=== PATIENT | female | born 1960 | race Caucasian/White ===

== ENCOUNTER 2020-09-16 04:10 | Inpatient (IN) | payer MEDICAID ==
[~2020-09-16] VITALS: Ht 162.6 cm; Wt 90.1 kg
[2020-09-16 04:28] LABS: BASOPHILS # (AUTO) 0.1 X10'3 (0-0.2); BASOPHILS % (AUTO) 0.6 % (0-1); EOSINOPHILS % (AUTO) 0.1 % (0-6); HEMATOCRIT 24.8 % (35.0-45.0); HEMOGLOBIN 8.2 g/dl (12.0-16.0); LYMPHOCYTES # (AUTO) 2.1 X10'3 (1.1-4.8); MEAN CORPUSCULAR HEMOGLOBIN 27.4 PG (27.0-31.0); MEAN CORPUSCULAR HGB CONC 33.1 g/dL (33.0-36.5); MEAN CORPUSCULAR VOLUME 82.6 FL (78-98); MONOCYTES # (AUTO) 0.5 X10'3 (0-0.9); NEUTROPHILS # (AUTO) 6.8 X10'3 (1.8-7.7); NEUTROPHILS % (AUTO) 72.3 % (42-75); PLATELET COUNT 325 X10'3 (140-440); RED BLOOD COUNT 3.01 X10'6 (4.20-5.60); RED CELL DISTRIBUTION WIDTH 14.6 % (11.5-14.5); WHITE BLOOD COUNT 9.4 X10'3 (4.5-11.0)
[2020-09-16] MEDS ORDERED: ATOR40TA PO (04:34)
[2020-09-16] MEDS ORDERED: CARV-50 PO (04:40)
[2020-09-16] MEDS ORDERED: METO5TAB98 PO (04:40)
[2020-09-16] MEDS ORDERED: INSU100V9 SUBCUT (04:40)
[2020-09-16] MEDS ORDERED: AMLO2.5T2 PO (04:40)
[2020-09-16] MEDS ORDERED: AMIT150T PO (04:40)
[2020-09-16] MEDS ORDERED: AMLO5TAB16 PO (04:40)
[2020-09-16] MEDS ORDERED: PANT40TA54 PO (04:40)
[2020-09-16 04:43] LABS: ALANINE AMINOTRANSFERASE 12 U/L (12-78); ALBUMIN 2.8 G/DL (3.4-5.0); ALBUMIN/GLOBULIN RATIO 0.7 (1.1-1.5); ALKALINE PHOSPHATASE 85 IU/L (46-116); ANION GAP 11 (8-16); ASPARTATE AMINO TRANSFERASE 8 U/L (10-37); BILIRUBIN,TOTAL 0.2 MG/DL (0.1-1.0); BLOOD UREA NITROGEN 72 MG/DL (7-18); BUN/CREATININE RATIO 13.9 (6.6-38.0); CHLORIDE 103 MMOL/L (99-107); CREATININE 5.17 MG/DL (0.40-0.90); GLUCOSE 162 MG/DL (70-104); POTASSIUM 5.1 MMOL/L (3.5-5.1); SODIUM 134 MMOL/L (135-145); TOTAL CARBON DIOXIDE 19.7 MMOL/L (24-32); TOTAL PROTEIN 7.1 G/DL (6.4-8.2); eGFR 9 ML/MIN
[2020-09-16] MEDS ORDERED: IRON45TA7 PO (04:45)
[2020-09-16 04:57] LABS: CLARITY,URINE CLOUDY (Clear); COLOR,URINE AMBER (Yellow); GLUCOSE, URINE NEGATIVE (Neg); KETONES,URINE NEGATIVE (Neg); LEUKOCYTE ESTERASE ,URINE MODERATE (Neg); NITRITES, URINE POSITIVE (Neg); OCCULT BLOOD,URINE LARGE (Neg); PROTEIN,URINE >=300 mg/dl (Neg)
[2020-09-16 05:00] LABS: UA COLLECTION TYPE STRAIGHT CATH
[2020-09-16 05:03] LABS: BACTERIA,URINE 3+ /HPF (Neg); RBC,URINE 20-50 /HPF (0-2); SQUAMOUS EPITHELIAL CELL,UR FEW /LPF (FEW); WBC,URINE TNTC /HPF (0-4)
--- NOTE | 2020-09-16 06:02 | NUR ---
DR PIEDRA AT BEDSIDE FOR ADMISSION. PTS WOUND TO RIGHT LOWER ABD HOTOGRAPHED, CULTURED AND REDRESSED. RASH TO BACK PHOTOGRAPHED AND REDRESSED WITH DRY ABD PADS (WHICH IS WHAT THE PT HAS BEEN USING). PTS , MICHAEL, AT BEDSIDE. PT WITH STABLE VS. MED REC COMPLETED.
[2020-09-16] MEDS ORDERED: morphine 2 MG/ML inj. syringe IV PRN (06:05)
[2020-09-16] MEDS ORDERED: acetaminophen 325mg tablet PO PRN (06:05)
[2020-09-16] MEDS ORDERED: ondansetron/PF 4mg/2ml inj IV PRN (06:05)
[2020-09-16] MEDS ORDERED: dextrose 50%-water 50ml dispensing syringe IV PRN ×2 (06:15)
[2020-09-16] MEDS ORDERED: glucagon, human recombinant 1mg kit SUBCUT PRN (06:15)
[2020-09-16] MEDS ORDERED: dextrose ORAL solution 15 GM/59 ML bottle PO PRN ×2 (06:15)
[2020-09-16] MEDS ORDERED: MESSAGE TO PHARMACY PO ONE (06:15)
[2020-09-16 06:56] LABS: HEMOGLOBIN A1C 4.8 % (4.5-6.2)
[2020-09-16] MEDS: docusate sod 100mg capsule PO SCH ×2 (08:00→19:21)
[2020-09-16] MEDS ORDERED: cefepime 1GM/NS ADD-VANTAGE 100 ML IV SCH (08:00)
[2020-09-16] MEDS: normal saline 1000ml 1,000 ML IV SCH (08:57)
[2020-09-16] MEDS: cefepime 1GM/NS ADD-VANTAGE 100 ML IV SCH (08:58)
--- NOTE | 2020-09-16 11:34 | NUR ---
Patient in room ED 16 will be admitted to PCU 3016B. I have received report from Fitz BUITRAGO and had the opportunity to ask questions and assume patient care.
[2020-09-16 12:46] VITALS: BP 175/66
--- NOTE | 2020-09-16 14:06 | NUR ---
Nutrition consult re: pt vegetarian with food preferences, pt seen by Dietary staff who obtained food preferences and will continue to follow up with patient. Addendum: 09/16/20 at [address] Amended: Links added.
[2020-09-16 15:00] VITALS: BP 151/70
[2020-09-16 18:00] VITALS: BP 159/67
[2020-09-16] MEDS ORDERED: METO5TAB85 PO (18:01)
--- NOTE | 2020-09-16 18:19 | NUR ---
Problems reprioritized. Patient report given, questions answered & plan of care reviewed with Rika BUITRAGO
--- NOTE | 2020-09-16 18:20 | NUR ---
Patient in room PCU 3016. I have received report from Lindsay BUITRAGO and had the opportunity to ask questions and assume patient care.
[2020-09-16] MEDS: lactobacillus rhamnosus 10,000 MMU CELLS/CAPSULE PO SCH (19:19)
[2020-09-16] MEDS: HYDROcodone/acetaminophen 5mg/325mg tablet PO PRN (19:21)
[2020-09-16] MEDS: insulin glargine (Lantus) pen - multi-dose SQ SCH (21:00)
--- NOTE | 2020-09-16 22:22 | NUR ---
3016B Ute Wright. Patient takes 150 mg of Amitriptyline HS at home for nerve pain. Can I get an order for it while she is here? It is in the med rec.Thank you. Meryl Dasilva RN
[2020-09-16] MEDS ORDERED: amitriptyline 50mg tablet PO ONE (23:45)
--- NOTE | 2020-09-16 23:45 | NUR ---
5038C U[address] Wright. Patient is nauseous and Zofran is not due for another 2 hours. Can I get an order for something else? Meryl Dasilva RN Ext [phone]
[2020-09-17] MEDS: ondansetron/PF 4mg/2ml inj IV PRN ×3 (00:28→08:53)
[2020-09-17 02:00] VITALS: BP 170/73
[2020-09-17 06:00] VITALS: BP 182/68
[2020-09-17 06:01] LABS: BASOPHILS % (AUTO) 0.4 % (0-1); EOSINOPHILS % (AUTO) 0 % (0-6); HEMATOCRIT 22.2 % (35.0-45.0); HEMOGLOBIN 7.4 g/dl (12.0-16.0); LYMPHOCYTES # (AUTO) 1.5 X10'3 (1.1-4.8); LYMPHOCYTES % (AUTO) 15.8 % (21-51); MEAN CORPUSCULAR HEMOGLOBIN 27.3 PG (27.0-31.0); MEAN CORPUSCULAR HGB CONC 33.1 g/dL (33.0-36.5); MEAN CORPUSCULAR VOLUME 82.3 FL (78-98); MEAN PLATELET VOLUME 6.4 FL (7.4-10.4); MONOCYTES # (AUTO) 0.5 X10'3 (0-0.9); MONOCYTES % (AUTO) 5.6 % (2-12); NEUTROPHILS # (AUTO) 7.3 X10'3 (1.8-7.7); NEUTROPHILS % (AUTO) 78.2 % (42-75); PLATELET COUNT 260 X10'3 (140-440); RED CELL DISTRIBUTION WIDTH 14.6 % (11.5-14.5); WHITE BLOOD COUNT 9.3 X10'3 (4.5-11.0)
--- NOTE | 2020-09-17 06:15 | NUR ---
Patient in room PCU 3016. I have received report from MEGHANN BUITRAGO and had the opportunity to ask questions and assume patient care.
[2020-09-17 06:19] LABS: ALBUMIN 2.5 G/DL (3.4-5.0); ANION GAP 13 (8-16); BLOOD UREA NITROGEN 65 MG/DL (7-18); BUN/CREATININE RATIO 13.3 (6.6-38.0); CALCIUM 9.6 MG/DL (8.5-10.1); CHLORIDE 105 MMOL/L (99-107); GLUCOSE 181 MG/DL (70-104); POTASSIUM 4.8 MMOL/L (3.5-5.1); SODIUM 137 MMOL/L (135-145); TOTAL CARBON DIOXIDE 19.5 MMOL/L (24-32); eGFR 9 ML/MIN
--- NOTE | 2020-09-17 06:30 | NUR ---
PATIENT REFUSED VS
--- NOTE | 2020-09-17 06:52 | NUR ---
Problems reprioritized. Patient report given, questions answered & plan of care reviewed with MINNA Montoya.
[2020-09-17] MEDS: lactobacillus rhamnosus 10,000 MMU CELLS/CAPSULE PO SCH ×2 (08:00→20:00)
[2020-09-17] MEDS: docusate sod 100mg capsule PO SCH ×2 (08:00→20:00)
[2020-09-17] MEDS: cefepime 1GM/NS ADD-VANTAGE 100 ML IV SCH (08:56)
--- NOTE | 2020-09-17 09:15 | NUR ---
PAGER ID: [phone] MESSAGE: [id number] Ute Wright: Patient had multiple episodes of emesis throughout the night, and once in AM, has orders for Zofran q4h prn, can we add another prn if Zofran not effective? thanks venus [phone]
[2020-09-17] MEDS: cloNIDine 0.1 mg tablet PO SCH ×3 (09:20→21:44)
--- NOTE | 2020-09-17 10:28 | NUR ---
received orders for reglan 10mg iv q6h prn for nausea per dr. guzman
[2020-09-17] MEDS: metoclopramide 5 mg/ml inj IV PRN (10:44)
--- NOTE | 2020-09-17 10:47 | NUR ---
Pt with a low Andrew of 11. Per physical assessment pt with left foot 1+ edema and skin is intact. Noted that wound care has been consulted for pseudomonas skin infection to right lower back per consult, pending [facility] assessment at this time. Pt on a vegetarian CHO controlled diet, recommend advancing to just vegetarian diet as pt with A1c 4.8%. Pt being seen by diet assistant for food preferences. Will continue to follow. Addendum: 09/17/20 at [address] Amended: Links added.
[2020-09-17 11:00] VITALS: BP 179/63
--- NOTE | 2020-09-17 13:14 | NUR ---
HELD LUNCH TIME HUMALOG DUE TO CONTINUOUS N/V. PATIENT IS REFUSING TO EAT, BLOOD SUGAR 164. WILL CONTINUE TO MONITOR.
--- NOTE | 2020-09-17 14:05 | NUR ---
DR. PEREIRA PAGED, PATIENT REFUSING DRESSING CHANGE ON BACK DUE TO NOT AT BEDSIDE. PAGER ID: [phone] MESSAGE: PATIENT ANGELO ROSADO. [id number] Krzysztof LOWERY, PATIENT REFUSING DRESSING CHANGE DUE TO NOT BEING AT BED SIDE. ADDI [facility] EX [id number]
[2020-09-17 15:00] VITALS: BP 168/70
--- NOTE | 2020-09-17 17:19 | NUR ---
patient noncompliant for 24 hour urine collection due to refusal to use a bedpan, patient states she had a traumatic injury as a child near hear sacrum that prevents the use of a bedpan, patient states she prefers to use a brief to void, willing to use a wicc however wicc would not be a valid method to collect for the 24hr urine collection, Flora PELAEZ notified and aware, will continue to monitor.
--- NOTE | 2020-09-17 17:40 | NUR ---
AMBER CATH IN PLACE Addendum: 09/17/20 at 1750 by Barby Salamanca RN Amended: Links added.
[2020-09-17 18:00] VITALS: BP 132/70
--- NOTE | 2020-09-17 18:24 | NUR ---
Orientee documentation: I have reviewed and agree with all interventions, assessments performed and documented by Leny BUITRAGO.
--- NOTE | 2020-09-17 18:30 | NUR ---
Patient in room PCU 3016. I have received report from LUPIS BUITRAGO and had the opportunity to ask questions and assume patient care.
[2020-09-17] MEDS: insulin Lispro (HumaLOG) vial - multi-dose SQ SCH (19:33)
[2020-09-17] MEDS: amitriptyline 50mg tablet PO SCH (21:43)
[2020-09-17 22:00] VITALS: BP 151/57
[2020-09-17] MEDS: insulin glargine (Lantus) pen - multi-dose SQ SCH (22:00)
[2020-09-17] MEDS ORDERED: amitriptyline 50mg tablet PO ONE (22:45)
[2020-09-18] VITALS (10 sets, daily range): BP systolic 130–194; BP diastolic 57–86
--- NOTE | 2020-09-18 06:00 | NUR ---
Patient in room PCU 3016. I have received report from Edwar BUITRAGO and had the opportunity to ask questions and assume patient care.
[2020-09-18 06:06] LABS: BASOPHILS % (AUTO) 0.5 % (0-1); EOSINOPHILS % (AUTO) 0.1 % (0-6); LYMPHOCYTES # (AUTO) 1.6 X10'3 (1.1-4.8); LYMPHOCYTES % (AUTO) 25.7 % (21-51); MEAN CORPUSCULAR HEMOGLOBIN 26.9 PG (27.0-31.0); MEAN CORPUSCULAR HGB CONC 33.1 g/dL (33.0-36.5); MEAN CORPUSCULAR VOLUME 81.1 FL (78-98); MEAN PLATELET VOLUME 6.5 FL (7.4-10.4); MONOCYTES # (AUTO) 0.5 X10'3 (0-0.9); MONOCYTES % (AUTO) 8.7 % (2-12); PLATELET COUNT 263 X10'3 (140-440); RED BLOOD COUNT 2.43 X10'6 (4.20-5.60); RED CELL DISTRIBUTION WIDTH 14.8 % (11.5-14.5); WHITE BLOOD COUNT 6.2 X10'3 (4.5-11.0)
[2020-09-18 06:12] LABS: HEMATOCRIT 19.8 % (35.0-45.0); HEMOGLOBIN 6.5 g/dl (12.0-16.0)
--- NOTE | 2020-09-18 06:26 | NUR ---
PAGED DR. PEDROZA AND INFORM CRITICAL HGB 6.5 AND HCT 19.8 WITH ORDER TO TRANSFUSE 2 UNITS OF PRBC.
[2020-09-18 06:37] LABS: ALBUMIN 2.1 G/DL (3.4-5.0); ANION GAP 12 (8-16); BLOOD UREA NITROGEN 66 MG/DL (7-18); BUN/CREATININE RATIO 12.9 (6.6-38.0); CALCIUM 9.1 MG/DL (8.5-10.1); CHLORIDE 106 MMOL/L (99-107); CREATININE 5.13 MG/DL (0.40-0.90); GLUCOSE 119 MG/DL (70-104); POTASSIUM 5.4 MMOL/L (3.5-5.1); SODIUM 137 MMOL/L (135-145); TOTAL CARBON DIOXIDE 18.9 MMOL/L (24-32); eGFR 9 ML/MIN
[2020-09-18] MEDS: HYDROcodone/acetaminophen 5mg/325mg tablet PO PRN (07:32)
[2020-09-18] MEDS: IRON,CARBONYL (45 MG ELEMENTAL IRON) SR.TABLET PO SCH (08:00)
[2020-09-18] MEDS: lactobacillus rhamnosus 10,000 MMU CELLS/CAPSULE PO SCH ×2 (09:23→20:05)
[2020-09-18] MEDS: docusate sod 100mg capsule PO SCH ×2 (09:23→20:00)
[2020-09-18] MEDS: pantoprazole 40mg Tablet.DR PO SCH (09:24)
[2020-09-18] MEDS: cefepime 1GM/NS ADD-VANTAGE 100 ML IV SCH (09:24)
[2020-09-18] MEDS: atorvastatin 20mg tablet PO SCH (09:24)
[2020-09-18] MEDS: cloNIDine 0.1 mg tablet PO SCH ×3 (09:24→20:27)
[2020-09-18] MEDS: normal saline 1000ml 1,000 ML IV SCH (09:25)
[2020-09-18] MEDS: insulin Lispro (HumaLOG) vial - multi-dose SQ SCH ×3 (09:35→19:23)
[2020-09-18] MEDS ORDERED: LIDOcaine 2% 10ml TOPICAL JELLY (Urojet) TP ONE (10:30)
[2020-09-18] MEDS: sodium polystyrene sulfonate 15gm/60ml oral suspension PO ONE ×2 (10:40→12:08)
[2020-09-18 11:27] LABS: % IRON SATURATION 24 % (11-46); FERRITIN 156 NG/ML (8-252); IRON 42 UG/DL (49-151); TOTAL IRON BINDING CAPACITY 176 UG/DL (259-388)
--- NOTE | 2020-09-18 11:34 | NUR ---
Patient refused iron until after lunch. I had to dispose of open med. Patient refusing patricia that was ordered by Flora for 24 hr urine. She said yesterday's straight cath inflamed her vagina
[2020-09-18] MEDS: sodium bicarbonate (8.4%) inj. 150 MEQ in dextrose 5%-water 1,000 ML IV SCH (12:08)
--- NOTE | 2020-09-18 12:09 | NUR ---
Nutrition consult re: DM wound and decreased appetite. Per physical assessment pt has documented vomiting and nausea, may be contributing to decreased appetite; receiving reglan, norco, and zofran. Dietary is visiting pt daily for food preferences. Pt has rash/maceration to upper back. 25% PO intake from 5 meals. Consumed fair amount for breakfast with 49 g carbohydrates. Will follow. Addendum: 09/18/20 at [address] Amended: Links added.
--- NOTE | 2020-09-18 12:19 | NUR ---
patient refusing kaexylate.due to upset stomach
--- NOTE | 2020-09-18 15:10 | NUR ---
During rounds received verbal order for occult stool test
--- NOTE | 2020-09-18 15:10 | NUR ---
Page Sent promotional table spacer PAGER ID: [phone] MESSAGE: [id number] Kyle. Ready to take wound pics for patient whenever you can make it over here. Mayra
--- NOTE | 2020-09-18 18:00 | NUR ---
Problems reprioritized. Patient report given, questions answered & plan of care reviewed with Ruiz BUITRAGO.
--- NOTE | 2020-09-18 18:30 | NUR ---
Patient in room PCU 3018W. I have received report from MINNA Nunez and had the opportunity to ask questions and assume patient care.
--- NOTE | 2020-09-18 18:50 | NUR ---
Patient had three incontinent episodes where wick did not catch urine. Patient now refusing wick bcause it was not working well for her. Patient and noncompliant and keep moving wick. Urine sample unable to be obtained from my shift. I spoke with lab earlier about sending sample of urine from wick but they did not want the sample with the collected urine due to time it had spent in the container. Wick container and system was completey changed to get appropriate sample.
[2020-09-18 20:00] LABS: CLARITY,URINE CLOUDY (Clear); COLOR,URINE YELLOW (Yellow); GLUCOSE, URINE 250 mg/dl (Neg); KETONES,URINE NEGATIVE (Neg); LEUKOCYTE ESTERASE ,URINE LARGE (Neg); NITRITES, URINE NEGATIVE (Neg); OCCULT BLOOD,URINE LARGE (Neg); PH,URINE 6.5 (4.8-8.0); PROTEIN,URINE 100 mg/dl (Neg); UROBILINOGEN,URINE 0.2 E.U/dL (0.2-1.0)
[2020-09-18 20:07] LABS: UA COLLECTION TYPE FOLEY CATH
[2020-09-18 20:08] LABS: BACTERIA,URINE FEW /HPF (Neg); SQUAMOUS EPITHELIAL CELL,UR FEW /LPF (FEW); WBC CLUMPS,URINE MODERATE /HPF (NEGATIVE); WBC,URINE TNTC /HPF (0-4)
[2020-09-18] MEDS: amitriptyline 50mg tablet PO SCH (20:33)
[2020-09-18 21:01] LABS: UA EOSINOPHILS NO EOS /HPF
[2020-09-18] MEDS: insulin glargine (Lantus) pen - multi-dose SQ SCH (22:05)
--- NOTE | 2020-09-18 23:50 | NUR ---
Patient complained of shortness of breath to PCT, upon assessing and asking her specifically for other symptoms - patient verbalized "its more wheezing than trouble breathing, I don't have any other symptoms." Lungs clear throughout anteriorly and laterally to auscultation. Patient refused respiratory interventions/treatment. Informed patient and family to let me know if symptoms worsen. Will continue to monitor.
[2020-09-19 00:13] LABS: HEMATOCRIT 26.9 % (35.0-45.0); HEMOGLOBIN 9.2 g/dl (12.0-16.0); MEAN CORPUSCULAR HEMOGLOBIN 27.4 PG (27.0-31.0); MEAN CORPUSCULAR HGB CONC 34.3 g/dL (33.0-36.5); MEAN CORPUSCULAR VOLUME 80.1 FL (78-98); MEAN PLATELET VOLUME 6.3 FL (7.4-10.4); PLATELET COUNT 259 X10'3 (140-440); RED BLOOD COUNT 3.36 X10'6 (4.20-5.60); RED CELL DISTRIBUTION WIDTH 15.1 % (11.5-14.5); WHITE BLOOD COUNT 10.3 X10'3 (4.5-11.0)
[2020-09-19] MEDS: sodium bicarbonate (8.4%) inj. 150 MEQ in dextrose 5%-water 1,000 ML IV SCH ×3 (00:28→21:10)
[2020-09-19] MEDS ORDERED: furosemide 20 MG/2 ML vial IV ONE (00:40)
[2020-09-19] MEDS ORDERED: morphine 2 MG/ML inj. syringe IV ONE ×2 (00:55→01:10)
[2020-09-19] MEDS: metoclopramide 5 mg/ml inj IV PRN ×2 (01:41→22:25)
[2020-09-19 02:00] VITALS: BP 179/84
[2020-09-19 02:13] LABS: BASOPHILS % (AUTO) 0.3 % (0-1); EOSINOPHILS % (AUTO) 0.2 % (0-6); HEMATOCRIT 26.2 % (35.0-45.0); HEMOGLOBIN 8.9 g/dl (12.0-16.0); LYMPHOCYTES # (AUTO) 1.5 X10'3 (1.1-4.8); LYMPHOCYTES % (AUTO) 16.2 % (21-51); MEAN CORPUSCULAR HEMOGLOBIN 27.2 PG (27.0-31.0); MEAN CORPUSCULAR HGB CONC 34.1 g/dL (33.0-36.5); MEAN CORPUSCULAR VOLUME 79.8 FL (78-98); MEAN PLATELET VOLUME 6.3 FL (7.4-10.4); MONOCYTES # (AUTO) 0.5 X10'3 (0-0.9); MONOCYTES % (AUTO) 5.9 % (2-12); NEUTROPHILS # (AUTO) 7.2 X10'3 (1.8-7.7); NEUTROPHILS % (AUTO) 77.4 % (42-75); PLATELET COUNT 254 X10'3 (140-440); RED BLOOD COUNT 3.28 X10'6 (4.20-5.60); RED CELL DISTRIBUTION WIDTH 15.1 % (11.5-14.5); WHITE BLOOD COUNT 9.3 X10'3 (4.5-11.0)
[2020-09-19 02:32] LABS: ALANINE AMINOTRANSFERASE 12 U/L (12-78); ALBUMIN 2.3 G/DL (3.4-5.0); ALBUMIN/GLOBULIN RATIO 0.6 (1.1-1.5); ALKALINE PHOSPHATASE 78 IU/L (46-116); ANION GAP 10 (8-16); ASPARTATE AMINO TRANSFERASE 9 U/L (10-37); BILIRUBIN,TOTAL 0.3 MG/DL (0.1-1.0); BLOOD UREA NITROGEN 65 MG/DL (7-18); BUN/CREATININE RATIO 13.9 (6.6-38.0); CALCIUM 8.4 MG/DL (8.5-10.1); CHLORIDE 101 MMOL/L (99-107); CREATININE 4.66 MG/DL (0.40-0.90); GLUCOSE 286 MG/DL (70-104); POTASSIUM 4.8 MMOL/L (3.5-5.1); SODIUM 132 MMOL/L (135-145); TOTAL CARBON DIOXIDE 21.5 MMOL/L (24-32); TOTAL PROTEIN 5.9 G/DL (6.4-8.2); eGFR 10 ML/MIN
[2020-09-19 03:26] LABS: ABG BASE EXCESS -3.9 mmol/L (-2.0-2.0); ABG HCO3 20.9 mmol/L (22.0-26.0); ABG OXYGEN SATURATION 95.5 % (94-97); ABG PCO2 (T) 36.7 mmHg (32.0-45.0); ABG PO2 (T) 79.6 mmHg (75.0-100.0); FCOHb 0.1 % (0.0-3.9); FMetHb 0.4 % (0.0-1.5); TOTAL HEMOGLOBIN 8.3 G/dl (12.0-16.0)
[2020-09-19 06:00] VITALS: BP 153/60
--- NOTE | 2020-09-19 06:19 | NUR ---
Problems reprioritized. Patient report given, questions answered & plan of care reviewed with MINNA Nunez.
--- NOTE | 2020-09-19 06:21 | NUR ---
Patient in room PCU 3016. I have received report from Purnima BUITRAGO and had the opportunity to ask questions and assume patient care.
[2020-09-19 07:00] VITALS: BP 153/60
[2020-09-19] MEDS: docusate sod 100mg capsule PO SCH ×3 (08:00→20:00)
[2020-09-19] MEDS: pantoprazole 40mg Tablet.DR PO SCH (08:25)
[2020-09-19] MEDS: atorvastatin 20mg tablet PO SCH (08:25)
[2020-09-19] MEDS: cefepime 1GM/NS ADD-VANTAGE 100 ML IV SCH (08:25)
[2020-09-19] MEDS: cloNIDine 0.1 mg tablet PO SCH ×3 (08:25→22:24)
[2020-09-19] MEDS: lactobacillus rhamnosus 10,000 MMU CELLS/CAPSULE PO SCH ×2 (08:26→20:00)
[2020-09-19] MEDS: IRON,CARBONYL (45 MG ELEMENTAL IRON) SR.TABLET PO SCH (08:26)
--- NOTE | 2020-09-19 08:54 | NUR ---
PATIENT REFUSED COLACE STATING THAT THE REGLAN TAKES CARE OF THAT FOR HER.
[2020-09-19] MEDS: insulin Lispro (HumaLOG) vial - multi-dose SQ SCH ×2 (10:11→20:04)
[2020-09-19 11:00] VITALS: BP 156/48
[2020-09-19] MEDS: ondansetron/PF 4mg/2ml inj IV PRN (14:51)
[2020-09-19 18:00] VITALS: BP 163/67
--- NOTE | 2020-09-19 18:26 | NUR ---
Problems reprioritized. Patient report given, questions answered & plan of care reviewed with Jade BUITRAGO.
--- NOTE | 2020-09-19 20:00 | NUR ---
PT REFUSED TO TAKE BALDWIN CATHETER OUT.
[2020-09-19 22:00] VITALS: BP 174/62
[2020-09-19] MEDS: amitriptyline 50mg tablet PO SCH (22:25)
[2020-09-19] MEDS: insulin glargine (Lantus) pen - multi-dose SQ SCH (22:32)
[2020-09-20] MEDS: ondansetron/PF 4mg/2ml inj IV PRN (00:39)
[2020-09-20 02:00] VITALS: BP 168/50
--- NOTE | 2020-09-20 03:00 | NUR ---
REPORT GIVEN TO Rema,ALL QUESTIONS ANSWERED.TRANSFERRED PT ALERT ,AWAKE PER BED WITH ALL HER BELONGINGS
--- NOTE | 2020-09-20 03:02 | NUR ---
Received report from MINNA Hansen. Awaiting patient arrival to the floor.
[2020-09-20] MEDS: sodium bicarbonate (8.4%) inj. 150 MEQ in dextrose 5%-water 1,000 ML IV SCH ×2 (03:37→20:28)
--- NOTE | 2020-09-20 03:49 | NUR ---
Informed patient that Lacy catheter was supposed to be taken out per MD order, she does not want it to be taken out at the moment as she haven't been able to get any sleep. Patient also refused skin check and physical assessment saying she wants to rest. Will attempt again later. Will continue to monitor.
--- NOTE | 2020-09-20 05:45 | NUR ---
Lacy Catheter discontinued. I have reviewed and agree with all interventions, assessments performed and documented by MINNA Hansen.
--- NOTE | 2020-09-20 06:43 | NUR ---
Problems reprioritized. Patient report given, questions answered & plan of care reviewed with MINNA Madden.
[2020-09-20 07:00] VITALS: BP 170/68
--- NOTE | 2020-09-20 07:03 | NUR ---
Patient in room SAM 354. I have received report from Purnima BUITRAGO and had the opportunity to ask questions and assume patient care.
[2020-09-20] MEDS ORDERED: levoFLOXACIN-Levaquin 250mg/D5 50 ML IV SCH (08:00)
[2020-09-20] MEDS: FERROUS SULFATE 142 MG TABLET.ER (45mg elemental) PO SCH (08:00)
[2020-09-20] MEDS: cloNIDine 0.1 mg tablet PO SCH ×3 (08:00→20:28)
[2020-09-20] MEDS ORDERED: normal saline 1000ml 100 ML IV PRN (08:30)
[2020-09-20] MEDS ORDERED: LIDOcaine 1%/PF 5ML 10 MG/ML VIAL ONE (08:30)
[2020-09-20] MEDS ORDERED: heparin 1,000unit/ml 10ml vial 10 ML ONE (08:30)
[2020-09-20] MEDS ORDERED: midazolam 2 mg/2 ml injection ONE (08:34)
[2020-09-20] MEDS ORDERED: fentaNYL/PF 50MCG/1 ML 2ML syringe ONE ×2 (08:35→09:22)
[2020-09-20] MEDS ORDERED: heparin 1,000 units/ml 10ml inj HE ONE ×2 (08:35→09:55)
[2020-09-20 11:00] VITALS: BP 154/58
[2020-09-20] MEDS: docusate sod 100mg capsule PO SCH ×2 (13:39→20:28)
[2020-09-20] MEDS: pantoprazole 40mg Tablet.DR PO SCH (13:39)
[2020-09-20] MEDS: lactobacillus rhamnosus 10,000 MMU CELLS/CAPSULE PO SCH ×2 (13:39→20:27)
[2020-09-20] MEDS: atorvastatin 20mg tablet PO SCH (13:40)
[2020-09-20] MEDS: insulin Lispro (HumaLOG) vial - multi-dose SQ SCH ×2 (13:45→20:37)
--- NOTE | 2020-09-20 16:54 | NUR ---
Malnutrition consult: PO intake 25-50% of carb controlled diet. RD internet database specialist met with patient at bedside. Pt reports low appetite r/t pain, hopefully food choices will . Reports ubw 170 lbs one year ago and reports unintentional wt loss since admit, current scaled wt 198 lbs, no wt loss. Edema in left foot +1 and muscle strength documented as severe weakness per physical assessment. Patient lacks a minimum of two criteria for malnutrition, no nutrition concerns at this time. Will continue to follow. Addendum: 09/20/20 at [address] Amended: Links added. Addendum: 09/20/20 at [address] RD agree with note
--- NOTE | 2020-09-20 18:05 | NUR ---
Patient in room SAM [facility] I have received report from MINNA Madden and had the opportunity to ask questions and assume patient care.
--- NOTE | 2020-09-20 18:30 | NUR ---
Problems reprioritized. Patient report given, questions answered & plan of care reviewed with Purnima BUITRAGO.
[2020-09-20] MEDS: HYDROcodone/acetaminophen 5mg/325mg tablet PO PRN (18:57)
--- NOTE | 2020-09-20 18:57 | NUR ---
Patient did not want nutritional correctional insulin coverage; she verbalized that she haven't eaten anything yet, and she plans to rest now and eat later. Will continue to assess patient needs, and monitor blood sugar levels.
[2020-09-20 20:00] VITALS: BP 194/77
[2020-09-20] MEDS: amitriptyline 50mg tablet PO SCH (20:27)
[2020-09-20] MEDS: insulin glargine (Lantus) pen - multi-dose SQ SCH (20:35)
[2020-09-21] VITALS: BP 165/60
[2020-09-21 05:53] LABS: BASOPHILS % (AUTO) 0.4 % (0-1); EOSINOPHILS % (AUTO) 0.2 % (0-6); HEMATOCRIT 22.4 % (35.0-45.0); HEMOGLOBIN 7.5 g/dl (12.0-16.0); LYMPHOCYTES # (AUTO) 1.4 X10'3 (1.1-4.8); LYMPHOCYTES % (AUTO) 20.5 % (21-51); MEAN CORPUSCULAR HEMOGLOBIN 26.8 PG (27.0-31.0); MEAN CORPUSCULAR HGB CONC 33.4 g/dL (33.0-36.5); MEAN CORPUSCULAR VOLUME 80.3 FL (78-98); MEAN PLATELET VOLUME 6.7 FL (7.4-10.4); MONOCYTES # (AUTO) 0.6 X10'3 (0-0.9); NEUTROPHILS # (AUTO) 4.8 X10'3 (1.8-7.7); NEUTROPHILS % (AUTO) 69.9 % (42-75); PLATELET COUNT 223 X10'3 (140-440); RED BLOOD COUNT 2.79 X10'6 (4.20-5.60); RED CELL DISTRIBUTION WIDTH 14.9 % (11.5-14.5); WHITE BLOOD COUNT 6.9 X10'3 (4.5-11.0)
[2020-09-21 05:55] LABS: ANION GAP 5 (8-16); BLOOD UREA NITROGEN 30 MG/DL (7-18); BUN/CREATININE RATIO 10.5 (6.6-38.0); CALCIUM 7.7 MG/DL (8.5-10.1); CHLORIDE 100 MMOL/L (99-107); CREATININE 2.87 MG/DL (0.40-0.90); GLUCOSE 209 MG/DL (70-104); POTASSIUM 3.8 MMOL/L (3.5-5.1); SODIUM 137 MMOL/L (135-145); TOTAL CARBON DIOXIDE 32.4 MMOL/L (24-32); eGFR 17 ML/MIN
--- NOTE | 2020-09-21 06:30 | NUR ---
Patient in room SAM 354. I have received report from Purnima BUITRAGO and had the opportunity to ask questions and assume patient care.
--- NOTE | 2020-09-21 06:35 | NUR ---
Problems reprioritized. Patient report given, questions answered & plan of care reviewed with MINNA Angulo.
--- NOTE | 2020-09-21 07:19 | NUR ---
I told patient with the present at bedside that Dr. Ervin ordered bladder scan 4 times a day and to straight if residual volume >400ml. Patient stated that she did not want a straight cath, I told her that we only need to do straight cath if we meet the parameter of >400ml per Dr. Ervin instruction. I explained to her that we need to find out if she is retaining urine inside her bladder, if so how much. I also instructed her to call us if she needs to urinate so we can offer a bedpan and be able to measure her urine accurately. Patient said she is incontinent of urine and that she is unable to get up to go to the bathroom.
[2020-09-21] MEDS: sodium bicarbonate (8.4%) inj. 150 MEQ in dextrose 5%-water 1,000 ML IV SCH ×2 (07:52→22:09)
[2020-09-21] MEDS: docusate sod 100mg capsule PO SCH ×2 (07:53→20:00)
[2020-09-21 08:00] VITALS: BP 169/59
[2020-09-21] MEDS ORDERED: cefepime 1GM/NS ADD-VANTAGE 100 ML IV SCH (08:00)
[2020-09-21] MEDS ORDERED: cefepime 2g/NS 100ml ADVANTAGE 100 ML IV SCH (08:00)
--- NOTE | 2020-09-21 08:11 | NUR ---
Bladder scan done, urine residual volume was 198ml. Patient has large amount of urine on the diaper. volunteered to clean up patient.
[2020-09-21] MEDS ORDERED: heparin 1,000unit/ml 10ml vial 10 ML IV ONE (09:40)
[2020-09-21] MEDS ORDERED: heparin 1,000 units/ml 10ml inj IV ONE (09:40)
[2020-09-21] MEDS ORDERED: epoetin 20,000 units/ml inj IV ONE (09:40)
[2020-09-21] MEDS ORDERED: heparin 1,000 units/ml 10ml inj HE ONE (09:45)
[2020-09-21] MEDS: FERROUS SULFATE 142 MG TABLET.ER (45mg elemental) PO SCH (10:33)
[2020-09-21] MEDS: lactobacillus rhamnosus 10,000 MMU CELLS/CAPSULE PO SCH ×2 (10:34→20:00)
[2020-09-21] MEDS: cloNIDine 0.1 mg tablet PO SCH ×3 (10:34→23:32)
[2020-09-21] MEDS: pantoprazole 40mg Tablet.DR PO SCH (10:34)
[2020-09-21] MEDS: atorvastatin 20mg tablet PO SCH (10:34)
[2020-09-21 11:00] VITALS: BP 183/69
[2020-09-21] MEDS: insulin Lispro (HumaLOG) vial - multi-dose SQ SCH ×3 (11:04→19:58)
--- NOTE | 2020-09-21 11:13 | NUR ---
I just gave her oral meds not too long ago as patient requested to delay her scheduled morning meds until after she finished her breakfast which was not finished until around 10:45am. I gave her 5 units of humalog to cover the correctional dose only as I am not sure how much carbohydrates she actually ate, her fed her and there were some outside food that was brought in as well as the food slip that comes with breakfast tray was missing.
--- NOTE | 2020-09-21 14:06 | NUR ---
infrastructure technicianChelo, stated the VL Arterial test was not completed due to "the pt became angry and combative". MINNA Angulo, notified.
--- NOTE | 2020-09-21 14:20 | NUR ---
I just spoke to the patient and the present at bedside after my charge nurse Farida told me that patient was not cooperative during bedside vascular study of her veins in preparation for AV fistula placement. Per patient and statement, the senior games technician was not doing what supposed to be doing. Patient states "I was told before that if I would have to have fistula, it should be on this arm(pointing on her left forearm)! They were checking my veins on the other arm" Patient currently has peripheral IV catheter on her left wrist so I told patient that may be the tech were checking the right arm because there is peripheral IV on the left arm. The patient and said they were frustrated because they did not expected that patient would need a fistula as a permanent dialysis catheter and that they wished Dr. Ervin would have at least talk to them first before ordering this procedure so they can decide. I advised patient to talk to Dr. Ervin when he comes back to her room probably tomorrow to discuss her concerns and answers her questions.
--- NOTE | 2020-09-21 14:27 | NUR ---
Nutrition Consult "pt/ bringing food from home/outside": Pt admit DX UTI, normocytic anemia, persistent nausea r/t UTI, uncontrolled blood pressure, SISSY, DM, and paraplegia hx per EMR. Hx DM reported IDDM though pt only takes Lantus at home per EMR and A1C 4.8? Now started on HD for CKD w/ positive 4.6L fluid balance at this time per EMR. Pt well-developed per EMR w/ BMI 34; very particular regarding care and food preferences and otherwise refuses care. Pt is seen daily by dietary for food preferences now liberalized to regular diet w/ vegetarian preferences honored. Noted pt is bringing in food from home and pt is also hoarding food at bedside so current PO 25% avg meals likely inaccurate of kcal intake this admit. Pt family welcome to bring in food from home on regular diet at this time as long as carb content is taken in to consideration and RN is notified so can properly cover Glu. LBM 09/20. Will continue to monitor. Rec: 1. continue regular diet; honor vegetarian preferences; consider carb controlled addition pending further Glu since eating most foods from outside 2. food from home per /pt preferences; monitor carb intake in order to accurately cover Glu 3. routine bowel care 4. monitor for additional protein needs on HD Addendum: 09/21/20 at [address] Amended: Links added.
--- NOTE | 2020-09-21 16:39 | NUR ---
Maryanne BUITRAGO did the bladder scan to the patient while I'm on my break. Per Maryanne, there was zero (0 ml) residual volume and that the diaper was soaking wet.
--- NOTE | 2020-09-21 17:11 | NUR ---
I called Dr. Ervin to let him know that the patient was not cooperative with the geotechnical department manager today with the procedure and that patient was frustrated because it was a surprise to her. Dr. Ervin replied to me and said "Let me give you an order - If the patient is uncooperative or refusing order, no need to let me know!". Telephone order was entered into the computer. Charge nurse Farida about this
--- NOTE | 2020-09-21 19:02 | NUR ---
Problems reprioritized. Patient report given, questions answered & plan of care reviewed with Pat RN.
[2020-09-21 19:30] VITALS: BP 158/48
--- NOTE | 2020-09-21 19:30 | NUR ---
has bilat footdrop; unable to flex foot Addendum: 09/22/20 at 0605 by Linda Merchant RN Amended: Links added.
--- NOTE | 2020-09-21 20:00 | NUR ---
at bedside; states that she had a great drop in her blood sugar with the last humalog dose; both pt and feel that 5 units is a more appropriate does to be given; medicated per request
[2020-09-21] MEDS: ondansetron/PF 4mg/2ml inj IV PRN (22:23)
[2020-09-21] MEDS: insulin glargine (Lantus) pen - multi-dose SQ SCH (22:34)
[2020-09-21 23:30] VITALS: BP 153/54
[2020-09-21] MEDS: amitriptyline 50mg tablet PO SCH (23:33)
--- NOTE | 2020-09-22 02:45 | NUR ---
had large incont of urine; no urine amt when bladder scanned Addendum: 09/22/20 at 0418 by Linda Merchant RN Amended: Links added.
--- NOTE | 2020-09-22 04:15 | NUR ---
pt feels like her blood sugar is low & request it to be checked; pt given a popsicle (with milk) per request last light; accucheck is at 260
[2020-09-22] MEDS: sodium bicarbonate (8.4%) inj. 150 MEQ in dextrose 5%-water 1,000 ML IV SCH ×2 (06:40→18:10)
[2020-09-22 07:16] VITALS: BP 159/60
--- NOTE | 2020-09-22 07:30 | NUR ---
Pt states "I"'m having troubled breathing and my oxygen saturation is too low, I want a Covid test now or I will go to outside legal. I know my rights." I explained that The doctor must order it. When questioned about other possible symptoms pt refused to answer stating "It's irrelevant.". Pt continues to be non-compliant with care and medications. Lungs sound clear, no cough noted. Pt in no visible respiratory distress.
[2020-09-22] MEDS ORDERED: epoetin 20,000 units/ml inj IV ONE (08:00)
[2020-09-22] MEDS ORDERED: heparin 1,000 units/ml 10ml inj HE ONE ×2 (08:00)
[2020-09-22] MEDS: docusate sod 100mg capsule PO SCH ×2 (08:00→20:00)
[2020-09-22] MEDS ORDERED: heparin 1,000unit/ml 10ml vial 10 ML IV ONE (08:00)
[2020-09-22] MEDS: FERROUS SULFATE 142 MG TABLET.ER (45mg elemental) PO SCH (09:00)
[2020-09-22] MEDS: pantoprazole 40mg Tablet.DR PO SCH (09:00)
[2020-09-22] MEDS: cloNIDine 0.1 mg tablet PO SCH ×3 (09:00→21:22)
[2020-09-22] MEDS: lactobacillus rhamnosus 10,000 MMU CELLS/CAPSULE PO SCH ×2 (09:00→21:22)
[2020-09-22] MEDS: atorvastatin 20mg tablet PO SCH (09:01)
[2020-09-22 09:48] LABS: HBSAG SCREEN Negative (Negative); HEP B CORE AB, TOT Negative (Negative)
[2020-09-22 10:21] LABS: ABG BASE EXCESS 11.5 mmol/L (-2.0-2.0); ABG HCO3 35.9 mmol/L (22.0-26.0); ABG OXYGEN SATURATION 94.3 % (94-97); ABG PCO2 (T) 47.9 mmHg (32.0-45.0); ABG PO2 (T) 67.3 mmHg (75.0-100.0); ALLEN'S TEST POSITIVE; FCOHb 0.8 % (0.0-3.9); FLOW 1 L/min; FMetHb 0.3 % (0.0-1.5); FO2Hb 93.3 % (94-97)
[2020-09-22] MEDS: insulin Lispro (HumaLOG) vial - multi-dose SQ SCH ×2 (10:26→19:13)
[2020-09-22 10:41] LABS: HEMATOCRIT 22.7 % (35.0-45.0); HEMOGLOBIN 7.6 g/dl (12.0-16.0); MEAN CORPUSCULAR HEMOGLOBIN 26.7 PG (27.0-31.0); MEAN CORPUSCULAR HGB CONC 33.2 g/dL (33.0-36.5); MEAN CORPUSCULAR VOLUME 80.2 FL (78-98); MEAN PLATELET VOLUME 6.2 FL (7.4-10.4); PLATELET COUNT 201 X10'3 (140-440); RED BLOOD COUNT 2.83 X10'6 (4.20-5.60); WHITE BLOOD COUNT 7.6 X10'3 (4.5-11.0)
[2020-09-22 12:01] VITALS: BP 157/48
[2020-09-22] MEDS: HYDROcodone/acetaminophen 5mg/325mg tablet PO PRN ×2 (12:17→22:41)
--- NOTE | 2020-09-22 16:35 | NUR ---
Pt refusing to turn at this time for wound care. Addendum: 09/22/20 at 1636 by Kelli Busby RN Amended: Links added.
[2020-09-22 18:00] VITALS: BP 175/66
--- NOTE | 2020-09-22 18:35 | NUR ---
Patient in room SAM 354. I have received report from MINNA Pereira and had the opportunity to ask questions and assume patient care. Pt alert and oriented, dinner in room and multiple food items. pt not done with dinner. No complaints, spouse at bedside answered all questions at this time. Addendum: 09/22/20 at 1908 by Manuela Torres RN Amended: Links added.
--- NOTE | 2020-09-22 18:45 | NUR ---
Problems reprioritized. Patient report given, questions answered & plan of care reviewed with MINNA Sauer.
--- NOTE | 2020-09-22 20:00 | NUR ---
Pt refuses full assessment, refuses wound care dressing changes. refuses to turn with nursing. states spouse does all personal care. Pt states she does want a complete linen change and dressing to back changed, but states "not now, I need to rest" pt instructed to notify nursing when she is ready to have linen changed, turn and have dressing changed. Pt ansd spouse both state they will le "let us know" Addendum: 09/23/20 at 1621 by Manuela Torres RN Amended: Links added.
--- NOTE | 2020-09-22 21:10 | NUR ---
Pt refused dinner, pt and spouse have multiple food items in room and food stored in refrigerator. ordered corn and Dr. Ortiz through kitchen, but did not get. Pt is upset and says "I need to eat and have protein" Spouse says she need something to drink and she wants "Dr. Ortiz" both pt and spouse appear upset. Dr. Ortiz purchased for pt. Pt refuses Diet and states only drinks regular. Pt also resistive to care, assessment done, but refused to turn and have complete assessment done. refuses to have any dressings changed. Pt states would like to have dressings changed and complete bed change, but "not now" "I need to rest" Pt and spouse state they will call nursing and let us know when she is ready to be changed and turned. Pt spouse does reposition patient and assist with personal care. Pt states spouse is also given her massages. Sc's wer off, but now on per pt request. Addendum: 09/23/20 at 0145 by Manuela Torres RN Amended: Links added.
[2020-09-22] MEDS: insulin glargine (Lantus) pen - multi-dose SQ SCH (21:14)
[2020-09-22] MEDS: amitriptyline 50mg tablet PO SCH (21:22)
--- NOTE | 2020-09-22 23:30 | NUR ---
Oxygen and pulse ox on per pt request. states "I need oxygen at night" Addendum: 09/23/20 at 0147 by Manuela Torres RN Amended: Links added.
--- NOTE | 2020-09-22 23:30 | NUR ---
Pt is repositioning spouse. Addendum: 09/23/20 at 0147 by Manuela Torres RN Amended: Links added.
[2020-09-22 23:31] VITALS: BP 177/67
--- NOTE | 2020-09-23 05:20 | NUR ---
resting with eyes closed rr wnl, spouse sleeping in recliner. continuous pulse ox sat 95%. No complaints. Addendum: 09/23/20 at 0521 by Manuela Torres RN Amended: Links added.
[2020-09-23] MEDS: sodium bicarbonate (8.4%) inj. 150 MEQ in dextrose 5%-water 1,000 ML IV SCH (05:40)
--- NOTE | 2020-09-23 06:35 | NUR ---
Problems reprioritized. Patient report given, questions answered & plan of care reviewed with MINNA Angulo. Addendum: 09/23/20 at 0655 by Manuela Torres RN Amended: Links added.
--- NOTE | 2020-09-23 06:50 | NUR ---
Patient in room SAM 354. I have received report from Cristiane BUITRAGO and had the opportunity to ask questions and assume patient care.
[2020-09-23 07:00] VITALS: BP 169/50
[2020-09-23] MEDS ORDERED: epoetin 20,000 units/ml inj IV ONE (09:05)
[2020-09-23] MEDS ORDERED: heparin 1,000unit/ml 10ml vial 10 ML IV ONE (09:05)
[2020-09-23] MEDS ORDERED: heparin 1,000 units/ml 10ml inj IV ONE (09:05)
[2020-09-23] MEDS ORDERED: heparin 1,000 units/ml 10ml inj HE ONE (09:10)
[2020-09-23 09:27] LABS: BASOPHILS % (AUTO) 0.5 % (0-1); EOSINOPHILS % (AUTO) 0.1 % (0-6); HEMATOCRIT 24.5 % (35.0-45.0); LYMPHOCYTES # (AUTO) 1.3 X10'3 (1.1-4.8); LYMPHOCYTES % (AUTO) 19.6 % (21-51); MEAN CORPUSCULAR HEMOGLOBIN 26.6 PG (27.0-31.0); MEAN CORPUSCULAR HGB CONC 32.9 g/dL (33.0-36.5); MEAN PLATELET VOLUME 6.2 FL (7.4-10.4); MONOCYTES # (AUTO) 0.6 X10'3 (0-0.9); NEUTROPHILS # (AUTO) 4.7 X10'3 (1.8-7.7); NEUTROPHILS % (AUTO) 70.8 % (42-75); PLATELET COUNT 240 X10'3 (140-440); RED BLOOD COUNT 3.02 X10'6 (4.20-5.60); WHITE BLOOD COUNT 6.7 X10'3 (4.5-11.0)
--- NOTE | 2020-09-23 09:32 | NUR ---
Patient just started eating her breakfast, she requested to delay taking her morning meds until after she finished eating. I also told patient that she will need to qualify for home O2 if she wants it and that her O2 sat must be low <88% to qualify for home O2. Patient and the at bedside verbalized understanding
[2020-09-23 09:43] LABS: ALANINE AMINOTRANSFERASE 11 U/L (12-78); ALBUMIN 2.1 G/DL (3.4-5.0); ALBUMIN/GLOBULIN RATIO 0.6 (1.1-1.5); ALKALINE PHOSPHATASE 68 IU/L (46-116); ANION GAP 5 (8-16); ASPARTATE AMINO TRANSFERASE 7 U/L (10-37); BILIRUBIN,TOTAL 0.3 MG/DL (0.1-1.0); BLOOD UREA NITROGEN 18 MG/DL (7-18); BUN/CREATININE RATIO 7.1 (6.6-38.0); CALCIUM 8.4 MG/DL (8.5-10.1); CHLORIDE 104 MMOL/L (99-107); CREATININE 2.53 MG/DL (0.40-0.90); GLUCOSE 114 MG/DL (70-104); POTASSIUM 3.8 MMOL/L (3.5-5.1); SODIUM 141 MMOL/L (135-145); TOTAL CARBON DIOXIDE 31.6 MMOL/L (24-32); TOTAL PROTEIN 5.7 G/DL (6.4-8.2); eGFR 19 ML/MIN
[2020-09-23] MEDS: FERROUS SULFATE 142 MG TABLET.ER (45mg elemental) PO SCH (10:43)
[2020-09-23] MEDS: docusate sod 100mg capsule PO SCH ×2 (10:43→20:00)
[2020-09-23] MEDS: pantoprazole 40mg Tablet.DR PO SCH (10:45)
[2020-09-23] MEDS: cloNIDine 0.1 mg tablet PO SCH ×3 (10:46→21:55)
[2020-09-23] MEDS: atorvastatin 20mg tablet PO SCH (10:46)
[2020-09-23] MEDS: lactobacillus rhamnosus 10,000 MMU CELLS/CAPSULE PO SCH ×2 (10:46→21:52)
[2020-09-23 11:00] VITALS: BP 160/55
[2020-09-23] MEDS: insulin Lispro (HumaLOG) vial - multi-dose SQ SCH (13:22)
--- NOTE | 2020-09-23 17:58 | NUR ---
Patient has been satting between 96-100% on 1 lpm/nc although occasionally she said she's short of breath.
[2020-09-23 18:15] VITALS: BP 160/57
--- NOTE | 2020-09-23 18:49 | NUR ---
Problems reprioritized. Patient report given, questions answered & plan of care reviewed with Milli BUITRAGO.
--- NOTE | 2020-09-23 18:51 | NUR ---
Problems reprioritized. Patient report given, questions answered & plan of care reviewed with Milli BUITRAGO.
--- NOTE | 2020-09-23 19:00 | NUR ---
Patient in room SAM 354. I have received report from MINNA Angulo and had the opportunity to ask questions and assume patient care.
[2020-09-23] MEDS: insulin glargine (Lantus) pen - multi-dose SQ SCH (21:47)
[2020-09-23] MEDS: HYDROcodone/acetaminophen 5mg/325mg tablet PO PRN (21:51)
[2020-09-23] MEDS: amitriptyline 50mg tablet PO SCH (21:52)
[2020-09-24 00:15] VITALS: BP 133/62
[2020-09-24 05:36] LABS: ALANINE AMINOTRANSFERASE 8 U/L (12-78); ALBUMIN 1.9 G/DL (3.4-5.0); ALBUMIN/GLOBULIN RATIO 0.6 (1.1-1.5); ALKALINE PHOSPHATASE 66 IU/L (46-116); ANION GAP 6 (8-16); ASPARTATE AMINO TRANSFERASE 10 U/L (10-37); BILIRUBIN,TOTAL 0.2 MG/DL (0.1-1.0); BLOOD UREA NITROGEN 24 MG/DL (7-18); BUN/CREATININE RATIO 7.4 (6.6-38.0); CALCIUM 8.1 MG/DL (8.5-10.1); CHLORIDE 100 MMOL/L (99-107); CREATININE 3.24 MG/DL (0.40-0.90); GLUCOSE 176 MG/DL (70-104); POTASSIUM 4.3 MMOL/L (3.5-5.1); SODIUM 137 MMOL/L (135-145); TOTAL PROTEIN 5.2 G/DL (6.4-8.2); eGFR 15 ML/MIN
[2020-09-24 05:53] LABS: BASOPHILS % (AUTO) 0.4 % (0-1); EOSINOPHILS % (AUTO) 0.2 % (0-6); HEMOGLOBIN 7.5 g/dl (12.0-16.0); LYMPHOCYTES # (AUTO) 1.7 X10'3 (1.1-4.8); LYMPHOCYTES % (AUTO) 23.7 % (21-51); MEAN CORPUSCULAR HEMOGLOBIN 26.8 PG (27.0-31.0); MEAN CORPUSCULAR HGB CONC 32.8 g/dL (33.0-36.5); MEAN CORPUSCULAR VOLUME 81.6 FL (78-98); MEAN PLATELET VOLUME 6.6 FL (7.4-10.4); MONOCYTES # (AUTO) 0.6 X10'3 (0-0.9); MONOCYTES % (AUTO) 8.1 % (2-12); NEUTROPHILS # (AUTO) 4.9 X10'3 (1.8-7.7); NEUTROPHILS % (AUTO) 67.6 % (42-75); PLATELET COUNT 270 X10'3 (140-440); RED BLOOD COUNT 2.81 X10'6 (4.20-5.60); RED CELL DISTRIBUTION WIDTH 15.3 % (11.5-14.5); WHITE BLOOD COUNT 7.3 X10'3 (4.5-11.0)
[2020-09-24 07:00] VITALS: BP 146/70
[2020-09-24] MEDS ORDERED: heparin 1,000unit/ml 10ml vial 10 ML IV ONE (08:05)
[2020-09-24] MEDS ORDERED: heparin 1,000 units/ml 10ml inj HE ONE ×2 (08:10)
[2020-09-24] MEDS ORDERED: epoetin 20,000 units/ml inj IV ONE (08:30)
--- NOTE | 2020-09-24 11:13 | NUR ---
Patient in room SAM 354. I have received report from Milli BUITRAGO and had the opportunity to ask questions and assume patient care.
[2020-09-24 12:00] VITALS: BP 122/51
--- NOTE | 2020-09-24 12:30 | NUR ---
Pt was assessed and I agree with her findings. Skin is clear, redness on her penes non yeasty. Pt wearing a diaper, refusing to take it off. describes himself as the assisted living care manager and this is what he does. he also refused to take it off.
--- NOTE | 2020-09-24 18:00 | NUR ---
Pt Dc to home. Pt's discharge documents reviews, agreed and signed by pt. Pt is A & O x4, pt verbalizes understanding of ALL Dc orders. Pt not on agreement of mode of transportation and/or the fact that she decided to wear o2 at home when she sleeps. Pt and her expressed that no one asked them what they needed before they were DC. Pt refused to sit in her wheelchair to be transported home. Also wants someone to use a slider to transfer her to her bed once she is home from the [facility]. Even tough, the DC paper were sign, IV cath removed and pt Discharge, pt refusing to be go home until her demands were met. Charge nurse was informed and asked to call case management to speak to pt and . House sup. Alejandra was notified and asked to come speak to pt. Change nurse, House sup, and myself went into the room to speak to pt and . Pt and notified of the admit notes, P.T notes where clearly states pt is wheelchair bound and her is the human services care specialist whom performs all transfers and care. pt refused, stated those were lies and her needs were not being met. She continue to get lauder and interruption who ever was speaking and being rude. Pt was very angry, security was called and waiting outside the room. House sup, made arrangements for pt to be transported via [employer]. [employer] picked up patient and transported her home via [employer]. made 4 trips to his car transporting all of their belongings to his car. pt refused her daily meds and her insulin as she was sipping on pineapple juice her was giving her. I educated her on the amount of sugar she was ingesting and she stated her kidney dr told her she could eat everything she wanted. Pt loaded and left.
== END 2020-09-24 18:00 | disposition home or self-care (01) | DRG 469 ==
LOC: ER 04:11 → ED HOLD 06:05 → UNDOADMIN 06:05 → PCU 3S 11:58 → ED HOLD 11:58 → SUR 3N 09-20 03:26
PROVIDERS: ADMIT Internal Medicine; ATTEND Internal Medicine
PROC: 30233N1 Transfusion of Nonautologous Red Blood Cells into Peripheral Vein, Percutaneous Approach (ICD-10-PCS; 2020-09-18)
PROC: CT131ZZ Planar Nuclear Medicine Imaging of Kidneys, Ureters and Bladder using Technetium 99m (Tc-99m) (ICD-10-PCS; 2020-09-19)
PROC: 0JH63XZ Insertion of Tunneled Vascular Access Device into Chest Subcutaneous Tissue and Fascia, Percutaneous Approach (ICD-10-PCS; principal; 2020-09-20)
PROC: 02HV33Z Insertion of Infusion Device into Superior Vena Cava, Percutaneous Approach (ICD-10-PCS; 2020-09-20)
PROC: B5181ZA Fluoroscopy of Superior Vena Cava using Low Osmolar Contrast, Guidance (ICD-10-PCS; 2020-09-20)
PROC: B548ZZA Ultrasonography of Superior Vena Cava, Guidance (ICD-10-PCS; 2020-09-20)
PROC: 5A1D70Z Performance of Urinary Filtration, Intermittent, Less than 6 Hours Per Day (ICD-10-PCS; 2020-09-20)
PROC: 5A1D70Z Performance of Urinary Filtration, Intermittent, Less than 6 Hours Per Day (ICD-10-PCS; 2020-09-22)
PROC: 5A1D70Z Performance of Urinary Filtration, Intermittent, Less than 6 Hours Per Day (ICD-10-PCS; 2020-09-24)
DX: N17.9 Acute kidney failure, unspecified (principal); N39.0 Urinary tract infection, site not specified; B96.5 Pseudomonas (aeruginosa) (mallei) (pseudomallei) as the cause of diseases classified elsewhere; D64.9 Anemia, unspecified; E11.22 Type 2 diabetes mellitus with diabetic chronic kidney disease; E87.2 Acidosis; E87.5 Hyperkalemia; N93.9 Abnormal uterine and vaginal bleeding, unspecified; B95.61 Methicillin susceptible Staphylococcus aureus infection as the cause of diseases classified elsewhere; E43 Unspecified severe protein-calorie malnutrition; G47.00 Insomnia, unspecified; M21.372 Foot drop, left foot; M35.00 Sjogren syndrome, unspecified; M21.371 Foot drop, right foot; I13.2 Hypertensive heart and chronic kidney disease with heart failure and with stage 5 chronic kidney disease, or end stage renal disease; I50.813 Acute on chronic right heart failure; J96.01 Acute respiratory failure with hypoxia; E78.5 Hyperlipidemia, unspecified; K21.9 Gastro-esophageal reflux disease without esophagitis; L08.9 Local infection of the skin and subcutaneous tissue, unspecified; N18.6 End stage renal disease; N27.1 Small kidney, bilateral; Z79.4 Long term (current) use of insulin; Z88.8 Allergy status to other drugs, medicaments and biological substances; Z68.34 Body mass index [BMI] 34.0-34.9, adult
CPT/HCPCS: 36415; 36430; 36558; 36600; 71045; 76775; 76937; 78707; 80048; 80053; 81001; 82570; 82728; 82803; 82948; 83036; 83540; 83550; 84100; 84156; 84300; 84560; 85018; 85025; 85027; 86704; 86706; 86870; 86885; 86900; 86901; 86902; 86905; 86920; 86922; 87040; 87070; 87077; 87081; 87186; 87207; 87340; 93971; 96365; 99152; 99153; 99285; A9270; A9562; C1750; C1769; C1894; G0378; J0692; J1644; J1815; J2250; J2270; J2405; J2765; J3010; J7030; J8597; P9016; Q4081

== ENCOUNTER 2020-11-01 05:51 | Inpatient (IN) | payer MEDICAID ==
[2020-11-01] VITALS (11 sets, daily range): BP systolic 107–178; BP diastolic 42–65
[~2020-11-01] VITALS: Ht 162.6 cm; Wt 88.6 kg
[~2020-11-01 05:51] MED LIST: AMIT150T PO; AMLO5TAB16 PO; ATOR40TA PO; INSU100V9 SUBCUT; IRON45TA7 PO; METO5TAB85 PO; METO5TAB98 PO; PANT40TA54 PO
[2020-11-01] MEDS ORDERED: SYRI1DIS (06:09)
[2020-11-01 06:10] LABS: BASOPHILS % (AUTO) 0.4 % (0-1); EOSINOPHILS % (AUTO) 0 % (0-6); LYMPHOCYTES # (AUTO) 1.5 X10'3 (1.1-4.8); MEAN CORPUSCULAR VOLUME 82.3 FL (78-98); MEAN PLATELET VOLUME 6.3 FL (7.4-10.4); MONOCYTES # (AUTO) 0.6 X10'3 (0-0.9); MONOCYTES % (AUTO) 7.1 % (2-12); NEUTROPHILS # (AUTO) 6.8 X10'3 (1.8-7.7); NEUTROPHILS % (AUTO) 75.5 % (42-75); PLATELET COUNT 298 X10'3 (140-440); RED BLOOD COUNT 1.95 X10'6 (4.20-5.60); RED CELL DISTRIBUTION WIDTH 16.7 % (11.5-14.5)
[2020-11-01] MEDS ORDERED: CLON0.3T36 PO (06:10)
[2020-11-01] MEDS ORDERED: METO5TAB85 PO (06:10)
[2020-11-01] MEDS ORDERED: LANS30CA56 PO (06:11)
[2020-11-01 06:12] LABS: HEMATOCRIT 16.1 % (35.0-45.0); HEMOGLOBIN 5.5 g/dl (12.0-16.0)
[2020-11-01 06:24] LABS: ALANINE AMINOTRANSFERASE 14 U/L (12-78); ALBUMIN 2.6 G/DL (3.4-5.0); ALBUMIN/GLOBULIN RATIO 0.7 (1.1-1.5); ALKALINE PHOSPHATASE 83 IU/L (46-116); ANION GAP 16 (8-16); ASPARTATE AMINO TRANSFERASE 6 U/L (10-37); BILIRUBIN,TOTAL 0.4 MG/DL (0.1-1.0); BLOOD UREA NITROGEN 93 MG/DL (7-18); BUN/CREATININE RATIO 14.2 (6.6-38.0); CALCIUM 9.7 MG/DL (8.5-10.1); CHLORIDE 103 MMOL/L (99-107); CREATININE 6.53 MG/DL (0.40-0.90); GLUCOSE 102 MG/DL (70-104); POTASSIUM 4.8 MMOL/L (3.5-5.1); SODIUM 135 MMOL/L (135-145); TOTAL CARBON DIOXIDE 15.8 MMOL/L (24-32); TOTAL PROTEIN 6.5 G/DL (6.4-8.2); eGFR 7 ML/MIN
[2020-11-01] MEDS ORDERED: normal saline 1000ml 250 ML IV PRN (07:40)
[2020-11-01] MEDS ORDERED: acetaminophen 325mg tablet PO PRN (07:40)
[2020-11-01] MEDS ORDERED: ondansetron/PF 4mg/2ml inj IV PRN (07:40)
[2020-11-01] MEDS ORDERED: epoetin 20,000 units/ml inj IV ONE (07:40)
[2020-11-01] MEDS ORDERED: heparin 1,000unit/ml 10ml vial 10 ML IV ONE (07:40)
[2020-11-01] MEDS ORDERED: heparin 1,000 units/ml 10ml inj HE ONE ×2 (07:45)
[2020-11-01] MEDS: amLODIPine 5mg tablet PO SCH ×2 (08:00→21:08)
[2020-11-01] MEDS: heparin, porcine 5000 units/ml vial SQ SCH ×2 (08:00→20:00)
[2020-11-01] MEDS: docusate sod 100mg capsule PO SCH ×2 (08:00→20:00)
[2020-11-01] MEDS: atorvastatin 20mg tablet PO SCH (08:00)
[2020-11-01] MEDS ORDERED: IRON,CARBONYL (45 MG ELEMENTAL IRON) SR.TABLET PO SCH (08:00)
[2020-11-01] MEDS: cloNIDine 0.1 mg tablet PO SCH ×2 (08:04→21:07)
--- NOTE | 2020-11-01 09:41 | NUR ---
Pt refused to get into hospital gown stating they make her too hot. Pt in home purchased "hospital gown", that is open in the back
--- NOTE | 2020-11-01 10:00 | NUR ---
Patient arrived to [facility] 316 and was transferred from ED [facility] to hospital bed. Oriented to room and to call light. Vital signs: T 97.9 oral, HR 88, 02: 96% on RA, RR 20, BP 121/42. Pain 6/10. 2 RN skin check performed and photos taken for chart. All immediate needs met at this time.
[2020-11-01 10:27] LABS: % IRON SATURATION 12 % (11-46); IRON 22 UG/DL (49-151); TOTAL IRON BINDING CAPACITY 189 UG/DL (259-388)
--- NOTE | 2020-11-01 11:00 | NUR ---
Patient's spouse in lobby and sent up 3 bags of refrigerated grocery items with request to store in hospital refrigerator. These food bags were soiled and not able to be accepted. Bagged up in red bags and returned front end ui developer to return to . Notified social services counselor of delivery.
--- NOTE | 2020-11-01 11:04 | NUR ---
Patient provided me a printed document with formal request to have present during this hospital admission. Patient states she is disabled and that it is her legal right to have her primary caregiver, her present 03/06 during this admission. Notified social group workerLory of document and she will discuss with administration.
--- NOTE | 2020-11-01 12:19 | NUR ---
Notified Dr. Hurt troponin 0.22. No new orders at this time.
[2020-11-01] MEDS: HYDROcodone/acetaminophen 10/325mg tab PO PRN ×2 (12:37→16:56)
--- NOTE | 2020-11-01 13:54 | NUR ---
Spoke with Natalya at [facility] regarding patient's request to have present during this hospital admission. Upated Natalya on patient's medical plan of care. Referred Natalya to Case Management Maritza x [phone]. Maritza will contact this individual.
--- NOTE | 2020-11-01 15:00 | NUR ---
Patient notified RN that she needed to have bowel movement. Offered patient bedpan as she was in the middle of her dialysis treatment. Patient refused bedpan and stated "I just poop in the bed at home. My puts chux down for me and I just go so that is what I want to do." Patient said that the bedpan is not comfortable for her and hurts her back and that she "didn't care if it caused more work for the RN to clean her up." Patient said she would wait to have bowel movement at this time.
[2020-11-01] MEDS ORDERED: ferrous sulfate 325mg tablet PO SCH (15:26)
--- NOTE | 2020-11-01 15:30 | NUR ---
HD RN present and called for RN help. Patient was in bed yelling out in pain stating she "had to GET THIS OUT OF MY BUTT." Patient was having a large bowel movement and would not allow RN to put patient on bedpan. Patient said the pain was unbearable and sat up on her own momentum to side of bed. She swung her legs over with no assistance and grabbed the side rail of the bed. Patient sat in this position for several minutes while she continued to expel stool from her rectum. Patient was actively trying to get out of the bed on her own and stand. RN helped the patient back in to bed and she continued to expel stool from her rectum. RN cleaned patient up and changed bed linen with assistance of PCT. Patient stated she was constipated and hadn't had bowel movement in several days yet she declined to accept ordered PO 100 mg colace this morning. Will continue to monitor patient.
[2020-11-01 17:20] LABS: OCCULT BLOOD STOOL NEGATIVE (Neg)
--- NOTE | 2020-11-01 18:00 | NUR ---
Patient in room PCU 3028. I have received report from JASMYN BUITRAGO and had the opportunity to ask questions and assume patient care.
--- NOTE | 2020-11-01 18:15 | NUR ---
PATIENT REFUSED TO HAVE 12 HOUR TROP DRAWN. PATIENT WAS EDUCATED ON RISKS OF REFUSING LAB TEST.
--- NOTE | 2020-11-01 18:39 | NUR ---
Problems reprioritized. Patient report given, questions answered & plan of care reviewed with MINNA Michele. Patient receiving blood at change of shift. VS stable. Patient stable at transfer of care.
[2020-11-01] MEDS: insulin glargine (Lantus) pen - multi-dose SQ SCH (20:00)
[2020-11-01] MEDS ORDERED: amitriptyline 50mg tablet PO SCH (21:00)
[2020-11-01] MEDS ORDERED: proCHLORperazine 5mg tablet PO ONE (23:55)
[2020-11-02 01:14] LABS: BASOPHILS % (AUTO) 0.3 % (0-1); EOSINOPHILS % (AUTO) 0.1 % (0-6); HEMATOCRIT 25.9 % (35.0-45.0); HEMOGLOBIN 8.6 g/dl (12.0-16.0); LYMPHOCYTES # (AUTO) 1.2 X10'3 (1.1-4.8); LYMPHOCYTES % (AUTO) 9.9 % (21-51); MEAN CORPUSCULAR HEMOGLOBIN 27.4 PG (27.0-31.0); MEAN CORPUSCULAR HGB CONC 33.3 g/dL (33.0-36.5); MEAN CORPUSCULAR VOLUME 82.4 FL (78-98); MEAN PLATELET VOLUME 6.3 FL (7.4-10.4); MONOCYTES # (AUTO) 0.8 X10'3 (0-0.9); MONOCYTES % (AUTO) 7.2 % (2-12); NEUTROPHILS # (AUTO) 9.8 X10'3 (1.8-7.7); NEUTROPHILS % (AUTO) 82.5 % (42-75); PLATELET COUNT 284 X10'3 (140-440); RED BLOOD COUNT 3.14 X10'6 (4.20-5.60); RED CELL DISTRIBUTION WIDTH 18.4 % (11.5-14.5); WHITE BLOOD COUNT 11.8 X10'3 (4.5-11.0)
[2020-11-02 01:24] LABS: ALANINE AMINOTRANSFERASE 13 U/L (12-78); ALBUMIN 2.5 G/DL (3.4-5.0); ALBUMIN/GLOBULIN RATIO 0.7 (1.1-1.5); ALKALINE PHOSPHATASE 88 IU/L (46-116); ANION GAP 14 (8-16); ASPARTATE AMINO TRANSFERASE 11 U/L (10-37); BILIRUBIN,TOTAL 0.6 MG/DL (0.1-1.0); BLOOD UREA NITROGEN 27 MG/DL (7-18); BUN/CREATININE RATIO 9.7 (6.6-38.0); CALCIUM 8.4 MG/DL (8.5-10.1); CHLORIDE 100 MMOL/L (99-107); CREATININE 2.77 MG/DL (0.40-0.90); GLUCOSE 165 MG/DL (70-104); PHOSPHORUS 3.9 MG/DL (2.3-4.5); POTASSIUM 3.8 MMOL/L (3.5-5.1); SODIUM 138 MMOL/L (135-145); TOTAL CARBON DIOXIDE 24.3 MMOL/L (24-32); TOTAL PROTEIN 6.3 G/DL (6.4-8.2); eGFR 18 ML/MIN
--- NOTE | 2020-11-02 01:39 | NUR ---
PATIENT BLIND IN BOTH EYES Addendum: 11/02/20 at 0159 by Barby Salamanca RN Amended: Links added.
--- NOTE | 2020-11-02 01:50 | NUR ---
AMBER CATHETER IN PLACE Addendum: 11/02/20 at 0159 by Barby Salamanca RN Amended: Links added.
[2020-11-02 02:00] VITALS: BP 144/48
[2020-11-02 06:00] VITALS: BP 102/81
--- NOTE | 2020-11-02 06:33 | NUR ---
Problems reprioritized. Patient report given, questions answered & plan of care reviewed with Yazmin BUITRAGO.
--- NOTE | 2020-11-02 06:43 | NUR ---
Patient in room PCU 3028. I have received report from MINNA Dior and had the opportunity to ask questions and assume patient care.
[2020-11-02] MEDS ORDERED: pantoprazole 40mg Tablet.DR PO SCH (07:30)
[2020-11-02] MEDS: amLODIPine 5mg tablet PO SCH (08:00)
[2020-11-02] MEDS: atorvastatin 20mg tablet PO SCH (08:00)
[2020-11-02] MEDS: insulin glargine (Lantus) pen - multi-dose SQ SCH (08:00)
[2020-11-02] MEDS: cloNIDine 0.1 mg tablet PO SCH (08:00)
[2020-11-02] MEDS: heparin, porcine 5000 units/ml vial SQ SCH (08:00)
[2020-11-02] MEDS: docusate sod 100mg capsule PO SCH (08:00)
[2020-11-02 11:00] VITALS: BP 168/58
[2020-11-02 15:00] VITALS: BP 177/65
--- NOTE | 2020-11-02 15:40 | NUR ---
Dressing to right TDC changed D/T current dressing coming off. Pt tolerated well. Will continue to monitor.
--- NOTE | 2020-11-02 17:35 | NUR ---
Pt discharged to home with all belongings, in private vehicle, accompanied by . Discharge instructions and medications reviewed. Pt instructed that home hemodialysis will follow up with pt in 1-2 weeks to begin instructions. IV DC'd, cannula intact. Pt stated understanding of all discharge instructions. Pt escorted to front lobby via wheelchair by RN and PCT. Pt transferred to private vehicle by .
== END 2020-11-02 18:00 | disposition home or self-care (01) | DRG 194 ==
LOC: ER 05:52 → ED HOLD 07:37 → MED 3N 10:00 → PCU 3S 17:40
PROVIDERS: ADMIT Internal Medicine Critical Care Medicine; ATTEND Internal Medicine Critical Care Medicine
PROC: 5A1D70Z Performance of Urinary Filtration, Intermittent, Less than 6 Hours Per Day (ICD-10-PCS; principal; 2020-11-01)
PROC: 30233N1 Transfusion of Nonautologous Red Blood Cells into Peripheral Vein, Percutaneous Approach (ICD-10-PCS; 2020-11-01)
DX: I13.2 Hypertensive heart and chronic kidney disease with heart failure and with stage 5 chronic kidney disease, or end stage renal disease (principal); D64.9 Anemia, unspecified; E11.22 Type 2 diabetes mellitus with diabetic chronic kidney disease; I50.9 Heart failure, unspecified; M35.00 Sjogren syndrome, unspecified; N18.6 End stage renal disease; Z79.4 Long term (current) use of insulin; Z99.2 Dependence on renal dialysis
CPT/HCPCS: 36415; 36430; 71045; 80053; 82272; 82728; 82948; 83540; 83550; 83735; 83880; 84100; 84484; 85025; 86870; 86885; 86900; 86901; 86902; 86920; 86922; 86945; 87081; 87635; 93005; 96374; 99285; C9803; G0378; J1644; J1815; J2405; J8597; P9016; Q0164; Q4081

== ENCOUNTER 2020-12-24 09:45 | Inpatient (IN) | payer MEDICAID ==
[~2020-12-24] VITALS: Ht 162.6 cm; Wt 78.8 kg
[~2020-12-24 09:45] MED LIST changes: +CLON0.3T36 PO; +LANS30CA56 PO; -METO5TAB98 PO; -PANT40TA54 PO; +SYRI1DIS
[2020-12-24] MEDS ORDERED: methylPREDNISolone sod succ 125mg/2ml vial IV ONE (10:15)
[2020-12-24] MEDS ORDERED: albuterol 2.5 MG/3 ML nebule NEB ONE (10:15)
[2020-12-24 10:44] LABS: ABG BASE EXCESS -6.3 mmol/L (-2.0-2.0); ABG HCO3 19.6 mmol/L (22.0-26.0); ABG OXYGEN SATURATION 92.1 % (94-97); ABG PCO2 (T) 40.2 mmHg (32.0-45.0); ABG PO2 (T) 68.1 mmHg (75.0-100.0); ALLEN'S TEST POSITIVE; FCOHb 0.9 % (0.0-3.9); FLOW 2 L/min; FMetHb 0.1 % (0.0-1.5); FO2Hb 91.2 % (94-97); TOTAL HEMOGLOBIN 8.6 G/dl (12.0-16.0)
[2020-12-24 11:06] LABS: BASOPHILS % (AUTO) 0.4 % (0-1); EOSINOPHILS % (AUTO) 0.1 % (0-6); HEMATOCRIT 24.7 % (35.0-45.0); HEMOGLOBIN 8.1 g/dl (12.0-16.0); LYMPHOCYTES # (AUTO) 1.1 X10'3 (1.1-4.8); LYMPHOCYTES % (AUTO) 8.9 % (21-51); MEAN CORPUSCULAR HEMOGLOBIN 26.3 PG (27.0-31.0); MEAN CORPUSCULAR HGB CONC 32.7 g/dL (33.0-36.5); MEAN CORPUSCULAR VOLUME 80.6 FL (78-98); MEAN PLATELET VOLUME 6.1 FL (7.4-10.4); MONOCYTES # (AUTO) 0.6 X10'3 (0-0.9); MONOCYTES % (AUTO) 5.4 % (2-12); NEUTROPHILS # (AUTO) 10.1 X10'3 (1.8-7.7); NEUTROPHILS % (AUTO) 85.2 % (42-75); PLATELET COUNT 397 X10'3 (140-440); RED BLOOD COUNT 3.07 X10'6 (4.20-5.60); RED CELL DISTRIBUTION WIDTH 15.8 % (11.5-14.5); WHITE BLOOD COUNT 11.9 X10'3 (4.5-11.0)
[2020-12-24 11:32] LABS: ALANINE AMINOTRANSFERASE 13 U/L (12-78); ALBUMIN 2.9 G/DL (3.4-5.0); ALBUMIN/GLOBULIN RATIO 0.6 (1.1-1.5); ALKALINE PHOSPHATASE 95 IU/L (46-116); ANION GAP 11 (8-16); ASPARTATE AMINO TRANSFERASE 6 U/L (10-37); BILIRUBIN,TOTAL 0.6 MG/DL (0.1-1.0); BLOOD UREA NITROGEN 73 MG/DL (7-18); BUN/CREATININE RATIO 11.6 (6.6-38.0); CALCIUM 9.7 MG/DL (8.5-10.1); CHLORIDE 99 MMOL/L (99-107); GLUCOSE 174 MG/DL (70-104); POTASSIUM 5.1 MMOL/L (3.5-5.1); SODIUM 132 MMOL/L (135-145); TOTAL CARBON DIOXIDE 21.8 MMOL/L (24-32); TOTAL PROTEIN 7.5 G/DL (6.4-8.2); eGFR 7 ML/MIN
[2020-12-24] MEDS ORDERED: LANTUS SQ (11:44)
[2020-12-24] MEDS ORDERED: METO5TAB85 PO (11:44)
[2020-12-24] MEDS ORDERED: furosemide 10 MG/1 ML 10ml inj IV ONE ×2 (12:20→12:30)
[2020-12-24] MEDS ORDERED: azithromycin 250mg tablet PO ONE (12:35)
[2020-12-24] MEDS ORDERED: acetaminophen 325mg tablet PO PRN (12:40)
[2020-12-24] MEDS ORDERED: dextrose 50%-water 50ml dispensing syringe IV PRN ×2 (12:45)
[2020-12-24] MEDS ORDERED: MESSAGE TO PHARMACY PO ONE (12:45)
[2020-12-24] MEDS ORDERED: dextrose ORAL solution 15 GM/59 ML bottle PO PRN ×2 (12:45)
[2020-12-24] MEDS ORDERED: glucagon, human recombinant 1mg kit SUBCUT PRN (12:45)
[2020-12-24] MEDS ORDERED: GABA-530 PO (13:01)
[2020-12-24] MEDS ORDERED: METO5TAB98 PO (13:01)
[2020-12-24 13:33] LABS: PHOSPHORUS 4.9 MG/DL (2.3-4.5)
[2020-12-24 13:52] LABS: HEMOGLOBIN A1C 4.9 % (4.5-6.2)
--- NOTE | 2020-12-24 14:00 | NUR ---
TC TO KAMILAH RILEY NP FOR CLARIFICATION OF MEDICATION ORDERS. MEDS GIVEN CLARIFIED.
[2020-12-24] MEDS: CefTRIAXone/D5W-Rocephin 1gm 50 ML IV ONE ×2 (14:11→15:23)
[2020-12-24] MEDS: furosemide 10 MG/1 ML 10ml inj IV SCH ×3 (14:12→21:19)
[2020-12-24] MEDS ORDERED: heparin 1,000 units/ml 10ml inj IV ONE (15:20)
[2020-12-24] MEDS ORDERED: heparin 1,000unit/ml 10ml vial 10 ML IV ONE (15:20)
[2020-12-24] MEDS ORDERED: heparin 1,000 units/ml 10ml inj HE ONE (15:25)
[2020-12-24] MEDS: ondansetron/PF 4mg/2ml inj IV PRN (15:52)
[2020-12-24 17:45] VITALS: BP 156/53
[2020-12-24 20:00] VITALS: BP 186/65
[2020-12-24] MEDS ORDERED: heparin, porcine 5000 units/ml vial SQ SCH (20:00)
--- NOTE | 2020-12-24 20:15 | NUR ---
PATIENT STATES SHE IS NAUSEAS , GLUCOSE IS 382. PATIENT STATES SHE REFUSES ANY INSULIN AT THIS TIME BECAUSE SHE WILL NOT BE ABLE TO TOLERATE ANY MEALS AT THIS TIME. WILL NOTIFIY MD OF THIS WELL HTN
[2020-12-24] MEDS: cloNIDine 0.1 mg tablet PO SCH (20:42)
[2020-12-24] MEDS: docusate sod 100mg capsule PO SCH (20:43)
[2020-12-24] MEDS: heparin, porcine 5000 units/ml vial SQ SCH (20:43)
[2020-12-24] MEDS: amitriptyline 50mg tablet PO SCH (20:54)
[2020-12-24] MEDS: insulin glargine (Lantus) pen - multi-dose SQ SCH (21:14)
[2020-12-24] MEDS: insulin Lispro (HumaLOG) vial - multi-dose SQ SCH (21:17)
[2020-12-24 22:00] VITALS: BP 138/76
--- NOTE | 2020-12-24 23:37 | NUR ---
PUT OUT [address] BALLARD WITH NO RETURN CALLS FOR ORDERS FOR BALDWIN IF A ACCURATE 24 HOUR URINE WAS TO BE OBTAINED
[2020-12-25 02:00] VITALS: BP 135/79
--- NOTE | 2020-12-25 06:37 | NUR ---
Patient in room PCU 3019. I have received report from Mohit BUITRAGO and had the opportunity to ask questions and assume patient care.
[2020-12-25 06:42] LABS: BASOPHILS % (AUTO) 0.2 % (0-1); EOSINOPHILS % (AUTO) 0 % (0-6); HEMATOCRIT 23.3 % (35.0-45.0); HEMOGLOBIN 7.3 g/dl (12.0-16.0); LYMPHOCYTES # (AUTO) 1.1 X10'3 (1.1-4.8); MEAN CORPUSCULAR HEMOGLOBIN 26.1 PG (27.0-31.0); MEAN CORPUSCULAR HGB CONC 31.4 g/dL (33.0-36.5); MEAN CORPUSCULAR VOLUME 82.9 FL (78-98); MEAN PLATELET VOLUME 6.3 FL (7.4-10.4); MONOCYTES # (AUTO) 0.3 X10'3 (0-0.9); MONOCYTES % (AUTO) 2.2 % (2-12); NEUTROPHILS # (AUTO) 13.6 X10'3 (1.8-7.7); NEUTROPHILS % (AUTO) 90.6 % (42-75); PLATELET COUNT 333 X10'3 (140-440); RED CELL DISTRIBUTION WIDTH 15.6 % (11.5-14.5)
[2020-12-25 07:00] VITALS: BP 158/61
[2020-12-25 07:03] LABS: ALANINE AMINOTRANSFERASE 10 U/L (12-78); ALBUMIN 2.5 G/DL (3.4-5.0); ALBUMIN/GLOBULIN RATIO 0.6 (1.1-1.5); ALKALINE PHOSPHATASE 82 IU/L (46-116); ANION GAP 17 (8-16); ASPARTATE AMINO TRANSFERASE 5 U/L (10-37); BILIRUBIN,TOTAL 0.5 MG/DL (0.1-1.0); BLOOD UREA NITROGEN 78 MG/DL (7-18); BUN/CREATININE RATIO 12.3 (6.6-38.0); CHLORIDE 99 MMOL/L (99-107); CREATININE 6.34 MG/DL (0.40-0.90); GLUCOSE 278 MG/DL (70-104); MAGNESIUM 3.4 MG/DL (1.5-2.4); PHOSPHORUS 6.4 MG/DL (2.3-4.5); POTASSIUM 5.9 MMOL/L (3.5-5.1); SODIUM 132 MMOL/L (135-145); TOTAL CARBON DIOXIDE 16.4 MMOL/L (24-32); TOTAL PROTEIN 6.6 G/DL (6.4-8.2); eGFR 7 ML/MIN
[2020-12-25] MEDS: docusate sod 100mg capsule PO SCH ×3 (08:00→20:41)
[2020-12-25] MEDS ORDERED: IRON,CARBONYL (45 MG ELEMENTAL IRON) SR.TABLET PO SCH (08:00)
[2020-12-25] MEDS: ondansetron/PF 4mg/2ml inj IV PRN (08:12)
[2020-12-25] MEDS: heparin, porcine 5000 units/ml vial SQ SCH ×2 (08:12→21:36)
[2020-12-25] MEDS: furosemide 10 MG/1 ML 10ml inj IV SCH ×2 (08:15→20:41)
[2020-12-25] MEDS: atorvastatin 20mg tablet PO SCH (08:15)
[2020-12-25] MEDS: pantoprazole 40mg Tablet.DR PO SCH (08:15)
[2020-12-25] MEDS: cloNIDine 0.1 mg tablet PO SCH ×2 (08:16→20:42)
[2020-12-25] MEDS: amLODIPine 5mg tablet PO SCH (08:16)
[2020-12-25] MEDS: CefTRIAXone/D5W-Rocephin 1gm 50 ML IV SCH (08:16)
[2020-12-25] MEDS: azithromycin/NS 500mg/250ml 250 ML IV SCH (08:17)
[2020-12-25] MEDS: insulin Lispro (HumaLOG) vial - multi-dose SQ SCH ×3 (09:50→21:33)
[2020-12-25] MEDS ORDERED: heparin 1,000 units/ml 10ml inj HE ONE (10:00)
[2020-12-25 11:00] VITALS: BP 135/52
[2020-12-25] MEDS ORDERED: ipratropium/albuterol 3ml nebule NEB PRN (12:25)
--- NOTE | 2020-12-25 14:08 | NUR ---
Andrew Consult: Andrew Eric; skin intact per EMR. Addendum: 12/25/20 at [address] Amended: Links added.
[2020-12-25 15:00] VITALS: BP 144/54
--- NOTE | 2020-12-25 18:33 | NUR ---
Problems reprioritized. Patient report given, questions answered & plan of care reviewed with Mohit BUITRAGO.
--- NOTE | 2020-12-25 18:45 | NUR ---
ATTEMPTED TO REACH DR. BALLARD FOR PAIN MED ORDERS NO ANSWER AT THIS TIME WILL ATTEMPT LATER , NOTIFIED DMITRIY [employer]OURCE RN FOR ASSISTANCE WELL
[2020-12-25 19:29] VITALS: BP 153/54
[2020-12-25] MEDS ORDERED: HYDROcodone/acetaminophen 10/325mg tab PO PRN (19:40)
[2020-12-25] MEDS: lactobacillus rhamnosus 10,000 MMU CELLS/CAPSULE PO SCH (20:00)
[2020-12-25] MEDS: amitriptyline 50mg tablet PO SCH (20:42)
[2020-12-25] MEDS: insulin glargine (Lantus) pen - multi-dose SQ SCH (21:31)
[2020-12-25 22:00] VITALS: BP 123/48
[2020-12-26 02:00] VITALS: BP 126/55
[2020-12-26 02:26] LABS: UREA NITROGEN 24HR,URINE 1.6 GM/24HR (7-20)
--- NOTE | 2020-12-26 06:30 | NUR ---
Patient in room PCU 3019. I have received report fromMohit BUITRAGO and had the opportunity to ask questions and assume patient care.
[2020-12-26 06:34] LABS: BASOPHILS % (AUTO) 0.3 % (0-1); EOSINOPHILS % (AUTO) 0.2 % (0-6); HEMATOCRIT 24.8 % (35.0-45.0); HEMOGLOBIN 8.1 g/dl (12.0-16.0); LYMPHOCYTES # (AUTO) 1.5 X10'3 (1.1-4.8); LYMPHOCYTES % (AUTO) 12.9 % (21-51); MEAN CORPUSCULAR HEMOGLOBIN 26.4 PG (27.0-31.0); MEAN CORPUSCULAR HGB CONC 32.4 g/dL (33.0-36.5); MEAN CORPUSCULAR VOLUME 81.4 FL (78-98); MEAN PLATELET VOLUME 5.8 FL (7.4-10.4); MONOCYTES # (AUTO) 0.8 X10'3 (0-0.9); MONOCYTES % (AUTO) 6.5 % (2-12); NEUTROPHILS # (AUTO) 9.3 X10'3 (1.8-7.7); NEUTROPHILS % (AUTO) 80.1 % (42-75); PLATELET COUNT 367 X10'3 (140-440); RED BLOOD COUNT 3.05 X10'6 (4.20-5.60); RED CELL DISTRIBUTION WIDTH 15.4 % (11.5-14.5); WHITE BLOOD COUNT 11.6 X10'3 (4.5-11.0)
[2020-12-26 07:00] VITALS: BP 137/51
[2020-12-26 07:23] LABS: ALANINE AMINOTRANSFERASE 10 U/L (12-78); ALBUMIN 2.7 G/DL (3.4-5.0); ALBUMIN/GLOBULIN RATIO 0.7 (1.1-1.5); ALKALINE PHOSPHATASE 80 IU/L (46-116); ANION GAP 10 (8-16); ASPARTATE AMINO TRANSFERASE 8 U/L (10-37); BILIRUBIN,TOTAL 0.3 MG/DL (0.1-1.0); BLOOD UREA NITROGEN 34 MG/DL (7-18); BUN/CREATININE RATIO 9.8 (6.6-38.0); CALCIUM 8.9 MG/DL (8.5-10.1); CHLORIDE 101 MMOL/L (99-107); CREATININE 3.47 MG/DL (0.40-0.90); GLUCOSE 85 MG/DL (70-104); MAGNESIUM 2.5 MG/DL (1.5-2.4); PHOSPHORUS 3.5 MG/DL (2.3-4.5); POTASSIUM 3.6 MMOL/L (3.5-5.1); SODIUM 137 MMOL/L (135-145); TOTAL CARBON DIOXIDE 26.3 MMOL/L (24-32); TOTAL PROTEIN 6.8 G/DL (6.4-8.2); eGFR 14 ML/MIN
[2020-12-26] MEDS: docusate sod 100mg capsule PO SCH ×2 (08:00→09:59)
[2020-12-26] MEDS: ondansetron/PF 4mg/2ml inj IV PRN ×2 (09:10→15:34)
[2020-12-26] MEDS: atorvastatin 20mg tablet PO SCH (09:58)
[2020-12-26] MEDS: lactobacillus rhamnosus 10,000 MMU CELLS/CAPSULE PO SCH (09:58)
[2020-12-26] MEDS: cloNIDine 0.1 mg tablet PO SCH (09:59)
[2020-12-26] MEDS: pantoprazole 40mg Tablet.DR PO SCH (10:00)
[2020-12-26] MEDS: furosemide 10 MG/1 ML 10ml inj IV SCH (10:01)
[2020-12-26] MEDS: CefTRIAXone/D5W-Rocephin 1gm 50 ML IV SCH (10:01)
[2020-12-26] MEDS: heparin, porcine 5000 units/ml vial SQ SCH (10:05)
[2020-12-26] MEDS: amLODIPine 5mg tablet PO SCH (10:07)
--- NOTE | 2020-12-26 10:52 | NUR ---
Patient refused insulin this morning
[2020-12-26] MEDS ORDERED: FERROUS SULFATE 142 MG TABLET.ER (45mg elemental) PO SCH (10:55)
[2020-12-26 11:00] VITALS: BP 137/54
--- NOTE | 2020-12-26 11:01 | NUR ---
Spoke to Marcus with dietary he will come by and speak with patient and address her needs and educate her on a renal diet as well as a carb controlled diet. Marcus will also have kirill from the kitchen help patient with diet.
[2020-12-26] MEDS: azithromycin/NS 500mg/250ml 250 ML IV SCH (12:13)
[2020-12-26] MEDS: insulin Lispro (HumaLOG) vial - multi-dose SQ SCH (13:46)
--- NOTE | 2020-12-26 13:55 | NUR ---
RN TC: Pt has particular food preferences and requesting vegetarian diet. Noted pt prior admit September PO ~25% avg meals on regular diet but was also hoarding foods and having food brought in by per EMR. Pt currently on HD for ESRD w/ renal/carb controlled/1.2L fluid-restricted diet this admit w/ 1L fluid via diet per diet order. RD d/w RN regarding liberalization from carb controlled diet given A1C 4.9 if MD agreeable. Pt seen by RD and reports typically gets proteins from dairy sources at home on top of vegetarian food preferences; also dislikes any additional seasoning packets. RD educated pt on importance of electrolyte management on HD as well as B12 supplementation on vegetarian diet. Will be able to honor pt preferences of whole milk w/ cereal WB, one yogurt WL, cottage cheese WS, sherbet TIDWM, and soft to chew foods at meal times given edentulism reported by pt. Sherbet and whole milk to be taken into consideration by RN during daily I&O's. Dietary notified of preferences. Pt reports mouth gets too dry at times as well causing tongue to stick to inside resulting in coughs; RD notified RN. insurance policy clerk to see pt daily for food preferences. Pt may benefit from further renal diet ed this admit; will f/u at above date for initial assessment. Addendum: 12/26/20 at [address] Amended: Links added.
--- NOTE | 2020-12-26 14:46 | NUR ---
Called Marbin he is aware patient is being discharged. Per Marbin one of the transport companies usually brings her home via [employer] He left a message for Kavita the pillowcase turner. I also advised Marbin that they need to call SHREYA ERVIN to schedule dialysis and he stated he already has the phone number. Called Kavita with case management and she will work on transport.
[2020-12-26 15:00] VITALS: BP 107/39
--- NOTE | 2020-12-26 16:30 | NUR ---
Patient discharge instruction reviewed with patient and patient verbalized understanding, I also called patients Marbin and reviewed discharge instructions with him. No new medications. I gave patient and patient phone number for [facility] and instructed patient that they need to call then [facility] to make appointment. Patients discharge pictures of wounds taken and dressing supplies sent with patient. Patients IV dc'd cannula intact and Tele dc'd for discharge. Patients home medication retrieved from the pharmacy and returned to patient. Patient transported via gurney by [facility] with all her belongings.
--- NOTE | 2020-12-26 16:59 | NUR ---
Wound care was asked to see patient regarding her sacrum. Patient has an order to be discharged today. Patient has a chronic wound to her left side of the sacrum. It presents as a stage III pressure ulcer, looks like it could have scarring around it as well. She states it is an area that is hard to heal because she does not move too much at home. She is dialysis patient which complicates the healing as well. She has somewhat of an abrasion to the hip area that is superficial with some serous drainage. I recommend using calazime to the open stage III, then hydrophylic foam. I used barrier spray first. She understood the cream was able to used at home too. RECOMMEND: 1. Daily bathing with no rinse skin cleanser. 2. Cream/Lotion to be applied to skin after bathing. 3. Sena care Q shift and prn soiling followed by with Barrier Cream. 4. Turn patient Q 1-2 hrs and reposition with pillows. 5. Float heels to offload pressure. 6. Calazime to left sacrum then hydrophylic foam.
[2020-12-27 11:20] LABS: HBSAG SCREEN Negative (Negative); HEP B CORE AB, TOT Negative (Negative)
== END 2020-12-26 16:36 | disposition home health service (06) | DRG 139 ==
LOC: ER 09:45 → ED HOLD 12:36 → PCU 3S 17:37
PROVIDERS: ADMIT Internal Medicine Critical Care Medicine; ATTEND Internal Medicine Critical Care Medicine
PROC: 5A1D70Z Performance of Urinary Filtration, Intermittent, Less than 6 Hours Per Day (ICD-10-PCS; principal; 2020-12-24)
DX: J18.1 Lobar pneumonia, unspecified organism (principal); J44.0 Chronic obstructive pulmonary disease with (acute) lower respiratory infection; D64.9 Anemia, unspecified; Z20.822 Contact with and (suspected) exposure to COVID-19; F41.9 Anxiety disorder, unspecified; E66.9 Obesity, unspecified; R32 Unspecified urinary incontinence; N18.6 End stage renal disease; R09.02 Hypoxemia; F60.89 Other specific personality disorders; I50.9 Heart failure, unspecified; M35.00 Sjogren syndrome, unspecified; Z51.5 Encounter for palliative care; G47.9 Sleep disorder, unspecified; J91.8 Pleural effusion in other conditions classified elsewhere; E11.65 Type 2 diabetes mellitus with hyperglycemia; E11.22 Type 2 diabetes mellitus with diabetic chronic kidney disease; L89.153 Pressure ulcer of sacral region, stage 3; I51.7 Cardiomegaly; Z68.29 Body mass index [BMI] 29.0-29.9, adult; Z87.11 Personal history of peptic ulcer disease; Z91.15 Patient's noncompliance with renal dialysis; Z99.2 Dependence on renal dialysis
CPT/HCPCS: 36415; 36600; 71045; 80053; 82570; 82803; 82948; 83036; 83605; 83735; 83880; 84100; 84156; 84484; 84560; 85018; 85025; 85610; 86704; 86706; 87040; 87340; 87635; 90935; 93005; 94640; 94760; 96374; 97110; 97162; 97530; 99285; C9803; G0378; J0456; J0696; J1644; J1815; J1940; J2150; J2405; J2930

== ENCOUNTER 2021-08-02 11:56 | Emergency (ER) | payer MEDICAID ==
[~2021-08-02] VITALS: Ht 162.6 cm; Wt 81.8 kg
[~2021-08-02 11:56] MED LIST changes: +GABA-530 PO; -INSU100V9 SUBCUT; +LANTUS SQ; -METO5TAB85 PO; +METO5TAB98 PO
[2021-08-02 12:59] VITALS: BP 149/65
[2021-08-02] MEDS ORDERED: DOXY100C43 PO (14:40)
[2021-08-02] MEDS ORDERED: GENT30OI2 TOP (14:40)
== END 2021-08-02 18:28 | disposition home or self-care (01) ==
LOC: ER 11:56
DX: S71.001A Unspecified open wound, right hip, initial encounter (principal); R51.9 Headache, unspecified; I50.9 Heart failure, unspecified; N18.9 Chronic kidney disease, unspecified; Z86.2 Personal history of diseases of the blood and blood-forming organs and certain disorders involving the immune mechanism; Z88.1 Allergy status to other antibiotic agents; Z88.8 Allergy status to other drugs, medicaments and biological substances; Z79.899 Other long term (current) drug therapy; Z79.2 Long term (current) use of antibiotics; Z79.4 Long term (current) use of insulin; X58.XXXA Exposure to other specified factors, initial encounter; Y93.89 Activity, other specified; Y92.89 Other specified places as the place of occurrence of the external cause; Y99.8 Other external cause status
CPT/HCPCS: 99284

== ENCOUNTER 2021-09-08 10:43 | Day surgery (SDC) | payer MEDICAID ==
[~2021-09-08 10:43] MED LIST changes: +GENT30OI2 TOP
[2021-09-08] MEDS ORDERED: LIDOcaine 1% W/epiNEPHrine 1:100,000 20ml vial SQ STA (10:44)
[2021-09-08 10:58] VITALS: BP 149/68
[2021-09-08 11:30] VITALS: BP 154/64
== END 2021-09-08 11:30 | disposition home or self-care (01) ==
LOC: SSTAY O 10:43
PROVIDERS: ATTEND Preventive Medicine Aerospace Medicine
DX: Z45.2 Encounter for adjustment and management of vascular access device (principal); N18.5 Chronic kidney disease, stage 5; I50.9 Heart failure, unspecified; D64.9 Anemia, unspecified; Z88.1 Allergy status to other antibiotic agents; Z88.2 Allergy status to sulfonamides; Z79.4 Long term (current) use of insulin; Z79.899 Other long term (current) drug therapy
CPT/HCPCS: 36589

== ENCOUNTER 2021-10-08 20:09 | Inpatient (IN) | payer MEDICAID ==
[~2021-10-08] VITALS: Ht 162.6 cm; Wt 55.0 kg
--- NOTE | 2021-10-08 20:20 | NUR ---
HEMOCULT POSITIVE, DR COLLINS AT BEDSIDE TO DO RECTAL EXAM
[2021-10-08 20:55] LABS: BASOPHILS % (AUTO) 0.2 % (0-1); EOSINOPHILS % (AUTO) 0.5 % (0-6); HEMATOCRIT 28.8 % (35.0-45.0); HEMOGLOBIN 9.4 g/dl (12.0-16.0); LYMPHOCYTES # (AUTO) 0.3 X10'3 (1.1-4.8); LYMPHOCYTES % (AUTO) 3.7 % (21-51); MEAN CORPUSCULAR HEMOGLOBIN 26.7 PG (27.0-31.0); MEAN CORPUSCULAR HGB CONC 32.6 g/dL (33.0-36.5); MEAN PLATELET VOLUME 6.2 FL (7.4-10.4); MONOCYTES # (AUTO) 0.4 X10'3 (0-0.9); MONOCYTES % (AUTO) 4.4 % (2-12); NEUTROPHILS # (AUTO) 7.9 X10'3 (1.8-7.7); NEUTROPHILS % (AUTO) 91.2 % (42-75); PLATELET COUNT 419 X10'3 (140-440); RED BLOOD COUNT 3.51 X10'6 (4.20-5.60); RED CELL DISTRIBUTION WIDTH 17.2 % (11.5-14.5); WHITE BLOOD COUNT 8.7 X10'3 (4.5-11.0)
[2021-10-08 21:07] LABS: ALANINE AMINOTRANSFERASE 14 U/L (12-78); ALBUMIN 1.6 G/DL (3.4-5.0); ALBUMIN/GLOBULIN RATIO 0.4 (1.1-1.5); ALKALINE PHOSPHATASE 135 IU/L (46-116); ANION GAP 11 (8-16); ASPARTATE AMINO TRANSFERASE 19 U/L (10-37); BILIRUBIN,TOTAL 0.3 MG/DL (0.1-1.0); BLOOD UREA NITROGEN 83 MG/DL (7-18); BUN/CREATININE RATIO 12.9 (6.6-38.0); CALCIUM 8.5 MG/DL (8.5-10.1); CHLORIDE 99 MMOL/L (99-107); CREATININE 6.44 MG/DL (0.40-0.90); GLUCOSE 107 MG/DL (70-104); SODIUM 131 MMOL/L (135-145); TOTAL CARBON DIOXIDE 21.5 MMOL/L (24-32); TOTAL PROTEIN 5.4 G/DL (6.4-8.2); eGFR 7 ML/MIN
[2021-10-08 21:09] LABS: LIPASE < 50 U/L (73-393); POTASSIUM 5.6 MMOL/L (3.5-5.1)
[2021-10-08] MEDS ORDERED: HYDR-3965 PO (21:09)
[2021-10-08] MEDS ORDERED: piperacillin/tazo 4.5gm/100ml 100 ML IV SCH (21:11)
[2021-10-08] MEDS ORDERED: DOCU-342 PO (21:13)
[2021-10-08] MEDS ORDERED: FURO40TA4 PO (21:13)
[2021-10-08] MEDS ORDERED: ONDA-103 PO (21:13)
[2021-10-08] MEDS ORDERED: ONDA-104 PO (21:23)
[2021-10-08] MEDS ORDERED: SENN-263 PO (21:23)
[2021-10-08] MEDS ORDERED: INSU100C10 SQ (21:23)
[2021-10-08] MEDS: morphine 2 MG/ML inj. syringe IV PRN (21:34)
[2021-10-08] MEDS ORDERED: ondansetron/PF 4mg/2ml inj IV PRN ×2 (21:50→22:10)
[2021-10-08] MEDS ORDERED: morphine 4 MG/ML inj SYRINge IV PRN (21:50)
[2021-10-08] MEDS ORDERED: proCHLORperazine 10 MG/2 ml inj IV PRN (21:50)
[2021-10-08] MEDS ORDERED: meperidine/PF 25mg/ml syringe IV PRN ×3 (21:50)
[2021-10-08] MEDS ORDERED: ringers solution, lacted 1,000 ML IV SCH (21:50)
[2021-10-08] MEDS ORDERED: morphine 2 MG/ML inj. syringe IV PRN (21:50)
[2021-10-08] MEDS ORDERED: desmopressin inj. 21 MCG in normal saline 100ml IV soln 94.75 ML IV ONE (21:55)
[2021-10-08] MEDS ORDERED: morphine 2 MG/ML inj. syringe IV ONE (22:00)
[2021-10-08] MEDS ORDERED: ondansetron/PF 4mg/2ml inj IV ONE (22:00)
[2021-10-08] MEDS ORDERED: normal saline 1000ML IV soln IVB ONE (22:05)
[2021-10-08 22:07] LABS: CLARITY,URINE CLOUDY (Clear); COLOR,URINE YELLOW (Yellow); GLUCOSE, URINE NEGATIVE (Neg); KETONES,URINE NEGATIVE (Neg); LEUKOCYTE ESTERASE ,URINE LARGE (Neg); NITRITES, URINE NEGATIVE (Neg); OCCULT BLOOD,URINE MODERATE (Neg); PH,URINE 6.5 (4.8-8.0); PROTEIN,URINE 100 mg/dl (Neg); UROBILINOGEN,URINE 0.2 E.U/dL (0.2-1.0)
[2021-10-08] MEDS ORDERED: magnesium hydroxide 30ml (MOM) UD suspension PO PRN (22:10)
[2021-10-08] MEDS ORDERED: furosemide 10 MG/1 ML 10ml inj IV ONE (22:10)
[2021-10-08] MEDS ORDERED: potassium Cl 20 mEq SR tablet PO PRN ×2 (22:10)
[2021-10-08] MEDS ORDERED: albumin (human) 25% 100ml IV 100 ML IV ONE (22:10)
[2021-10-08] MEDS ORDERED: acetaminophen 325mg tablet PO PRN ×2 (22:10)
[2021-10-08 22:12] LABS: UA COLLECTION TYPE FOLEY CATH
[2021-10-08] MEDS ORDERED: NORepinephrine 8mg/ 250ml NS 250 ML IV ONE (22:13)
[2021-10-08] MEDS ORDERED: LIDOcaine 1% (10mg/ml) 2ml vial ONE (22:13)
[2021-10-08 22:14] LABS: BACTERIA,URINE FEW /HPF (Neg); SQUAMOUS EPITHELIAL CELL,UR FEW /LPF (FEW); WBC CLUMPS,URINE MANY /HPF (NEGATIVE); WBC,URINE TNTC /HPF (0-4)
--- NOTE | 2021-10-08 22:33 | NUR ---
Pt blood pressure continued to drop. Vasopressors ordered. Unable to place second IV line. OR arrived to transport patient for emergency surgery.
[2021-10-08] MEDS ORDERED: DESMOPRESSIN IV ONE (22:40)
[2021-10-08] MEDS ORDERED: NORMAL SALINE IV ONE (22:40)
[2021-10-08] MEDS ORDERED: desflurane 240ml liquid inh. IH ONE (22:42)
--- NOTE | 2021-10-08 22:52 | NUR ---
vital signs continually monitored during care, but unable to document in [employer] r/t equipment exchange.
[2021-10-08] MEDS ORDERED: midazolam 1 mg/ML 2ml injection ONE (22:53)
[2021-10-08] MEDS ORDERED: fentaNYL /PF 50mcg/ml 5ml ampule ONE (22:54)
[2021-10-08] MEDS ORDERED: rocuronium 10mg/ml inj IV ONE (23:23)
[2021-10-08] MEDS ORDERED: etomidate 2mg/ml inj. ONE (23:23)
[2021-10-08] MEDS ORDERED: phenylephrine 10mg/ml inj. ONE (23:23)
[2021-10-08] MEDS ORDERED: midazolam 100mg in NS 100ml 100 ML IV PRN (23:35)
[2021-10-08] MEDS ORDERED: FENTANYL-0.9 % NACL/PF 100 ML IV PRN (23:35)
[2021-10-09] VITALS (25 sets, daily range): BP systolic 66–138; BP diastolic 31–95
[2021-10-09] MEDS ORDERED: heparin, porcine 5000 units/ml vial SQ SCH
[2021-10-09] MEDS ORDERED: albumin (Human) 5% 250ml 250 ML IV ONE ×2 (00:12)
[2021-10-09 01:08] LABS: ABG BASE EXCESS -9.2 mmol/L (-2.0-2.0); ABG HCO3 15.8 mmol/L (22.0-26.0); ABG OXYGEN SATURATION 98.8 % (94-97); ABG PO2 (T) 154.1 mmHg (75.0-100.0); FCOHb 0.3 % (0.0-3.9); FMetHb 0.4 % (0.0-1.5); FO2Hb 98.1 % (94-97); RESPIRATORY RATE 14 b/min; TIDAL VOLUME 450 mL; TOTAL HEMOGLOBIN 7.1 G/dl (12.0-16.0)
[2021-10-09 01:37] LABS: MEAN CORPUSCULAR HEMOGLOBIN 26.9 PG (27.0-31.0); MEAN PLATELET VOLUME 6.2 FL (7.4-10.4)
[2021-10-09 01:39] LABS: MEAN CORPUSCULAR VOLUME 81.6 FL (78-98); PLATELET COUNT 325 X10'3 (140-440); RED BLOOD COUNT 2.51 X10'6 (4.20-5.60); RED CELL DISTRIBUTION WIDTH 16.9 % (11.5-14.5); WHITE BLOOD COUNT 9.4 X10'3 (4.5-11.0)
[2021-10-09 01:52] LABS: HEMATOCRIT 20.5 % (35.0-45.0); HEMOGLOBIN 6.8 g/dl (12.0-16.0)
[2021-10-09 02:03] LABS: APTT 60 SECONDS (22-32)
--- NOTE | 2021-10-09 02:07 | NUR ---
Received to room , accompanied by MDs and surgical crew. Placed on ventilator, to teletypesetter monitor, arterial line and pressure monitored. Lacy cath to gravity w/ hematuria drainage. Dressings are dry and intact. See assessment record. Appearance of stoma is bright red. No fecal matter present at this time.
[2021-10-09 02:15] LABS: ALBUMIN 1.6 G/DL (3.4-5.0); ANION GAP 14 (8-16); BLOOD UREA NITROGEN 76 MG/DL (7-18); BUN/CREATININE RATIO 13.5 (6.6-38.0); CHLORIDE 104 MMOL/L (99-107); CREATININE 5.61 MG/DL (0.40-0.90); GLUCOSE 71 MG/DL (70-104); MAGNESIUM 2.1 MG/DL (1.5-2.4); PHOSPHORUS 2.7 MG/DL (2.3-4.5); POTASSIUM 4.5 MMOL/L (3.5-5.1); SODIUM 135 MMOL/L (135-145); TOTAL CARBON DIOXIDE 16.8 MMOL/L (24-32); eGFR 8 ML/MIN
[2021-10-09] MEDS: morphine 2 MG/ML inj. syringe IV PRN (02:37)
[2021-10-09 03:05] LABS: ANISOCYTOSIS 1+; PLATELET ESTIMATE NORMAL; TOTAL CELLS COUNTED 100
--- NOTE | 2021-10-09 06:25 | NUR ---
Problems reprioritized. Patient report given, questions answered & plan of care reviewed with Cr BUITRAGO.
[2021-10-09] MEDS: piperacillin/tazo 3.375gm/50ml 50 ML IV SCH ×2 (07:34→20:16)
[2021-10-09] MEDS: famotidine/PF 10 mg/ml inj IV SCH ×2 (07:35→20:16)
[2021-10-09] MEDS: K and/or MAG REPLACEMENT MC SCH (08:00)
[2021-10-09] MEDS: EPOETIN ALFA-EPBX 20,000 UNIT/ML 1 ML MDV SQ SCH (10:55)
--- NOTE | 2021-10-09 11:41 | NUR ---
Initial: Pt admitted w/ increasing abd pain, found to have colonic perforation and underwent exploratory laparotomy, left/sigmoid colectomy and colostomy per EMR; also noted w/ sepsis. Pt apparently received HD about 9 months ago but has not received dialysis since then. Pt may not need acute dialysis per [facility]. Pt currently intubated s/p procedure though may be extubated today or tomorrow per Research Microbiologist. Pt currently documented as 56in though on all previous admits she is 64in making true BMI 26.4. Limited nutrition interventions at this time given pt condition, will continue to monitor and make recommendations as appropriate. Recs: 1. Upon extubation, advance to Renal diet as tolerated if MD agreeable 2. Monitor need for ONS/Cristiano pending PO trends 3. Bowel care per MD 4. Weekly wts 5. New ostomy education once pt appropriate Addendum: 10/09/21 at [address] Amended: Links added.
[2021-10-09 16:32] LABS: % IRON SATURATION 12 % (11-46); IRON 8 UG/DL (49-151); TOTAL IRON BINDING CAPACITY 67 UG/DL (259-388)
[2021-10-09 16:44] LABS: FERRITIN 848 NG/ML (8-252)
[2021-10-10] VITALS (24 sets, daily range): BP systolic 102–129; BP diastolic 34–48
[2021-10-10] MEDS: mineral oil/petrolatum ophthal oint EACHEYE SCH ×4 (02:00→20:00)
[2021-10-10 03:19] LABS: BASOPHILS % (AUTO) 0.1 % (0-1); EOSINOPHILS % (AUTO) 0.3 % (0-6); HEMATOCRIT 24.9 % (35.0-45.0); HEMOGLOBIN 8.3 g/dl (12.0-16.0); LYMPHOCYTES # (AUTO) 0.6 X10'3 (1.1-4.8); LYMPHOCYTES % (AUTO) 3.5 % (21-51); MEAN CORPUSCULAR HEMOGLOBIN 27.4 PG (27.0-31.0); MEAN CORPUSCULAR HGB CONC 33.4 g/dL (33.0-36.5); MEAN PLATELET VOLUME 6.1 FL (7.4-10.4); MONOCYTES # (AUTO) 0.4 X10'3 (0-0.9); MONOCYTES % (AUTO) 2.3 % (2-12); NEUTROPHILS # (AUTO) 15.7 X10'3 (1.8-7.7); NEUTROPHILS % (AUTO) 93.8 % (42-75); PLATELET COUNT 337 X10'3 (140-440); RED BLOOD COUNT 3.04 X10'6 (4.20-5.60); RED CELL DISTRIBUTION WIDTH 17.3 % (11.5-14.5); WHITE BLOOD COUNT 16.7 X10'3 (4.5-11.0)
[2021-10-10 03:29] LABS: APTT 69 SECONDS (22-32)
[2021-10-10 03:37] LABS: ALBUMIN 1.3 G/DL (3.4-5.0); ANION GAP 16 (8-16); BLOOD UREA NITROGEN 80 MG/DL (7-18); BUN/CREATININE RATIO 13.7 (6.6-38.0); CALCIUM 7.6 MG/DL (8.5-10.1); CHLORIDE 102 MMOL/L (99-107); CREATININE 5.85 MG/DL (0.40-0.90); GLUCOSE 91 MG/DL (70-104); MAGNESIUM 2.3 MG/DL (1.5-2.4); PHOSPHORUS 3.1 MG/DL (2.3-4.5); POTASSIUM 5.1 MMOL/L (3.5-5.1); SODIUM 134 MMOL/L (135-145); TOTAL CARBON DIOXIDE 16.2 MMOL/L (24-32); eGFR 7 ML/MIN
[2021-10-10 04:15] LABS: ABG BASE EXCESS -10.7 mmol/L (-2.0-2.0); ABG HCO3 13.2 mmol/L (22.0-26.0); ABG OXYGEN SATURATION 97.7 % (94-97); ABG PCO2 (T) 23.4 mmHg (32.0-45.0); FCOHb 0.2 % (0.0-3.9); FMetHb 0.2 % (0.0-1.5); FO2Hb 97.3 % (94-97); PATIENT TEMPERATURE 37.1; PEEP 5 cm H2O; RESPIRATORY RATE 14 b/min; TIDAL VOLUME 450 mL
[2021-10-10] MEDS ORDERED: insulin Lispro (HumaLOG) vial - multi-dose SQ SCH ×2 (04:55→11:25)
[2021-10-10] MEDS ORDERED: dextrose 50%-water 50ml dispensing syringe IV PRN (04:55)
[2021-10-10] MEDS ORDERED: dextrose ORAL solution 15 GM/59 ML bottle PO PRN ×2 (04:55)
[2021-10-10] MEDS ORDERED: glucagon, human recombinant 1mg kit SUBCUT PRN (04:55)
[2021-10-10] MEDS ORDERED: MESSAGE TO PHARMACY PO ONE (04:55)
[2021-10-10] MEDS: K and/or MAG REPLACEMENT MC SCH (08:00)
[2021-10-10] MEDS: piperacillin/tazo 3.375gm/50ml 50 ML IV SCH ×2 (08:23→20:00)
[2021-10-10] MEDS: famotidine/PF 10 mg/ml inj IV SCH ×2 (08:23→20:00)
[2021-10-10] MEDS: fluconazole-Diflucan 200mg/NS 100 ML IV SCH (09:19)
[2021-10-10] MEDS ORDERED: non-formulary drug (Insulin Lispro (Humalog) 1 UNITS) SQ PRN (11:20)
[2021-10-10] MEDS ORDERED: ondansetron 4mg rapidly disintigrating tab PO PRN (11:25)
--- NOTE | 2021-10-10 11:36 | NUR ---
Andrew Consult: Andrew 10 w/ abdomen surgical wound present. Nutrition recs below including wound healing needs using first bed scaled wt this AM taken by RN during RD visit. Bed scale wt 74kg this AM which at bedside reports is usual wt and given true ht 64in makes most accurate BMI 28 at this time. Recs: 1. IF EN post-op on vent; Vital AF at 65ml/hr goal 2. Upon extubation, advance to Renal diet as tolerated if MD agreeable 3. Consider Cristiano ONS once PO upon extubation given wound healing needs 4. Bowel care per MD 5. Weekly wts 6. New colostomy education once pt appropriate Addendum: 10/10/21 at [address] Amended: Links added.
[2021-10-10] MEDS: acetaminophen 1,000mg/100ml IV 100 ML IV SCH ×3 (12:58→16:47)
[2021-10-10] MEDS: furosemide 40mg tablet PO SCH (20:00)
[2021-10-10] MEDS ORDERED: insulin glargine (Lantus) pen - multi-dose SQ SCH (21:00)
[2021-10-10] MEDS: insulin glargine (Lantus) pen - multi-dose SQ SCH (21:00)
[2021-10-10] MEDS: amitriptyline 50mg tablet PO SCH (21:58)
[2021-10-10] MEDS: gabapentin 100mg capsule PO SCH (21:58)
[2021-10-11] VITALS (25 sets, daily range): BP systolic 110–170; BP diastolic 23–58
[2021-10-11] MEDS: acetaminophen 1,000mg/100ml IV 100 ML IV SCH
[2021-10-11] MEDS: mineral oil/petrolatum ophthal oint EACHEYE SCH ×4 (02:00→20:00)
[2021-10-11 02:54] LABS: BASOPHILS % (AUTO) 0.1 % (0-1); EOSINOPHILS # (AUTO) 0.1 X10'3 (0-0.9); EOSINOPHILS % (AUTO) 0.6 % (0-6); HEMATOCRIT 22.1 % (35.0-45.0); HEMOGLOBIN 7.2 g/dl (12.0-16.0); LYMPHOCYTES # (AUTO) 0.6 X10'3 (1.1-4.8); LYMPHOCYTES % (AUTO) 3.7 % (21-51); MEAN CORPUSCULAR HGB CONC 32.7 g/dL (33.0-36.5); MEAN CORPUSCULAR VOLUME 82.7 FL (78-98); MEAN PLATELET VOLUME 6.2 FL (7.4-10.4); MONOCYTES # (AUTO) 0.4 X10'3 (0-0.9); MONOCYTES % (AUTO) 2.4 % (2-12); NEUTROPHILS # (AUTO) 15.6 X10'3 (1.8-7.7); NEUTROPHILS % (AUTO) 93.2 % (42-75); PLATELET COUNT 257 X10'3 (140-440); RED BLOOD COUNT 2.67 X10'6 (4.20-5.60); RED CELL DISTRIBUTION WIDTH 17.6 % (11.5-14.5); WHITE BLOOD COUNT 16.7 X10'3 (4.5-11.0)
[2021-10-11 03:03] LABS: ANION GAP 13 (8-16); BLOOD UREA NITROGEN 75 MG/DL (7-18); BUN/CREATININE RATIO 14.5 (6.6-38.0); CALCIUM 6.4 MG/DL (8.5-10.1); CHLORIDE 108 MMOL/L (99-107); CREATININE 5.19 MG/DL (0.40-0.90); GLUCOSE 63 MG/DL (70-104); PHOSPHORUS 3.2 MG/DL (2.3-4.5); POTASSIUM 4.3 MMOL/L (3.5-5.1); SODIUM 137 MMOL/L (135-145); TOTAL CARBON DIOXIDE 15.8 MMOL/L (24-32); eGFR 8 ML/MIN
[2021-10-11 03:23] LABS: APTT 99 SECONDS (22-32)
[2021-10-11 03:58] LABS: ABG BASE EXCESS -11.6 mmol/L (-2.0-2.0); ABG HCO3 13.7 mmol/L (22.0-26.0); ABG OXYGEN SATURATION 96.5 % (94-97); ABG PCO2 (T) 28.6 mmHg (32.0-45.0); ABG PO2 (T) 93.3 mmHg (75.0-100.0); FCOHb 0.3 % (0.0-3.9); FMetHb 0.3 % (0.0-1.5); FO2Hb 95.9 % (94-97); TOTAL HEMOGLOBIN 9.2 G/dl (12.0-16.0)
[2021-10-11] MEDS ORDERED: Dextrose 10%-water IV solution 1,000 ML IV SCH (05:00)
[2021-10-11] MEDS: fluconazole-Diflucan 200mg/NS 100 ML IV SCH (07:28)
[2021-10-11] MEDS: piperacillin/tazo 3.375gm/50ml 50 ML IV SCH ×2 (07:28→21:37)
[2021-10-11] MEDS: sennosides 8.6mg tablet PO SCH (07:29)
[2021-10-11] MEDS: famotidine/PF 10 mg/ml inj IV SCH ×2 (07:30→21:37)
[2021-10-11] MEDS ORDERED: docusate sod 100mg capsule PO SCH (08:00)
[2021-10-11] MEDS: K and/or MAG REPLACEMENT MC SCH (08:00)
[2021-10-11] MEDS: furosemide 40mg tablet PO SCH ×2 (08:00→21:37)
[2021-10-11] MEDS ORDERED: IRON,CARBONYL (45 MG ELEMENTAL IRON) SR.TABLET PO SCH (08:00)
[2021-10-11] MEDS: EPOETIN ALFA-EPBX 20,000 UNIT/ML 1 ML MDV SQ SCH (09:27)
[2021-10-11] MEDS ORDERED: EPOETIN ALFA-EPBX 20,000 UNIT/ML 1 ML MDV IV ONE (10:05)
[2021-10-11] MEDS: phytonadione inj. 10 MG in normal saline 100ml IV soln 100 ML IV SCH (10:17)
[2021-10-11] MEDS: sodium bicarbonate (8.4%) inj. 150 MEQ in dextrose 5%-water 1,000 ML IV SCH (10:50)
[2021-10-11] MEDS: iron sucrose complex injection 200 MG in normal saline 100ml IV soln 100 ML IV SCH (10:52)
[2021-10-11 14:37] LABS: BASOPHILS % (AUTO) 0.2 % (0-1); EOSINOPHILS # (AUTO) 0.3 X10'3 (0-0.9); EOSINOPHILS % (AUTO) 1.3 % (0-6); HEMATOCRIT 23.3 % (35.0-45.0); HEMOGLOBIN 7.6 g/dl (12.0-16.0); LYMPHOCYTES # (AUTO) 0.7 X10'3 (1.1-4.8); LYMPHOCYTES % (AUTO) 3.2 % (21-51); MEAN CORPUSCULAR HEMOGLOBIN 26.8 PG (27.0-31.0); MEAN CORPUSCULAR HGB CONC 32.5 g/dL (33.0-36.5); MEAN CORPUSCULAR VOLUME 82.4 FL (78-98); MONOCYTES # (AUTO) 0.4 X10'3 (0-0.9); MONOCYTES % (AUTO) 1.8 % (2-12); NEUTROPHILS # (AUTO) 19.5 X10'3 (1.8-7.7); NEUTROPHILS % (AUTO) 93.5 % (42-75); PLATELET COUNT 271 X10'3 (140-440); RED BLOOD COUNT 2.83 X10'6 (4.20-5.60); RED CELL DISTRIBUTION WIDTH 17.4 % (11.5-14.5); WHITE BLOOD COUNT 20.9 X10'3 (4.5-11.0)
[2021-10-11] MEDS ORDERED: LIDOcaine 1% (10mg/ml) 2ml vial ONE (15:10)
[2021-10-11] MEDS: gabapentin 100mg capsule PO SCH (21:37)
[2021-10-11] MEDS: amitriptyline 50mg tablet PO SCH (21:37)
[2021-10-11] MEDS: insulin glargine (Lantus) pen - multi-dose SQ SCH (22:38)
--- NOTE | 2021-10-11 23:57 | NUR ---
Restraint assessment charted on for 190, but restraints order was already in place and active prior to arrival to shift. Addendum: 10/11/21 at 5317 by Dany Lake RN Amended: Links added.
[2021-10-12] VITALS (23 sets, daily range): BP systolic 120–159; BP diastolic 32–58
[2021-10-12] MEDS: mineral oil/petrolatum ophthal oint EACHEYE SCH ×4 (02:00→20:00)
[2021-10-12 02:38] LABS: BASOPHILS % (AUTO) 0.1 % (0-1); EOSINOPHILS # (AUTO) 0.3 X10'3 (0-0.9); EOSINOPHILS % (AUTO) 1.2 % (0-6); HEMOGLOBIN 7.9 g/dl (12.0-16.0); LYMPHOCYTES # (AUTO) 0.6 X10'3 (1.1-4.8); LYMPHOCYTES % (AUTO) 2.3 % (21-51); MEAN CORPUSCULAR HEMOGLOBIN 26.9 PG (27.0-31.0); MEAN CORPUSCULAR HGB CONC 32.9 g/dL (33.0-36.5); MEAN CORPUSCULAR VOLUME 81.9 FL (78-98); MEAN PLATELET VOLUME 6.3 FL (7.4-10.4); MONOCYTES # (AUTO) 0.5 X10'3 (0-0.9); MONOCYTES % (AUTO) 2.1 % (2-12); NEUTROPHILS # (AUTO) 23.7 X10'3 (1.8-7.7); NEUTROPHILS % (AUTO) 94.3 % (42-75); PLATELET COUNT 266 X10'3 (140-440); RED BLOOD COUNT 2.93 X10'6 (4.20-5.60); RED CELL DISTRIBUTION WIDTH 17.2 % (11.5-14.5)
[2021-10-12 02:47] LABS: WHITE BLOOD COUNT 25.1 X10'3 (4.5-11.0)
[2021-10-12 02:49] LABS: APTT 62 SECONDS (22-32)
[2021-10-12 02:51] LABS: ALBUMIN 0.9 G/DL (3.4-5.0); ANION GAP 15 (8-16); BLOOD UREA NITROGEN 82 MG/DL (7-18); BUN/CREATININE RATIO 14.2 (6.6-38.0); CHLORIDE 102 MMOL/L (99-107); CREATININE 5.78 MG/DL (0.40-0.90); GLUCOSE 132 MG/DL (70-104); MAGNESIUM 2.1 MG/DL (1.5-2.4); PHOSPHORUS 2.9 MG/DL (2.3-4.5); POTASSIUM 4.2 MMOL/L (3.5-5.1); SODIUM 136 MMOL/L (135-145); TOTAL CARBON DIOXIDE 18.7 MMOL/L (24-32); eGFR 7 ML/MIN
--- NOTE | 2021-10-12 03:00 | NUR ---
notified regarding critical WBC of 25. Labs are trending up from last WBC
[2021-10-12] MEDS: sodium bicarbonate (8.4%) inj. 150 MEQ in dextrose 5%-water 1,000 ML IV SCH ×2 (03:01→18:57)
[2021-10-12 03:16] LABS: ABG BASE EXCESS -5.4 mmol/L (-2.0-2.0); ABG HCO3 18.1 mmol/L (22.0-26.0); ABG OXYGEN SATURATION 97.4 % (94-97); ABG PCO2 (T) 28.6 mmHg (32.0-45.0); ABG PO2 (T) 97.6 mmHg (75.0-100.0); FCOHb 1.1 % (0.0-3.9); FMetHb 0.3 % (0.0-1.5); PATIENT TEMPERATURE 37.7; PEEP 5 cm H2O; RESPIRATORY RATE 14 b/min; TIDAL VOLUME 450 mL; TOTAL HEMOGLOBIN 8.2 G/dl (12.0-16.0)
[2021-10-12 03:36] LABS: TOTAL CELLS COUNTED 100
[2021-10-12 03:37] LABS: ANISOCYTOSIS 1+; PLATELET ESTIMATE NORMAL
[2021-10-12 03:38] LABS: POLYCHROMASIA FEW
[2021-10-12 03:39] LABS: BURR CELLS FEW; TEAR DROP CELLS FEW
[2021-10-12] MEDS: piperacillin/tazo 3.375gm/50ml 50 ML IV SCH ×2 (08:56→21:20)
[2021-10-12] MEDS: ferrous sulfate 300mg/5ml UD oral liquid PO SCH (08:56)
[2021-10-12] MEDS: iron sucrose complex injection 200 MG in normal saline 100ml IV soln 100 ML IV SCH (08:56)
[2021-10-12] MEDS: famotidine/PF 10 mg/ml inj IV SCH ×2 (08:57→21:20)
[2021-10-12] MEDS: fluconazole-Diflucan 200mg/NS 100 ML IV SCH (08:57)
[2021-10-12] MEDS: docusate sodium 100mg/10ml UD cup PO SCH (08:57)
[2021-10-12] MEDS: sennosides 8.6mg tablet PO SCH (08:58)
[2021-10-12] MEDS: furosemide 40mg tablet PO SCH ×2 (08:58→21:20)
[2021-10-12] MEDS: phytonadione inj. 10 MG in normal saline 100ml IV soln 100 ML IV SCH (10:40)
--- NOTE | 2021-10-12 11:51 | NUR ---
TF Consult "trickle TF": Pt remains NPO day 4 this admit w/ R NG in place and MAP 81 this AM. No colostomy output yet per RN though continues to receive routine senna and colace post-op. Trickle TF to start today at 10ml/hr per wire coiler; recs below using true ht 64in w/ true BMI 26 at this time. Noted pt on Na-bicarb/D5 at 75ml/hr providing additional 306 kcals/day. Will monitor for TF tolerance and additional nutrition support needs on vent. Recs: 1. Continuous trickle TF per MD using Vital AF at 10ml/hr; to provide 240ml volume/day, 288 kcals, 194ml water, and 18g protein. 2. Monitor for TF tolerance; IF to advance and off Na-bicarb/D5 recommend Vital AF at 70ml/hr goal would provide 1680ml volume/day, 2016 kcals, 1361ml water, and 126g protein. IF remains on bicarb/D5; Vital AF at 60ml/hr goal. 3. PALB Q /; daily wts 4. routine bowel care per MD 5. upon extubation; advance diet as medically indicated to renal/low-residue 6. New colostomy education once pt appropriate following extubation Addendum: 10/12/21 at [address] Amended: Links added.
[2021-10-12 12:49] LABS: PREALBUMIN 4.4 MG/DL (19-36)
[2021-10-12] MEDS: gabapentin 100mg capsule PO SCH (21:19)
[2021-10-12] MEDS: amitriptyline 50mg tablet PO SCH (21:19)
[2021-10-12] MEDS: lactobacillus rhamnosus 10,000 MMU CELLS/CAPSULE PO SCH (21:22)
[2021-10-12] MEDS: insulin glargine (Lantus) pen - multi-dose SQ SCH (21:32)
[2021-10-13] VITALS (24 sets, daily range): BP systolic 121–158; BP diastolic 33–61
[2021-10-13] MEDS: mineral oil/petrolatum ophthal oint EACHEYE SCH ×4 (02:00→20:10)
[2021-10-13 03:01] LABS: ABG BASE EXCESS -0.9 mmol/L (-2.0-2.0); ABG HCO3 21.2 mmol/L (22.0-26.0); ABG OXYGEN SATURATION 97.2 % (94-97); ABG PCO2 (T) 26.1 mmHg (32.0-45.0); ABG PO2 (T) 89.1 mmHg (75.0-100.0); FCOHb 0.5 % (0.0-3.9); FMetHb 0.2 % (0.0-1.5); FO2Hb 96.5 % (94-97); PEEP 5 cm H2O; RESPIRATORY RATE 14 b/min; TIDAL VOLUME 450 mL; TOTAL HEMOGLOBIN 8.7 G/dl (12.0-16.0)
[2021-10-13 03:30] LABS: APTT 49 SECONDS (22-32)
[2021-10-13 03:31] LABS: BASOPHILS % (AUTO) 0.2 % (0-1); EOSINOPHILS # (AUTO) 0.2 X10'3 (0-0.9); EOSINOPHILS % (AUTO) 0.8 % (0-6); HEMATOCRIT 24.8 % (35.0-45.0); HEMOGLOBIN 8.2 g/dl (12.0-16.0); LYMPHOCYTES # (AUTO) 0.9 X10'3 (1.1-4.8); LYMPHOCYTES % (AUTO) 4.4 % (21-51); MEAN CORPUSCULAR HEMOGLOBIN 26.9 PG (27.0-31.0); MEAN CORPUSCULAR HGB CONC 33.1 g/dL (33.0-36.5); MEAN CORPUSCULAR VOLUME 81.2 FL (78-98); MEAN PLATELET VOLUME 6.8 FL (7.4-10.4); NEUTROPHILS # (AUTO) 17.9 X10'3 (1.8-7.7); NEUTROPHILS % (AUTO) 89.6 % (42-75); PLATELET COUNT 218 X10'3 (140-440); RED BLOOD COUNT 3.06 X10'6 (4.20-5.60); RED CELL DISTRIBUTION WIDTH 16.4 % (11.5-14.5)
[2021-10-13 03:42] LABS: RHEUM FACTOR QUAL REFLEX TITER NEGATIVE (Neg)
[2021-10-13 03:43] LABS: ALBUMIN 0.9 G/DL (3.4-5.0); ANION GAP 12 (8-16); BLOOD UREA NITROGEN 73 MG/DL (7-18); BUN/CREATININE RATIO 13.5 (6.6-38.0); CALCIUM 6.8 MG/DL (8.5-10.1); CHLORIDE 100 MMOL/L (99-107); GLUCOSE 101 MG/DL (70-104); MAGNESIUM 1.9 MG/DL (1.5-2.4); PHOSPHORUS 2.2 MG/DL (2.3-4.5); POTASSIUM 3.8 MMOL/L (3.5-5.1); SODIUM 135 MMOL/L (135-145); TOTAL CARBON DIOXIDE 22.9 MMOL/L (24-32); eGFR 8 ML/MIN
[2021-10-13] MEDS ORDERED: PHYTONADIONE IV SCH (07:27)
[2021-10-13] MEDS ORDERED: WATER IV SCH (07:27)
[2021-10-13] MEDS ORDERED: DEXTROSE 5% IV SCH (07:27)
[2021-10-13] MEDS: iron sucrose complex injection 200 MG in normal saline 100ml IV soln 100 ML IV SCH (08:26)
[2021-10-13] MEDS: docusate sodium 100mg/10ml UD cup PO SCH (08:45)
[2021-10-13] MEDS: ferrous sulfate 300mg/5ml UD oral liquid PO SCH (08:45)
[2021-10-13] MEDS: fluconazole-Diflucan 200mg/NS 100 ML IV SCH (08:46)
[2021-10-13] MEDS: lactobacillus rhamnosus 10,000 MMU CELLS/CAPSULE PO SCH (08:46)
[2021-10-13] MEDS: famotidine/PF 10 mg/ml inj IV SCH ×2 (08:46→20:09)
[2021-10-13] MEDS: furosemide 40mg tablet PO SCH (08:46)
[2021-10-13] MEDS: piperacillin/tazo 3.375gm/50ml 50 ML IV SCH ×2 (08:46→20:07)
[2021-10-13] MEDS: EPOETIN ALFA-EPBX 20,000 UNIT/ML 1 ML MDV SQ SCH (09:20)
[2021-10-13] MEDS: sennosides 8.6mg tablet PO SCH (09:24)
[2021-10-13 11:37] LABS: OCCULT BLOOD STOOL POSITIVE (Neg)
--- NOTE | 2021-10-13 11:55 | NUR ---
TF Consult: Pt tolerating trickle TF at 10ml/hr to advance to 30ml/hr today per gas flow regulator at rounds; no colostomy output yet per RN. Receiving routine senna, colace, and iron post-op. Pt to start HD tonight following dialysis catheter placement per MD. Will continue to monitor for EN tolerance recommend advancing EN as tolerated to goal rate below given day 6 no significant nutrition this admit if MD agreeable. Recs: 1. Continuous TF using Vital AF to run at 30ml/hr per MD; to provide 720ml volume/day, 864 kcals, 583ml water, and 54g protein. 2. Advance TF as tolerated using Vital AF at 70ml/hr goal if MD agreeable. Would provide 1680ml volume/day, 2016 kcals, 1361ml water, and 126g protein. 3. PALB Q /; daily wts 4. routine bowel care per MD 5. upon extubation; advance diet as medically indicated to renal/low-residue 6. New colostomy education once pt appropriate following extubation Addendum: 10/13/21 at [address] Amended: Links added.
[2021-10-13] MEDS ORDERED: dextrose ORAL solution 15 GM/59 ML bottle NG PRN ×2 (13:30)
[2021-10-13] MEDS ORDERED: ferrous sulfate 300mg/5ml UD oral liquid NG SCH (13:30)
[2021-10-13] MEDS ORDERED: potassium Cl 20 mEq SR tablet NG PRN (13:32)
[2021-10-13] MEDS ORDERED: ondansetron 4mg rapidly disintigrating tab NG PRN (13:32)
[2021-10-13] MEDS ORDERED: magnesium hydroxide 30ml (MOM) UD suspension NG PRN (13:32)
[2021-10-13] MEDS: acetaminophen 325mg/10.15ml oral unit dose solution NG PRN (13:48)
[2021-10-13] MEDS ORDERED: heparin 1,000unit/ml 10ml vial 10 ML ONE (14:58)
[2021-10-13] MEDS ORDERED: LIDOcaine 1% (10mg/ml) 2ml vial ONE (14:58)
--- NOTE | 2021-10-13 19:00 | NUR ---
Rt IJ dialysis catheter in place, site without redness, swelling, or leakage.
[2021-10-13] MEDS ORDERED: furosemide 40 MG/4 ML oral solution UD cup NG SCH (20:00)
[2021-10-13] MEDS: lactobacillus rhamnosus 10,000 MMU CELLS/CAPSULE NG SCH (20:08)
[2021-10-13] MEDS: amitriptyline 50mg tablet NG SCH (20:08)
[2021-10-13] MEDS: gabapentin 100mg capsule NG SCH (20:09)
[2021-10-13] MEDS: insulin glargine (Lantus) pen - multi-dose SQ SCH (21:00)
[2021-10-14] VITALS (25 sets, daily range): BP systolic 107–172; BP diastolic 39–56
[2021-10-14] MEDS: mineral oil/petrolatum ophthal oint EACHEYE SCH ×4 (02:12→20:20)
[2021-10-14 02:14] LABS: BASOPHILS % (AUTO) 0.1 % (0-1); EOSINOPHILS # (AUTO) 0.1 X10'3 (0-0.9); EOSINOPHILS % (AUTO) 0.4 % (0-6); HEMOGLOBIN 7.2 g/dl (12.0-16.0); LYMPHOCYTES # (AUTO) 1.1 X10'3 (1.1-4.8); LYMPHOCYTES % (AUTO) 4.7 % (21-51); MEAN CORPUSCULAR HEMOGLOBIN 26.9 PG (27.0-31.0); MEAN CORPUSCULAR HGB CONC 33.1 g/dL (33.0-36.5); MEAN CORPUSCULAR VOLUME 81.3 FL (78-98); MEAN PLATELET VOLUME 7.1 FL (7.4-10.4); MONOCYTES # (AUTO) 1.1 X10'3 (0-0.9); MONOCYTES % (AUTO) 4.9 % (2-12); NEUTROPHILS # (AUTO) 20.5 X10'3 (1.8-7.7); NEUTROPHILS % (AUTO) 89.9 % (42-75); PLATELET COUNT 194 X10'3 (140-440); RED BLOOD COUNT 2.66 X10'6 (4.20-5.60); RED CELL DISTRIBUTION WIDTH 15.8 % (11.5-14.5); WHITE BLOOD COUNT 22.8 X10'3 (4.5-11.0)
[2021-10-14 02:23] LABS: APTT 44 SECONDS (22-32)
[2021-10-14 02:24] LABS: ALBUMIN 0.8 G/DL (3.4-5.0); ANION GAP 7 (8-16); BLOOD UREA NITROGEN 81 MG/DL (7-18); BUN/CREATININE RATIO 15.2 (6.6-38.0); CALCIUM 6.7 MG/DL (8.5-10.1); CHLORIDE 100 MMOL/L (99-107); CREATININE 5.34 MG/DL (0.40-0.90); GLUCOSE 128 MG/DL (70-104); PHOSPHORUS 2.7 MG/DL (2.3-4.5); POTASSIUM 3.1 MMOL/L (3.5-5.1); SODIUM 133 MMOL/L (135-145); TOTAL CARBON DIOXIDE 25.7 MMOL/L (24-32); eGFR 8 ML/MIN
[2021-10-14 02:28] LABS: HEMATOCRIT 21.7 % (35.0-45.0)
[2021-10-14 03:25] LABS: ABG HCO3 21.5 mmol/L (22.0-26.0); ABG OXYGEN SATURATION 95.3 % (94-97); ABG PCO2 (T) 26.6 mmHg (32.0-45.0); ABG PO2 (T) 70.8 mmHg (75.0-100.0); FCOHb 0.6 % (0.0-3.9); FMetHb 0.2 % (0.0-1.5); FO2Hb 94.5 % (94-97); PATIENT TEMPERATURE 36.4; PEEP 5 cm H2O; TOTAL HEMOGLOBIN 7.8 G/dl (12.0-16.0)
[2021-10-14] MEDS: sennosides 8.6mg tablet NG SCH (08:00)
[2021-10-14] MEDS: docusate sodium 100mg/10ml UD cup NG SCH ×2 (08:00→20:19)
[2021-10-14] MEDS ORDERED: heparin 1,000 units/ml 10ml inj IV ONE (08:25)
[2021-10-14] MEDS ORDERED: albumin (human) 25% 100ml IV 100 ML IV PRN (08:25)
[2021-10-14] MEDS ORDERED: heparin 1,000unit/ml 10ml vial 10 ML IV ONE (08:25)
[2021-10-14] MEDS ORDERED: heparin 1,000 units/ml 10ml inj HE ONE ×2 (08:30)
[2021-10-14] MEDS: fluconazole-Diflucan 200mg/NS 100 ML IV SCH (08:44)
[2021-10-14] MEDS: iron sucrose complex injection 200 MG in normal saline 100ml IV soln 100 ML IV SCH (08:44)
[2021-10-14] MEDS: famotidine/PF 10 mg/ml inj IV SCH ×2 (08:44→20:18)
[2021-10-14] MEDS: lactobacillus rhamnosus 10,000 MMU CELLS/CAPSULE NG SCH ×2 (08:45→20:17)
[2021-10-14] MEDS: piperacillin/tazo 3.375gm/50ml 50 ML IV SCH ×2 (08:49→20:16)
[2021-10-14] MEDS: HYDROmorphone inj. 0.5 MG/0.5 ML DISP.SYRIN IV PRN ×2 (09:46→14:36)
[2021-10-14 12:13] LABS: AFP,SERUM, TUMOR MARKER <0.9 ng/mL (0.0-8.3); CANCER ANTIGEN 125 76.7 U/mL (0.0-38.1); CARBOHYDRATE ANTIGEN 19-9 74 U/mL (0-35); CARCINOEMBRYONIC ANTIGEN 3.4 ng/mL (0.0-4.7)
--- NOTE | 2021-10-14 12:23 | NUR ---
F/u 10/14: Pt Colostomy -150ml yesterday w/ continued output w/ TF increased to 50ml/hr per EMR. URIEL d/w RN who reports advance to advance TF to goal per truck despatcher this AM. Updated TF recs below. Recs: 1. Continuous TF using Vital AF at 70ml/hr goal; to provide 1680ml volume/day, 2016 kcals, 1361ml water, and 126g protein. 2. additional water flush per truck despatcher on HD 3. PALB Q /; daily wts 4. routine bowel care per MD 5. upon extubation; advance diet as medically indicated to renal/low-residue 6. New colostomy education once pt appropriate following extubation Addendum: 10/14/21 at [address] Amended: Links added.
--- NOTE | 2021-10-14 12:30 | NUR ---
farm tractor operator at bedside. Dialysis started
--- NOTE | 2021-10-14 12:52 | NUR ---
TF Consult: addressed; see prior RD note. Addendum: 10/14/21 at [address] Amended: Links added.
[2021-10-14 12:56] LABS: ALANINE AMINOTRANSFERASE 11 U/L (12-78); ALBUMIN/GLOBULIN RATIO 0.3 (1.1-1.5); ALKALINE PHOSPHATASE 72 IU/L (46-116); ASPARTATE AMINO TRANSFERASE 14 U/L (10-37); BILIRUBIN,DIRECT 0.2 MG/DL (0-0.3); BILIRUBIN,TOTAL 0.4 MG/DL (0.1-1.0); TOTAL PROTEIN 3.7 G/DL (6.4-8.2)
[2021-10-14] MEDS: dexmedetomidine/D5W 100mL 100 ML IV SCH (17:53)
--- NOTE | 2021-10-14 18:17 | NUR ---
Problems reprioritized. Patient report given, questions answered & plan of care reviewed with Kia BUITRAGO.
[2021-10-14] MEDS: HYDROmorphone 1 mg/ml syringe IV PRN (18:56)
[2021-10-14] MEDS: amitriptyline 50mg tablet NG SCH (20:16)
[2021-10-14] MEDS: gabapentin 100mg capsule NG SCH (20:17)
[2021-10-14] MEDS: insulin glargine (Lantus) pen - multi-dose SQ SCH (21:25)
[2021-10-14] MEDS: insulin regular, human U-100 3ml vial - multi-dose SQ SCH (21:39)
[2021-10-15] VITALS (27 sets, daily range): BP systolic 115–192; BP diastolic 31–64
[2021-10-15] MEDS: mineral oil/petrolatum ophthal oint EACHEYE SCH ×4 (02:07→20:18)
[2021-10-15] MEDS: insulin regular, human U-100 3ml vial - multi-dose SQ SCH ×4 (03:15→20:39)
[2021-10-15 03:19] LABS: APTT 39 SECONDS (22-32)
[2021-10-15 03:22] LABS: ALBUMIN 0.7 G/DL (3.4-5.0); ANION GAP 8 (8-16); BLOOD UREA NITROGEN 49 MG/DL (7-18); BUN/CREATININE RATIO 13.2 (6.6-38.0); CALCIUM 6.7 MG/DL (8.5-10.1); CHLORIDE 100 MMOL/L (99-107); CREATININE 3.72 MG/DL (0.40-0.90); GLUCOSE 214 MG/DL (70-104); MAGNESIUM 1.8 MG/DL (1.5-2.4); PHOSPHORUS 1.5 MG/DL (2.3-4.5); POTASSIUM 3.6 MMOL/L (3.5-5.1); SODIUM 133 MMOL/L (135-145); TOTAL CARBON DIOXIDE 24.9 MMOL/L (24-32); eGFR 12 ML/MIN
[2021-10-15 03:53] LABS: BASOPHILS % (AUTO) 0.2 % (0-1); EOSINOPHILS # (AUTO) 0.1 X10'3 (0-0.9); EOSINOPHILS % (AUTO) 0.3 % (0-6); LYMPHOCYTES # (AUTO) 1.3 X10'3 (1.1-4.8); LYMPHOCYTES % (AUTO) 5.5 % (21-51); MEAN CORPUSCULAR HEMOGLOBIN 27.4 PG (27.0-31.0); MEAN CORPUSCULAR HGB CONC 32.6 g/dL (33.0-36.5); MEAN CORPUSCULAR VOLUME 83.9 FL (78-98); MEAN PLATELET VOLUME 8.2 FL (7.4-10.4); MONOCYTES # (AUTO) 1.7 X10'3 (0-0.9); MONOCYTES % (AUTO) 7.2 % (2-12); NEUTROPHILS # (AUTO) 20.7 X10'3 (1.8-7.7); NEUTROPHILS % (AUTO) 86.8 % (42-75); PLATELET COUNT 190 X10'3 (140-440); RED BLOOD COUNT 2.45 X10'6 (4.20-5.60); RED CELL DISTRIBUTION WIDTH 15.7 % (11.5-14.5); WHITE BLOOD COUNT 23.8 X10'3 (4.5-11.0)
[2021-10-15 04:01] LABS: HEMOGLOBIN 6.7 g/dl (12.0-16.0)
[2021-10-15 04:02] LABS: HEMATOCRIT 20.6 % (35.0-45.0)
[2021-10-15 04:02] LABS: ABG BASE EXCESS 1.4 mmol/L (-2.0-2.0); ABG HCO3 23.5 mmol/L (22.0-26.0); ABG OXYGEN SATURATION 96.6 % (94-97); ABG PCO2 (T) 26.8 mmHg (32.0-45.0); FCOHb 0.4 % (0.0-3.9); FMetHb 0.3 % (0.0-1.5); FO2Hb 95.9 % (94-97); PATIENT TEMPERATURE 36.9; PEEP 5 cm H2O; TOTAL HEMOGLOBIN 7.3 G/dl (12.0-16.0)
[2021-10-15] MEDS: dexmedetomidine/D5W 100mL 100 ML IV SCH ×2 (04:20→20:23)
[2021-10-15] MEDS: fluconazole-Diflucan 200mg/NS 100 ML IV SCH (07:18)
[2021-10-15] MEDS: piperacillin/tazo 3.375gm/50ml 50 ML IV SCH ×2 (07:19→20:19)
[2021-10-15] MEDS: lactobacillus rhamnosus 10,000 MMU CELLS/CAPSULE NG SCH ×2 (07:19→20:19)
[2021-10-15] MEDS: iron sucrose complex injection 200 MG in normal saline 100ml IV soln 100 ML IV SCH (07:19)
[2021-10-15] MEDS: famotidine/PF 10 mg/ml inj IV SCH ×2 (07:19→20:19)
[2021-10-15] MEDS: sennosides 8.6mg tablet NG SCH (07:19)
--- NOTE | 2021-10-15 08:24 | NUR ---
Reassessment: Pt remains intubated. TF has been advanced to new goal of Vital AF at 70ml/hr. Pt receiving temporary HD at this time, last HD 10/14 per documentation. Pt noted w/ 300ml stool output 10/14 receiving routine bowel care. No change to nutrition recommendations at this time, will continue to monitor and adjust needs as medically indicated. Recs: 1. Continuous TF using Vital AF at 70ml/hr goal; to provide 1680ml volume/day, 2016 kcals, 1361ml water, and 126g protein. 2. additional water flush per clerical administrator on HD 3. PALB Q /; daily wts 4. routine bowel care per MD 5. upon extubation; advance diet as medically indicated to renal/low-residue 6. New colostomy education once pt appropriate following extubation Addendum: 10/15/21 at [address] Amended: Links added.
[2021-10-15 10:06] LABS: NUCLEATED RED BLOOD CELLS 1 /100WBC (0-0); PLATELET ESTIMATE NORMAL; TOTAL CELLS COUNTED 100
[2021-10-15] MEDS: HYDROmorphone 1 mg/ml syringe IV PRN ×3 (12:15→20:41)
[2021-10-15] MEDS: acetaZOLAMIDE IV 500mg inj IV SCH (16:33)
[2021-10-15 19:18] LABS: HEMATOCRIT 28.6 % (35.0-45.0); HEMOGLOBIN 9.3 g/dl (12.0-16.0); MEAN CORPUSCULAR HEMOGLOBIN 27.9 PG (27.0-31.0); MEAN CORPUSCULAR HGB CONC 32.5 g/dL (33.0-36.5); MEAN CORPUSCULAR VOLUME 85.7 FL (78-98); MEAN PLATELET VOLUME 8.3 FL (7.4-10.4); PLATELET COUNT 184 X10'3 (140-440); RED BLOOD COUNT 3.34 X10'6 (4.20-5.60); RED CELL DISTRIBUTION WIDTH 15.3 % (11.5-14.5)
[2021-10-15 19:25] LABS: WHITE BLOOD COUNT 29.9 X10'3 (4.5-11.0)
--- NOTE | 2021-10-15 19:43 | NUR ---
Critically high WBC @ 29.9 and a fever @ 104.[address] Armstrong, Tylenol is already ordered. Cooling measures started such as cool cloth and ice packs. Pt on Zosyn as antibiotics. No new orders obtained at this time. Will ctm. Addendum: 10/15/21 at 2116 by Yue Lake RN Amended: Links added.
[2021-10-15] MEDS: acetaminophen 325mg/10.15ml oral unit dose solution NG PRN (19:51)
[2021-10-15] MEDS: amitriptyline 50mg tablet NG SCH (20:19)
[2021-10-15] MEDS: gabapentin 100mg capsule NG SCH (20:19)
[2021-10-15] MEDS: insulin glargine (Lantus) pen - multi-dose SQ SCH (20:38)
[2021-10-16] VITALS (24 sets, daily range): BP systolic 92–156; BP diastolic 34–68
[2021-10-16] MEDS: acetaZOLAMIDE IV 500mg inj IV SCH ×2 (00:02→08:52)
[2021-10-16] MEDS ORDERED: ringers solution, lactated 500ml IV solution IV ONE (01:55)
[2021-10-16] MEDS: mineral oil/petrolatum ophthal oint EACHEYE SCH ×4 (02:01→20:11)
[2021-10-16] MEDS: insulin regular, human U-100 3ml vial - multi-dose SQ SCH ×4 (02:45→20:27)
[2021-10-16 02:55] LABS: ABG BASE EXCESS -1.9 mmol/L (-2.0-2.0); ABG HCO3 21.3 mmol/L (22.0-26.0); ABG PCO2 (T) 30.4 mmHg (32.0-45.0); ABG PO2 (T) 105.2 mmHg (75.0-100.0); FO2Hb 97.5 % (94-97); PATIENT TEMPERATURE 36.9; PEEP 5 cm H2O; TOTAL HEMOGLOBIN 9.1 G/dl (12.0-16.0)
[2021-10-16 02:56] LABS: ABG OXYGEN SATURATION 97.8 % (94-97); FCOHb 0.3 % (0.0-3.9)
[2021-10-16 03:18] LABS: APTT 38 SECONDS (22-32)
[2021-10-16 03:21] LABS: ALBUMIN 0.8 G/DL (3.4-5.0); ANION GAP 12 (8-16); BLOOD UREA NITROGEN 66 MG/DL (7-18); BUN/CREATININE RATIO 16.4 (6.6-38.0); CALCIUM 6.3 MG/DL (8.5-10.1); CHLORIDE 102 MMOL/L (99-107); CREATININE 4.03 MG/DL (0.40-0.90); GLUCOSE 241 MG/DL (70-104); MAGNESIUM 1.8 MG/DL (1.5-2.4); PHOSPHORUS 2.5 MG/DL (2.3-4.5); POTASSIUM 3.1 MMOL/L (3.5-5.1); PREALBUMIN 11.6 MG/DL (19-36); SODIUM 136 MMOL/L (135-145); eGFR 11 ML/MIN
[2021-10-16 03:22] LABS: BASOPHILS # (AUTO) 0.1 X10'3 (0-0.2); BASOPHILS % (AUTO) 0.4 % (0-1); EOSINOPHILS % (AUTO) 0.2 % (0-6); HEMATOCRIT 26.5 % (35.0-45.0); HEMOGLOBIN 8.5 g/dl (12.0-16.0); LYMPHOCYTES # (AUTO) 2.3 X10'3 (1.1-4.8); LYMPHOCYTES % (AUTO) 7.4 % (21-51); MEAN CORPUSCULAR HEMOGLOBIN 27.6 PG (27.0-31.0); MEAN CORPUSCULAR VOLUME 86.3 FL (78-98); MEAN PLATELET VOLUME 8.8 FL (7.4-10.4); MONOCYTES # (AUTO) 2.6 X10'3 (0-0.9); MONOCYTES % (AUTO) 8.3 % (2-12); NEUTROPHILS # (AUTO) 25.8 X10'3 (1.8-7.7); NEUTROPHILS % (AUTO) 83.7 % (42-75); PLATELET COUNT 164 X10'3 (140-440); RED BLOOD COUNT 3.07 X10'6 (4.20-5.60); RED CELL DISTRIBUTION WIDTH 15.3 % (11.5-14.5)
[2021-10-16 03:40] LABS: WHITE BLOOD COUNT 30.7 X10'3 (4.5-11.0)
[2021-10-16 05:19] LABS: TOTAL CELLS COUNTED 100
--- NOTE | 2021-10-16 05:19 | NUR ---
Dr Taylor with Tele Medicine made aware of the following patient issues during rounds: 1) increasing WBC, currently @ 30.7, febrile overnight with Tmax 41.6, resolved now 2) hypotension overnight resolved with 500ml LR bolus ordered by Dr Armstrong, 3) gastric residuals >300ml for multiple checks - asked for Reglan to be started, awaiting orders at this time, 4) blood sugars remain > 160 and is on Level 6 now on Hyperglycemia protocol, 5) Hgb continues to trend down despite transfusion of PRBC 1 unit yesterday, no obvious signs of bleeding. No new orders obtained at this time. Addendum: 10/16/21 at 0527 by [address] RN Dr Taylor also made aware for the need for better IV access, either PICC or Midline.
[2021-10-16 05:21] LABS: PLATELET ESTIMATE NORMAL
[2021-10-16] MEDS: lactobacillus rhamnosus 10,000 MMU CELLS/CAPSULE NG SCH ×2 (06:50→20:10)
[2021-10-16] MEDS: sennosides 8.6mg tablet NG SCH (08:00)
[2021-10-16] MEDS: docusate sodium 100mg/10ml UD cup NG SCH (08:00)
[2021-10-16] MEDS: piperacillin/tazo 3.375gm/50ml 50 ML IV SCH ×3 (08:00→14:05)
[2021-10-16] MEDS ORDERED: albumin (human) 25% 100ml IV 100 ML IV PRN (08:10)
[2021-10-16] MEDS ORDERED: heparin 1,000 units/ml 10ml inj IV ONE (08:10)
[2021-10-16] MEDS ORDERED: EPOETIN ALFA-EPBX 20,000 UNIT/ML 1 ML MDV IV ONE (08:10)
[2021-10-16] MEDS ORDERED: heparin 1,000unit/ml 10ml vial 10 ML IV ONE (08:10)
[2021-10-16] MEDS ORDERED: heparin 1,000 units/ml 10ml inj HE ONE ×2 (08:15)
[2021-10-16] MEDS: famotidine/PF 10 mg/ml inj IV SCH ×2 (08:52→20:10)
[2021-10-16] MEDS: iron sucrose complex injection 200 MG in normal saline 100ml IV soln 100 ML IV SCH (08:56)
--- NOTE | 2021-10-16 09:36 | NUR ---
Malnutrition screen: Per [facility] pt reports 14-23lb wt loss and decreased appetite though pt has been intubated since 10/08 and receiving TF since 10/13. Per pt's , she is at her usual wt, no visible signs of wasting observed at bedside. BUE 1+ and BLE 2+ edema noted though likely not related to nutrition status. At this time pt does not meet minimum criteria for malnutrition. Addendum: 10/16/21 at [address] Amended: Links added.
[2021-10-16 09:39] LABS: A/G RATIO 0.7 (0.7-1.7); ALBUMIN 1.3 g/dL (2.9-4.4); ANTINUCLEAR ANTIBODIES Negative (Negative); BETA GLOBULIN 0.4 g/dL (0.7-1.3); GAMMA GLOBULIN 0.5 g/dL (0.4-1.8); GLOBULIN, TOTAL 1.8 g/dL (2.2-3.9); M-SPIKE Not Observed g/dL (Not Observed); PROTEIN, TOTAL, SERUM 3.1 g/dL (6.0-8.5)
[2021-10-16] MEDS: EPOETIN ALFA-EPBX 20,000 UNIT/ML 1 ML MDV SQ SCH (11:04)
[2021-10-16] MEDS: dexmedetomidine/D5W 100mL 100 ML IV SCH ×2 (13:27→17:28)
[2021-10-16] MEDS: acetaminophen 325mg/10.15ml oral unit dose solution NG PRN (17:17)
[2021-10-16] MEDS: HYDROmorphone inj. 0.5 MG/0.5 ML DISP.SYRIN IV PRN ×2 (18:37→22:58)
[2021-10-16] MEDS: gabapentin 100mg capsule NG SCH (20:10)
[2021-10-16] MEDS: amitriptyline 50mg tablet NG SCH (20:10)
[2021-10-16] MEDS: insulin glargine (Lantus) pen - multi-dose SQ SCH (20:28)
[2021-10-17] VITALS (24 sets, daily range): BP systolic 97–145; BP diastolic 37–71
[2021-10-17] MEDS: acetaminophen 325mg/10.15ml oral unit dose solution NG PRN ×3 (00:02→20:06)
[2021-10-17] MEDS: insulin regular, human U-100 3ml vial - multi-dose SQ SCH ×2 (02:13→20:17)
[2021-10-17] MEDS: mineral oil/petrolatum ophthal oint EACHEYE SCH ×4 (02:14→20:08)
[2021-10-17 02:30] LABS: ABG BASE EXCESS 0.1 mmol/L (-2.0-2.0); ABG HCO3 23.9 mmol/L (22.0-26.0); ABG OXYGEN SATURATION 97.1 % (94-97); ABG PCO2 (T) 37.7 mmHg (32.0-45.0); ABG PO2 (T) 102.4 mmHg (75.0-100.0); FCOHb 0.3 % (0.0-3.9); FMetHb 0.1 % (0.0-1.5); FO2Hb 96.7 % (94-97); PATIENT TEMPERATURE 38.4; PEEP 5 cm H2O; TOTAL HEMOGLOBIN 9.3 G/dl (12.0-16.0)
[2021-10-17 02:44] LABS: BASOPHILS % (AUTO) 0.1 % (0-1); EOSINOPHILS # (AUTO) 0.1 X10'3 (0-0.9); EOSINOPHILS % (AUTO) 0.3 % (0-6); HEMATOCRIT 25.3 % (35.0-45.0); HEMOGLOBIN 8.1 g/dl (12.0-16.0); LYMPHOCYTES # (AUTO) 2.1 X10'3 (1.1-4.8); LYMPHOCYTES % (AUTO) 6.3 % (21-51); MEAN CORPUSCULAR HEMOGLOBIN 27.5 PG (27.0-31.0); MEAN CORPUSCULAR HGB CONC 32.3 g/dL (33.0-36.5); MEAN CORPUSCULAR VOLUME 85.1 FL (78-98); MEAN PLATELET VOLUME 9.4 FL (7.4-10.4); MONOCYTES % (AUTO) 5.8 % (2-12); NEUTROPHILS # (AUTO) 29.2 X10'3 (1.8-7.7); NEUTROPHILS % (AUTO) 87.5 % (42-75); PLATELET COUNT 207 X10'3 (140-440); RED BLOOD COUNT 2.97 X10'6 (4.20-5.60); RED CELL DISTRIBUTION WIDTH 15.9 % (11.5-14.5)
[2021-10-17 02:51] LABS: WHITE BLOOD COUNT 33.4 X10'3 (4.5-11.0)
[2021-10-17 03:00] LABS: APTT 31 SECONDS (22-32)
[2021-10-17 03:02] LABS: ALBUMIN 0.8 G/DL (3.4-5.0); ANION GAP 7 (8-16); BLOOD UREA NITROGEN 43 MG/DL (7-18); BUN/CREATININE RATIO 15.8 (6.6-38.0); CALCIUM 6.6 MG/DL (8.5-10.1); CHLORIDE 105 MMOL/L (99-107); CREATININE 2.72 MG/DL (0.40-0.90); GLUCOSE 206 MG/DL (70-104); MAGNESIUM 1.9 MG/DL (1.5-2.4); PHOSPHORUS 1.7 MG/DL (2.3-4.5); SODIUM 137 MMOL/L (135-145); TOTAL CARBON DIOXIDE 25.3 MMOL/L (24-32); eGFR 18 ML/MIN
[2021-10-17] MEDS: potassium Cl 20 mEq SR tablet NG PRN (03:29)
[2021-10-17 04:36] LABS: TOTAL CELLS COUNTED 100
[2021-10-17 04:38] LABS: PLATELET ESTIMATE NORMAL
--- NOTE | 2021-10-17 06:22 | NUR ---
Problems reprioritized. Patient report given, questions answered & plan of care reviewed with oncoming RN. Pt stable at time of handoff.
[2021-10-17] MEDS: lactobacillus rhamnosus 10,000 MMU CELLS/CAPSULE NG SCH ×2 (07:25→20:07)
[2021-10-17] MEDS: sennosides 8.6mg tablet NG SCH (07:25)
[2021-10-17] MEDS: docusate sodium 100mg/10ml UD cup NG SCH (07:25)
[2021-10-17] MEDS: piperacillin/tazo 3.375gm/50ml 50 ML IV SCH (07:35)
[2021-10-17] MEDS: famotidine/PF 10 mg/ml inj IV SCH ×2 (07:36→20:08)
[2021-10-17] MEDS ORDERED: VANCOMYCIN 1GM/200ML IVPB 200 ML IV SCH (08:00)
[2021-10-17] MEDS ORDERED: vancomycin/NS 1 GM ADD-VANTAGE 250 ML IV PRN (08:30)
[2021-10-17] MEDS ORDERED: vancomycin/NS 1 GM ADD-VANTAGE 250 ML IV ONE (08:30)
[2021-10-17] MEDS ORDERED: potassium phosphate inj 15 MMOL in NS 250ml IV soln 250 ML IV ONE (11:00)
[2021-10-17] MEDS ORDERED: metoclopramide 5 mg/ml inj IV PRN (11:00)
[2021-10-17] MEDS: meropenem inj 500 MG in normal saline 100ml IV soln 100 ML IV SCH (11:15)
[2021-10-17] MEDS: heparin, porcine 5000 units/ml vial SQ SCH ×2 (11:18→20:07)
--- NOTE | 2021-10-17 11:32 | NUR ---
Reassessment: Pt remains intubated. w/ TF running at goal of Vital AF at 70ml/hr. Pt noted to have periods of elevated residuals up to 450ml, okay to start Reglan per Community Cultural Development Officer. Pt receiving temporary HD at this time. Pt noted w/ 250ml stool output 10/17 receiving routine bowel care. No change to nutrition recommendations at this time, will continue to monitor and adjust needs as medically indicated. Recs: 1. Continuous TF using Vital AF at 70ml/hr goal; to provide 1680ml volume/day, 2016 kcals, 1361ml water, and 126g protein. 2. additional water flush per mailroom coordinator on HD 3. PALB Q /; daily wts 4. routine bowel care per MD 5. upon extubation; advance diet as medically indicated to renal/low-residue 6. New colostomy education once pt appropriate following extubation Addendum: 10/17/21 at [address] Amended: Links added.
[2021-10-17] MEDS: metoclopramide 5 mg/ml inj IV SCH ×2 (14:00→20:08)
[2021-10-17] MEDS: HYDROmorphone inj. 0.5 MG/0.5 ML DISP.SYRIN IV PRN ×2 (15:15→20:22)
[2021-10-17] MEDS: dexmedetomidin/NS 400mcg/100ml 100 ML IV SCH (18:10)
[2021-10-17] MEDS ORDERED: Dextrose 10%-water IV solution 1,000 ML IV SCH (19:10)
[2021-10-17] MEDS: gabapentin 100mg capsule NG SCH (20:06)
[2021-10-17] MEDS: amitriptyline 50mg tablet NG SCH (20:06)
[2021-10-17] MEDS: insulin glargine (Lantus) pen - multi-dose SQ SCH (20:18)
[2021-10-17] MEDS: diatr meglu/diatrizoate 30ml oral sol.-(3 dose) bottle PO SCH (21:04)
[2021-10-18] VITALS (24 sets, daily range): BP systolic 89–134; BP diastolic 36–79
[2021-10-18] MEDS: Dextrose 10%-water IV solution 1,000 ML IV SCH ×2 (00:02→15:23)
[2021-10-18] MEDS: mineral oil/petrolatum ophthal oint EACHEYE SCH ×4 (02:00→20:52)
[2021-10-18] MEDS: metoclopramide 5 mg/ml inj IV SCH ×2 (02:24→07:29)
[2021-10-18] MEDS: insulin regular, human U-100 3ml vial - multi-dose SQ SCH ×2 (02:26→22:00)
[2021-10-18 02:42] LABS: BASOPHILS # (AUTO) 0.2 X10'3 (0-0.2); BASOPHILS % (AUTO) 0.5 % (0-1); EOSINOPHILS # (AUTO) 0.2 X10'3 (0-0.9); EOSINOPHILS % (AUTO) 0.6 % (0-6); HEMOGLOBIN 7.3 g/dl (12.0-16.0); LYMPHOCYTES # (AUTO) 1.2 X10'3 (1.1-4.8); LYMPHOCYTES % (AUTO) 3.6 % (21-51); MEAN CORPUSCULAR HEMOGLOBIN 27.6 PG (27.0-31.0); MEAN CORPUSCULAR HGB CONC 31.8 g/dL (33.0-36.5); MEAN CORPUSCULAR VOLUME 86.7 FL (78-98); MEAN PLATELET VOLUME 9.4 FL (7.4-10.4); MONOCYTES # (AUTO) 1.8 X10'3 (0-0.9); MONOCYTES % (AUTO) 5.3 % (2-12); NEUTROPHILS # (AUTO) 31.1 X10'3 (1.8-7.7); PLATELET COUNT 288 X10'3 (140-440); RED BLOOD COUNT 2.65 X10'6 (4.20-5.60); RED CELL DISTRIBUTION WIDTH 16.1 % (11.5-14.5)
[2021-10-18 02:48] LABS: WHITE BLOOD COUNT 34.6 X10'3 (4.5-11.0)
[2021-10-18 02:55] LABS: APTT 33 SECONDS (22-32)
[2021-10-18 02:59] LABS: ALBUMIN 0.9 G/DL (3.4-5.0); ANION GAP 14 (8-16); BLOOD UREA NITROGEN 50 MG/DL (7-18); CALCIUM 6.7 MG/DL (8.5-10.1); CHLORIDE 107 MMOL/L (99-107); CREATININE 3.12 MG/DL (0.40-0.90); GLUCOSE 122 MG/DL (70-104); MAGNESIUM 1.9 MG/DL (1.5-2.4); PHOSPHORUS 2.2 MG/DL (2.3-4.5); POTASSIUM 3.4 MMOL/L (3.5-5.1); SODIUM 144 MMOL/L (135-145); TOTAL CARBON DIOXIDE 23.2 MMOL/L (24-32); eGFR 15 ML/MIN
[2021-10-18] MEDS: HYDROmorphone inj. 0.5 MG/0.5 ML DISP.SYRIN IV PRN (03:17)
[2021-10-18] MEDS: VANCOMYCIN LEVEL IV SCH (03:17)
[2021-10-18 03:20] LABS: TOTAL CELLS COUNTED 100
[2021-10-18 03:21] LABS: ANISOCYTOSIS 1+; ELLIPTOCYTES FEW; PLATELET ESTIMATE NORMAL
[2021-10-18 03:23] LABS: POLYCHROMASIA FEW; TEAR DROP CELLS FEW
[2021-10-18 03:24] LABS: LARGE PLATELETS FEW
[2021-10-18 05:14] LABS: ABG BASE EXCESS -3.8 mmol/L (-2.0-2.0); ABG HCO3 21.2 mmol/L (22.0-26.0); ABG OXYGEN SATURATION 94.8 % (94-97); ABG PCO2 (T) 38.1 mmHg (32.0-45.0); ABG PO2 (T) 75.8 mmHg (75.0-100.0); FCOHb 0.3 % (0.0-3.9); FMetHb 0.3 % (0.0-1.5); FO2Hb 94.2 % (94-97); PATIENT TEMPERATURE 37.3; PEEP 5 cm H2O; TOTAL HEMOGLOBIN 8.2 G/dl (12.0-16.0)
--- NOTE | 2021-10-18 06:00 | NUR ---
Patient in room ICU 2042. I have received report from night nurse and had the opportunity to ask questions and assume patient care.
--- NOTE | 2021-10-18 06:26 | NUR ---
Problems reprioritized. Patient report given, questions answered & plan of care reviewed with Katlyn BUITRAGO. Pt stable at time of handoff.
[2021-10-18] MEDS: diatr meglu/diatrizoate 30ml oral sol.-(3 dose) bottle PO SCH ×2 (07:07→21:00)
[2021-10-18] MEDS: famotidine/PF 10 mg/ml inj IV SCH ×2 (07:28→20:49)
[2021-10-18] MEDS: sennosides 8.6mg tablet NG SCH (07:28)
[2021-10-18] MEDS: docusate sodium 100mg/10ml UD cup NG SCH (07:28)
[2021-10-18] MEDS: heparin, porcine 5000 units/ml vial SQ SCH ×2 (07:29→20:47)
[2021-10-18] MEDS: meropenem inj 500 MG in normal saline 100ml IV soln 100 ML IV SCH (07:29)
[2021-10-18] MEDS: lactobacillus rhamnosus 10,000 MMU CELLS/CAPSULE NG SCH ×2 (07:30→20:52)
[2021-10-18] MEDS: dextrose 50%-water 50ml dispensing syringe IV PRN (08:43)
[2021-10-18] MEDS: dexmedetomidin/NS 400mcg/100ml 100 ML IV SCH ×2 (08:49→23:18)
[2021-10-18] MEDS ORDERED: albumin (human) 25% 100ml IV 100 ML IV PRN (11:10)
[2021-10-18] MEDS ORDERED: heparin 1,000 units/ml 10ml inj IV ONE ×2 (11:10)
[2021-10-18] MEDS ORDERED: EPOETIN ALFA-EPBX 20,000 UNIT/ML 1 ML MDV IV ONE (11:10)
[2021-10-18] MEDS ORDERED: heparin 1,000 units/ml 10ml inj HE ONE ×2 (11:15)
[2021-10-18] MEDS ORDERED: iohexol 300mg/ml 100ml inj. ONE (11:52)
--- NOTE | 2021-10-18 12:30 | NUR ---
pt tken to cat scan with respiratory and transport for CT scan
--- NOTE | 2021-10-18 12:45 | NUR ---
Dialysis nurse at bedside, pt receiving dialysis, anxious, medicated with dilaudid with good results
--- NOTE | 2021-10-18 14:30 | NUR ---
Salvage Diver called and ask for weaning parameter when patient is finished with dialysis. RT notified
[2021-10-18] MEDS: HYDROmorphone 1 mg/ml syringe IV PRN (14:52)
[2021-10-18 14:57] LABS: ALBUMIN, UR 27.1 % (.); ALPHA-1-GLOBULIN,UR 8.6 % (.); ALPHA-2-GLOBULIN,UR 16.8 % (.); BETA GLOBULIN, UR 26.4 % (.); GAMMA GLOBULIN,UR 21.1 % (.); PROTEIN,TOTAL,URINE 84.8 mg/dL (Not Estab.)
[2021-10-18 14:57] LABS: HBSAG SCREEN Negative (Negative)
--- NOTE | 2021-10-18 18:30 | NUR ---
Patient in room ICU 2042. I have received report from day shift RN and had the opportunity to ask questions and assume patient care.
[2021-10-18] MEDS: insulin glargine (Lantus) pen - multi-dose SQ SCH (21:00)
[2021-10-18] MEDS: amitriptyline 50mg tablet NG SCH (21:20)
[2021-10-18] MEDS: gabapentin 100mg capsule NG SCH (21:20)
[2021-10-18] MEDS: acetaminophen 325mg/10.15ml oral unit dose solution NG PRN (22:49)
[2021-10-19] VITALS (24 sets, daily range): BP systolic 85–142; BP diastolic 37–59
[2021-10-19] MEDS: mineral oil/petrolatum ophthal oint EACHEYE SCH ×4 (02:10→20:11)
[2021-10-19 02:43] LABS: ABG BASE EXCESS 0.8 mmol/L (-2.0-2.0); ABG HCO3 23.4 mmol/L (22.0-26.0); ABG OXYGEN SATURATION 96.5 % (94-97); ABG PCO2 (T) 31.1 mmHg (32.0-45.0); ABG PO2 (T) 83.3 mmHg (75.0-100.0); ALLEN'S TEST POSITIVE; FCOHb 0.3 % (0.0-3.9); FMetHb 0.3 % (0.0-1.5); FO2Hb 95.9 % (94-97); PATIENT TEMPERATURE 37.9; PEEP 5 cm H2O; TOTAL HEMOGLOBIN 8.9 G/dl (12.0-16.0)
[2021-10-19] MEDS: VANCOMYCIN LEVEL IV SCH (03:17)
[2021-10-19 03:30] LABS: BASOPHILS # (AUTO) 0.1 X10'3 (0-0.2); BASOPHILS % (AUTO) 0.2 % (0-1); EOSINOPHILS % (AUTO) 0.1 % (0-6); HEMATOCRIT 24.6 % (35.0-45.0); HEMOGLOBIN 7.9 g/dl (12.0-16.0); LYMPHOCYTES # (AUTO) 1.7 X10'3 (1.1-4.8); LYMPHOCYTES % (AUTO) 4.5 % (21-51); MEAN CORPUSCULAR HEMOGLOBIN 27.7 PG (27.0-31.0); MEAN CORPUSCULAR HGB CONC 32.1 g/dL (33.0-36.5); MEAN CORPUSCULAR VOLUME 86.3 FL (78-98); MEAN PLATELET VOLUME 9.1 FL (7.4-10.4); MONOCYTES # (AUTO) 1.8 X10'3 (0-0.9); MONOCYTES % (AUTO) 4.8 % (2-12); NEUTROPHILS % (AUTO) 90.4 % (42-75); PLATELET COUNT 398 X10'3 (140-440); RED BLOOD COUNT 2.85 X10'6 (4.20-5.60); RED CELL DISTRIBUTION WIDTH 15.8 % (11.5-14.5)
[2021-10-19 03:40] LABS: APTT 34 SECONDS (22-32); WHITE BLOOD COUNT 37.6 X10'3 (4.5-11.0)
[2021-10-19 03:48] LABS: ALBUMIN 1.1 G/DL (3.4-5.0); ANION GAP 9 (8-16); BLOOD UREA NITROGEN 28 MG/DL (7-18); BUN/CREATININE RATIO 13.3 (6.6-38.0); CALCIUM 7.1 MG/DL (8.5-10.1); CHLORIDE 104 MMOL/L (99-107); CREATININE 2.11 MG/DL (0.40-0.90); MAGNESIUM 1.7 MG/DL (1.5-2.4); PHOSPHORUS 1.7 MG/DL (2.3-4.5); POTASSIUM 3.3 MMOL/L (3.5-5.1); PREALBUMIN 16.2 MG/DL (19-36); SODIUM 139 MMOL/L (135-145); TOTAL CARBON DIOXIDE 25.7 MMOL/L (24-32); VANCOMYCIN,RANDOM 11.4 UG/ML; eGFR 24 ML/MIN
[2021-10-19 04:02] LABS: GLUCOSE 28 MG/DL (70-104)
[2021-10-19] MEDS: Dextrose 10%-water IV solution 1,000 ML IV SCH ×2 (06:00→18:54)
--- NOTE | 2021-10-19 06:00 | NUR ---
Patient in room ICU 2042. I have received report from Vishnu BUITRAGO and had the opportunity to ask questions and assume patient care.
--- NOTE | 2021-10-19 06:20 | NUR ---
Problems reprioritized. Patient report given, questions answered & plan of care reviewed with Ophelia BUITRAGO.
[2021-10-19] MEDS ORDERED: vancomycin/NS 1 GM ADD-VANTAGE 250 ML IV ONE (06:45)
--- NOTE | 2021-10-19 06:57 | NUR ---
Spoke to pharmacy about pts K+ level of 3.1. Pharmacy called doctor clinical admissions manager and received orders to not replace the K as pt is on dialysis.
[2021-10-19] MEDS: meropenem inj 500 MG in normal saline 100ml IV soln 100 ML IV SCH (07:45)
[2021-10-19] MEDS: lactobacillus rhamnosus 10,000 MMU CELLS/CAPSULE NG SCH ×2 (07:46→20:11)
[2021-10-19] MEDS: docusate sodium 100mg/10ml UD cup NG SCH (07:46)
[2021-10-19] MEDS: famotidine/PF 10 mg/ml inj IV SCH (07:46)
[2021-10-19] MEDS: sennosides 8.6mg tablet NG SCH (07:47)
[2021-10-19] MEDS: heparin, porcine 5000 units/ml vial SQ SCH ×2 (07:48→20:10)
[2021-10-19] MEDS: insulin regular, human U-100 3ml vial - multi-dose SQ SCH ×3 (09:55→20:28)
--- NOTE | 2021-10-19 10:00 | NUR ---
Eran Mejia from interventional radiology stopped by and saw pt, checking on chest tube.
[2021-10-19] MEDS ORDERED: potassium phosphate inj 15 MMOL in NS 250ml IV soln 250 ML IV ONE (12:00)
--- NOTE | 2021-10-19 12:15 | NUR ---
Dr. Barry at bedside, discussed patient condition with .
--- NOTE | 2021-10-19 13:47 | NUR ---
wound care performed wet to dry dressing changed on abdomen. no foul smells or infection signs seen, colostomy wafer intact but very close to incision site.
[2021-10-19] MEDS: HYDROmorphone 1 mg/ml syringe IV PRN ×2 (15:43→22:24)
[2021-10-19] MEDS: acetaminophen 325mg/10.15ml oral unit dose solution NG PRN ×3 (16:49→23:25)
--- NOTE | 2021-10-19 18:28 | NUR ---
Problems reprioritized. Patient report given, questions answered & plan of care reviewed with Xenia BUITRAGO.
--- NOTE | 2021-10-19 18:30 | NUR ---
Patient in room ICU 2042. I have received report from Katlyn BUITRAGO and had the opportunity to ask questions and assume patient care.
[2021-10-19] MEDS: famotidine 20mg tablet NG SCH (20:11)
[2021-10-19] MEDS: gabapentin 100mg capsule NG SCH (20:11)
[2021-10-19] MEDS: amitriptyline 50mg tablet NG SCH (20:11)
[2021-10-19] MEDS: insulin glargine (Lantus) pen - multi-dose SQ SCH (20:27)
[2021-10-20] VITALS (24 sets, daily range): BP systolic 111–166; BP diastolic 44–74
[2021-10-20] MEDS: mineral oil/petrolatum ophthal oint EACHEYE SCH ×4 (02:08→19:58)
[2021-10-20 02:26] LABS: BASOPHILS # (AUTO) 0.2 X10'3 (0-0.2); BASOPHILS % (AUTO) 0.5 % (0-1); EOSINOPHILS % (AUTO) 0.1 % (0-6); HEMATOCRIT 22.6 % (35.0-45.0); HEMOGLOBIN 7.2 g/dl (12.0-16.0); LYMPHOCYTES # (AUTO) 1.5 X10'3 (1.1-4.8); LYMPHOCYTES % (AUTO) 4.9 % (21-51); MEAN CORPUSCULAR HEMOGLOBIN 28.1 PG (27.0-31.0); MEAN CORPUSCULAR HGB CONC 32.1 g/dL (33.0-36.5); MEAN CORPUSCULAR VOLUME 87.8 FL (78-98); MONOCYTES # (AUTO) 2.2 X10'3 (0-0.9); MONOCYTES % (AUTO) 7.3 % (2-12); NEUTROPHILS % (AUTO) 87.2 % (42-75); PLATELET COUNT 466 X10'3 (140-440); RED BLOOD COUNT 2.57 X10'6 (4.20-5.60)
[2021-10-20 02:33] LABS: WHITE BLOOD COUNT 29.8 X10'3 (4.5-11.0)
[2021-10-20 02:37] LABS: APTT 33 SECONDS (22-32)
[2021-10-20 02:41] LABS: ALANINE AMINOTRANSFERASE 16 U/L (12-78); ALBUMIN/GLOBULIN RATIO 0.3 (1.1-1.5); ALKALINE PHOSPHATASE 84 IU/L (46-116); ANION GAP 11 (8-16); ASPARTATE AMINO TRANSFERASE 18 U/L (10-37); BILIRUBIN,TOTAL 0.3 MG/DL (0.1-1.0); BLOOD UREA NITROGEN 38 MG/DL (7-18); BUN/CREATININE RATIO 14.4 (6.6-38.0); CALCIUM 6.8 MG/DL (8.5-10.1); CHLORIDE 106 MMOL/L (99-107); CREATININE 2.63 MG/DL (0.40-0.90); GLUCOSE 76 MG/DL (70-104); MAGNESIUM 1.8 MG/DL (1.5-2.4); PHOSPHORUS 3.6 MG/DL (2.3-4.5); POTASSIUM 3.2 MMOL/L (3.5-5.1); SODIUM 140 MMOL/L (135-145); TOTAL CARBON DIOXIDE 23.3 MMOL/L (24-32); TOTAL PROTEIN 4.2 G/DL (6.4-8.2); VANCOMYCIN,RANDOM 22.7 UG/ML; eGFR 19 ML/MIN
[2021-10-20 02:52] LABS: ABG HCO3 19.4 mmol/L (22.0-26.0); ABG OXYGEN SATURATION 96.6 % (94-97); ABG PCO2 (T) 30.9 mmHg (32.0-45.0); ABG PO2 (T) 102.7 mmHg (75.0-100.0); ALLEN'S TEST POSITIVE; FCOHb 0.3 % (0.0-3.9); FMetHb 0.4 % (0.0-1.5); FO2Hb 95.9 % (94-97); PATIENT TEMPERATURE 38.5; PEEP 5 cm H2O; TOTAL HEMOGLOBIN 8.1 G/dl (12.0-16.0)
[2021-10-20] MEDS: VANCOMYCIN LEVEL IV SCH (03:00)
[2021-10-20 03:50] LABS: PLATELET ESTIMATE INCREASED; TOTAL CELLS COUNTED 100
[2021-10-20 03:51] LABS: STOMATOCYTES FEW; TEAR DROP CELLS FEW
[2021-10-20 03:52] LABS: ANISOCYTOSIS 1+; POLYCHROMASIA FEW
--- NOTE | 2021-10-20 06:21 | NUR ---
Problems reprioritized. Patient report given, questions answered & plan of care reviewed with Harvey BUITRAGO.
[2021-10-20] MEDS: lactobacillus rhamnosus 10,000 MMU CELLS/CAPSULE NG SCH ×2 (08:47→19:57)
[2021-10-20] MEDS: heparin, porcine 5000 units/ml vial SQ SCH ×2 (08:47→19:57)
[2021-10-20] MEDS: famotidine 20mg tablet NG SCH ×2 (08:47→19:57)
[2021-10-20] MEDS: meropenem inj 500 MG in normal saline 100ml IV soln 100 ML IV SCH (08:47)
[2021-10-20] MEDS ORDERED: heparin 1,000 units/ml 10ml inj IV ONE (09:00)
[2021-10-20] MEDS ORDERED: EPOETIN ALFA-EPBX 20,000 UNIT/ML 1 ML MDV IV ONE (09:00)
[2021-10-20] MEDS ORDERED: albumin (human) 25% 100ml IV 100 ML IV PRN (09:00)
[2021-10-20] MEDS ORDERED: heparin 1,000 units/ml 10ml inj HE ONE (09:05)
[2021-10-20] MEDS: heparin 1,000 units/ml 10ml inj HE ONE ×2 (09:05→16:03)
[2021-10-20] MEDS: Dextrose 10%-water IV solution 1,000 ML IV SCH ×2 (09:25→23:30)
--- NOTE | 2021-10-20 14:52 | NUR ---
F/u 10/20: Pt remains intubated tolerating TF at goal GRV WNL. TF briefly held for imaging this AM though to return to goal after per RN. Colostomy -980ml output following bowel care stoppage given elevated output. Phos WNL this AM s/p replacement yesterday. Will continue to monitor for TF tolerance and adjustment needs on vent/HD. Recs: 1. Continuous TF using Vital AF at 70ml/hr goal; to provide 1680ml volume/day, 2016 kcals, 1361ml water, and 126g protein. 2. additional water flush per wireline operator on HD 3. PALB Q /; daily wts 4. routine bowel care per MD 5. upon extubation; advance diet as medically indicated to renal/low-residue 6. New colostomy education once pt appropriate following extubation Addendum: 10/20/21 at [address] Amended: Links added.
--- NOTE | 2021-10-20 15:03 | NUR ---
Late entry for 10/18/21 Call from [employer] to assist w/ ostomy pouch change due to fit issues and leakage into the midline abd wound. Ostomy pouch removed, pt w/ large liquid stool in bag. Peristomal area w/o breakdown noted, stoma is edematus measures 54mm. cleansed w/ water and washcloth, skin prep to peristomal skin then placed ostomy pouch Holister # [id number] open to 57mm, bead of stoma paste placed around opening then cut wafter to avoid midline abd incision. Pt tolerated well. at bedside and some ostomy education provided at this time, he is receptive and willing to learn. Addendum: 10/20/21 at 1504 by Cailin Kasper RN Amended: Links added.
[2021-10-20] MEDS: HYDROmorphone inj. 0.5 MG/0.5 ML DISP.SYRIN IV PRN (16:11)
[2021-10-20] MEDS: acetaminophen 325mg/10.15ml oral unit dose solution NG PRN ×2 (16:36→20:08)
[2021-10-20] MEDS: potassium Cl 20 mEq SR tablet NG PRN (16:36)
[2021-10-20] MEDS: gabapentin 100mg capsule NG SCH (20:24)
[2021-10-20] MEDS: amitriptyline 50mg tablet NG SCH (20:24)
[2021-10-20] MEDS: insulin glargine (Lantus) pen - multi-dose SQ SCH (20:34)
[2021-10-20] MEDS: insulin regular, human U-100 3ml vial - multi-dose SQ SCH (20:35)
[2021-10-20] MEDS: HYDROmorphone 1 mg/ml syringe IV PRN (23:22)
[2021-10-21] VITALS (23 sets, daily range): BP systolic 77–169; BP diastolic 32–70
--- NOTE | 2021-10-21 01:20 | NUR ---
Pt is a 61 yo female, full code, admitted 10/08/2021, day 13 of hospitalization. Patient with chronic kidney disease stage V. She has had a tunneled dialysis catheter in the past. She was last dialyzed about 9 months ago. She somehow was referred on September 08 to have the tunneled catheter removed in preparation for peritoneal dialysis. However we have talked about peritoneal dialysis in the past with her and she is unwilling to go to the clinic for training and wants the clinic to come to her motel room and train her. The motel room is not suitable for either training (even if it was legal) or for peritoneal dialysis. She refuses to go to the dialysis unit for outpatient hemodialysis. She presented with an acute abdomen and a perforation. She had an emergency laparotomy and a colostomy. She is septic and she is intubated. Her creatinine is 5.6. She is anemic. Currently, pt is febrile 39.3, medicated with Tylenol and placed ICE bags the slowly the temp came down. Currently 38.2 pre rectal temp. 10/20/2021 Blood cultures drawn, preliminary results are negative.. Pt medicated with Dilaudid 1 mg IV for pain/ discomfort. Pt opens eyes but does not follow commands. HR 104-125 SR/ST BP 150/51. Weak pulses, +2 generalized edema. SQ heparin for DVT prophylaxis. Pt has left chest tube draining SS fluid. 10/20/2021 PCXR (1 film) shows mild edema with mild basilar consolidations and pleural effusions L>R. Presence of Right Chris cath for dialysis. AMANDA TL PICC line, all ports f/p good blood return, dressing CDI. NO IVF infusing. Intubated with ETT 7.0 22 cm Vent: Spont, RR 16, TV 325+/-, PS 15, PC 15, FIO2 25% PEEP 5. Pulse ox 100%. Breath sounds course, diminished, equal symmetrical, non labored, tolerating vent settings well. Suction PRN minimal chu secretions. Hypoactive bowel sounds, soft tender, rounded. NGT right nare, placement verified with stethoscope. Tube feed infusing Vital AF at 70/ ml's hour with residual of 75-100 ml's. Midline incision dressing CDI. Presence of colostomy draining brown loose stool. Pepcid for prophylaxis. Glucose check Q6 hours with Regular Insulin coverage and Lantus at HS. Glucose at 20:00 261 with 46 carbs on level 5, received 25 units of regular insulin. No Lacy present, dialysis was completed 10/20/2021 removed 2500. Skin intact aside from abdominal midline incision. ABX Meropenem and Vancomycin with Vancomycin level pending this AM. K+ and Mag replacement protocol. Pt remains safe, continue to monitor.
[2021-10-21] MEDS: mineral oil/petrolatum ophthal oint EACHEYE SCH ×4 (02:16→19:37)
[2021-10-21] MEDS: insulin regular, human U-100 3ml vial - multi-dose SQ SCH ×4 (02:18→20:19)
[2021-10-21] MEDS: VANCOMYCIN LEVEL IV SCH (03:00)
[2021-10-21 03:37] LABS: BASOPHILS # (AUTO) 0.1 X10'3 (0-0.2); BASOPHILS % (AUTO) 0.4 % (0-1); EOSINOPHILS % (AUTO) 0.2 % (0-6); HEMATOCRIT 23.9 % (35.0-45.0); HEMOGLOBIN 7.7 g/dl (12.0-16.0); LYMPHOCYTES # (AUTO) 1.2 X10'3 (1.1-4.8); LYMPHOCYTES % (AUTO) 5.7 % (21-51); MEAN CORPUSCULAR HEMOGLOBIN 28.8 PG (27.0-31.0); MEAN CORPUSCULAR HGB CONC 32.2 g/dL (33.0-36.5); MEAN CORPUSCULAR VOLUME 89.2 FL (78-98); MEAN PLATELET VOLUME 7.6 FL (7.4-10.4); MONOCYTES # (AUTO) 1.7 X10'3 (0-0.9); MONOCYTES % (AUTO) 8.1 % (2-12); NEUTROPHILS # (AUTO) 18.4 X10'3 (1.8-7.7); NEUTROPHILS % (AUTO) 85.6 % (42-75); PLATELET COUNT 476 X10'3 (140-440); RED BLOOD COUNT 2.68 X10'6 (4.20-5.60); RED CELL DISTRIBUTION WIDTH 16.7 % (11.5-14.5); WHITE BLOOD COUNT 21.5 X10'3 (4.5-11.0)
[2021-10-21 03:46] LABS: ALBUMIN 1.5 G/DL (3.4-5.0); ANION GAP 8 (8-16); BLOOD UREA NITROGEN 22 MG/DL (7-18); CALCIUM 7.5 MG/DL (8.5-10.1); CHLORIDE 105 MMOL/L (99-107); CREATININE 1.83 MG/DL (0.40-0.90); GLUCOSE 98 MG/DL (70-104); MAGNESIUM 1.8 MG/DL (1.5-2.4); PHOSPHORUS 2.8 MG/DL (2.3-4.5); POTASSIUM 3.3 MMOL/L (3.5-5.1); SODIUM 139 MMOL/L (135-145); TOTAL CARBON DIOXIDE 26.3 MMOL/L (24-32); VANCOMYCIN,RANDOM 14.8 UG/ML; eGFR 28 ML/MIN
[2021-10-21 03:52] LABS: ABG BASE EXCESS 0.3 mmol/L (-2.0-2.0); ABG HCO3 24.1 mmol/L (22.0-26.0); ABG OXYGEN SATURATION 96.1 % (94-97); ABG PCO2 (T) 36.3 mmHg (32.0-45.0); ABG PO2 (T) 86.5 mmHg (75.0-100.0); FMetHb 0.3 % (0.0-1.5); FO2Hb 94.9 % (94-97); PATIENT TEMPERATURE 37.5; PEEP 5 cm H2O; TOTAL HEMOGLOBIN 8.3 G/dl (12.0-16.0)
[2021-10-21 04:15] LABS: NUCLEATED RED BLOOD CELLS 1 /100WBC (0-0); TOTAL CELLS COUNTED 100
[2021-10-21 04:16] LABS: ANISOCYTOSIS 1+; PLATELET ESTIMATE INCREASED; POLYCHROMASIA FEW
[2021-10-21 04:17] LABS: STOMATOCYTES 1+
[2021-10-21] MEDS: meropenem inj 500 MG in normal saline 100ml IV soln 100 ML IV SCH (08:14)
[2021-10-21] MEDS: famotidine 20mg tablet NG SCH ×2 (08:14→19:39)
[2021-10-21] MEDS: heparin, porcine 5000 units/ml vial SQ SCH ×2 (08:14→19:38)
[2021-10-21] MEDS: lactobacillus rhamnosus 10,000 MMU CELLS/CAPSULE NG SCH ×2 (08:14→19:39)
[2021-10-21] MEDS: potassium Cl 20 mEq SR tablet NG PRN (08:23)
[2021-10-21] MEDS: Dextrose 10%-water IV solution 1,000 ML IV SCH (09:09)
[2021-10-21 09:42] LABS: APTT 31 SECONDS (22-32)
[2021-10-21] MEDS: HYDROmorphone inj. 0.5 MG/0.5 ML DISP.SYRIN IV PRN ×3 (10:16→21:09)
[2021-10-21] MEDS ORDERED: vancomycin/NS 1 GM ADD-VANTAGE 250 ML IV ONE (10:45)
[2021-10-21] MEDS: acetaminophen 325mg/10.15ml oral unit dose solution NG PRN (14:12)
[2021-10-21] MEDS: dexmedetomidin/NS 400mcg/100ml 100 ML IV SCH (17:28)
[2021-10-21] MEDS: FENTANYL-0.9 % NACL/PF 100 ML IV PRN (17:36)
[2021-10-21] MEDS: gabapentin 100mg capsule NG SCH (20:12)
[2021-10-21] MEDS: amitriptyline 50mg tablet NG SCH (20:12)
[2021-10-21] MEDS: insulin glargine (Lantus) pen - multi-dose SQ SCH (20:17)
[2021-10-22] VITALS (24 sets, daily range): BP systolic 71–140; BP diastolic 33–57
--- NOTE | 2021-10-22 00:17 | NUR ---
Pt is a 61 yo female, full code, admitted 10/08/2021, day 14 of hospitalization. Bilateral soft wrist restraints, orders and documentation in accordance with facility policies and procedures. Patient with chronic kidney disease stage V. She has had a tunneled dialysis catheter in the past. She was last dialyzed about 9 months ago. She somehow was referred on September 08 to have the tunneled catheter removed in preparation for peritoneal dialysis. However we have talked about peritoneal dialysis in the past with her and she is unwilling to go to the clinic for training and wants the clinic to come to her motel room and train her. The motel room is not suitable for either training (even if it was legal) or for peritoneal dialysis. She refuses to go to the dialysis unit for outpatient hemodialysis. She presented with an acute abdomen and a perforation. She had an emergency laparotomy and a colostomy. She is septic and she is intubated. Her creatinine is 5.6. She is anemic. Currently, pt is febrile 38.6, medicated with Tylenol and placed ICE bags the slowly the temp came down. Currently 38.0 pre rectal temp. 10/20/2021 Blood cultures drawn, preliminary results are negative. Pt medicated with Dilaudid .5 mg IV for pain/ discomfort. Pt is on Fentanyl gtt 75 mcgs (7.5 ml) and Precedex .5mcgs (8.35ml's). Pt opens eyes but does not follow commands. HR 70-125 SR/ST BP 150/51. Weak pulses, +2 generalized edema. SQ heparin for DVT prophylaxis. Pt has left chest tube draining SS fluid. 10/21/2021 PCXR (1 film) shows mild edema with mild basilar consolidations and pleural effusions L>R. Presence of Right Chris cath for dialysis. AMANDA TL PICC line, all ports f/p poor blood return, dressing CDI. Intubated with ETT 7.0 22 cm Vent: Spont, RR 16, TV 325+/-, PS 15, PC 15, FIO2 25% PEEP 5. Pulse ox 100%. Breath sounds course, diminished, equal symmetrical, non labored, tolerating vent settings well. Suction PRN minimal chu secretions. Hypoactive bowel sounds, soft tender, rounded. NGT right nare, placement verified with stethoscope. Tube feed infusing Vital AF at 70/ ml's hour with residual of 75-100 ml's. Midline incision dressing CDI. Presence of colostomy draining brown loose stool. Stoma beefy red. Pepcid for prophylaxis. Glucose check Q6 hours with Regular Insulin coverage and Lantus at HS. Glucose at 20:00 116 with 46 carbs on level 5, received 11 units of regular insulin. No Lacy present, dialysis was completed 10/20/2021 removed 2500. Skin sacral area with notable DTI, Mepilex was changed. Pt turned Q 2 hours. Abdominal midline incision dressing CDI. ABX Meropenem and Vancomycin with Vancomycin level pending this AM. K+ and Mag replacement protocol. Pt remains safe, continue to monitor.
[2021-10-22] MEDS: mineral oil/petrolatum ophthal oint EACHEYE SCH ×4 (01:01→20:12)
[2021-10-22] MEDS: acetaminophen 325mg/10.15ml oral unit dose solution NG PRN ×2 (01:02→13:51)
[2021-10-22] MEDS: insulin regular, human U-100 3ml vial - multi-dose SQ SCH ×3 (02:38→20:58)
[2021-10-22] MEDS: VANCOMYCIN LEVEL IV SCH ×2 (02:51→23:48)
[2021-10-22] MEDS: Dextrose 10%-water IV solution 1,000 ML IV SCH ×2 (03:00→18:24)
[2021-10-22 03:48] LABS: BASOPHILS # (AUTO) 0.1 X10'3 (0-0.2); BASOPHILS % (AUTO) 0.5 % (0-1); EOSINOPHILS # (AUTO) 0.1 X10'3 (0-0.9); EOSINOPHILS % (AUTO) 0.4 % (0-6); HEMOGLOBIN 7.1 g/dl (12.0-16.0); LYMPHOCYTES # (AUTO) 1.2 X10'3 (1.1-4.8); LYMPHOCYTES % (AUTO) 7.9 % (21-51); MEAN CORPUSCULAR HEMOGLOBIN 30.1 PG (27.0-31.0); MEAN CORPUSCULAR HGB CONC 32.4 g/dL (33.0-36.5); MEAN CORPUSCULAR VOLUME 92.8 FL (78-98); MEAN PLATELET VOLUME 7.8 FL (7.4-10.4); MONOCYTES # (AUTO) 1.3 X10'3 (0-0.9); MONOCYTES % (AUTO) 8.8 % (2-12); NEUTROPHILS # (AUTO) 12.5 X10'3 (1.8-7.7); NEUTROPHILS % (AUTO) 82.4 % (42-75); PLATELET COUNT 404 X10'3 (140-440); RED BLOOD COUNT 2.36 X10'6 (4.20-5.60); RED CELL DISTRIBUTION WIDTH 16.8 % (11.5-14.5); WHITE BLOOD COUNT 15.2 X10'3 (4.5-11.0)
[2021-10-22] MEDS: dexmedetomidin/NS 400mcg/100ml 100 ML IV SCH ×2 (03:49→20:14)
[2021-10-22 03:56] LABS: APTT 30 SECONDS (22-32)
[2021-10-22 04:01] LABS: HEMATOCRIT 21.9 % (35.0-45.0)
[2021-10-22 04:07] LABS: ALBUMIN 1.3 G/DL (3.4-5.0); ANION GAP 10 (8-16); BLOOD UREA NITROGEN 36 MG/DL (7-18); BUN/CREATININE RATIO 14.9 (6.6-38.0); CALCIUM 7.4 MG/DL (8.5-10.1); CHLORIDE 107 MMOL/L (99-107); CREATININE 2.41 MG/DL (0.40-0.90); GLUCOSE 118 MG/DL (70-104); MAGNESIUM 1.9 MG/DL (1.5-2.4); PHOSPHORUS 3.6 MG/DL (2.3-4.5); POTASSIUM 4.1 MMOL/L (3.5-5.1); SODIUM 141 MMOL/L (135-145); TOTAL CARBON DIOXIDE 24.2 MMOL/L (24-32); VANCOMYCIN,RANDOM 27.2 UG/ML; eGFR 20 ML/MIN
[2021-10-22 04:49] LABS: ABG BASE EXCESS -3.1 mmol/L (-2.0-2.0); ABG HCO3 20.7 mmol/L (22.0-26.0); ABG OXYGEN SATURATION 96.6 % (94-97); ABG PCO2 (T) 33.6 mmHg (32.0-45.0); ABG PO2 (T) 99.8 mmHg (75.0-100.0); FCOHb 0.4 % (0.0-3.9); FMetHb 0.2 % (0.0-1.5); PATIENT TEMPERATURE 38.3; PEEP 5 cm H2O
[2021-10-22] MEDS: famotidine 20mg tablet NG SCH ×2 (07:57→20:13)
[2021-10-22] MEDS: lactobacillus rhamnosus 10,000 MMU CELLS/CAPSULE NG SCH ×2 (07:57→20:12)
[2021-10-22] MEDS: heparin, porcine 5000 units/ml vial SQ SCH ×2 (07:58→20:14)
[2021-10-22] MEDS: dextrose 50%-water 50ml dispensing syringe IV PRN (08:14)
[2021-10-22] MEDS: meropenem inj 500 MG in normal saline 100ml IV soln 100 ML IV SCH (10:24)
--- NOTE | 2021-10-22 15:13 | NUR ---
Pt increasingly febrile, tachy and tachypnic. Unresponsive to tylenol & ice packs. Consulted RT for RR. Contacted MD w/ concerns of temp and RR. Will continue to watch per .
[2021-10-22] MEDS: FENTANYL-0.9 % NACL/PF 100 ML IV PRN ×2 (16:28→23:03)
--- NOTE | 2021-10-22 16:34 | NUR ---
Fentanyl bag changed by MINNA Covarrubias. Line changed as well. Pt is tachypneic and febrile, increasing sedation for pt comfort, she does not tolerate set rate. RT consulted, Dr Hurt has rounded.
--- NOTE | 2021-10-22 18:25 | NUR ---
Problems reprioritized. Patient report given, questions answered & plan of care reviewed with MINNA Temple.
--- NOTE | 2021-10-22 18:30 | NUR ---
Patient in room ICU 2042. I have received report from Satish RN and RandallRN and had the opportunity to ask questions and assume patient care.
[2021-10-22] MEDS: gabapentin 100mg capsule NG SCH (20:12)
[2021-10-22] MEDS: amitriptyline 50mg tablet NG SCH (20:13)
[2021-10-22] MEDS: insulin glargine (Lantus) pen - multi-dose SQ SCH (20:58)
[2021-10-23] VITALS (24 sets, daily range): BP systolic 83–162; BP diastolic 34–97
[2021-10-23] MEDS: mineral oil/petrolatum ophthal oint EACHEYE SCH ×4 (02:06→20:54)
[2021-10-23] MEDS: insulin regular, human U-100 3ml vial - multi-dose SQ SCH ×4 (02:29→20:46)
[2021-10-23 03:00] LABS: BASOPHILS % (AUTO) 0.3 % (0-1); EOSINOPHILS % (AUTO) 0.2 % (0-6); HEMATOCRIT 23.4 % (35.0-45.0); HEMOGLOBIN 7.4 g/dl (12.0-16.0); LYMPHOCYTES # (AUTO) 1.1 X10'3 (1.1-4.8); LYMPHOCYTES % (AUTO) 7.4 % (21-51); MEAN CORPUSCULAR HEMOGLOBIN 29.8 PG (27.0-31.0); MEAN CORPUSCULAR HGB CONC 31.8 g/dL (33.0-36.5); MEAN CORPUSCULAR VOLUME 93.7 FL (78-98); MEAN PLATELET VOLUME 7.2 FL (7.4-10.4); MONOCYTES # (AUTO) 1.3 X10'3 (0-0.9); MONOCYTES % (AUTO) 8.5 % (2-12); NEUTROPHILS # (AUTO) 12.9 X10'3 (1.8-7.7); NEUTROPHILS % (AUTO) 83.6 % (42-75); PLATELET COUNT 397 X10'3 (140-440); RED BLOOD COUNT 2.49 X10'6 (4.20-5.60); RED CELL DISTRIBUTION WIDTH 18.1 % (11.5-14.5); WHITE BLOOD COUNT 15.4 X10'3 (4.5-11.0)
[2021-10-23 03:44] LABS: ALANINE AMINOTRANSFERASE 17 U/L (12-78); ALBUMIN 1.4 G/DL (3.4-5.0); ALBUMIN/GLOBULIN RATIO 0.4 (1.1-1.5); ALKALINE PHOSPHATASE 67 IU/L (46-116); ASPARTATE AMINO TRANSFERASE 17 U/L (10-37); BILIRUBIN,TOTAL 0.3 MG/DL (0.1-1.0); BLOOD UREA NITROGEN 49 MG/DL (7-18); BUN/CREATININE RATIO 17.9 (6.6-38.0); CALCIUM 7.5 MG/DL (8.5-10.1); CHLORIDE 109 MMOL/L (99-107); CREATININE 2.73 MG/DL (0.40-0.90); GLUCOSE 119 MG/DL (70-104); MAGNESIUM 1.9 MG/DL (1.5-2.4); PHOSPHORUS 4.7 MG/DL (2.3-4.5); POTASSIUM 4.2 MMOL/L (3.5-5.1); PREALBUMIN 20.1 MG/DL (19-36); SODIUM 141 MMOL/L (135-145); TOTAL PROTEIN 4.6 G/DL (6.4-8.2); VANCOMYCIN,RANDOM 24.6 UG/ML; eGFR 18 ML/MIN
[2021-10-23 03:54] LABS: ANION GAP 11 (8-16); TOTAL CARBON DIOXIDE 21.3 MMOL/L (24-32)
[2021-10-23 04:30] LABS: ABG BASE EXCESS -4.5 mmol/L (-2.0-2.0); ABG HCO3 19.7 mmol/L (22.0-26.0); ABG OXYGEN SATURATION 95.9 % (94-97); ABG PCO2 (T) 31.5 mmHg (32.0-45.0); ABG PO2 (T) 78.5 mmHg (75.0-100.0); FCOHb 1.1 % (0.0-3.9); FO2Hb 94.8 % (94-97); PATIENT TEMPERATURE 36.3; PEEP 5 cm H2O; TOTAL HEMOGLOBIN 8.2 G/dl (12.0-16.0)
--- NOTE | 2021-10-23 06:20 | NUR ---
Problems reprioritized. Patient report given, questions answered & plan of care reviewed with MINNA Carballo.
[2021-10-23] MEDS ORDERED: normal saline 1000ml 250 ML IV PRN (08:00)
[2021-10-23] MEDS: heparin, porcine 5000 units/ml vial SQ SCH ×2 (08:00→20:54)
[2021-10-23] MEDS ORDERED: heparin 1,000 units/ml 10ml inj HE ONE ×2 (08:00)
[2021-10-23] MEDS ORDERED: EPOETIN ALFA-EPBX 20,000 UNIT/ML 1 ML MDV IV ONE (08:00)
[2021-10-23] MEDS ORDERED: heparin 1,000unit/ml 10ml vial 10 ML IV ONE (08:00)
[2021-10-23] MEDS: famotidine 20mg tablet NG SCH ×2 (08:18→20:53)
[2021-10-23] MEDS: meropenem inj 500 MG in normal saline 100ml IV soln 100 ML IV SCH (08:18)
[2021-10-23] MEDS: lactobacillus rhamnosus 10,000 MMU CELLS/CAPSULE NG SCH ×2 (08:18→20:53)
[2021-10-23] MEDS: Dextrose 10%-water IV solution 1,000 ML IV SCH (08:42)
[2021-10-23] MEDS: FENTANYL-0.9 % NACL/PF 100 ML IV PRN (12:38)
[2021-10-23] MEDS: dexmedetomidin/NS 400mcg/100ml 100 ML IV SCH ×2 (14:12→22:47)
[2021-10-23] MEDS: insulin glargine (Lantus) pen - multi-dose SQ SCH (20:47)
[2021-10-23] MEDS: gabapentin 100mg capsule NG SCH (20:53)
[2021-10-23] MEDS: amitriptyline 50mg tablet NG SCH (20:53)
[2021-10-23] MEDS ORDERED: NORepinephrine 8mg/ 250ml NS 250 ML IV ONE (22:51)
[2021-10-23] MEDS: albuterol 2.5 MG/3 ML nebule NEB PRN (23:00)
--- NOTE | 2021-10-23 23:00 | NUR ---
Tylenol 650 mg given for elevated temp, ice packs place under arms and groin area.
--- NOTE | 2021-10-23 23:00 | NUR ---
pt sats decreased low 80"s, RT at bedside. Breathing treatment given & Fi02 increased to 100% per RT.
[2021-10-23] MEDS: acetaminophen 325mg/10.15ml oral unit dose solution NG PRN (23:22)
[2021-10-24] VITALS (25 sets, daily range): BP systolic 88–151; BP diastolic 39–58
[2021-10-24] MEDS: insulin regular, human U-100 3ml vial - multi-dose SQ SCH ×4 (02:43→20:26)
[2021-10-24] MEDS: FENTANYL-0.9 % NACL/PF 100 ML IV PRN (02:45)
[2021-10-24] MEDS: mineral oil/petrolatum ophthal oint EACHEYE SCH ×4 (02:45→20:11)
[2021-10-24 03:08] LABS: BASOPHILS # (AUTO) 0.1 X10'3 (0-0.2); BASOPHILS % (AUTO) 0.5 % (0-1); EOSINOPHILS % (AUTO) 0.1 % (0-6); HEMATOCRIT 23.9 % (35.0-45.0); HEMOGLOBIN 7.7 g/dl (12.0-16.0); LYMPHOCYTES # (AUTO) 0.5 X10'3 (1.1-4.8); MEAN CORPUSCULAR HEMOGLOBIN 30.1 PG (27.0-31.0); MEAN CORPUSCULAR HGB CONC 32.3 g/dL (33.0-36.5); MEAN CORPUSCULAR VOLUME 93.1 FL (78-98); MEAN PLATELET VOLUME 7.1 FL (7.4-10.4); MONOCYTES # (AUTO) 0.7 X10'3 (0-0.9); MONOCYTES % (AUTO) 5.4 % (2-12); NEUTROPHILS # (AUTO) 11.6 X10'3 (1.8-7.7); PLATELET COUNT 329 X10'3 (140-440); RED BLOOD COUNT 2.56 X10'6 (4.20-5.60); RED CELL DISTRIBUTION WIDTH 23.5 % (11.5-14.5); WHITE BLOOD COUNT 12.9 X10'3 (4.5-11.0)
[2021-10-24] MEDS: albuterol 2.5 MG/3 ML nebule NEB PRN (03:19)
[2021-10-24 03:29] LABS: ALANINE AMINOTRANSFERASE 17 U/L (12-78); ALBUMIN 1.4 G/DL (3.4-5.0); ALBUMIN/GLOBULIN RATIO 0.4 (1.1-1.5); ALKALINE PHOSPHATASE 68 IU/L (46-116); ANION GAP 9 (8-16); ASPARTATE AMINO TRANSFERASE 16 U/L (10-37); BILIRUBIN,TOTAL 0.3 MG/DL (0.1-1.0); BLOOD UREA NITROGEN 27 MG/DL (7-18); CALCIUM 7.4 MG/DL (8.5-10.1); CHLORIDE 103 MMOL/L (99-107); CREATININE 1.59 MG/DL (0.40-0.90); GLUCOSE 216 MG/DL (70-104); MAGNESIUM 1.7 MG/DL (1.5-2.4); PHOSPHORUS 2.8 MG/DL (2.3-4.5); POTASSIUM 3.6 MMOL/L (3.5-5.1); SODIUM 138 MMOL/L (135-145); TOTAL CARBON DIOXIDE 26.3 MMOL/L (24-32); TOTAL PROTEIN 4.7 G/DL (6.4-8.2); VANCOMYCIN,RANDOM 18.6 UG/ML; eGFR 33 ML/MIN
[2021-10-24 03:44] LABS: ABG BASE EXCESS 1.8 mmol/L (-2.0-2.0); ABG HCO3 24.2 mmol/L (22.0-26.0); ABG OXYGEN SATURATION 99.6 % (94-97); ABG PCO2 (T) 33.5 mmHg (32.0-45.0); ABG PO2 (T) 543.3 mmHg (75.0-100.0); FCOHb 0.2 % (0.0-3.9); FMetHb 0.2 % (0.0-1.5); FO2Hb 99.2 % (94-97); PEEP 5 cm H2O; RESPIRATORY RATE 22 b/min; TIDAL VOLUME 325 mL; TOTAL HEMOGLOBIN 8.4 G/dl (12.0-16.0)
[2021-10-24] MEDS: acetaminophen 325mg/10.15ml oral unit dose solution NG PRN ×2 (03:44→11:31)
[2021-10-24] MEDS: VANCOMYCIN LEVEL IV SCH (06:35)
[2021-10-24] MEDS: Dextrose 10%-water IV solution 1,000 ML IV SCH ×2 (06:37→13:09)
[2021-10-24] MEDS: heparin, porcine 5000 units/ml vial SQ SCH ×2 (07:09→20:57)
[2021-10-24] MEDS: famotidine 20mg tablet NG SCH ×2 (07:09→20:57)
[2021-10-24] MEDS: lactobacillus rhamnosus 10,000 MMU CELLS/CAPSULE NG SCH ×2 (07:09→20:57)
[2021-10-24] MEDS: meropenem inj 500 MG in normal saline 100ml IV soln 100 ML IV SCH (07:10)
[2021-10-24] MEDS: dexmedetomidin/NS 400mcg/100ml 100 ML IV SCH (14:10)
--- NOTE | 2021-10-24 15:44 | NUR ---
F/u 10/24: Pt tolerating TF at goal GRV WNL. Colostomy -475ml past 24 hours down from 1075ml day prior off bowel care at this time. Pt GRV 300-395 12/12 PM into 12/13 AM w/ relistor to start 10/25. Electrolytes WNL at this time on HD. Will continue to monitor for further nutrition intervention needs. Recs: 1. Continuous TF using Vital AF at 70ml/hr goal; to provide 1680ml volume/day, 2016 kcals, 1361ml water, and 126g protein. 2. additional water flush per floor covering printer on HD 3. PALB Q /; daily wts 4. opioid antagonist per MD; consider anti-diarrheal if colostomy output remains elevated 5. upon extubation; advance diet as medically indicated to renal/low-residue 6. New colostomy education once pt appropriate following extubation Addendum: 10/24/21 at [address] Amended: Links added.
[2021-10-24] MEDS: insulin glargine (Lantus) pen - multi-dose SQ SCH (20:27)
[2021-10-24] MEDS: gabapentin 100mg capsule NG SCH (20:56)
[2021-10-24] MEDS: amitriptyline 50mg tablet NG SCH (20:56)
[2021-10-25] VITALS (28 sets, daily range): BP systolic 121–172; BP diastolic 45–92
[2021-10-25 02:52] LABS: BASOPHILS % (AUTO) 0.4 % (0-1); EOSINOPHILS % (AUTO) 0.3 % (0-6); LYMPHOCYTES # (AUTO) 0.6 X10'3 (1.1-4.8); LYMPHOCYTES % (AUTO) 6.6 % (21-51); MEAN CORPUSCULAR HEMOGLOBIN 30.2 PG (27.0-31.0); MEAN CORPUSCULAR HGB CONC 32.4 g/dL (33.0-36.5); MEAN CORPUSCULAR VOLUME 93.2 FL (78-98); MONOCYTES # (AUTO) 0.5 X10'3 (0-0.9); NEUTROPHILS # (AUTO) 8.4 X10'3 (1.8-7.7); NEUTROPHILS % (AUTO) 87.7 % (42-75); PLATELET COUNT 284 X10'3 (140-440); RED BLOOD COUNT 2.18 X10'6 (4.20-5.60); RED CELL DISTRIBUTION WIDTH 23.2 % (11.5-14.5); WHITE BLOOD COUNT 9.6 X10'3 (4.5-11.0)
[2021-10-25] MEDS: dextrose 50%-water 50ml dispensing syringe IV PRN (02:54)
--- NOTE | 2021-10-25 02:55 | NUR ---
Blood sugar 66 mg/dl. D50, 25ml IVP given. Pt lying in bed with eyes open, no significant changes in neurological status.
[2021-10-25] MEDS: mineral oil/petrolatum ophthal oint EACHEYE SCH ×4 (02:59→20:00)
[2021-10-25] MEDS: VANCOMYCIN LEVEL IV SCH (03:00)
[2021-10-25 03:04] LABS: ALANINE AMINOTRANSFERASE 17 U/L (12-78); ALBUMIN 1.2 G/DL (3.4-5.0); ALBUMIN/GLOBULIN RATIO 0.4 (1.1-1.5); ALKALINE PHOSPHATASE 57 IU/L (46-116); ANION GAP 10 (8-16); ASPARTATE AMINO TRANSFERASE 22 U/L (10-37); BILIRUBIN,TOTAL 0.2 MG/DL (0.1-1.0); BLOOD UREA NITROGEN 38 MG/DL (7-18); BUN/CREATININE RATIO 18.4 (6.6-38.0); CALCIUM 7.4 MG/DL (8.5-10.1); CHLORIDE 106 MMOL/L (99-107); CREATININE 2.07 MG/DL (0.40-0.90); GLUCOSE 65 MG/DL (70-104); MAGNESIUM 1.9 MG/DL (1.5-2.4); PHOSPHORUS 4.5 MG/DL (2.3-4.5); POTASSIUM 3.5 MMOL/L (3.5-5.1); SODIUM 141 MMOL/L (135-145); TOTAL CARBON DIOXIDE 24.7 MMOL/L (24-32); TOTAL PROTEIN 4.5 G/DL (6.4-8.2); VANCOMYCIN,RANDOM 15.9 UG/ML; eGFR 24 ML/MIN
[2021-10-25 03:05] LABS: ABG BASE EXCESS -2.2 mmol/L (-2.0-2.0); ABG HCO3 21.8 mmol/L (22.0-26.0); ABG OXYGEN SATURATION 98.3 % (94-97); ABG PCO2 (T) 33.8 mmHg (32.0-45.0); ABG PO2 (T) 120.2 mmHg (75.0-100.0); ALLEN'S TEST POSITIVE; FCOHb 0.2 % (0.0-3.9); FMetHb 0.3 % (0.0-1.5); FO2Hb 97.8 % (94-97); PATIENT TEMPERATURE 37.1; PEEP 5 cm H2O; RESPIRATORY RATE 22 b/min; TIDAL VOLUME 325 mL
[2021-10-25 03:12] LABS: HEMOGLOBIN 6.6 g/dl (12.0-16.0)
[2021-10-25 03:13] LABS: HEMATOCRIT 20.3 % (35.0-45.0)
[2021-10-25 03:51] LABS: PLATELET ESTIMATE NORMAL
[2021-10-25 03:52] LABS: ANISOCYTOSIS 3+; LARGE PLATELETS FEW; POLYCHROMASIA FEW
[2021-10-25 03:54] LABS: STOMATOCYTES FEW
[2021-10-25] MEDS: lactobacillus rhamnosus 10,000 MMU CELLS/CAPSULE NG SCH ×2 (07:49→20:14)
[2021-10-25] MEDS: famotidine 20mg tablet NG SCH ×2 (07:49→20:14)
[2021-10-25] MEDS: meropenem inj 500 MG in normal saline 100ml IV soln 100 ML IV SCH (07:50)
[2021-10-25] MEDS: heparin, porcine 5000 units/ml vial SQ SCH ×2 (07:50→20:15)
[2021-10-25] MEDS: acetaminophen 325mg/10.15ml oral unit dose solution NG PRN ×3 (07:51→19:48)
[2021-10-25] MEDS ORDERED: methylnaltrexone br 12mg/0.6ml inj***SubQ only SQ SCH (08:00)
[2021-10-25] MEDS: insulin regular, human U-100 3ml vial - multi-dose SQ SCH ×3 (08:26→20:26)
[2021-10-25] MEDS: dexmedetomidin/NS 400mcg/100ml 100 ML IV SCH (11:09)
[2021-10-25] MEDS: diatr meglu/diatrizoate 30ml oral sol.-(3 dose) bottle PO SCH ×3 (11:35→18:55)
[2021-10-25] MEDS ORDERED: vancomycin inj 500 MG in normal saline 100ml IV soln 100 ML IV ONE (16:00)
[2021-10-25] MEDS ORDERED: iohexol 300mg/ml 100ml inj. ONE (19:05)
[2021-10-25] MEDS: amitriptyline 50mg tablet NG SCH (20:14)
[2021-10-25] MEDS: gabapentin 100mg capsule NG SCH (20:14)
[2021-10-25] MEDS: insulin glargine (Lantus) pen - multi-dose SQ SCH (20:31)
[2021-10-26] VITALS (24 sets, daily range): BP systolic 103–167; BP diastolic 46–130
[2021-10-26] MEDS: HYDROmorphone 1 mg/ml syringe IV PRN (00:38)
[2021-10-26] MEDS: mineral oil/petrolatum ophthal oint EACHEYE SCH ×2 (02:00→06:54)
[2021-10-26] MEDS: dexmedetomidin/NS 400mcg/100ml 100 ML IV SCH (02:02)
[2021-10-26] MEDS: VANCOMYCIN LEVEL IV SCH (02:35)
[2021-10-26] MEDS: insulin regular, human U-100 3ml vial - multi-dose SQ SCH ×3 (02:37→21:49)
[2021-10-26 03:56] LABS: PREALBUMIN 16.8 MG/DL (19-36); VANCOMYCIN,RANDOM 19.4 UG/ML
[2021-10-26] MEDS: meropenem inj 500 MG in normal saline 100ml IV soln 100 ML IV SCH (07:20)
[2021-10-26] MEDS: acetaminophen 325mg/10.15ml oral unit dose solution NG PRN (07:21)
[2021-10-26] MEDS: lactobacillus rhamnosus 10,000 MMU CELLS/CAPSULE NG SCH ×2 (07:21→20:58)
[2021-10-26] MEDS: heparin, porcine 5000 units/ml vial SQ SCH ×2 (07:21→20:57)
[2021-10-26] MEDS: famotidine 20mg tablet NG SCH ×2 (07:21→20:57)
[2021-10-26 07:50] LABS: BASOPHILS % (AUTO) 0.3 % (0-1); EOSINOPHILS % (AUTO) 0.3 % (0-6); HEMATOCRIT 27.5 % (35.0-45.0); HEMOGLOBIN 9.1 g/dl (12.0-16.0); LYMPHOCYTES # (AUTO) 0.5 X10'3 (1.1-4.8); LYMPHOCYTES % (AUTO) 5.3 % (21-51); MEAN CORPUSCULAR HEMOGLOBIN 29.3 PG (27.0-31.0); MEAN CORPUSCULAR VOLUME 88.9 FL (78-98); MONOCYTES # (AUTO) 0.8 X10'3 (0-0.9); MONOCYTES % (AUTO) 7.3 % (2-12); NEUTROPHILS % (AUTO) 86.8 % (42-75); PLATELET COUNT 316 X10'3 (140-440); RED BLOOD COUNT 3.09 X10'6 (4.20-5.60); RED CELL DISTRIBUTION WIDTH 21.4 % (11.5-14.5); WHITE BLOOD COUNT 10.3 X10'3 (4.5-11.0)
[2021-10-26] MEDS: heparin 1,000 units/ml 10ml inj HE ONE ×4 (08:00→10:00)
[2021-10-26] MEDS ORDERED: heparin 1,000unit/ml 10ml vial 10 ML IV ONE (08:00)
[2021-10-26] MEDS ORDERED: heparin 1,000 units/ml 10ml inj IV ONE (08:00)
[2021-10-26] MEDS ORDERED: albumin (human) 25% 100ml IV 100 ML IV PRN (08:00)
[2021-10-26] MEDS ORDERED: EPOETIN ALFA-EPBX 20,000 UNIT/ML 1 ML MDV IV ONE (08:00)
[2021-10-26 08:33] LABS: ALANINE AMINOTRANSFERASE 13 U/L (12-78); ALBUMIN 1.3 G/DL (3.4-5.0); ALBUMIN/GLOBULIN RATIO 0.4 (1.1-1.5); ALKALINE PHOSPHATASE 79 IU/L (46-116); ANION GAP 11 (8-16); ASPARTATE AMINO TRANSFERASE 20 U/L (10-37); BILIRUBIN,TOTAL 0.2 MG/DL (0.1-1.0); BLOOD UREA NITROGEN 46 MG/DL (7-18); BUN/CREATININE RATIO 18.9 (6.6-38.0); CALCIUM 7.8 MG/DL (8.5-10.1); CHLORIDE 104 MMOL/L (99-107); CREATININE 2.43 MG/DL (0.40-0.90); GLUCOSE 95 MG/DL (70-104); POTASSIUM 3.3 MMOL/L (3.5-5.1); SODIUM 138 MMOL/L (135-145); TOTAL CARBON DIOXIDE 22.9 MMOL/L (24-32); TOTAL PROTEIN 4.7 G/DL (6.4-8.2); eGFR 20 ML/MIN
[2021-10-26 09:36] LABS: ANISOCYTOSIS 3+; HYPERSEGMENTED NEUTROPHILS 1+; LARGE PLATELETS FEW; PLATELET ESTIMATE NORMAL; TOTAL CELLS COUNTED 100
--- NOTE | 2021-10-26 10:49 | NUR ---
F/u 10/26: Pt s/p extubation yesterday remains on NGTF at goal and tolerating GRV WNL receiving HD today. Colostomy -800ml yesterday per EMR. Will continue to monitor for nutrition support tolerance and further nutrition intervention needs this admit. Recs: 1. Continuous TF using Vital AF at 70ml/hr goal; to provide 1680ml volume/day, 2016 kcals, 1361ml water, and 126g protein. 2. additional water flush per emissions technician on HD 3. PALB Q /; daily wts 4. advance diet as medically indicated to renal/low-residue 5. New colostomy education once pt appropriate as medically indicated Addendum: 10/26/21 at [address] Amended: Links added.
[2021-10-26] MEDS ORDERED: tPA-cathflo 2 MG/2 ml IV flush IVF ONE (13:05)
[2021-10-26] MEDS: dextrose 50%-water 50ml dispensing syringe IV PRN (13:55)
[2021-10-26] MEDS: gabapentin 100mg capsule NG SCH (20:58)
[2021-10-26] MEDS: amitriptyline 50mg tablet NG SCH (20:58)
[2021-10-26] MEDS: insulin glargine (Lantus) pen - multi-dose SQ SCH (21:24)
--- NOTE | 2021-10-26 22:22 | NUR ---
Pt has a slight increase in temp. Will continue to monitor. Has PRN tylenol once >101.
[2021-10-27] VITALS (24 sets, daily range): BP systolic 109–158; BP diastolic 39–90
--- NOTE | 2021-10-27 01:25 | NUR ---
Pt O2 started to drop to mid 80s, increased her NC to 3L. Sats now in low 90s. Her breath sounds started to sound more crackly than before. RR has consistently been in the low 30s. Will continue to monitor.
[2021-10-27] MEDS: insulin regular, human U-100 3ml vial - multi-dose SQ SCH ×4 (02:16→20:45)
[2021-10-27] MEDS: acetaminophen 325mg/10.15ml oral unit dose solution NG PRN ×2 (02:47→08:55)
--- NOTE | 2021-10-27 02:54 | NUR ---
Pt had temp of 101, gave PRN tyenol. Will continue to monitor.
[2021-10-27] MEDS: VANCOMYCIN LEVEL IV SCH (03:00)
--- NOTE | 2021-10-27 03:38 | NUR ---
Retook temp, went down to 99.2, will continue to monitor.
--- NOTE | 2021-10-27 03:58 | NUR ---
Pt tube feeding is running low, called house worker and they could not get one for now.
--- NOTE | 2021-10-27 04:26 | NUR ---
Had to stop the tube feeding because it ran out, waiting to get a new bottle. Will take BS to monitor because insulin was given at 0200.
--- NOTE | 2021-10-27 06:15 | NUR ---
Patient in room ICU 2042. I have received report from Gloria BUITRAGO and had the opportunity to ask questions and assume patient care.
--- NOTE | 2021-10-27 06:31 | NUR ---
Problems reprioritized. Patient report given, questions answered & plan of care reviewed with Maame BUITRAGO.
[2021-10-27] MEDS: lactobacillus rhamnosus 10,000 MMU CELLS/CAPSULE NG SCH ×2 (08:30→20:41)
[2021-10-27] MEDS: famotidine 20mg tablet NG SCH ×2 (08:30→20:41)
[2021-10-27] MEDS: heparin, porcine 5000 units/ml vial SQ SCH ×2 (08:30→20:42)
[2021-10-27] MEDS: meropenem inj 500 MG in normal saline 100ml IV soln 100 ML IV SCH (08:31)
[2021-10-27 08:45] LABS: BASOPHILS # (AUTO) 0.1 X10'3 (0-0.2); BASOPHILS % (AUTO) 0.7 % (0-1); EOSINOPHILS % (AUTO) 0.2 % (0-6); HEMATOCRIT 29.8 % (35.0-45.0); HEMOGLOBIN 9.7 g/dl (12.0-16.0); LYMPHOCYTES # (AUTO) 0.6 X10'3 (1.1-4.8); LYMPHOCYTES % (AUTO) 5.5 % (21-51); MEAN CORPUSCULAR HEMOGLOBIN 29.3 PG (27.0-31.0); MEAN CORPUSCULAR HGB CONC 32.7 g/dL (33.0-36.5); MEAN CORPUSCULAR VOLUME 89.7 FL (78-98); MEAN PLATELET VOLUME 7.4 FL (7.4-10.4); MONOCYTES # (AUTO) 0.8 X10'3 (0-0.9); MONOCYTES % (AUTO) 7.4 % (2-12); NEUTROPHILS # (AUTO) 8.9 X10'3 (1.8-7.7); NEUTROPHILS % (AUTO) 86.2 % (42-75); PLATELET COUNT 328 X10'3 (140-440); RED BLOOD COUNT 3.32 X10'6 (4.20-5.60); RED CELL DISTRIBUTION WIDTH 21.2 % (11.5-14.5); WHITE BLOOD COUNT 10.4 X10'3 (4.5-11.0)
[2021-10-27 09:10] LABS: ALANINE AMINOTRANSFERASE 20 U/L (12-78); ALBUMIN 1.4 G/DL (3.4-5.0); ALBUMIN/GLOBULIN RATIO 0.3 (1.1-1.5); ALKALINE PHOSPHATASE 88 IU/L (46-116); ANION GAP 10 (8-16); ASPARTATE AMINO TRANSFERASE 20 U/L (10-37); BILIRUBIN,TOTAL 0.3 MG/DL (0.1-1.0); BLOOD UREA NITROGEN 37 MG/DL (7-18); CHLORIDE 104 MMOL/L (99-107); CREATININE 2.05 MG/DL (0.40-0.90); GLUCOSE 192 MG/DL (70-104); PHOSPHORUS 3.8 MG/DL (2.3-4.5); POTASSIUM 3.9 MMOL/L (3.5-5.1); SODIUM 140 MMOL/L (135-145); TOTAL PROTEIN 5.6 G/DL (6.4-8.2); eGFR 25 ML/MIN
[2021-10-27 10:01] LABS: ANISOCYTOSIS 3+; PLATELET ESTIMATE NORMAL; POLYCHROMASIA 1+; TOTAL CELLS COUNTED 100
[2021-10-27 13:27] LABS: A/G RATIO 0.8 (0.7-1.7); ALBUMIN 1.7 g/dL (2.9-4.4); ANTINUCLEAR ANTIBODIES Negative (Negative); BETA GLOBULIN 0.5 g/dL (0.7-1.3); GAMMA GLOBULIN 0.4 g/dL (0.4-1.8); GLOBULIN, TOTAL 2.2 g/dL (2.2-3.9); M-SPIKE Not Observed g/dL (Not Observed); PROTEIN, TOTAL, SERUM 3.9 g/dL (6.0-8.5)
--- NOTE | 2021-10-27 18:25 | NUR ---
Problems reprioritized. Patient report given, questions answered & plan of care reviewed with Brittany BUITRAGO.
--- NOTE | 2021-10-27 18:30 | NUR ---
Received report from Brittany; questions answered; at bedside; pt appears in resp distress, RR 40s; sats ok on NC 3L, resp shallow and slightly labored; pt responsive only to gentle stimulation, will open eyes but not following any commands; tachycardic, BP stable; states "pt has been sleeping for a while"; orders placed for ABG.
[2021-10-27 19:12] LABS: ABG HCO3 24.7 mmol/L (22.0-26.0); ABG OXYGEN SATURATION 87.1 % (94-97); ABG PCO2 (T) 51.4 mmHg (32.0-45.0); ABG PO2 (T) 59.7 mmHg (75.0-100.0); ALLEN'S TEST POSITIVE; FCOHb 0.4 % (0.0-3.9); FLOW 3 L/min; FMetHb 0.2 % (0.0-1.5); FO2Hb 86.6 % (94-97); PATIENT TEMPERATURE 37.1; TOTAL HEMOGLOBIN 10.8 G/dl (12.0-16.0)
[2021-10-27] MEDS: albuterol 2.5 MG/3 ML nebule NEB PRN (19:24)
[2021-10-27] MEDS: amitriptyline 50mg tablet NG SCH (20:40)
[2021-10-27] MEDS: gabapentin 100mg capsule NG SCH (20:41)
[2021-10-27] MEDS: insulin glargine (Lantus) pen - multi-dose SQ SCH (20:44)
--- NOTE | 2021-10-27 21:00 | NUR ---
ABG reviewed w/telemedicine Dr. Shay, mild resp acidosis; orders for cxr and bipap placed; blood sugar 153; pt placed on bipap and repositioned.
--- NOTE | 2021-10-27 23:00 | NUR ---
VS remain stable; RR decreased hour or so after starting bipap; pt remains basically unresponsive other than opening eyes and moving extrem slightly; slight temp; photo taken of open area on sacrum; WOC recommendations;
[2021-10-28] VITALS (24 sets, daily range): BP systolic 100–169; BP diastolic 39–125
--- NOTE | 2021-10-28 02:00 | NUR ---
Drsg changed to midline abd incision; old packing removed, sm amt of brownish dried drainage; some dark/black areas along edges at bottom part of incision; pink areas upper part; wound redressed w/wet to dry NS 4x4s. Small amt of serous drainage noted at bottom lower part of open incision; no neuro changes; update given to over the phone.
[2021-10-28] MEDS: insulin regular, human U-100 3ml vial - multi-dose SQ SCH ×2 (02:14→21:47)
[2021-10-28] MEDS: VANCOMYCIN LEVEL IV SCH (02:15)
[2021-10-28 02:39] LABS: BASOPHILS # (AUTO) 0.1 X10'3 (0-0.2); BASOPHILS % (AUTO) 0.5 % (0-1); EOSINOPHILS % (AUTO) 0.3 % (0-6); HEMATOCRIT 26.8 % (35.0-45.0); HEMOGLOBIN 8.5 g/dl (12.0-16.0); LYMPHOCYTES # (AUTO) 0.6 X10'3 (1.1-4.8); LYMPHOCYTES % (AUTO) 5.2 % (21-51); MEAN CORPUSCULAR HEMOGLOBIN 28.7 PG (27.0-31.0); MEAN CORPUSCULAR HGB CONC 31.6 g/dL (33.0-36.5); MEAN CORPUSCULAR VOLUME 90.8 FL (78-98); MEAN PLATELET VOLUME 7.2 FL (7.4-10.4); MONOCYTES % (AUTO) 8.3 % (2-12); NEUTROPHILS # (AUTO) 10.3 X10'3 (1.8-7.7); NEUTROPHILS % (AUTO) 85.7 % (42-75); PLATELET COUNT 318 X10'3 (140-440); RED BLOOD COUNT 2.95 X10'6 (4.20-5.60); RED CELL DISTRIBUTION WIDTH 21.2 % (11.5-14.5)
[2021-10-28 03:00] LABS: ALANINE AMINOTRANSFERASE 20 U/L (12-78); ALBUMIN 1.3 G/DL (3.4-5.0); ALBUMIN/GLOBULIN RATIO 0.4 (1.1-1.5); ALKALINE PHOSPHATASE 73 IU/L (46-116); ANION GAP 12 (8-16); ASPARTATE AMINO TRANSFERASE 26 U/L (10-37); BILIRUBIN,TOTAL 0.2 MG/DL (0.1-1.0); BLOOD UREA NITROGEN 51 MG/DL (7-18); BUN/CREATININE RATIO 20.3 (6.6-38.0); CALCIUM 7.8 MG/DL (8.5-10.1); CHLORIDE 107 MMOL/L (99-107); CREATININE 2.51 MG/DL (0.40-0.90); GLUCOSE 94 MG/DL (70-104); MAGNESIUM 2.1 MG/DL (1.5-2.4); POTASSIUM 3.9 MMOL/L (3.5-5.1); SODIUM 143 MMOL/L (135-145); TOTAL CARBON DIOXIDE 24.4 MMOL/L (24-32); TOTAL PROTEIN 4.5 G/DL (6.4-8.2); eGFR 20 ML/MIN
--- NOTE | 2021-10-28 05:00 | NUR ---
No change in status; still minimally responsive, remains on bipap.
--- NOTE | 2021-10-28 06:20 | NUR ---
Patient in room ICU 2042. I have received report from Henrietta BUITRAGO and had the opportunity to ask questions and assume patient care.
--- NOTE | 2021-10-28 06:49 | NUR ---
Report given to Praful; questions answered.
[2021-10-28] MEDS ORDERED: albumin (human) 25% 100ml IV 100 ML IV PRN (08:00)
[2021-10-28] MEDS ORDERED: heparin 1,000unit/ml 10ml vial 10 ML IV ONE (08:00)
[2021-10-28] MEDS ORDERED: heparin 1,000 units/ml 10ml inj IV ONE (08:00)
[2021-10-28] MEDS ORDERED: EPOETIN ALFA-EPBX 20,000 UNIT/ML 1 ML MDV IV ONE (08:00)
[2021-10-28] MEDS ORDERED: heparin 1,000 units/ml 10ml inj HE ONE ×2 (08:00)
[2021-10-28] MEDS: lactobacillus rhamnosus 10,000 MMU CELLS/CAPSULE NG SCH ×2 (08:44→21:38)
[2021-10-28] MEDS: meropenem inj 500 MG in normal saline 100ml IV soln 100 ML IV SCH (08:44)
[2021-10-28] MEDS: famotidine 20mg tablet NG SCH ×2 (08:44→21:38)
[2021-10-28] MEDS: heparin, porcine 5000 units/ml vial SQ SCH ×2 (08:45→21:38)
--- NOTE | 2021-10-28 14:49 | NUR ---
Spoke with Dr. Roy, Intencivist, concerning Pt's consistent tube feeding residuals of 250-300ml. Dr. Roy said he is okay with 250-300ml of residual, but if it is more to notify him.
[2021-10-28] MEDS: metoclopramide 5 mg/ml inj IV PRN (16:28)
--- NOTE | 2021-10-28 18:45 | NUR ---
Problems reprioritized. Patient report given, questions answered & plan of care reviewed with Laura BUITRAGO.
[2021-10-28] MEDS: gabapentin 100mg capsule NG SCH (21:38)
[2021-10-28] MEDS: amitriptyline 50mg tablet NG SCH (21:41)
[2021-10-28] MEDS: insulin glargine (Lantus) pen - multi-dose SQ SCH (21:49)
[2021-10-29] VITALS (24 sets, daily range): BP systolic 106–151; BP diastolic 43–59
[2021-10-29] MEDS: HYDROmorphone inj. 0.5 MG/0.5 ML DISP.SYRIN IV PRN (00:37)
[2021-10-29] MEDS: insulin regular, human U-100 3ml vial - multi-dose SQ SCH ×4 (02:42→20:54)
[2021-10-29] MEDS: VANCOMYCIN LEVEL IV SCH (03:23)
[2021-10-29 03:55] LABS: BASOPHILS % (AUTO) 0.3 % (0-1); EOSINOPHILS % (AUTO) 0.2 % (0-6); HEMATOCRIT 29.2 % (35.0-45.0); HEMOGLOBIN 9.5 g/dl (12.0-16.0); LYMPHOCYTES # (AUTO) 0.6 X10'3 (1.1-4.8); LYMPHOCYTES % (AUTO) 4.2 % (21-51); MEAN CORPUSCULAR HEMOGLOBIN 29.1 PG (27.0-31.0); MEAN CORPUSCULAR HGB CONC 32.3 g/dL (33.0-36.5); MEAN PLATELET VOLUME 7.7 FL (7.4-10.4); MONOCYTES # (AUTO) 0.8 X10'3 (0-0.9); MONOCYTES % (AUTO) 5.5 % (2-12); NEUTROPHILS # (AUTO) 13.5 X10'3 (1.8-7.7); NEUTROPHILS % (AUTO) 89.8 % (42-75); PLATELET COUNT 340 X10'3 (140-440); RED BLOOD COUNT 3.25 X10'6 (4.20-5.60); RED CELL DISTRIBUTION WIDTH 21.1 % (11.5-14.5); WHITE BLOOD COUNT 15.1 X10'3 (4.5-11.0)
[2021-10-29 04:00] LABS: ALANINE AMINOTRANSFERASE 16 U/L (12-78); ALBUMIN 1.3 G/DL (3.4-5.0); ALBUMIN/GLOBULIN RATIO 0.4 (1.1-1.5); ALKALINE PHOSPHATASE 80 IU/L (46-116); ANION GAP 10 (8-16); ASPARTATE AMINO TRANSFERASE 16 U/L (10-37); BILIRUBIN,TOTAL 0.3 MG/DL (0.1-1.0); BLOOD UREA NITROGEN 36 MG/DL (7-18); BUN/CREATININE RATIO 18.6 (6.6-38.0); CALCIUM 7.8 MG/DL (8.5-10.1); CHLORIDE 102 MMOL/L (99-107); CREATININE 1.94 MG/DL (0.40-0.90); GLUCOSE 277 MG/DL (70-104); POTASSIUM 3.8 MMOL/L (3.5-5.1); SODIUM 138 MMOL/L (135-145); TOTAL CARBON DIOXIDE 26.5 MMOL/L (24-32); TOTAL PROTEIN 4.9 G/DL (6.4-8.2); VANCOMYCIN,RANDOM 13.4 UG/ML; eGFR 26 ML/MIN
[2021-10-29 06:45] LABS: ANISOCYTOSIS 3+; PLATELET ESTIMATE NORMAL; POLYCHROMASIA 1+
[2021-10-29 06:46] LABS: STOMATOCYTES 1+; TEAR DROP CELLS 1+
[2021-10-29] MEDS ORDERED: heparin 1,000 units/ml 10ml inj HE ONE ×2 (07:05)
[2021-10-29] MEDS: famotidine 20mg tablet NG SCH ×2 (08:08→20:39)
[2021-10-29] MEDS: lactobacillus rhamnosus 10,000 MMU CELLS/CAPSULE NG SCH ×2 (08:08→20:48)
[2021-10-29] MEDS: meropenem inj 500 MG in normal saline 100ml IV soln 100 ML IV SCH (08:09)
[2021-10-29] MEDS: heparin, porcine 5000 units/ml vial SQ SCH ×2 (08:09→20:40)
[2021-10-29] MEDS ORDERED: vancomycin inj. 750 MG in normal saline 250ml IV soln 250 ML IV ONE (08:20)
--- NOTE | 2021-10-29 10:03 | NUR ---
Dr. Ervin placed R groin HD cath. Pt. tolerated well. 1.4cc Heparin instilled into each cath. per Dr. Ervin.
--- NOTE | 2021-10-29 11:17 | NUR ---
Bladder appears distended. Bladder scanned and approx. 128cc urine noted. Pt. was incontinent of urine earlier. Will continue to monitor.
[2021-10-29 12:07] LABS: HEMOGLOBIN A1C 4.9 % (4.5-6.2)
--- NOTE | 2021-10-29 17:31 | NUR ---
S.O. has been at bedside most of the shift.
--- NOTE | 2021-10-29 18:06 | NUR ---
Problems reprioritized. Patient report given, questions answered & plan of care reviewed with NOC RN.
--- NOTE | 2021-10-29 18:20 | NUR ---
Patient in room ICU 2042. I have received report from Gavi BUITRAGO and had the opportunity to ask questions and assume patient care.
[2021-10-29] MEDS: amitriptyline 50mg tablet NG SCH (20:39)
[2021-10-29] MEDS: gabapentin 100mg capsule NG SCH (20:39)
[2021-10-29] MEDS: insulin glargine (Lantus) pen - multi-dose SQ SCH (20:54)
[2021-10-30] VITALS (24 sets, daily range): BP systolic 109–160; BP diastolic 5–96
[2021-10-30] MEDS: VANCOMYCIN LEVEL IV SCH (03:00)
[2021-10-30] MEDS: dextrose 50%-water 50ml dispensing syringe IV PRN (03:06)
[2021-10-30 03:46] LABS: ALANINE AMINOTRANSFERASE 22 U/L (12-78); ALBUMIN 1.3 G/DL (3.4-5.0); ALBUMIN/GLOBULIN RATIO 0.4 (1.1-1.5); ALKALINE PHOSPHATASE 80 IU/L (46-116); ANION GAP 8 (8-16); ASPARTATE AMINO TRANSFERASE 28 U/L (10-37); BILIRUBIN,TOTAL 0.3 MG/DL (0.1-1.0); BLOOD UREA NITROGEN 56 MG/DL (7-18); BUN/CREATININE RATIO 22.2 (6.6-38.0); CALCIUM 8.2 MG/DL (8.5-10.1); CHLORIDE 107 MMOL/L (99-107); CREATININE 2.52 MG/DL (0.40-0.90); GLUCOSE 71 MG/DL (70-104); MAGNESIUM 2.1 MG/DL (1.5-2.4); POTASSIUM 3.7 MMOL/L (3.5-5.1); SODIUM 141 MMOL/L (135-145); TOTAL CARBON DIOXIDE 25.7 MMOL/L (24-32); eGFR 19 ML/MIN
[2021-10-30 04:03] LABS: BASOPHILS # (AUTO) 0.1 X10'3 (0-0.2); BASOPHILS % (AUTO) 0.4 % (0-1); EOSINOPHILS # (AUTO) 0.1 X10'3 (0-0.9); EOSINOPHILS % (AUTO) 0.5 % (0-6); HEMATOCRIT 27.4 % (35.0-45.0); HEMOGLOBIN 8.8 g/dl (12.0-16.0); LYMPHOCYTES # (AUTO) 0.6 X10'3 (1.1-4.8); LYMPHOCYTES % (AUTO) 3.8 % (21-51); MEAN CORPUSCULAR HGB CONC 31.9 g/dL (33.0-36.5); MEAN CORPUSCULAR VOLUME 90.9 FL (78-98); MEAN PLATELET VOLUME 7.5 FL (7.4-10.4); MONOCYTES # (AUTO) 0.8 X10'3 (0-0.9); MONOCYTES % (AUTO) 5.3 % (2-12); NEUTROPHILS # (AUTO) 14.2 X10'3 (1.8-7.7); PLATELET COUNT 331 X10'3 (140-440); RED BLOOD COUNT 3.02 X10'6 (4.20-5.60); RED CELL DISTRIBUTION WIDTH 21.5 % (11.5-14.5); WHITE BLOOD COUNT 15.8 X10'3 (4.5-11.0)
--- NOTE | 2021-10-30 06:16 | NUR ---
Problems reprioritized. Patient report given, questions answered & plan of care reviewed with Gavi BUITRAGO.
[2021-10-30] MEDS: famotidine 20mg tablet NG SCH ×2 (07:34→20:26)
[2021-10-30] MEDS: meropenem inj 500 MG in normal saline 100ml IV soln 100 ML IV SCH (07:34)
[2021-10-30] MEDS: lactobacillus rhamnosus 10,000 MMU CELLS/CAPSULE NG SCH ×2 (07:34→20:25)
[2021-10-30] MEDS: heparin, porcine 5000 units/ml vial SQ SCH ×2 (07:36→20:26)
[2021-10-30] MEDS: insulin regular, human U-100 3ml vial - multi-dose SQ SCH ×3 (07:42→20:36)
[2021-10-30 08:27] LABS: PLATELET ESTIMATE NORMAL
[2021-10-30 08:28] LABS: ANISOCYTOSIS 3+; POLYCHROMASIA 2+
--- NOTE | 2021-10-30 10:47 | NUR ---
Pito CARTER IR here to dc chest tubes. Pt's at bedside.
--- NOTE | 2021-10-30 11:42 | NUR ---
F/u 10/30: Pt remains on NGTF at goal of Vital AF at 70ml/hr and tolerating GRV WNL receiving HD today. Currently on BiPAP at 28% per EMR, remains A&O x 1 and confused. Colostomy -350ml today per EMR. Will continue to monitor for nutrition support tolerance and further nutrition intervention needs this admit. Recs: 1. Continuous TF using Vital AF at 70ml/hr goal; to provide 1680ml volume/day, 2016 kcals, 1361ml water, and 126g protein. 2. additional water flush per ship rigger apprentice on HD 3. PALB Q /; daily wts 4. advance diet as medically indicated to renal/low-residue 5. New colostomy education once pt appropriate as medically indicated Addendum: 10/30/21 at [address] Amended: Links added.
--- NOTE | 2021-10-30 11:42 | NUR ---
F/u 10/30: Pt remains on NGTF at goal of Vital AF at 70ml/hr and tolerating GRV WNL receiving HD today. Currently on BiPAP at 28% per EMR, remains A&O x 1 and confused. Colostomy -350ml today per EMR. Will continue to monitor for nutrition support tolerance and further nutrition intervention needs this admit. Recs: 1. Continuous TF using Vital AF at 70ml/hr goal; to provide 1680ml volume/day, 2016 kcals, 1361ml water, and 126g protein. 2. additional water flush per radio interference investigator on HD 3. PALB Q /; daily wts 4. advance diet as medically indicated to renal/low-residue 5. New colostomy education once pt appropriate as medically indicated Addendum: 10/30/21 at [address] Amended: Links added.
--- NOTE | 2021-10-30 18:27 | NUR ---
Patient in room ICU 2042. I have received report from Gavi BUITRAGO and had the opportunity to ask questions and assume patient care.
[2021-10-30] MEDS: amitriptyline 50mg tablet NG SCH (20:25)
[2021-10-30] MEDS: gabapentin 100mg capsule NG SCH (20:26)
[2021-10-30] MEDS: insulin glargine (Lantus) pen - multi-dose SQ SCH (20:37)
[2021-10-31] VITALS (24 sets, daily range): BP systolic 109–235; BP diastolic 42–96
[2021-10-31] MEDS: insulin regular, human U-100 3ml vial - multi-dose SQ SCH ×2 (02:44→14:47)
[2021-10-31] MEDS: VANCOMYCIN LEVEL IV SCH (03:00)
[2021-10-31 03:10] LABS: BASOPHILS # (AUTO) 0.1 X10'3 (0-0.2); BASOPHILS % (AUTO) 0.5 % (0-1); EOSINOPHILS # (AUTO) 0.1 X10'3 (0-0.9); EOSINOPHILS % (AUTO) 0.9 % (0-6); HEMOGLOBIN 8.4 g/dl (12.0-16.0); LYMPHOCYTES # (AUTO) 0.6 X10'3 (1.1-4.8); LYMPHOCYTES % (AUTO) 4.5 % (21-51); MEAN CORPUSCULAR HEMOGLOBIN 28.5 PG (27.0-31.0); MEAN CORPUSCULAR HGB CONC 31.2 g/dL (33.0-36.5); MEAN CORPUSCULAR VOLUME 91.3 FL (78-98); MEAN PLATELET VOLUME 7.5 FL (7.4-10.4); MONOCYTES # (AUTO) 0.7 X10'3 (0-0.9); MONOCYTES % (AUTO) 4.9 % (2-12); NEUTROPHILS # (AUTO) 12.7 X10'3 (1.8-7.7); NEUTROPHILS % (AUTO) 89.2 % (42-75); PLATELET COUNT 327 X10'3 (140-440); RED BLOOD COUNT 2.95 X10'6 (4.20-5.60); RED CELL DISTRIBUTION WIDTH 20.4 % (11.5-14.5); WHITE BLOOD COUNT 14.2 X10'3 (4.5-11.0)
[2021-10-31 03:24] LABS: ALANINE AMINOTRANSFERASE 37 U/L (12-78); ALBUMIN 1.2 G/DL (3.4-5.0); ALBUMIN/GLOBULIN RATIO 0.3 (1.1-1.5); ALKALINE PHOSPHATASE 102 IU/L (46-116); ANION GAP 14 (8-16); ASPARTATE AMINO TRANSFERASE 44 U/L (10-37); BILIRUBIN,TOTAL 0.3 MG/DL (0.1-1.0); BLOOD UREA NITROGEN 76 MG/DL (7-18); BUN/CREATININE RATIO 25.6 (6.6-38.0); CALCIUM 8.3 MG/DL (8.5-10.1); CHLORIDE 106 MMOL/L (99-107); CREATININE 2.97 MG/DL (0.40-0.90); GLUCOSE 123 MG/DL (70-104); MAGNESIUM 2.2 MG/DL (1.5-2.4); POTASSIUM 3.9 MMOL/L (3.5-5.1); SODIUM 142 MMOL/L (135-145); TOTAL CARBON DIOXIDE 22.1 MMOL/L (24-32); TOTAL PROTEIN 4.9 G/DL (6.4-8.2); VANCOMYCIN,RANDOM 18.8 UG/ML; eGFR 16 ML/MIN
[2021-10-31 04:37] LABS: ANISOCYTOSIS 3+; PLATELET ESTIMATE NORMAL
[2021-10-31 04:41] LABS: POLYCHROMASIA 1+
--- NOTE | 2021-10-31 06:32 | NUR ---
Problems reprioritized. Patient report given, questions answered & plan of care reviewed with Molly BUITRAGO.
--- NOTE | 2021-10-31 06:37 | NUR ---
Patient in room ICU 2042. I have received report from Rupal BUITRAGO and had the opportunity to ask questions and assume patient care.
[2021-10-31] MEDS ORDERED: albumin (human) 25% 100ml IV 100 ML IV PRN (08:00)
[2021-10-31] MEDS ORDERED: heparin 1,000unit/ml 10ml vial 10 ML IV ONE (08:00)
[2021-10-31] MEDS ORDERED: EPOETIN ALFA-EPBX 20,000 UNIT/ML 1 ML MDV IV ONE (08:00)
[2021-10-31] MEDS ORDERED: heparin 1,000 units/ml 10ml inj IV ONE (08:00)
[2021-10-31] MEDS: meropenem inj 500 MG in normal saline 100ml IV soln 100 ML IV SCH (08:15)
[2021-10-31] MEDS: lactobacillus rhamnosus 10,000 MMU CELLS/CAPSULE NG SCH ×2 (08:16→20:33)
[2021-10-31] MEDS: famotidine 20mg tablet NG SCH ×2 (08:16→20:33)
[2021-10-31] MEDS: heparin, porcine 5000 units/ml vial SQ SCH ×2 (08:16→20:33)
[2021-10-31] MEDS: HYDROmorphone inj. 0.5 MG/0.5 ML DISP.SYRIN IV PRN ×2 (09:51→21:05)
[2021-10-31] MEDS: heparin 1,000 units/ml 10ml inj HE ONE ×4 (10:29→11:53)
[2021-10-31] MEDS ORDERED: tPA-cathflo 2 MG/2 ml IV flush IVF ONE ×2 (11:00→23:35)
[2021-10-31] MEDS: HYDROmorphone 1 mg/ml syringe IV PRN (13:46)
--- NOTE | 2021-10-31 14:37 | NUR ---
F/u 10/31: Pt no longer signs of sepsis per home health assistant at rounds; will keep current nutrition recs as pt PALB declining past 7 days on HD. Will monitor for EN adjustment needs. Addendum: 10/31/21 at [address] Amended: Links added.
[2021-10-31] MEDS: acetaminophen 325mg/10.15ml oral unit dose solution NG PRN (17:58)
--- NOTE | 2021-10-31 18:30 | NUR ---
Patient in room ICU 2042. I have received report from Molly BUITRAGO and had the opportunity to ask questions and assume patient care.
[2021-10-31] MEDS: piperacillin/tazo 4.5gm/100ml IVPB IV SCH (20:33)
[2021-10-31] MEDS: gabapentin 100mg capsule NG SCH (20:33)
[2021-10-31] MEDS: amitriptyline 50mg tablet NG SCH (20:33)
[2021-10-31] MEDS: insulin glargine (Lantus) pen - multi-dose SQ SCH (21:07)
[2021-10-31] MEDS ORDERED: NORepinephrine 8mg/ 250ml NS 250 ML IV ONE (23:05)
[2021-10-31] MEDS ORDERED: normal saline 500ml IV soln 500 ML IV ONE (23:35)
[2021-10-31 23:51] LABS: ABG BASE EXCESS -6.3 mmol/L (-2.0-2.0); ABG HCO3 21.2 mmol/L (22.0-26.0); ABG OXYGEN SATURATION 95.4 % (94-97); ABG PCO2 (T) 53.2 mmHg (32.0-45.0); ABG PO2 (T) 109.4 mmHg (75.0-100.0); ALLEN'S TEST POSITIVE; FCOHb 0.3 % (0.0-3.9); FMetHb 0.2 % (0.0-1.5); FO2Hb 94.9 % (94-97); PATIENT TEMPERATURE 38.2; PEEP 5 cm H2O; RESPIRATORY RATE 18 b/min; TIDAL VOLUME 325 mL
[2021-11-01] VITALS (42 sets, daily range): BP systolic 84–141; BP diastolic 35–61
[2021-11-01 00:03] LABS: BASOPHILS # (AUTO) 0.1 X10'3 (0-0.2); BASOPHILS % (AUTO) 0.5 % (0-1); EOSINOPHILS # (AUTO) 0.1 X10'3 (0-0.9); EOSINOPHILS % (AUTO) 0.5 % (0-6); HEMATOCRIT 30.9 % (35.0-45.0); HEMOGLOBIN 9.5 g/dl (12.0-16.0); LYMPHOCYTES # (AUTO) 1.1 X10'3 (1.1-4.8); LYMPHOCYTES % (AUTO) 4.9 % (21-51); MEAN CORPUSCULAR HEMOGLOBIN 28.2 PG (27.0-31.0); MEAN CORPUSCULAR HGB CONC 30.7 g/dL (33.0-36.5); MEAN CORPUSCULAR VOLUME 91.9 FL (78-98); MEAN PLATELET VOLUME 7.8 FL (7.4-10.4); MONOCYTES # (AUTO) 1.1 X10'3 (0-0.9); MONOCYTES % (AUTO) 4.7 % (2-12); NEUTROPHILS # (AUTO) 20.6 X10'3 (1.8-7.7); NEUTROPHILS % (AUTO) 89.4 % (42-75); PLATELET COUNT 447 X10'3 (140-440); RED BLOOD COUNT 3.37 X10'6 (4.20-5.60); RED CELL DISTRIBUTION WIDTH 20.6 % (11.5-14.5); WHITE BLOOD COUNT 23.1 X10'3 (4.5-11.0)
[2021-11-01 00:15] LABS: APTT 32 SECONDS (22-32)
[2021-11-01 00:16] LABS: ANION GAP 11 (8-16); BLOOD UREA NITROGEN 45 MG/DL (7-18); CALCIUM 8.1 MG/DL (8.5-10.1); CHLORIDE 100 MMOL/L (99-107); CREATININE 1.96 MG/DL (0.40-0.90); GLUCOSE 443 MG/DL (70-104); PHOSPHORUS 5.2 MG/DL (2.3-4.5); POTASSIUM 4.1 MMOL/L (3.5-5.1); SODIUM 135 MMOL/L (135-145); TOTAL CARBON DIOXIDE 24.4 MMOL/L (24-32); eGFR 26 ML/MIN
[2021-11-01 00:17] LABS: ALANINE AMINOTRANSFERASE 40 U/L (12-78); ALBUMIN 1.7 G/DL (3.4-5.0); ALBUMIN/GLOBULIN RATIO 0.5 (1.1-1.5); ALKALINE PHOSPHATASE 130 IU/L (46-116); ASPARTATE AMINO TRANSFERASE 41 U/L (10-37); BILIRUBIN,TOTAL 0.3 MG/DL (0.1-1.0); TOTAL PROTEIN 5.4 G/DL (6.4-8.2)
[2021-11-01] MEDS: dexmedetomidin/NS 400mcg/100ml 100 ML IV SCH ×2 (00:20→13:51)
[2021-11-01] MEDS: propofol 1000mg/100ml bottle 100 ML IV SCH ×2 (00:21→16:35)
[2021-11-01] MEDS: insulin regular, human U-100 3ml vial - multi-dose SQ SCH ×4 (00:30→22:19)
--- NOTE | 2021-11-01 00:30 | NUR ---
Just prior to 2300 Pt's HR on downward trend. Entered PT room, HR was in 50's no palpable pulse, PT was not responsive, Trial Bipap but PT not initiating breaths. CPR was initiated and Code blue was called. ER MD arrived after CPR had been in progress. ACLS meds given, PT achieved ROSC, although PT still continued to have a weak thready pulse, ER MD pushed EPI while primary RN was preparing other meds. PT ultimately intubated after Etomidate and Ezequiel were administered. PT placed on Mechanical vent by RT. Rounds performed with ICU Tele-Med MD and orders received. ICU Tele-Med MD as well as CRN called PT's to provide update. Low dose Levo is running to PICC. Will continue to monitor.
[2021-11-01 00:46] LABS: LARGE PLATELETS FEW; PLATELET ESTIMATE INCREASED
[2021-11-01 00:49] LABS: POLYCHROMASIA 1+
[2021-11-01 00:50] LABS: ANISOCYTOSIS 3+
[2021-11-01 00:51] LABS: STOMATOCYTES FEW
[2021-11-01 03:55] LABS: ABG BASE EXCESS -3.3 mmol/L (-2.0-2.0); ABG HCO3 22.5 mmol/L (22.0-26.0); ABG OXYGEN SATURATION 99.4 % (94-97); ABG PCO2 (T) 43.1 mmHg (32.0-45.0); ABG PO2 (T) 249.6 mmHg (75.0-100.0); ALLEN'S TEST POSITIVE; FCOHb 0.3 % (0.0-3.9); FMetHb 0.4 % (0.0-1.5); FO2Hb 98.7 % (94-97); PEEP 5 cm H2O; RESPIRATORY RATE 18 b/min; TIDAL VOLUME 325 mL; TOTAL HEMOGLOBIN 11.4 G/dl (12.0-16.0)
[2021-11-01 04:21] LABS: BASOPHILS # (AUTO) 0.1 X10'3 (0-0.2); BASOPHILS % (AUTO) 0.3 % (0-1); EOSINOPHILS # (AUTO) 0.1 X10'3 (0-0.9); EOSINOPHILS % (AUTO) 0.4 % (0-6); HEMATOCRIT 26.7 % (35.0-45.0); HEMOGLOBIN 8.7 g/dl (12.0-16.0); LYMPHOCYTES # (AUTO) 0.6 X10'3 (1.1-4.8); LYMPHOCYTES % (AUTO) 2.2 % (21-51); MEAN CORPUSCULAR HEMOGLOBIN 29.3 PG (27.0-31.0); MEAN CORPUSCULAR HGB CONC 32.7 g/dL (33.0-36.5); MEAN CORPUSCULAR VOLUME 89.4 FL (78-98); MEAN PLATELET VOLUME 7.4 FL (7.4-10.4); MONOCYTES # (AUTO) 0.9 X10'3 (0-0.9); MONOCYTES % (AUTO) 3.4 % (2-12); NEUTROPHILS # (AUTO) 23.3 X10'3 (1.8-7.7); NEUTROPHILS % (AUTO) 93.7 % (42-75); PLATELET COUNT 391 X10'3 (140-440); RED BLOOD COUNT 2.99 X10'6 (4.20-5.60); RED CELL DISTRIBUTION WIDTH 19.5 % (11.5-14.5); WHITE BLOOD COUNT 24.9 X10'3 (4.5-11.0)
[2021-11-01 04:33] LABS: ALANINE AMINOTRANSFERASE 36 U/L (12-78); ALBUMIN 1.6 G/DL (3.4-5.0); ALBUMIN/GLOBULIN RATIO 0.4 (1.1-1.5); ALKALINE PHOSPHATASE 114 IU/L (46-116); ANION GAP 14 (8-16); ASPARTATE AMINO TRANSFERASE 21 U/L (10-37); BILIRUBIN,TOTAL 0.3 MG/DL (0.1-1.0); BLOOD UREA NITROGEN 48 MG/DL (7-18); BUN/CREATININE RATIO 23.9 (6.6-38.0); CHLORIDE 102 MMOL/L (99-107); CREATININE 2.01 MG/DL (0.40-0.90); GLUCOSE 228 MG/DL (70-104); PHOSPHORUS 4.7 MG/DL (2.3-4.5); POTASSIUM 3.9 MMOL/L (3.5-5.1); SODIUM 141 MMOL/L (135-145); TOTAL CARBON DIOXIDE 25.4 MMOL/L (24-32); TOTAL PROTEIN 5.3 G/DL (6.4-8.2); eGFR 25 ML/MIN
[2021-11-01 04:47] LABS: TOTAL CELLS COUNTED 100
[2021-11-01 04:48] LABS: ANISOCYTOSIS 2+; PLATELET ESTIMATE NORMAL
[2021-11-01 04:51] LABS: POLYCHROMASIA 1+
--- NOTE | 2021-11-01 06:46 | NUR ---
Problems reprioritized. Patient report given, questions answered & plan of care reviewed with Stacey BUITRAGO .
[2021-11-01] MEDS: famotidine 20mg tablet NG SCH ×2 (07:31→21:35)
[2021-11-01] MEDS: heparin, porcine 5000 units/ml vial SQ SCH ×2 (07:31→21:36)
[2021-11-01] MEDS: lactobacillus rhamnosus 10,000 MMU CELLS/CAPSULE NG SCH ×2 (07:31→21:35)
[2021-11-01] MEDS: piperacillin/tazo 4.5gm/100ml IVPB IV SCH ×2 (07:59→21:35)
[2021-11-01] MEDS ORDERED: etomidate 2mg/ml inj. ONE (08:00)
[2021-11-01] MEDS ORDERED: sod chloride 0.9% 10ml flush syringe IV ONE ×2 (08:00)
[2021-11-01] MEDS ORDERED: naloxone 0.4 mg/ml inj ONE (08:00)
[2021-11-01] MEDS ORDERED: epiNEPHrine 0.1mg/ml 10ml syringe ONE (08:00)
[2021-11-01] MEDS ORDERED: rocuronium 10mg/ml inj IV ONE (08:00)
[2021-11-01] MEDS: acetaminophen 325mg/10.15ml oral unit dose solution NG PRN ×2 (08:30→13:13)
--- NOTE | 2021-11-01 11:04 | NUR ---
F/u 11/01: Pt intubated yesterday w/ mucous plug pending bronchoscopy today per rug measurer. Pt tolerating TF at goal GRV WNL. Noted Propofol started currently at 4.51ml/hr during RD rounds providing additional 119 kcals/day. Will monitor for Propofol rate and EN adjustment needs. Colostomy -425ml per EMR. Phos 4.7 down from 5.2 yesterday; RD d/w RN regarding phos binder if MD agreeable. Will continue to monitor. Recs: 1. Continuous TF using Vital AF at 70ml/hr goal; to provide 1680ml volume/day, 2016 kcals, 1361ml water, and 126g protein. 2. additional water flush per rug measurer on HD 3. Phos binder per physician discretion on HD 4. PALB Q /; daily wts 5. advance diet as medically indicated to renal/low-residue 6. New colostomy education once pt appropriate as medically indicated Addendum: 11/01/21 at [address] Amended: Links added.
--- NOTE | 2021-11-01 14:35 | NUR ---
PRESSURE ULCER EDUCATION: DEFINITION: A pressure ulcer is an area of skin that breaks down when you stay in one position too long. The constant pressure against the skin reduces the blood flow to that area and the affected tissue dies. CAUSES: "Being bedridden or in a wheelchair "Fragile skin "Having a chronic condition, such as diabetes or vascular disease "Inability to move certain parts of your body without assistance "Older age "Incontinence of urine or stool SYMPTOMS: "A reddened area that DOES NOT turn white when pressed on - this can be the beginning of a pressure ulcer "A blister, deep sore or a crater - these can be advanced pressure ulcers FIRST AID: "Relieve the pressure on this area "Keep the area clean and dry "Call your primary doctor if you see any of the above symptoms "DO NOT massage the area "DO NOT use a donut shaped or ring shaped pillow- these actually interfere with the blood flow and cause complications PREVENTION: "Check for pressure ulcers everyday "Change position at least every two hours to relieve pressure "Use items that help relieve pressure- pillows, sheepskin, foam padding, and powders. "Keep skin clean and dry "Eat healthy well balanced meals "Exercise daily IF YOU SEE ANY OF THESE SYMPTOMS WHILE IN THE HOSPITAL - TELL YOUR NURSE IMMEDIATELY. IF YOU SEE ANY OF THESE SYMPTOMS WHILE AT HOME OR HAVE ANY QUESTIONS OR CONCERNS ABOUT PRESSURE ULCERS - CALL YOUR PRIMARY DOCTOR IMMEDIATELY. Addendum: 11/01/21 at 1435 by Genie Turner RN Amended: Links added.
[2021-11-01] MEDS ORDERED: acetaminophen 325mg/10.15ml oral unit dose solution NG PRN (17:25)
[2021-11-01] MEDS: amitriptyline 50mg tablet NG SCH (21:36)
[2021-11-01] MEDS: gabapentin 100mg capsule NG SCH (21:36)
[2021-11-01] MEDS: insulin glargine (Lantus) pen - multi-dose SQ SCH (22:18)
[2021-11-02] VITALS (37 sets, daily range): BP systolic 82–168; BP diastolic 14–99
[2021-11-02] MEDS: insulin regular, human U-100 3ml vial - multi-dose SQ SCH ×3 (02:17→20:39)
[2021-11-02] MEDS: mineral oil/petrolatum ophthal oint EACHEYE SCH ×4 (02:21→20:17)
[2021-11-02 02:54] LABS: BASOPHILS # (AUTO) 0.1 X10'3 (0-0.2); BASOPHILS % (AUTO) 0.5 % (0-1); EOSINOPHILS # (AUTO) 0.1 X10'3 (0-0.9); EOSINOPHILS % (AUTO) 0.6 % (0-6); HEMATOCRIT 24.4 % (35.0-45.0); HEMOGLOBIN 7.6 g/dl (12.0-16.0); LYMPHOCYTES % (AUTO) 5.6 % (21-51); MEAN CORPUSCULAR HEMOGLOBIN 28.2 PG (27.0-31.0); MEAN PLATELET VOLUME 7.3 FL (7.4-10.4); MONOCYTES # (AUTO) 0.7 X10'3 (0-0.9); MONOCYTES % (AUTO) 3.9 % (2-12); NEUTROPHILS # (AUTO) 15.9 X10'3 (1.8-7.7); NEUTROPHILS % (AUTO) 89.4 % (42-75); PLATELET COUNT 313 X10'3 (140-440); RED BLOOD COUNT 2.68 X10'6 (4.20-5.60); RED CELL DISTRIBUTION WIDTH 19.7 % (11.5-14.5); WHITE BLOOD COUNT 17.8 X10'3 (4.5-11.0)
[2021-11-02 03:13] LABS: ALANINE AMINOTRANSFERASE 33 U/L (12-78); ALBUMIN 1.3 G/DL (3.4-5.0); ALBUMIN/GLOBULIN RATIO 0.4 (1.1-1.5); ALKALINE PHOSPHATASE 126 IU/L (46-116); ANION GAP 12 (8-16); ASPARTATE AMINO TRANSFERASE 22 U/L (10-37); BILIRUBIN,TOTAL 0.4 MG/DL (0.1-1.0); BLOOD UREA NITROGEN 70 MG/DL (7-18); CALCIUM 8.6 MG/DL (8.5-10.1); CHLORIDE 102 MMOL/L (99-107); CREATININE 2.69 MG/DL (0.40-0.90); GLUCOSE 234 MG/DL (70-104); POTASSIUM 3.9 MMOL/L (3.5-5.1); SODIUM 137 MMOL/L (135-145); TOTAL CARBON DIOXIDE 22.7 MMOL/L (24-32); eGFR 18 ML/MIN
[2021-11-02 04:20] LABS: ABG BASE EXCESS -6.8 mmol/L (-2.0-2.0); ABG HCO3 19.1 mmol/L (22.0-26.0); ABG OXYGEN SATURATION 96.6 % (94-97); ABG PCO2 (T) 40.5 mmHg (32.0-45.0); ABG PO2 (T) 104.8 mmHg (75.0-100.0); FCOHb 0.6 % (0.0-3.9); FMetHb 0.3 % (0.0-1.5); FO2Hb 95.7 % (94-97); PATIENT TEMPERATURE 37.4; PEEP 5 cm H2O; RESPIRATORY RATE 18 b/min; TIDAL VOLUME 325 mL; TOTAL HEMOGLOBIN 7.9 G/dl (12.0-16.0)
[2021-11-02 04:25] LABS: ANISOCYTOSIS 2+; PLATELET ESTIMATE NORMAL
[2021-11-02 04:27] LABS: POLYCHROMASIA 1+
[2021-11-02] MEDS: dexmedetomidin/NS 400mcg/100ml 100 ML IV SCH ×2 (04:27→19:03)
[2021-11-02 04:28] LABS: LARGE PLATELETS FEW
--- NOTE | 2021-11-02 06:51 | NUR ---
Problems reprioritized. Patient report given, questions answered & plan of care reviewed with Natalee.
[2021-11-02] MEDS: dextrose 50%-water 50ml dispensing syringe IV PRN ×2 (07:20→08:31)
[2021-11-02] MEDS: piperacillin/tazo 4.5gm/100ml IVPB IV SCH ×2 (07:21→20:17)
[2021-11-02] MEDS: lactobacillus rhamnosus 10,000 MMU CELLS/CAPSULE NG SCH ×2 (07:21→20:16)
[2021-11-02] MEDS: famotidine 20mg tablet NG SCH ×2 (07:21→20:16)
[2021-11-02] MEDS: heparin, porcine 5000 units/ml vial SQ SCH ×2 (07:23→20:16)
[2021-11-02] MEDS ORDERED: heparin 1,000unit/ml 10ml vial 10 ML IV ONE (09:40)
[2021-11-02] MEDS ORDERED: EPOETIN ALFA-EPBX 20,000 UNIT/ML 1 ML MDV IV ONE (09:40)
[2021-11-02] MEDS ORDERED: heparin 1,000 units/ml 10ml inj HE ONE ×2 (09:45)
[2021-11-02] MEDS: midodrine tablet 2.5 MG TABLET PO SCH ×2 (11:42→16:34)
[2021-11-02] MEDS: predniSONE 5mg tablet PO SCH (11:43)
[2021-11-02] MEDS: HYDROmorphone inj. 0.5 MG/0.5 ML DISP.SYRIN IV PRN (13:53)
[2021-11-02] MEDS ORDERED: albumin (Human) 5% 250ml 250 ML IV ONE ×2 (14:16→14:20)
--- NOTE | 2021-11-02 18:30 | NUR ---
Patient in room ICU 2042. I have received report from Natalee BUITRAGO and had the opportunity to ask questions and assume patient care.
[2021-11-02] MEDS: gabapentin 100mg capsule NG SCH (20:16)
[2021-11-02] MEDS: amitriptyline 50mg tablet NG SCH (20:17)
[2021-11-02 20:30] LABS: PREALBUMIN 14.8 MG/DL (19-36)
[2021-11-02] MEDS: insulin glargine (Lantus) pen - multi-dose SQ SCH (20:44)
[2021-11-02] MEDS: propofol 1000mg/100ml bottle 100 ML IV SCH (23:15)
[2021-11-03] VITALS (24 sets, daily range): BP systolic 102–157; BP diastolic 45–66
[2021-11-03] MEDS: mineral oil/petrolatum ophthal oint EACHEYE SCH ×4 (02:13→20:10)
[2021-11-03] MEDS: insulin regular, human U-100 3ml vial - multi-dose SQ SCH ×4 (02:19→20:24)
[2021-11-03 02:56] LABS: BASOPHILS # (AUTO) 0.1 X10'3 (0-0.2); BASOPHILS % (AUTO) 0.4 % (0-1); EOSINOPHILS # (AUTO) 0.2 X10'3 (0-0.9); EOSINOPHILS % (AUTO) 0.9 % (0-6); HEMATOCRIT 23.3 % (35.0-45.0); HEMOGLOBIN 7.5 g/dl (12.0-16.0); LYMPHOCYTES # (AUTO) 0.8 X10'3 (1.1-4.8); LYMPHOCYTES % (AUTO) 4.2 % (21-51); MEAN CORPUSCULAR HEMOGLOBIN 28.6 PG (27.0-31.0); MEAN CORPUSCULAR VOLUME 89.3 FL (78-98); MEAN PLATELET VOLUME 7.4 FL (7.4-10.4); MONOCYTES # (AUTO) 0.7 X10'3 (0-0.9); MONOCYTES % (AUTO) 4.1 % (2-12); NEUTROPHILS # (AUTO) 16.4 X10'3 (1.8-7.7); NEUTROPHILS % (AUTO) 90.4 % (42-75); PLATELET COUNT 304 X10'3 (140-440); RED BLOOD COUNT 2.61 X10'6 (4.20-5.60); RED CELL DISTRIBUTION WIDTH 19.5 % (11.5-14.5); WHITE BLOOD COUNT 18.1 X10'3 (4.5-11.0)
[2021-11-03 03:10] LABS: ALANINE AMINOTRANSFERASE 23 U/L (12-78); ALBUMIN 1.5 G/DL (3.4-5.0); ALBUMIN/GLOBULIN RATIO 0.4 (1.1-1.5); ALKALINE PHOSPHATASE 106 IU/L (46-116); ANION GAP 12 (8-16); ASPARTATE AMINO TRANSFERASE 17 U/L (10-37); BILIRUBIN,TOTAL 0.3 MG/DL (0.1-1.0); BLOOD UREA NITROGEN 44 MG/DL (7-18); CALCIUM 8.6 MG/DL (8.5-10.1); CHLORIDE 104 MMOL/L (99-107); CREATININE 1.83 MG/DL (0.40-0.90); GLUCOSE 167 MG/DL (70-104); POTASSIUM 3.8 MMOL/L (3.5-5.1); SODIUM 139 MMOL/L (135-145); TOTAL CARBON DIOXIDE 23.4 MMOL/L (24-32); TOTAL PROTEIN 5.3 G/DL (6.4-8.2); eGFR 28 ML/MIN
[2021-11-03 04:15] LABS: PLATELET ESTIMATE NORMAL; TOTAL CELLS COUNTED 100
[2021-11-03 04:16] LABS: ANISOCYTOSIS 2+; POLYCHROMASIA FEW
[2021-11-03 05:20] LABS: ABG BASE EXCESS -2.9 mmol/L (-2.0-2.0); ABG HCO3 20.8 mmol/L (22.0-26.0); ABG OXYGEN SATURATION 96.4 % (94-97); ABG PCO2 (T) 32.1 mmHg (32.0-45.0); ABG PO2 (T) 92.1 mmHg (75.0-100.0); FCOHb 0.3 % (0.0-3.9); FMetHb 0.6 % (0.0-1.5); FO2Hb 95.5 % (94-97); PATIENT TEMPERATURE 37.5; TOTAL HEMOGLOBIN 8.4 G/dl (12.0-16.0)
--- NOTE | 2021-11-03 06:16 | NUR ---
Problems reprioritized. Patient report given, questions answered & plan of care reviewed with Natalee BUITRAGO.
[2021-11-03] MEDS: heparin, porcine 5000 units/ml vial SQ SCH ×2 (08:41→20:09)
[2021-11-03] MEDS: lactobacillus rhamnosus 10,000 MMU CELLS/CAPSULE NG SCH ×2 (08:41→20:09)
[2021-11-03] MEDS: piperacillin/tazo 4.5gm/100ml IVPB IV SCH ×2 (08:41→20:10)
[2021-11-03] MEDS: famotidine 20mg tablet NG SCH ×2 (08:41→20:10)
[2021-11-03] MEDS: predniSONE 5mg tablet PO SCH (08:41)
[2021-11-03] MEDS: midodrine tablet 2.5 MG TABLET PO SCH ×3 (08:41→16:40)
[2021-11-03] MEDS: HYDROmorphone 1 mg/ml syringe IV PRN (09:00)
[2021-11-03] MEDS: HYDROmorphone inj. 0.5 MG/0.5 ML DISP.SYRIN IV PRN (09:23)
[2021-11-03] MEDS: dexmedetomidin/NS 400mcg/100ml 100 ML IV SCH (09:39)
--- NOTE | 2021-11-03 12:27 | NUR ---
Reassessment: Pt remains intubated. TF running at goal rate with slightly elevated GRV though WNL. Pt not receiving Propofol at this time though no adjustments to TF needed as patient's estimated nutrient needs are being met. LBM 11/01 with 1075 mL stool output per I&O. Will continue to follow and make recommendations as appropriate. Recommendations: 1. Continuous TF using Vital AF at 70ml/hr goal; to provide 1680ml volume/day, 2016 kcal, 1361 ml water, and 12 6g protein. 2. Additional water flush per coin machine operator given HD 3. Phos binder per physician discretion on HD 4. PALB q Saturday/ 5. Daily scaled weights 6. Monitor for resumption of Propofol and need to adjust TF 7. Advance diet as medically indicated to renal/low fiber following extubation; consider BSS with ST given prolonged intubation 8. New colostomy nutrition therapy education once pt appropriate following extubation Addendum: 11/03/21 at [address] Amended: Links added.
[2021-11-03] MEDS ORDERED: heparin 1,000unit/ml 10ml vial 10 ML IV ONE (12:55)
[2021-11-03] MEDS ORDERED: heparin 1,000 units/ml 10ml inj IV ONE (12:55)
[2021-11-03] MEDS ORDERED: heparin 1,000 units/ml 10ml inj HE ONE (12:58)
--- NOTE | 2021-11-03 18:30 | NUR ---
Patient in room ICU 2042. I have received report from Natalee BUITRAGO and had the opportunity to ask questions and assume patient care.
[2021-11-03] MEDS: amitriptyline 50mg tablet NG SCH (20:09)
[2021-11-03] MEDS: gabapentin 100mg capsule NG SCH (20:09)
[2021-11-03] MEDS: insulin glargine (Lantus) pen - multi-dose SQ SCH (20:27)
[2021-11-04] VITALS (24 sets, daily range): BP systolic 94–154; BP diastolic 40–65
[2021-11-04] MEDS: dexmedetomidin/NS 400mcg/100ml 100 ML IV SCH ×3 (00:15→18:44)
[2021-11-04 02:31] LABS: ABG BASE EXCESS -6.9 mmol/L (-2.0-2.0); ABG HCO3 16.9 mmol/L (22.0-26.0); ABG OXYGEN SATURATION 97.1 % (94-97); ABG PCO2 (T) 28.9 mmHg (32.0-45.0); ABG PO2 (T) 108.2 mmHg (75.0-100.0); FMetHb 0.3 % (0.0-1.5); FO2Hb 96.8 % (94-97); TOTAL HEMOGLOBIN 8.1 G/dl (12.0-16.0)
[2021-11-04] MEDS: mineral oil/petrolatum ophthal oint EACHEYE SCH ×4 (02:46→20:44)
[2021-11-04 02:54] LABS: BASOPHILS # (AUTO) 0.1 X10'3 (0-0.2); BASOPHILS % (AUTO) 0.5 % (0-1); EOSINOPHILS # (AUTO) 0.1 X10'3 (0-0.9); EOSINOPHILS % (AUTO) 0.9 % (0-6); HEMATOCRIT 23.2 % (35.0-45.0); HEMOGLOBIN 7.4 g/dl (12.0-16.0); LYMPHOCYTES # (AUTO) 0.7 X10'3 (1.1-4.8); LYMPHOCYTES % (AUTO) 4.5 % (21-51); MEAN CORPUSCULAR HEMOGLOBIN 28.8 PG (27.0-31.0); MEAN CORPUSCULAR HGB CONC 32.1 g/dL (33.0-36.5); MEAN CORPUSCULAR VOLUME 89.8 FL (78-98); MEAN PLATELET VOLUME 7.5 FL (7.4-10.4); MONOCYTES # (AUTO) 0.6 X10'3 (0-0.9); MONOCYTES % (AUTO) 3.9 % (2-12); NEUTROPHILS # (AUTO) 13.8 X10'3 (1.8-7.7); NEUTROPHILS % (AUTO) 90.2 % (42-75); PLATELET COUNT 317 X10'3 (140-440); RED BLOOD COUNT 2.58 X10'6 (4.20-5.60); RED CELL DISTRIBUTION WIDTH 19.3 % (11.5-14.5); WHITE BLOOD COUNT 15.3 X10'3 (4.5-11.0)
[2021-11-04] MEDS: acetaminophen 325mg/10.15ml oral unit dose solution NG PRN (03:00)
[2021-11-04] MEDS: insulin regular, human U-100 3ml vial - multi-dose SQ SCH ×2 (03:09→21:06)
[2021-11-04 03:15] LABS: ALANINE AMINOTRANSFERASE 21 U/L (12-78); ALBUMIN 1.5 G/DL (3.4-5.0); ALBUMIN/GLOBULIN RATIO 0.4 (1.1-1.5); ALKALINE PHOSPHATASE 108 IU/L (46-116); ANION GAP 15 (8-16); ASPARTATE AMINO TRANSFERASE 16 U/L (10-37); BILIRUBIN,TOTAL 0.3 MG/DL (0.1-1.0); BLOOD UREA NITROGEN 66 MG/DL (7-18); BUN/CREATININE RATIO 27.4 (6.6-38.0); CALCIUM 8.8 MG/DL (8.5-10.1); CHLORIDE 103 MMOL/L (99-107); CREATININE 2.41 MG/DL (0.40-0.90); GLUCOSE 169 MG/DL (70-104); POTASSIUM 4.2 MMOL/L (3.5-5.1); SODIUM 138 MMOL/L (135-145); TOTAL CARBON DIOXIDE 20.3 MMOL/L (24-32); TOTAL PROTEIN 5.3 G/DL (6.4-8.2); eGFR 20 ML/MIN
[2021-11-04 03:49] LABS: ANISOCYTOSIS 2+; PLATELET ESTIMATE NORMAL; TOTAL CELLS COUNTED 100
[2021-11-04 03:50] LABS: POIKILOCYTOSIS FEW; TEAR DROP CELLS FEW
--- NOTE | 2021-11-04 06:09 | NUR ---
Problems reprioritized. Patient report given, questions answered & plan of care reviewed with Natalee BUITRAGO.
[2021-11-04] MEDS: midodrine tablet 2.5 MG TABLET PO SCH ×3 (08:58→15:51)
[2021-11-04] MEDS: lactobacillus rhamnosus 10,000 MMU CELLS/CAPSULE NG SCH ×2 (08:58→20:43)
[2021-11-04] MEDS: heparin, porcine 5000 units/ml vial SQ SCH ×2 (08:58→20:42)
[2021-11-04] MEDS: predniSONE 5mg tablet PO SCH (08:58)
[2021-11-04] MEDS: piperacillin/tazo 4.5gm/100ml IVPB IV SCH ×2 (08:58→20:44)
[2021-11-04] MEDS: famotidine 20mg tablet NG SCH ×2 (09:13→20:43)
[2021-11-04] MEDS: dextrose 50%-water 50ml dispensing syringe IV PRN (15:32)
[2021-11-04] MEDS: gabapentin 100mg capsule NG SCH (20:43)
[2021-11-04] MEDS: amitriptyline 50mg tablet NG SCH (20:43)
[2021-11-04] MEDS: insulin glargine (Lantus) pen - multi-dose SQ SCH (21:12)
[2021-11-05] VITALS (23 sets, daily range): BP systolic 81–151; BP diastolic 45–65
[2021-11-05] MEDS: insulin regular, human U-100 3ml vial - multi-dose SQ SCH ×4 (02:21→21:06)
[2021-11-05] MEDS: mineral oil/petrolatum ophthal oint EACHEYE SCH ×4 (02:22→20:42)
[2021-11-05 02:55] LABS: ABG BASE EXCESS -6.4 mmol/L (-2.0-2.0); ABG HCO3 17.7 mmol/L (22.0-26.0); ABG OXYGEN SATURATION 97.9 % (94-97); ABG PCO2 (T) 30.5 mmHg (32.0-45.0); ABG PO2 (T) 119.7 mmHg (75.0-100.0); FCOHb 0.3 % (0.0-3.9); FMetHb 0.4 % (0.0-1.5); FO2Hb 97.2 % (94-97); PATIENT TEMPERATURE 37.9; PEEP 5 cm H2O; TOTAL HEMOGLOBIN 7.1 G/dl (12.0-16.0)
[2021-11-05 03:47] LABS: BASOPHILS # (AUTO) 0.1 X10'3 (0-0.2); BASOPHILS % (AUTO) 0.5 % (0-1); EOSINOPHILS # (AUTO) 0.1 X10'3 (0-0.9); EOSINOPHILS % (AUTO) 1.1 % (0-6); HEMATOCRIT 23.1 % (35.0-45.0); HEMOGLOBIN 7.2 g/dl (12.0-16.0); LYMPHOCYTES # (AUTO) 0.7 X10'3 (1.1-4.8); LYMPHOCYTES % (AUTO) 5.3 % (21-51); MEAN CORPUSCULAR HGB CONC 31.1 g/dL (33.0-36.5); MEAN CORPUSCULAR VOLUME 90.2 FL (78-98); MEAN PLATELET VOLUME 7.2 FL (7.4-10.4); MONOCYTES # (AUTO) 0.6 X10'3 (0-0.9); MONOCYTES % (AUTO) 4.5 % (2-12); NEUTROPHILS # (AUTO) 11.9 X10'3 (1.8-7.7); NEUTROPHILS % (AUTO) 88.6 % (42-75); PLATELET COUNT 328 X10'3 (140-440); RED BLOOD COUNT 2.56 X10'6 (4.20-5.60); RED CELL DISTRIBUTION WIDTH 19.5 % (11.5-14.5); WHITE BLOOD COUNT 13.5 X10'3 (4.5-11.0)
[2021-11-05 03:56] LABS: ALANINE AMINOTRANSFERASE 18 U/L (12-78); ALBUMIN 1.4 G/DL (3.4-5.0); ALBUMIN/GLOBULIN RATIO 0.4 (1.1-1.5); ALKALINE PHOSPHATASE 101 IU/L (46-116); ANION GAP 17 (8-16); ASPARTATE AMINO TRANSFERASE 21 U/L (10-37); BILIRUBIN,TOTAL 0.3 MG/DL (0.1-1.0); BLOOD UREA NITROGEN 89 MG/DL (7-18); BUN/CREATININE RATIO 30.8 (6.6-38.0); CALCIUM 9.1 MG/DL (8.5-10.1); CHLORIDE 102 MMOL/L (99-107); CREATININE 2.89 MG/DL (0.40-0.90); GLUCOSE 78 MG/DL (70-104); POTASSIUM 4.3 MMOL/L (3.5-5.1); SODIUM 138 MMOL/L (135-145); TOTAL CARBON DIOXIDE 19.3 MMOL/L (24-32); TOTAL PROTEIN 5.2 G/DL (6.4-8.2); eGFR 17 ML/MIN
[2021-11-05 04:54] LABS: ANISOCYTOSIS 2+; PLATELET ESTIMATE NORMAL; POIKILOCYTOSIS FEW; TOTAL CELLS COUNTED 100; TOXIC GRANULATION 1+
[2021-11-05 04:55] LABS: POLYCHROMASIA FEW; TEAR DROP CELLS FEW
[2021-11-05] MEDS: dexmedetomidin/NS 400mcg/100ml 100 ML IV SCH (05:19)
--- NOTE | 2021-11-05 06:34 | NUR ---
Problems reprioritized. Patient report given, questions answered & plan of care reviewed with MINNA Carson.
--- NOTE | 2021-11-05 06:36 | NUR ---
Patient in room ICU 2042. I have received report from Sonal BUITRAGO and had the opportunity to ask questions and assume patient care.
[2021-11-05] MEDS: piperacillin/tazo 4.5gm/100ml IVPB IV SCH ×2 (07:53→20:41)
[2021-11-05] MEDS: midodrine tablet 2.5 MG TABLET PO SCH ×3 (07:53→16:10)
[2021-11-05] MEDS: famotidine 20mg tablet NG SCH ×2 (07:53→20:42)
[2021-11-05] MEDS: lactobacillus rhamnosus 10,000 MMU CELLS/CAPSULE NG SCH ×2 (07:54→20:41)
[2021-11-05] MEDS: predniSONE 5mg tablet PO SCH (07:54)
[2021-11-05] MEDS: heparin, porcine 5000 units/ml vial SQ SCH ×2 (07:57→20:42)
[2021-11-05] MEDS ORDERED: heparin 1,000 units/ml 10ml inj HE ONE (09:55)
[2021-11-05 16:33] LABS: ABG BASE EXCESS -9.8 mmol/L (-2.0-2.0); ABG HCO3 15.1 mmol/L (22.0-26.0); ABG OXYGEN SATURATION 93.1 % (94-97); ABG PCO2 (T) 29.5 mmHg (32.0-45.0); ABG PO2 (T) 79.1 mmHg (75.0-100.0); ALLEN'S TEST POSITIVE; FCOHb 0.3 % (0.0-3.9); FMetHb 0.4 % (0.0-1.5); FO2Hb 92.4 % (94-97); PEEP 5 cm H2O; TOTAL HEMOGLOBIN 8.7 G/dl (12.0-16.0)
--- NOTE | 2021-11-05 18:26 | NUR ---
Problems reprioritized. Patient report given, questions answered & plan of care reviewed with Ashley BUITRAGO.
[2021-11-05] MEDS: gabapentin 100mg capsule NG SCH (20:41)
[2021-11-05] MEDS: amitriptyline 50mg tablet NG SCH (20:42)
[2021-11-05] MEDS: insulin glargine (Lantus) pen - multi-dose SQ SCH (21:07)
[2021-11-05 21:44] LABS: OXYGEN SATURATION (MIXED VEN) 58.9 % (60-80)
[2021-11-06] VITALS (24 sets, daily range): BP systolic 108–170; BP diastolic 46–71
[2021-11-06 02:33] LABS: ABG BASE EXCESS -1.6 mmol/L (-2.0-2.0); ABG HCO3 21.6 mmol/L (22.0-26.0); ABG OXYGEN SATURATION 97.8 % (94-97); ABG PCO2 (T) 31.7 mmHg (32.0-45.0); ABG PO2 (T) 113.1 mmHg (75.0-100.0); FCOHb 0.3 % (0.0-3.9); FMetHb 0.4 % (0.0-1.5); FO2Hb 97.1 % (94-97); PATIENT TEMPERATURE 37.9; TOTAL HEMOGLOBIN 8.4 G/dl (12.0-16.0)
[2021-11-06] MEDS: mineral oil/petrolatum ophthal oint EACHEYE SCH ×2 (02:56→07:23)
[2021-11-06] MEDS: insulin regular, human U-100 3ml vial - multi-dose SQ SCH ×4 (03:02→22:04)
[2021-11-06 03:08] LABS: BASOPHILS # (AUTO) 0.1 X10'3 (0-0.2); BASOPHILS % (AUTO) 0.4 % (0-1); EOSINOPHILS # (AUTO) 0.1 X10'3 (0-0.9); EOSINOPHILS % (AUTO) 0.8 % (0-6); HEMATOCRIT 22.5 % (35.0-45.0); HEMOGLOBIN 7.4 g/dl (12.0-16.0); LYMPHOCYTES # (AUTO) 0.8 X10'3 (1.1-4.8); LYMPHOCYTES % (AUTO) 5.8 % (21-51); MEAN CORPUSCULAR HEMOGLOBIN 28.9 PG (27.0-31.0); MEAN CORPUSCULAR HGB CONC 32.9 g/dL (33.0-36.5); MEAN CORPUSCULAR VOLUME 87.8 FL (78-98); MEAN PLATELET VOLUME 6.9 FL (7.4-10.4); MONOCYTES # (AUTO) 0.6 X10'3 (0-0.9); MONOCYTES % (AUTO) 4.5 % (2-12); NEUTROPHILS # (AUTO) 11.9 X10'3 (1.8-7.7); NEUTROPHILS % (AUTO) 88.5 % (42-75); PLATELET COUNT 322 X10'3 (140-440); RED BLOOD COUNT 2.57 X10'6 (4.20-5.60); RED CELL DISTRIBUTION WIDTH 19.1 % (11.5-14.5); WHITE BLOOD COUNT 13.4 X10'3 (4.5-11.0)
[2021-11-06 03:36] LABS: ALANINE AMINOTRANSFERASE 19 U/L (12-78); ALBUMIN 1.5 G/DL (3.4-5.0); ALBUMIN/GLOBULIN RATIO 0.4 (1.1-1.5); ALKALINE PHOSPHATASE 104 IU/L (46-116); ANION GAP 15 (8-16); ASPARTATE AMINO TRANSFERASE 14 U/L (10-37); BILIRUBIN,TOTAL 0.3 MG/DL (0.1-1.0); BLOOD UREA NITROGEN 53 MG/DL (7-18); CALCIUM 8.4 MG/DL (8.5-10.1); CHLORIDE 99 MMOL/L (99-107); CREATININE 1.83 MG/DL (0.40-0.90); GLUCOSE 198 MG/DL (70-104); POTASSIUM 3.7 MMOL/L (3.5-5.1); PREALBUMIN 17.3 MG/DL (19-36); SODIUM 137 MMOL/L (135-145); TOTAL CARBON DIOXIDE 22.9 MMOL/L (24-32); TOTAL PROTEIN 5.5 G/DL (6.4-8.2); eGFR 28 ML/MIN
[2021-11-06 04:04] LABS: TOTAL CELLS COUNTED 100
[2021-11-06 04:05] LABS: ANISOCYTOSIS 2+; PLATELET ESTIMATE NORMAL
[2021-11-06 04:06] LABS: POLYCHROMASIA FEW; TEAR DROP CELLS FEW
[2021-11-06] MEDS: dexmedetomidin/NS 400mcg/100ml 100 ML IV SCH (05:17)
[2021-11-06] MEDS: famotidine 20mg tablet NG SCH ×2 (07:24→21:31)
[2021-11-06] MEDS: predniSONE 5mg tablet PO SCH (07:24)
[2021-11-06] MEDS: midodrine tablet 2.5 MG TABLET PO SCH ×3 (07:24→15:38)
[2021-11-06] MEDS: piperacillin/tazo 4.5gm/100ml IVPB IV SCH ×2 (07:24→21:30)
[2021-11-06] MEDS: lactobacillus rhamnosus 10,000 MMU CELLS/CAPSULE NG SCH ×2 (07:24→21:31)
[2021-11-06] MEDS: heparin, porcine 5000 units/ml vial SQ SCH ×2 (07:25→21:31)
[2021-11-06] MEDS ORDERED: PEG 400/HYPROMELLOSE/GLYCERIN 15ml bottle EACHEYE PRN (08:55)
[2021-11-06] MEDS: HYDROmorphone inj. 0.5 MG/0.5 ML DISP.SYRIN IV PRN (19:22)
[2021-11-06] MEDS ORDERED: normal saline 1000ml 100 ML IV PRN (20:25)
[2021-11-06] MEDS ORDERED: normal saline 1000ml 250 ML IV PRN (20:25)
[2021-11-06] MEDS ORDERED: EPOETIN ALFA-EPBX 20,000 UNIT/ML 1 ML MDV IV ONE (20:25)
[2021-11-06] MEDS: gabapentin 100mg capsule NG SCH (21:32)
[2021-11-06] MEDS: amitriptyline 50mg tablet NG SCH (21:32)
[2021-11-06] MEDS: insulin glargine (Lantus) pen - multi-dose SQ SCH (22:06)
[2021-11-06] MEDS: metoclopramide 5 mg/ml inj IV PRN (22:18)
[2021-11-07] VITALS (23 sets, daily range): BP systolic 118–167; BP diastolic 51–67
[2021-11-07] MEDS: dexmedetomidin/NS 400mcg/100ml 100 ML IV SCH ×2 (01:15→15:51)
[2021-11-07] MEDS: insulin regular, human U-100 3ml vial - multi-dose SQ SCH ×4 (02:39→21:45)
[2021-11-07 02:57] LABS: BASOPHILS # (AUTO) 0.1 X10'3 (0-0.2); EOSINOPHILS # (AUTO) 0.2 X10'3 (0-0.9); MEAN CORPUSCULAR VOLUME 89.2 FL (78-98); MONOCYTES # (AUTO) 0.7 X10'3 (0-0.9); MONOCYTES % (AUTO) 4.7 % (2-12)
[2021-11-07 02:59] LABS: BASOPHILS % (AUTO) 0.7 % (0-1); HEMATOCRIT 22.3 % (35.0-45.0); LYMPHOCYTES % (AUTO) 6.8 % (21-51); MEAN CORPUSCULAR HEMOGLOBIN 28.1 PG (27.0-31.0); MEAN CORPUSCULAR HGB CONC 31.5 g/dL (33.0-36.5); MEAN PLATELET VOLUME 6.9 FL (7.4-10.4); NEUTROPHILS # (AUTO) 13.2 X10'3 (1.8-7.7); NEUTROPHILS % (AUTO) 86.8 % (42-75); PLATELET COUNT 350 X10'3 (140-440); WHITE BLOOD COUNT 15.2 X10'3 (4.5-11.0)
--- NOTE | 2021-11-07 03:00 | NUR ---
Called Dr. Shay, pt had a critical hgb of 7. I asked Dr. Shay if he would like to transfuse a unit of blood during dialysis and he said no. Pt has been trending in 7's for hgb and he suggested it could be related to her erythropoietin.
[2021-11-07 03:10] LABS: ALANINE AMINOTRANSFERASE 18 U/L (12-78); ALBUMIN 1.4 G/DL (3.4-5.0); ALBUMIN/GLOBULIN RATIO 0.4 (1.1-1.5); ALKALINE PHOSPHATASE 92 IU/L (46-116); ANION GAP 17 (8-16); ASPARTATE AMINO TRANSFERASE 12 U/L (10-37); BILIRUBIN,TOTAL 0.3 MG/DL (0.1-1.0); BLOOD UREA NITROGEN 79 MG/DL (7-18); BUN/CREATININE RATIO 30.3 (6.6-38.0); CALCIUM 8.6 MG/DL (8.5-10.1); CHLORIDE 98 MMOL/L (99-107); CREATININE 2.61 MG/DL (0.40-0.90); GLUCOSE 214 MG/DL (70-104); PHOSPHORUS 7.8 MG/DL (2.3-4.5); POTASSIUM 4.1 MMOL/L (3.5-5.1); SODIUM 137 MMOL/L (135-145); TOTAL CARBON DIOXIDE 21.6 MMOL/L (24-32); TOTAL PROTEIN 5.3 G/DL (6.4-8.2); eGFR 19 ML/MIN
[2021-11-07 03:59] LABS: % IRON SATURATION 54 % (11-46); IRON 63 UG/DL (49-151); TOTAL IRON BINDING CAPACITY 117 UG/DL (259-388)
[2021-11-07 04:26] LABS: ABG BASE EXCESS -6.1 mmol/L (-2.0-2.0); ABG HCO3 18.5 mmol/L (22.0-26.0); ABG OXYGEN SATURATION 97.8 % (94-97); ABG PCO2 (T) 31.8 mmHg (32.0-45.0); ABG PO2 (T) 113.3 mmHg (75.0-100.0); FCOHb 0.1 % (0.0-3.9); FMetHb 0.4 % (0.0-1.5); FO2Hb 97.3 % (94-97); PATIENT TEMPERATURE 36.6; TOTAL HEMOGLOBIN 7.9 G/dl (12.0-16.0)
[2021-11-07] MEDS: midodrine tablet 2.5 MG TABLET PO SCH ×2 (08:00→12:00)
[2021-11-07] MEDS: piperacillin/tazo 4.5gm/100ml IVPB IV SCH ×2 (08:11→21:42)
[2021-11-07] MEDS: predniSONE 5mg tablet PO SCH (08:11)
[2021-11-07] MEDS: famotidine 20mg tablet NG SCH ×2 (08:11→21:43)
[2021-11-07] MEDS: lactobacillus rhamnosus 10,000 MMU CELLS/CAPSULE NG SCH ×2 (08:11→21:42)
[2021-11-07] MEDS: heparin, porcine 5000 units/ml vial SQ SCH ×2 (08:13→21:42)
[2021-11-07] MEDS ORDERED: heparin 1,000 units/ml 10ml inj HE ONE ×2 (10:00)
[2021-11-07] MEDS ORDERED: normal saline 1000ml 250 ML IV PRN (10:00)
[2021-11-07] MEDS ORDERED: EPOETIN ALFA-EPBX 20,000 UNIT/ML 1 ML MDV IV ONE (10:00)
--- NOTE | 2021-11-07 11:01 | NUR ---
F/u 11/07: Pt remains intubated tolerating TF at goal GRV WNL. Colostomy -600ml past 24 hours volume continues to fluctuate daily receiving reglan. Pending CT chest/abdomen/pelvis per automobile drivers at rounds; will monitor for further nutrition support needs this admit. Recommendations: 1. Continuous TF using Vital AF at 70ml/hr goal; to provide 1680ml volume/day, 2016 kcal, 1361 ml water, and 126g protein. 2. Additional water flush per automobile drivers given HD 3. Phos binder per physician discretion on HD 4. PALB q Saturday/; Daily scaled weights 5. Advance diet as medically indicated to renal/low fiber following extubation; consider BSS with ST given prolonged intubation 6. New colostomy nutrition therapy education deferred until pt appropriate following extubation Addendum: 11/07/21 at [address] Amended: Links added.
[2021-11-07] MEDS ORDERED: iohexol 300mg/ml 100ml inj. ONE (11:15)
--- NOTE | 2021-11-07 16:46 | NUR ---
1200- On way to CT patient expressing she doesnt want to have the test. Keeps pointing up to ceiling, shaking head no. After being placed on CT table, patient kept taking arms of straps, while going into CT tube, patient pulled arms out and was pounding on CT tube, pulling at the sides. Shook head no when asked if she would do the CT. CT cancelled, on way into elevator patient was grabbing over the side of the rails trying to get to elevator doors. Explained to her that we were going back up to her room. 1230- Upon arriving back to room, nursing had discussion with patient regarding dialysis. Patient does not want dialysis. Understands that her kidneys are not functioning. Relayed information to MD. Discussion with family to ensue. Dialysis nurse notified Dr Ervin of no dialysis today upon patient 1500- Meeting with , pt, , cargo services coordinator and nurse. Now patient says no she doesn't want to have tube removed, doesn't want [facility], wants her not to be apart from her, doesnt want a skilled facility, very labile with decisions.
--- NOTE | 2021-11-07 18:30 | NUR ---
Patient in room ICU 2042. I have received report from Karla BUITRAGO and had the opportunity to ask questions and assume patient care.
[2021-11-07] MEDS: amitriptyline 50mg tablet NG SCH (21:41)
[2021-11-07] MEDS: gabapentin 100mg capsule NG SCH (21:41)
[2021-11-07] MEDS: insulin glargine (Lantus) pen - multi-dose SQ SCH (21:45)
[2021-11-08] VITALS (28 sets, daily range): BP systolic 93–168; BP diastolic 44–68
[2021-11-08 02:51] LABS: ABG BASE EXCESS -10.6 mmol/L (-2.0-2.0); ABG HCO3 14.8 mmol/L (22.0-26.0); ABG OXYGEN SATURATION 97.9 % (94-97); ABG PCO2 (T) 29.5 mmHg (32.0-45.0); ABG PO2 (T) 122.2 mmHg (75.0-100.0); FCOHb 0.3 % (0.0-3.9); FMetHb 0.6 % (0.0-1.5); PATIENT TEMPERATURE 36.2; TOTAL HEMOGLOBIN 8.1 G/dl (12.0-16.0)
[2021-11-08 03:19] LABS: BASOPHILS # (AUTO) 0.1 X10'3 (0-0.2); BASOPHILS % (AUTO) 0.5 % (0-1); EOSINOPHILS # (AUTO) 0.2 X10'3 (0-0.9); EOSINOPHILS % (AUTO) 1.3 % (0-6); LYMPHOCYTES % (AUTO) 6.5 % (21-51); MEAN CORPUSCULAR HEMOGLOBIN 28.5 PG (27.0-31.0); MEAN CORPUSCULAR HGB CONC 32.3 g/dL (33.0-36.5); MEAN CORPUSCULAR VOLUME 88.4 FL (78-98); MONOCYTES # (AUTO) 0.6 X10'3 (0-0.9); MONOCYTES % (AUTO) 3.8 % (2-12); NEUTROPHILS # (AUTO) 13.8 X10'3 (1.8-7.7); NEUTROPHILS % (AUTO) 87.9 % (42-75); PLATELET COUNT 383 X10'3 (140-440); RED BLOOD COUNT 2.47 X10'6 (4.20-5.60); RED CELL DISTRIBUTION WIDTH 18.7 % (11.5-14.5); WHITE BLOOD COUNT 15.7 X10'3 (4.5-11.0)
[2021-11-08 03:36] LABS: HEMATOCRIT 21.8 % (35.0-45.0)
[2021-11-08 03:44] LABS: ALANINE AMINOTRANSFERASE 16 U/L (12-78); ALBUMIN 1.5 G/DL (3.4-5.0); ALBUMIN/GLOBULIN RATIO 0.4 (1.1-1.5); ALKALINE PHOSPHATASE 90 IU/L (46-116); ANION GAP 20 (8-16); ASPARTATE AMINO TRANSFERASE 14 U/L (10-37); BILIRUBIN,TOTAL 0.3 MG/DL (0.1-1.0); BLOOD UREA NITROGEN 97 MG/DL (7-18); BUN/CREATININE RATIO 30.7 (6.6-38.0); CALCIUM 8.6 MG/DL (8.5-10.1); CHLORIDE 97 MMOL/L (99-107); CREATININE 3.16 MG/DL (0.40-0.90); GLUCOSE 128 MG/DL (70-104); MAGNESIUM 2.2 MG/DL (1.5-2.4); POTASSIUM 3.9 MMOL/L (3.5-5.1); SODIUM 136 MMOL/L (135-145); TOTAL CARBON DIOXIDE 18.9 MMOL/L (24-32); TOTAL PROTEIN 5.4 G/DL (6.4-8.2); eGFR 15 ML/MIN
[2021-11-08 03:51] LABS: PHOSPHORUS 9.2 MG/DL (2.3-4.5)
[2021-11-08] MEDS: HYDROmorphone inj. 0.5 MG/0.5 ML DISP.SYRIN IV PRN ×2 (04:06→11:30)
[2021-11-08] MEDS: insulin regular, human U-100 3ml vial - multi-dose SQ SCH ×2 (04:09→07:38)
[2021-11-08 04:57] LABS: PLATELET ESTIMATE NORMAL; TOTAL CELLS COUNTED 100
[2021-11-08 04:58] LABS: POLYCHROMASIA FEW
[2021-11-08 04:59] LABS: ANISOCYTOSIS 2+; ELLIPTOCYTES FEW; TEAR DROP CELLS FEW
--- NOTE | 2021-11-08 06:18 | NUR ---
Problems reprioritized. Patient report given, questions answered & plan of care reviewed with Sydnee BUITRAGO.
[2021-11-08] MEDS: famotidine 20mg tablet NG SCH (07:31)
[2021-11-08] MEDS: lactobacillus rhamnosus 10,000 MMU CELLS/CAPSULE NG SCH ×2 (07:31→20:00)
[2021-11-08] MEDS: heparin, porcine 5000 units/ml vial SQ SCH ×2 (07:31→20:25)
[2021-11-08] MEDS: predniSONE 5mg tablet PO SCH (07:31)
[2021-11-08] MEDS: piperacillin/tazo 4.5gm/100ml IVPB IV SCH ×2 (07:33→20:24)
[2021-11-08] MEDS ORDERED: midodrine tablet 2.5 MG TABLET PO PRN (08:00)
[2021-11-08] MEDS ORDERED: heparin 1,000 units/ml 10ml inj IV ONE (10:05)
[2021-11-08] MEDS ORDERED: heparin 1,000unit/ml 10ml vial 10 ML IV ONE (10:05)
[2021-11-08] MEDS ORDERED: heparin 1,000 units/ml 10ml inj HE ONE ×2 (10:05→10:15)
--- NOTE | 2021-11-08 11:36 | NUR ---
WOUND INFECTION EDUCATION PROVIDED BY WOUND CARE 1. Patient instructed to call their primary doctor, or go the ED immediately if any of the following symptoms occur: * Increased pain in wound * Increase in drainage from the wound * Redness in the skin surrounding the wound * Warmth in the skin surrounding the wound * Bleeding from the wound * Temperature of 101 or greater 2. If any of these occur while in the hospital tell a nurse immediately. PRESSURE ULCER EDUCATION: DEFINITION: A pressure ulcer is an area of skin that breaks down when you stay in one position too long. The constant pressure against the skin reduces the blood flow to that area and the affected tissue dies. CAUSES: "Being bedridden or in a wheelchair "Fragile skin "Having a chronic condition, such as diabetes or vascular disease "Inability to move certain parts of your body without assistance "Older age "Incontinence of urine or stool SYMPTOMS: "A reddened area that DOES NOT turn white when pressed on - this can be the beginning of a pressure ulcer "A blister, deep sore or a crater - these can be advanced pressure ulcers FIRST AID: "Relieve the pressure on this area "Keep the area clean and dry "Call your primary doctor if you see any of the above symptoms "DO NOT massage the area "DO NOT use a donut shaped or ring shaped pillow- these actually interfere with the blood flow and cause complications PREVENTION: "Check for pressure ulcers everyday "Change position at least every two hours to relieve pressure "Use items that help relieve pressure- pillows, sheepskin, foam padding, and powders. "Keep skin clean and dry "Eat healthy well balanced meals "Exercise daily IF YOU SEE ANY OF THESE SYMPTOMS WHILE IN THE HOSPITAL - TELL YOUR NURSE IMMEDIATELY. IF YOU SEE ANY OF THESE SYMPTOMS WHILE AT HOME OR HAVE ANY QUESTIONS OR CONCERNS ABOUT PRESSURE ULCERS - CALL YOUR PRIMARY DOCTOR IMMEDIATELY. Addendum: 11/08/21 at 1136 by Genie Turner RN Amended: Links added.
--- NOTE | 2021-11-08 14:30 | NUR ---
Photo of midline abd wound taken today and spoke with Mita Dubois RN who will speak to Dr Aldridge about assessing the need for surgical debridement of abd wound. Camera to RN to print for chart for MD to assess. Addendum: 11/08/21 at 1432 by Cailin Kasper RN Amended: Links added.
[2021-11-08] MEDS: acetaminophen 325mg/10.15ml oral unit dose solution NG PRN (14:57)
[2021-11-08] MEDS: sevelamer carbonate 0.8gm powder pkt PO SCH ×2 (14:58→18:00)
[2021-11-08] MEDS: dextrose 50%-water 50ml dispensing syringe IV PRN (20:23)
[2021-11-08] MEDS: gabapentin 100mg capsule NG SCH (20:35)
[2021-11-08] MEDS: amitriptyline 50mg tablet NG SCH (20:35)
[2021-11-08] MEDS: insulin glargine (Lantus) pen - multi-dose SQ SCH (20:36)
--- NOTE | 2021-11-08 21:00 | NUR ---
Blood transfusion completed without difficulties. No s/s of adverse reactions. HS blood sugar 44 mg/dl, D50 25 ml given. Pt alert and responsive. Dr. Taylor notified of pt's current blood sugar status. New order received for D10 infusion.
[2021-11-08] MEDS ORDERED: Dextrose 10%-water IV solution 1,000 ML IV SCH (21:15)
[2021-11-09] VITALS (19 sets, daily range): BP systolic 125–176; BP diastolic 47–70
[2021-11-09 02:27] LABS: BASOPHILS # (AUTO) 0.1 X10'3 (0-0.2); BASOPHILS % (AUTO) 0.6 % (0-1); EOSINOPHILS # (AUTO) 0.3 X10'3 (0-0.9); EOSINOPHILS % (AUTO) 1.7 % (0-6); HEMATOCRIT 30.5 % (35.0-45.0); HEMOGLOBIN 10.2 g/dl (12.0-16.0); LYMPHOCYTES # (AUTO) 0.9 X10'3 (1.1-4.8); LYMPHOCYTES % (AUTO) 5.2 % (21-51); MEAN CORPUSCULAR HEMOGLOBIN 28.6 PG (27.0-31.0); MEAN CORPUSCULAR HGB CONC 33.4 g/dL (33.0-36.5); MEAN CORPUSCULAR VOLUME 85.6 FL (78-98); MONOCYTES # (AUTO) 0.7 X10'3 (0-0.9); MONOCYTES % (AUTO) 3.9 % (2-12); NEUTROPHILS # (AUTO) 15.5 X10'3 (1.8-7.7); NEUTROPHILS % (AUTO) 88.6 % (42-75); PLATELET COUNT 411 X10'3 (140-440); RED BLOOD COUNT 3.56 X10'6 (4.20-5.60); RED CELL DISTRIBUTION WIDTH 18.2 % (11.5-14.5); WHITE BLOOD COUNT 17.5 X10'3 (4.5-11.0)
[2021-11-09 02:40] LABS: PHOSPHORUS 6.3 MG/DL (2.3-4.5); PREALBUMIN 21.2 MG/DL (19-36)
[2021-11-09 03:17] LABS: ANISOCYTOSIS 2+; PLATELET ESTIMATE NORMAL; TOTAL CELLS COUNTED 100
[2021-11-09 03:19] LABS: BURR CELLS FEW; ELLIPTOCYTES FEW; LARGE PLATELETS FEW; POLYCHROMASIA FEW
[2021-11-09] MEDS: predniSONE 5mg tablet PO SCH (08:00)
[2021-11-09] MEDS: lactobacillus rhamnosus 10,000 MMU CELLS/CAPSULE NG SCH ×2 (08:00→20:00)
[2021-11-09] MEDS ORDERED: famotidine 20mg tablet PO SCH (08:00)
[2021-11-09] MEDS: sevelamer carbonate 0.8gm powder pkt PO SCH ×3 (08:00→18:00)
[2021-11-09] MEDS: heparin, porcine 5000 units/ml vial SQ SCH ×2 (08:39→22:00)
[2021-11-09] MEDS: piperacillin/tazo 4.5gm/100ml IVPB IV SCH ×2 (08:39→21:29)
--- NOTE | 2021-11-09 11:22 | NUR ---
F/u 11/09: Pt s/p extubation w/ NG removed currently NPO pending MANUFACTURE SPECIALIST BSS per MD. Colostomy -525ml. Glu 300mg/dl currently receiving D10 after Glu 44mg/dl last night following TF stoppage; Lantus held last night though pt has received Lantus 3 prior nights w/ AM Glu 83-104mg/dl likely impacting current Glu without EN. Fluids to change to D5/LR at 20ml/hr per MD; providing 82 kcals/day. True BMI 24 given true ht 64in. -6.7kg this admit w/ +3.4L fluid balance on HD; likely bed scaled errors will continue to use initial scaled wt for estimated needs given PALB this AM 21.2. Will monitor for PO diet advancement and further nutrition intervention needs this admit. Recommendations: 1. Advance diet as medically indicated to renal/low fiber per MANUFACTURE SPECIALIST/MD recs 2. Monitor for PO trends and ONS needs IF diet advances; reports pt low appetite at baseline FOOD SERVICE SALES REPRESENTATIVES 3. IF pt remains NPO consider NG feeds to meet nutrition needs for HD/wound healing. IF continuous TF; Nepro at 48ml/hr goal; to provide 1152ml volume/day, 2074 kcal, 841ml water, and 93g protein. 4. Phos binder w/ meals per MD 5. wts w/ HD 6. New colostomy nutrition therapy education once appropriate prior to discharge; alternatively may benefit from reviewing w/ as reports has been her keying machine operator at rounds this AM Addendum: 11/09/21 at [address] Amended: Links added.
[2021-11-09] MEDS ORDERED: dextrose 5%-lactated ringers 1,000 ML IV SCH (12:00)
[2021-11-09] MEDS: famotidine 20mg tablet NG SCH ×2 (12:10→20:00)
[2021-11-09] MEDS ORDERED: heparin 1,000unit/ml 10ml vial 10 ML IV ONE (12:10)
[2021-11-09] MEDS: HYDROmorphone inj. 0.5 MG/0.5 ML DISP.SYRIN IV PRN ×2 (12:20→23:59)
[2021-11-09 13:00] LABS: ALANINE AMINOTRANSFERASE 18 U/L (12-78); ALBUMIN 1.8 G/DL (3.4-5.0); ALBUMIN/GLOBULIN RATIO 0.4 (1.1-1.5); ALKALINE PHOSPHATASE 94 IU/L (46-116); ANION GAP 17 (8-16); ASPARTATE AMINO TRANSFERASE 12 U/L (10-37); BILIRUBIN,TOTAL 0.3 MG/DL (0.1-1.0); BLOOD UREA NITROGEN 56 MG/DL (7-18); BUN/CREATININE RATIO 25.6 (6.6-38.0); CALCIUM 8.8 MG/DL (8.5-10.1); CHLORIDE 97 MMOL/L (99-107); CREATININE 2.19 MG/DL (0.40-0.90); GLUCOSE 295 MG/DL (70-104); POTASSIUM 3.6 MMOL/L (3.5-5.1); SODIUM 136 MMOL/L (135-145); TOTAL CARBON DIOXIDE 22.2 MMOL/L (24-32); TOTAL PROTEIN 5.9 G/DL (6.4-8.2); eGFR 23 ML/MIN
[2021-11-09 14:07] LABS: PREALBUMIN 20.4 MG/DL (19-36)
[2021-11-09] MEDS ORDERED: ondansetron/PF 4mg/2ml inj IV ONE (14:20)
[2021-11-09] MEDS ORDERED: ondansetron/PF 4mg/2ml inj IV PRN (14:20)
[2021-11-09] MEDS ORDERED: hydrALAZINE 20mg/ml inj. IV PRN (15:15)
--- NOTE | 2021-11-09 18:03 | NUR ---
Patient arrived to her new room from ICU accompanied by ICU nurse and the Marbin.
--- NOTE | 2021-11-09 18:35 | NUR ---
I called the Dialysis Center and spoke to Belén who I think was the coordinator. She told me that she was not aware about today's dialysis as patient just had dialysis yesterday. I told her that Dr. Ervin' progress note said that HD scheduled TTS (Saturday, , Saturday). She said she will check with the HD nurse and will call the hospital back. I have told Belén that I am outgoing nurse so they would have to contact educational technology coordinator nurse Shira.
--- NOTE | 2021-11-09 18:38 | NUR ---
Problems reprioritized. Patient report given, questions answered & plan of care reviewed with Shira BUITRAGO.
--- NOTE | 2021-11-09 18:44 | NUR ---
Belén called back, she said she spoke to Dialysis nurse Kelli about the dialysis treatment and that Kelli had told her patient will have dialysis tomorrow instead because patient already had dialysis yesterday and there was no order for dialysis treatment for today.
[2021-11-09] MEDS: gabapentin 100mg capsule NG SCH (21:00)
[2021-11-09] MEDS: insulin glargine (Lantus) pen - multi-dose SQ SCH (21:00)
[2021-11-09] MEDS: amitriptyline 50mg tablet NG SCH (21:00)
[2021-11-10] VITALS: BP 140/70
[2021-11-10 06:00] LABS: BASOPHILS # (AUTO) 0.1 X10'3 (0-0.2); BASOPHILS % (AUTO) 0.6 % (0-1); EOSINOPHILS # (AUTO) 0.3 X10'3 (0-0.9); EOSINOPHILS % (AUTO) 2.1 % (0-6); HEMATOCRIT 31.1 % (35.0-45.0); HEMOGLOBIN 10.7 g/dl (12.0-16.0); LYMPHOCYTES # (AUTO) 0.8 X10'3 (1.1-4.8); LYMPHOCYTES % (AUTO) 5.1 % (21-51); MEAN CORPUSCULAR HEMOGLOBIN 29.3 PG (27.0-31.0); MEAN CORPUSCULAR HGB CONC 34.4 g/dL (33.0-36.5); MEAN CORPUSCULAR VOLUME 85.1 FL (78-98); MEAN PLATELET VOLUME 6.5 FL (7.4-10.4); MONOCYTES # (AUTO) 0.7 X10'3 (0-0.9); MONOCYTES % (AUTO) 4.3 % (2-12); NEUTROPHILS # (AUTO) 13.6 X10'3 (1.8-7.7); NEUTROPHILS % (AUTO) 87.9 % (42-75); PLATELET COUNT 401 X10'3 (140-440); RED BLOOD COUNT 3.66 X10'6 (4.20-5.60); RED CELL DISTRIBUTION WIDTH 17.8 % (11.5-14.5); WHITE BLOOD COUNT 15.5 X10'3 (4.5-11.0)
[2021-11-10 06:29] LABS: ALANINE AMINOTRANSFERASE 11 U/L (12-78); ALBUMIN 1.8 G/DL (3.4-5.0); ALBUMIN/GLOBULIN RATIO 0.5 (1.1-1.5); ALKALINE PHOSPHATASE 94 IU/L (46-116); ANION GAP 16 (8-16); ASPARTATE AMINO TRANSFERASE 13 U/L (10-37); BILIRUBIN,TOTAL 0.4 MG/DL (0.1-1.0); BLOOD UREA NITROGEN 58 MG/DL (7-18); BUN/CREATININE RATIO 20.9 (6.6-38.0); CALCIUM 9.2 MG/DL (8.5-10.1); CHLORIDE 100 MMOL/L (99-107); CREATININE 2.77 MG/DL (0.40-0.90); GLUCOSE 202 MG/DL (70-104); POTASSIUM 3.7 MMOL/L (3.5-5.1); SODIUM 137 MMOL/L (135-145); TOTAL CARBON DIOXIDE 21.4 MMOL/L (24-32); TOTAL PROTEIN 5.8 G/DL (6.4-8.2); eGFR 17 ML/MIN
[2021-11-10 06:30] VITALS: BP 159/79
--- NOTE | 2021-11-10 06:30 | NUR ---
Patient in room [facility] 347. I have received report from MINNA Silva and had the opportunity to ask questions and assume patient care.
[2021-11-10 07:35] LABS: ANISOCYTOSIS 1+; BURR CELLS FEW; ELLIPTOCYTES FEW; PLATELET ESTIMATE NORMAL; SCHISTOCYTES FEW; TOTAL CELLS COUNTED 100
[2021-11-10 07:36] LABS: LARGE PLATELETS FEW; POLYCHROMASIA FEW
[2021-11-10] MEDS: sevelamer carbonate 0.8gm powder pkt PO SCH ×3 (08:00→17:55)
[2021-11-10] MEDS ORDERED: acetaminophen 325mg/10.15ml oral unit dose solution PO PRN ×2 (09:04→09:05)
[2021-11-10] MEDS ORDERED: dextrose ORAL solution 15 GM/59 ML bottle PO PRN ×2 (09:06)
[2021-11-10] MEDS: predniSONE 5mg tablet PO SCH (09:07)
[2021-11-10] MEDS: piperacillin/tazo 4.5gm/100ml IVPB IV SCH ×2 (09:07→19:56)
[2021-11-10] MEDS: heparin, porcine 5000 units/ml vial SQ SCH ×2 (09:08→20:17)
[2021-11-10] MEDS ORDERED: potassium Cl 20 mEq SR tablet PO PRN (09:08)
[2021-11-10] MEDS ORDERED: heparin 1,000unit/ml 10ml vial 10 ML IV ONE (09:55)
[2021-11-10] MEDS ORDERED: heparin 1,000 units/ml 10ml inj IV ONE (09:55)
[2021-11-10] MEDS ORDERED: EPOETIN ALFA-EPBX 20,000 UNIT/ML 1 ML MDV IV ONE (09:55)
[2021-11-10] MEDS ORDERED: heparin 1,000 units/ml 10ml inj HE ONE ×2 (10:00)
[2021-11-10 12:00] VITALS: BP 108/64
[2021-11-10] MEDS: HYDROmorphone inj. 0.5 MG/0.5 ML DISP.SYRIN IV PRN ×2 (15:06→19:46)
--- NOTE | 2021-11-10 18:30 | NUR ---
Problems reprioritized. Patient report given, questions answered & plan of care reviewed with MINNA Rich.
[2021-11-10 20:00] VITALS: BP 162/69
[2021-11-10] MEDS: lactobacillus rhamnosus 10,000 MMU CELLS/CAPSULE PO SCH (20:13)
[2021-11-10] MEDS: amitriptyline 50mg tablet PO SCH (20:13)
[2021-11-10] MEDS: famotidine 20mg tablet PO SCH (20:14)
[2021-11-10] MEDS: gabapentin 100mg capsule PO SCH (20:14)
[2021-11-10] MEDS: insulin glargine (Lantus) pen - multi-dose SQ SCH (21:00)
[2021-11-10] MEDS: insulin Lispro (HumaLOG) vial - multi-dose SQ SCH (21:21)
[2021-11-10] MEDS: HYDROmorphone 1 mg/ml syringe IV PRN (23:53)
[2021-11-11] VITALS: BP 151/67
[2021-11-11] MEDS: ondansetron/PF 4mg/2ml inj IV PRN (00:10)
--- NOTE | 2021-11-11 01:10 | NUR ---
pt c/o N/V zofran IV given and was effective. Will continue to monitor.
--- NOTE | 2021-11-11 06:10 | NUR ---
Patient in room [facility] 347. I have received report from MINNA Rich and had the opportunity to ask questions and assume patient care.
--- NOTE | 2021-11-11 06:15 | NUR ---
PT IN BED WITH AT BED SIDE. REPORT GIVEN TO INCOMING RN HUEY.
[2021-11-11 06:30] VITALS: BP 131/41
[2021-11-11] MEDS: sevelamer carbonate 0.8gm powder pkt PO SCH ×3 (07:46→18:00)
[2021-11-11] MEDS: lactobacillus rhamnosus 10,000 MMU CELLS/CAPSULE PO SCH ×2 (07:46→20:22)
[2021-11-11] MEDS: famotidine 20mg tablet PO SCH ×2 (07:46→20:22)
[2021-11-11] MEDS: piperacillin/tazo 4.5gm/100ml IVPB IV SCH ×2 (07:46→20:17)
[2021-11-11] MEDS: predniSONE 5mg tablet PO SCH (07:46)
[2021-11-11] MEDS: heparin, porcine 5000 units/ml vial SQ SCH ×2 (07:48→20:23)
[2021-11-11] MEDS: HYDROmorphone 1 mg/ml syringe IV PRN ×3 (07:49→22:32)
[2021-11-11 08:46] LABS: BASOPHILS # (AUTO) 0.1 X10'3 (0-0.2); BASOPHILS % (AUTO) 0.3 % (0-1); EOSINOPHILS # (AUTO) 0.3 X10'3 (0-0.9); HEMATOCRIT 31.1 % (35.0-45.0); HEMOGLOBIN 10.4 g/dl (12.0-16.0); LYMPHOCYTES # (AUTO) 1.1 X10'3 (1.1-4.8); LYMPHOCYTES % (AUTO) 6.6 % (21-51); MEAN CORPUSCULAR HEMOGLOBIN 29.1 PG (27.0-31.0); MEAN CORPUSCULAR HGB CONC 33.4 g/dL (33.0-36.5); MEAN CORPUSCULAR VOLUME 87.1 FL (78-98); MEAN PLATELET VOLUME 6.4 FL (7.4-10.4); MONOCYTES # (AUTO) 0.8 X10'3 (0-0.9); MONOCYTES % (AUTO) 5.2 % (2-12); NEUTROPHILS # (AUTO) 13.7 X10'3 (1.8-7.7); NEUTROPHILS % (AUTO) 85.9 % (42-75); PLATELET COUNT 402 X10'3 (140-440); RED BLOOD COUNT 3.57 X10'6 (4.20-5.60); RED CELL DISTRIBUTION WIDTH 18.2 % (11.5-14.5)
[2021-11-11 09:04] LABS: ALANINE AMINOTRANSFERASE 12 U/L (12-78); ALBUMIN 1.9 G/DL (3.4-5.0); ALBUMIN/GLOBULIN RATIO 0.5 (1.1-1.5); ALKALINE PHOSPHATASE 102 IU/L (46-116); ANION GAP 15 (8-16); ASPARTATE AMINO TRANSFERASE 12 U/L (10-37); BILIRUBIN,TOTAL 0.3 MG/DL (0.1-1.0); BLOOD UREA NITROGEN 37 MG/DL (7-18); BUN/CREATININE RATIO 16.3 (6.6-38.0); CALCIUM 8.9 MG/DL (8.5-10.1); CHLORIDE 100 MMOL/L (99-107); CREATININE 2.27 MG/DL (0.40-0.90); GLUCOSE 179 MG/DL (70-104); POTASSIUM 3.4 MMOL/L (3.5-5.1); SODIUM 140 MMOL/L (135-145); TOTAL CARBON DIOXIDE 24.6 MMOL/L (24-32); TOTAL PROTEIN 5.9 G/DL (6.4-8.2); eGFR 22 ML/MIN
[2021-11-11 11:00] VITALS: BP 164/75
[2021-11-11] MEDS ORDERED: acetaminophen 325mg tablet PO PRN ×2 (11:45)
[2021-11-11] MEDS: potassium Cl 20 mEq SR tablet PO PRN ×2 (12:00→16:48)
[2021-11-11] MEDS ORDERED: LIDOcaine 2% 10ml TOPICAL JELLY (Urojet) TP ONE (12:00)
[2021-11-11] MEDS: insulin Lispro (HumaLOG) vial - multi-dose SQ SCH (13:23)
[2021-11-11 18:00] VITALS: BP 165/64
--- NOTE | 2021-11-11 18:40 | NUR ---
Problems reprioritized. Patient report given, questions answered & plan of care reviewed with MINNA Sotelo.
--- NOTE | 2021-11-11 19:22 | NUR ---
Patient in room SAM 347. I have received report from HUEY BUITRAGO and had the opportunity to ask questions and assume patient care.
[2021-11-11] MEDS: amitriptyline 50mg tablet PO SCH (20:22)
[2021-11-11] MEDS: gabapentin 100mg capsule PO SCH (21:00)
[2021-11-11] MEDS: insulin glargine (Lantus) pen - multi-dose SQ SCH (22:35)
[2021-11-12] VITALS: BP 99/50
[2021-11-12] MEDS: HYDROmorphone inj. 0.5 MG/0.5 ML DISP.SYRIN IV PRN (04:54)
[2021-11-12 05:07] LABS: BASOPHILS # (AUTO) 0.1 X10'3 (0-0.2); BASOPHILS % (AUTO) 0.6 % (0-1); EOSINOPHILS # (AUTO) 0.3 X10'3 (0-0.9); EOSINOPHILS % (AUTO) 1.9 % (0-6); HEMATOCRIT 30.2 % (35.0-45.0); LYMPHOCYTES # (AUTO) 1.1 X10'3 (1.1-4.8); LYMPHOCYTES % (AUTO) 6.2 % (21-51); MEAN CORPUSCULAR HEMOGLOBIN 28.9 PG (27.0-31.0); MEAN CORPUSCULAR HGB CONC 33.1 g/dL (33.0-36.5); MEAN CORPUSCULAR VOLUME 87.3 FL (78-98); MEAN PLATELET VOLUME 6.4 FL (7.4-10.4); MONOCYTES # (AUTO) 0.9 X10'3 (0-0.9); NEUTROPHILS # (AUTO) 15.5 X10'3 (1.8-7.7); NEUTROPHILS % (AUTO) 86.3 % (42-75); PLATELET COUNT 417 X10'3 (140-440); RED BLOOD COUNT 3.46 X10'6 (4.20-5.60); RED CELL DISTRIBUTION WIDTH 17.8 % (11.5-14.5)
[2021-11-12 06:11] LABS: ALANINE AMINOTRANSFERASE 15 U/L (12-78); ALBUMIN 1.8 G/DL (3.4-5.0); ALBUMIN/GLOBULIN RATIO 0.5 (1.1-1.5); ALKALINE PHOSPHATASE 97 IU/L (46-116); ANION GAP 19 (8-16); ASPARTATE AMINO TRANSFERASE 12 U/L (10-37); BILIRUBIN,TOTAL 0.4 MG/DL (0.1-1.0); BLOOD UREA NITROGEN 47 MG/DL (7-18); BUN/CREATININE RATIO 16.4 (6.6-38.0); CALCIUM 8.9 MG/DL (8.5-10.1); CHLORIDE 100 MMOL/L (99-107); CREATININE 2.87 MG/DL (0.40-0.90); GLUCOSE 101 MG/DL (70-104); SODIUM 141 MMOL/L (135-145); TOTAL CARBON DIOXIDE 22.2 MMOL/L (24-32); TOTAL PROTEIN 5.6 G/DL (6.4-8.2); eGFR 17 ML/MIN
[2021-11-12 06:30] VITALS: BP 139/66
--- NOTE | 2021-11-12 06:40 | NUR ---
Patient in room SAM 347. I have received report from MINNA Sotelo and had the opportunity to ask questions and assume patient care.
--- NOTE | 2021-11-12 06:50 | NUR ---
Problems reprioritized. Patient report given, questions answered & plan of care reviewed with HUEY RN.
[2021-11-12] MEDS: sevelamer carbonate 0.8gm powder pkt PO SCH ×3 (08:00→18:00)
[2021-11-12] MEDS: HYDROmorphone 1 mg/ml syringe IV PRN ×4 (08:14→22:18)
[2021-11-12] MEDS: piperacillin/tazo 4.5gm/100ml IVPB IV SCH ×2 (10:43→20:27)
[2021-11-12] MEDS: heparin, porcine 5000 units/ml vial SQ SCH (10:43)
[2021-11-12] MEDS: famotidine 20mg tablet PO SCH ×2 (10:43→19:12)
[2021-11-12] MEDS: lactobacillus rhamnosus 10,000 MMU CELLS/CAPSULE PO SCH ×2 (10:43→19:12)
[2021-11-12] MEDS: predniSONE 5mg tablet PO SCH (10:44)
[2021-11-12] MEDS ORDERED: tPA-cathflo 2 MG/2 ml IV flush IVF ONE (11:35)
--- NOTE | 2021-11-12 11:36 | NUR ---
F/u 11/12: Pt diet has been advanced 11/10 per AUTOMATIC PROFILE SANDER OPERATOR to Puree/Renal/CCHO/Vegetarian/NTL, though pt documented to have refused meals since then. Pt A&O x 1 and confused and needs feeder per EMR. Paged MD regarding restarting TF as pt continues w/ refusing meals and poor mentation. Pt remains on HD, last treatment 11/10 w/ 2.5L out per EMR. Documented w/ 200ml ostomy output 11/10. Will continue to follow closely. Recommendations: 1. Advance diet as medically indicated to renal/low fiber per AUTOMATIC PROFILE SANDER OPERATOR/MD recs 2. Monitor need for ONS if PO improves 3. Consider NG feeds to meet nutrition needs for HD/wound healing. IF continuous TF; Nepro at 48ml/hr goal; to provide 1152ml volume/day, 2074 kcal, 841ml water, and 93g protein. 4. Phos binder w/ meals per MD 5. wts w/ HD 6. New colostomy nutrition therapy education once appropriate prior to discharge; alternatively may benefit from reviewing w/ as reports has been her speech language specialist at rounds this AM Addendum: 11/12/21 at [address] Amended: Links added.
[2021-11-12 12:00] VITALS: BP 130/50
[2021-11-12] MEDS: insulin Lispro (HumaLOG) vial - multi-dose SQ SCH ×2 (13:43→19:08)
--- NOTE | 2021-11-12 18:30 | NUR ---
Problems reprioritized. Patient report given, questions answered & plan of care reviewed with MINNA Sauer.
--- NOTE | 2021-11-12 18:30 | NUR ---
Patient in room SAM 347. I have received report from MINNA Baker and had the opportunity to ask questions and assume patient care. Pt resting with eyes closed, caregiver at bedside will feed pt dinner when awake. No complaints Addendum: 11/12/21 at 1924 by Manuela Torres RN Amended: Links added.
[2021-11-12 19:00] VITALS: BP 130/61
[2021-11-12] MEDS: gabapentin 100mg capsule PO SCH (19:14)
[2021-11-12] MEDS: amitriptyline 50mg tablet PO SCH (19:17)
--- NOTE | 2021-11-12 19:20 | NUR ---
SPOUSE AT BEDSIDE, IS PT CAREGIVER ON RECORD. WANTS ALL MEDS NOW WITH DINNER, INSULIN GIVEN PT NOT EATING, HE WILL TRY AGAIN. POC WITH PILLOWS. Addendum: 11/12/21 at 1922 by Manuela Torres RN Amended: Links added.
[2021-11-12] MEDS: insulin glargine (Lantus) pen - multi-dose SQ SCH (22:17)
[2021-11-12 23:30] VITALS: BP 93/46
--- NOTE | 2021-11-12 23:30 | NUR ---
SAT 87% ON R/A ENC C&DB, T DROWSY, ENC FLUTTER VALVE, SPOUSE AT BEDSIDE TO HELP PT ATTEMPTED, BUT WEAK. OTHER FONTAINE VERY SLEEPY AT THIS TIME, OF 2L N/C APPLIED. DILAUDED IV WAS GIVEN FOR PAIN EARLIER. pT STATES PT HAS BEEN "LIKE THIS FOR AWHILE" Addendum: 11/13/21 at 0112 by Manuela Torres RN Amended: Links added.
[2021-11-13] VITALS: BP 118/51
--- NOTE | 2021-11-13 00:15 | NUR ---
rT PAGED TO KASSANDRA EDMOND FOR BREATHING TX. COARSE BREATH SOUNDS, CRACKLES BASES. Addendum: 11/13/21 at 0117 by Manuela Torres RN Amended: Links added.
--- NOTE | 2021-11-13 01:30 | NUR ---
Dr. Tiwari notified, decreased sat on pt, resp reccomends cxray. orders given for stat cxray. Addendum: 11/13/21 at 0131 by Manuela Torres RN Amended: Links added.
--- NOTE | 2021-11-13 06:27 | NUR ---
Problems reprioritized. Patient report given, questions answered & plan of care reviewed with MINNA NAZARIO. Addendum: 11/13/21 at 0628 by Manuela Torres RN Amended: Links added.
[2021-11-13] MEDS: HYDROmorphone inj. 0.5 MG/0.5 ML DISP.SYRIN IV PRN ×3 (06:49→19:41)
--- NOTE | 2021-11-13 06:57 | NUR ---
Patient in room SAM 347. I have received report from JEANETTE BUITRAGO and had the opportunity to ask questions and assume patient care.
[2021-11-13 07:05] VITALS: BP 138/87
[2021-11-13] MEDS ORDERED: EPOETIN ALFA-EPBX 20,000 UNIT/ML 1 ML MDV IV ONE (08:00)
[2021-11-13] MEDS ORDERED: normal saline 1000ml 250 ML IV PRN (08:00)
[2021-11-13] MEDS ORDERED: heparin 1,000unit/ml 10ml vial 10 ML IV ONE (08:00)
[2021-11-13] MEDS: sevelamer carbonate 0.8gm powder pkt PO SCH ×3 (08:00→18:00)
[2021-11-13] MEDS: piperacillin/tazo 4.5gm/100ml IVPB IV SCH ×2 (08:29→21:26)
[2021-11-13] MEDS: lactobacillus rhamnosus 10,000 MMU CELLS/CAPSULE PO SCH ×2 (08:29→21:25)
[2021-11-13] MEDS: predniSONE 5mg tablet PO SCH (08:29)
[2021-11-13] MEDS: famotidine 20mg tablet PO SCH ×2 (08:29→21:26)
[2021-11-13 08:38] LABS: BASOPHILS # (AUTO) 0.1 X10'3 (0-0.2); BASOPHILS % (AUTO) 0.3 % (0-1); EOSINOPHILS # (AUTO) 0.3 X10'3 (0-0.9); EOSINOPHILS % (AUTO) 1.5 % (0-6); HEMATOCRIT 28.8 % (35.0-45.0); HEMOGLOBIN 9.5 g/dl (12.0-16.0); LYMPHOCYTES # (AUTO) 0.7 X10'3 (1.1-4.8); MEAN CORPUSCULAR HEMOGLOBIN 28.7 PG (27.0-31.0); MEAN CORPUSCULAR VOLUME 87.1 FL (78-98); MEAN PLATELET VOLUME 6.4 FL (7.4-10.4); MONOCYTES # (AUTO) 0.7 X10'3 (0-0.9); NEUTROPHILS # (AUTO) 19.9 X10'3 (1.8-7.7); NEUTROPHILS % (AUTO) 92.2 % (42-75); PLATELET COUNT 406 X10'3 (140-440); RED CELL DISTRIBUTION WIDTH 18.3 % (11.5-14.5); WHITE BLOOD COUNT 21.6 X10'3 (4.5-11.0)
[2021-11-13 08:57] LABS: ALANINE AMINOTRANSFERASE 8 U/L (12-78); ALBUMIN 1.8 G/DL (3.4-5.0); ALBUMIN/GLOBULIN RATIO 0.5 (1.1-1.5); ALKALINE PHOSPHATASE 97 IU/L (46-116); ANION GAP 22 (8-16); ASPARTATE AMINO TRANSFERASE 9 U/L (10-37); BILIRUBIN,TOTAL 0.4 MG/DL (0.1-1.0); BLOOD UREA NITROGEN 52 MG/DL (7-18); BUN/CREATININE RATIO 14.1 (6.6-38.0); CHLORIDE 102 MMOL/L (99-107); CREATININE 3.68 MG/DL (0.40-0.90); GLUCOSE 155 MG/DL (70-104); POTASSIUM 4.2 MMOL/L (3.5-5.1); PREALBUMIN 16.5 MG/DL (19-36); SODIUM 142 MMOL/L (135-145); TOTAL PROTEIN 5.7 G/DL (6.4-8.2); eGFR 13 ML/MIN
--- NOTE | 2021-11-13 09:00 | NUR ---
PT AT PROCEDURE UNABLE TO GIVE INSULIN. WILL RESUME FOR LUNCH. Addendum: 11/13/21 at 1017 by Venancio Sultana RN PT AT PROCEDURE UNABLE TO GIVE INSULIN. WILL RESUME FOR LUNCH.
[2021-11-13 09:20] LABS: ANISOCYTOSIS 2+; HYPERSEGMENTED NEUTROPHILS 1+; PLATELET ESTIMATE NORMAL; SMUDGE CELLS 1+; TOTAL CELLS COUNTED 100; TOXIC GRANULATION 2+
[2021-11-13 09:21] LABS: ELLIPTOCYTES FEW
[2021-11-13] MEDS ORDERED: fentaNYL/PF 50MCG/1 ML 2ML syringe ONE (09:34)
[2021-11-13] MEDS ORDERED: LIDOCAINE 1%/EPI 1:100,000 inj. 10 ML multi-dose vial ONE (09:34)
[2021-11-13] MEDS ORDERED: heparin 1,000unit/ml 10ml vial 10 ML ONE (09:34)
[2021-11-13 12:00] VITALS: BP 140/59
[2021-11-13] MEDS ORDERED: heparin 1,000 units/ml 10ml inj HE ONE ×2 (12:45)
[2021-11-13] MEDS: insulin Lispro (HumaLOG) vial - multi-dose SQ SCH (13:21)
--- NOTE | 2021-11-13 14:34 | NUR ---
PT WHO MAKES MEDICAL DECISIONS HAS SAID PT DOES NOT NEED RENVELA IF SHE IS NOT EATING. PT HAS NOT HAD A APPETITE TODAY AND REFUSED MORNING/LUNCH DOSE.
--- NOTE | 2021-11-13 15:44 | NUR ---
PT ABD WOUND WAS CHANGED PER DAILY CHANGE, PT TOLERATED WELL. WOUND CARE WILL SEE PT TOMORROW.
[2021-11-13] MEDS ORDERED: iohexol 300mg/ml 100ml inj. ONE (18:20)
--- NOTE | 2021-11-13 18:44 | NUR ---
Problems reprioritized. Patient report given, questions answered & plan of care reviewed with LANA SCHWARTZ RN.
--- NOTE | 2021-11-13 18:45 | NUR ---
Patient in room SAM 347. I have received report from MANSI BUITRAGO and had the opportunity to ask questions and assume patient care.
[2021-11-13 20:00] VITALS: BP 93/56
[2021-11-13] MEDS: amitriptyline 50mg tablet PO SCH (21:25)
[2021-11-13] MEDS: gabapentin 100mg capsule PO SCH (21:25)
[2021-11-13] MEDS: insulin glargine (Lantus) pen - multi-dose SQ SCH (21:45)
[2021-11-14] VITALS: BP 119/42
[2021-11-14] MEDS: HYDROmorphone 1 mg/ml syringe IV PRN ×4 (01:13→20:13)
[2021-11-14 06:21] LABS: ALANINE AMINOTRANSFERASE 7 U/L (12-78); ALBUMIN 1.7 G/DL (3.4-5.0); ALBUMIN/GLOBULIN RATIO 0.4 (1.1-1.5); ALKALINE PHOSPHATASE 104 IU/L (46-116); ANION GAP 12 (8-16); ASPARTATE AMINO TRANSFERASE 8 U/L (10-37); BILIRUBIN,TOTAL 0.4 MG/DL (0.1-1.0); BLOOD UREA NITROGEN 15 MG/DL (7-18); BUN/CREATININE RATIO 8.9 (6.6-38.0); CHLORIDE 103 MMOL/L (99-107); CREATININE 1.69 MG/DL (0.40-0.90); GLUCOSE 146 MG/DL (70-104); POTASSIUM 3.2 MMOL/L (3.5-5.1); SODIUM 142 MMOL/L (135-145); TOTAL CARBON DIOXIDE 27.1 MMOL/L (24-32); TOTAL PROTEIN 5.8 G/DL (6.4-8.2); eGFR 31 ML/MIN
[2021-11-14 06:22] LABS: BASOPHILS # (AUTO) 0.1 X10'3 (0-0.2); BASOPHILS % (AUTO) 0.3 % (0-1); EOSINOPHILS # (AUTO) 0.2 X10'3 (0-0.9); HEMATOCRIT 28.4 % (35.0-45.0); HEMOGLOBIN 9.4 g/dl (12.0-16.0); LYMPHOCYTES # (AUTO) 0.7 X10'3 (1.1-4.8); LYMPHOCYTES % (AUTO) 3.1 % (21-51); MEAN CORPUSCULAR HEMOGLOBIN 28.8 PG (27.0-31.0); MEAN CORPUSCULAR HGB CONC 33.1 g/dL (33.0-36.5); MEAN CORPUSCULAR VOLUME 87.1 FL (78-98); MEAN PLATELET VOLUME 6.3 FL (7.4-10.4); MONOCYTES % (AUTO) 4.3 % (2-12); NEUTROPHILS # (AUTO) 20.2 X10'3 (1.8-7.7); NEUTROPHILS % (AUTO) 91.3 % (42-75); PLATELET COUNT 391 X10'3 (140-440); RED BLOOD COUNT 3.26 X10'6 (4.20-5.60); RED CELL DISTRIBUTION WIDTH 18.2 % (11.5-14.5); WHITE BLOOD COUNT 22.1 X10'3 (4.5-11.0)
--- NOTE | 2021-11-14 06:30 | NUR ---
Problems reprioritized. Patient report given, questions answered & plan of care reviewed with MARY BUITRAGO.
[2021-11-14] MEDS: ondansetron/PF 4mg/2ml inj IV PRN ×2 (06:51→20:12)
[2021-11-14 08:00] VITALS: BP 144/64
[2021-11-14] MEDS: sevelamer carbonate 0.8gm powder pkt PO SCH ×3 (08:07→18:42)
[2021-11-14] MEDS: predniSONE 5mg tablet PO SCH (08:07)
[2021-11-14] MEDS: lactobacillus rhamnosus 10,000 MMU CELLS/CAPSULE PO SCH ×3 (08:07→23:45)
[2021-11-14] MEDS: famotidine 20mg tablet PO SCH ×3 (08:08→23:46)
[2021-11-14] MEDS: piperacillin/tazo 4.5gm/100ml IVPB IV SCH ×2 (08:08→19:50)
[2021-11-14] MEDS: heparin, porcine 5000 units/ml vial SQ SCH ×2 (08:08→19:51)
--- NOTE | 2021-11-14 08:30 | NUR ---
found giving thin water to pt with pt reclined. Pt. continually asking for water and is obliged to carry out her requests although pt. is confused. Educated both pt. and about s/sx diabetes, renal failure, fluid retention, proper positioning, aspiration, ST recommendations. very polite, yet passive during education. Continues to be noncompliant.
--- NOTE | 2021-11-14 09:00 | NUR ---
Hospitalist aware of tachy resting HR. No new orders at this time beside hospitalist would like Ainsley to know about Ct results. Called Ainsley and she was made aware of CT results from last night. States not enough fluid to drain. No changes in antibiotics and no new orders.
[2021-11-14] MEDS: insulin Lispro (HumaLOG) vial - multi-dose SQ SCH ×3 (10:05→19:43)
[2021-11-14 11:30] VITALS: BP 149/63
--- NOTE | 2021-11-14 12:00 | NUR ---
Per CM plans to go to [facility] in AM
--- NOTE | 2021-11-14 15:09 | NUR ---
Stoma site not evaluated today as ostomy pouch is in place w/o leakage noted. She has brown soft effluent noted in the drainage bag. Spouse feels comfortable in caring for diversion once she is released from . Educated him to be sure to find out DME company that will be ordered at time of discharge from . Addendum: 11/14/21 at 1518 by Cailin Kasper RN Amended: Links added.
--- NOTE | 2021-11-14 15:59 | NUR ---
Hospitalist aware of increased WBC. ID also aware. Pt. is on 5mg PO prednisone. No new orders at this time.
--- NOTE | 2021-11-14 18:35 | NUR ---
Gave report to Samina BUITRAGO.
[2021-11-14 20:00] VITALS: BP 136/84
[2021-11-14] MEDS: insulin glargine (Lantus) pen - multi-dose SQ SCH (21:00)
--- NOTE | 2021-11-14 22:10 | NUR ---
Pt had episode of low blood sugar. Night time blood glucose was 59. Gave pt oral glucose and she vomited it up. Re-checked blood glucose and it was 52. Gave pt 25ml of 50% Dextrose IV, rechecked blood glucose and she was 125. Pt is feeling better just a bit nauseous. Will continue to monitor.
[2021-11-14] MEDS: dextrose 50%-water 50ml dispensing syringe IV PRN (22:39)
[2021-11-14] MEDS: gabapentin 100mg capsule PO SCH (23:45)
[2021-11-14] MEDS: amitriptyline 50mg tablet PO SCH (23:45)
[2021-11-15] VITALS: BP 110/51
[2021-11-15] MEDS: metoclopramide 5 mg/ml inj IV PRN (00:46)
[2021-11-15 04:48] LABS: BASOPHILS % (AUTO) 0.2 % (0-1); EOSINOPHILS # (AUTO) 0.4 X10'3 (0-0.9); EOSINOPHILS % (AUTO) 1.8 % (0-6); HEMATOCRIT 27.6 % (35.0-45.0); HEMOGLOBIN 9.2 g/dl (12.0-16.0); LYMPHOCYTES # (AUTO) 0.9 X10'3 (1.1-4.8); LYMPHOCYTES % (AUTO) 4.9 % (21-51); MEAN CORPUSCULAR HEMOGLOBIN 29.1 PG (27.0-31.0); MEAN CORPUSCULAR HGB CONC 33.4 g/dL (33.0-36.5); MEAN CORPUSCULAR VOLUME 87.2 FL (78-98); MONOCYTES # (AUTO) 0.8 X10'3 (0-0.9); MONOCYTES % (AUTO) 4.2 % (2-12); NEUTROPHILS # (AUTO) 16.9 X10'3 (1.8-7.7); NEUTROPHILS % (AUTO) 88.9 % (42-75); PLATELET COUNT 369 X10'3 (140-440); RED BLOOD COUNT 3.17 X10'6 (4.20-5.60); RED CELL DISTRIBUTION WIDTH 18.8 % (11.5-14.5)
[2021-11-15 04:57] LABS: ALANINE AMINOTRANSFERASE 10 U/L (12-78); ALBUMIN 1.7 G/DL (3.4-5.0); ALBUMIN/GLOBULIN RATIO 0.4 (1.1-1.5); ALKALINE PHOSPHATASE 105 IU/L (46-116); ANION GAP 13 (8-16); ASPARTATE AMINO TRANSFERASE 11 U/L (10-37); BILIRUBIN,TOTAL 0.4 MG/DL (0.1-1.0); BLOOD UREA NITROGEN 27 MG/DL (7-18); BUN/CREATININE RATIO 10.8 (6.6-38.0); CALCIUM 9.3 MG/DL (8.5-10.1); CHLORIDE 99 MMOL/L (99-107); CREATININE 2.49 MG/DL (0.40-0.90); GLUCOSE 133 MG/DL (70-104); SODIUM 138 MMOL/L (135-145); TOTAL CARBON DIOXIDE 26.4 MMOL/L (24-32); TOTAL PROTEIN 5.9 G/DL (6.4-8.2); eGFR 20 ML/MIN
[2021-11-15 05:01] LABS: POTASSIUM 2.9 MMOL/L (3.5-5.1)
[2021-11-15 06:02] LABS: PLATELET ESTIMATE NORMAL
[2021-11-15 06:03] LABS: ANISOCYTOSIS 2+; MICROCYTOSIS FEW
--- NOTE | 2021-11-15 06:16 | NUR ---
Patient in room SAM 347. I have received report from Samina BUITRAGO and had the opportunity to ask questions and assume patient care.
--- NOTE | 2021-11-15 06:44 | NUR ---
Problems reprioritized. Patient report given, questions answered & plan of care reviewed with MINNA Madden.
[2021-11-15] MEDS ORDERED: POTASSIUM BICARB 20meq eff tab 20 MEQ TABLET.EFF PO ONE (06:45)
[2021-11-15 07:00] VITALS: BP 132/63
[2021-11-15] MEDS: heparin, porcine 5000 units/ml vial SQ SCH (08:00)
[2021-11-15] MEDS ORDERED: heparin 1,000unit/ml 10ml vial 10 ML IV ONE (08:00)
[2021-11-15] MEDS ORDERED: EPOETIN ALFA-EPBX 20,000 UNIT/ML 1 ML MDV IV ONE (08:00)
[2021-11-15] MEDS ORDERED: normal saline 1000ml 250 ML IV PRN (08:00)
[2021-11-15] MEDS ORDERED: heparin 1,000 units/ml 10ml inj HE ONE ×2 (08:00)
[2021-11-15] MEDS: sevelamer carbonate 0.8gm powder pkt PO SCH ×2 (08:00→13:00)
[2021-11-15] MEDS: famotidine 20mg tablet PO SCH (09:41)
[2021-11-15] MEDS: predniSONE 5mg tablet PO SCH (09:42)
[2021-11-15] MEDS: lactobacillus rhamnosus 10,000 MMU CELLS/CAPSULE PO SCH (09:42)
[2021-11-15] MEDS: piperacillin/tazo 4.5gm/100ml IVPB IV SCH (09:42)
[2021-11-15 11:00] VITALS: BP 122/63
--- NOTE | 2021-11-15 11:40 | NUR ---
F/u 11/15: Pt continues on Puree/Renal/CCHO/Vegetarian/NTL, though pt documented to continue to have 0% intake of most meals. Pt A&O x 1 and confused and needs feeder per EMR. Pt remains on HD, last treatment 11/13 w/ 1.5L out per EMR. Documented w/ 600ml ostomy output 11/14. Pt would benefit from PEG at this time to meet intermodal owner operator truck driver nutritional needs as she continues w/ mostly 0% intake and poor mentation if within POC. Given inadequate intake for greater than 5 days and severe muscle weakness, pt meets minimum criteria for malnutrition, MD notified. Will continue to follow closely. Recommendations: 1. Advance diet as medically indicated to renal/low fiber per KEYSEATER OPERATOR/MD recs 2. Monitor need for ONS if PO improves 3. Consider NG/PEG feeds to meet nutrition needs for HD/wound healing. IF continuous TF; Nepro at 48ml/hr goal; to provide 1152ml volume/day, 2074 kcal, 841ml water, and 93g protein. 4. Phos binder w/ meals per MD 5. wts w/ HD 6. New colostomy nutrition therapy education once appropriate prior to discharge; alternatively may benefit from reviewing w/ as reports has been her commissioner of internal revenue at rounds this AM Addendum: 11/15/21 at [address] Amended: Links added.
--- NOTE | 2021-11-15 16:35 | NUR ---
[facility]. Pt is A & o x3 and in no apparent distress. Report was called to [facility] discussed with RN DC orders, wound care, picc, ports, diet, DM status and general misc, info. AMBULANCE took her to [facility] packed all her belongings and went with her. package given to regional dedicated truck driver.
[2021-11-16 10:59] LABS: HBSAG SCREEN Negative (Negative)
== END 2021-11-15 16:35 | DRG 231 ==
LOC: ER 20:09 → ED HOLD 22:36 → ICU 2S 10-09 01:00 → SUR 3N 11-09 17:27
PROVIDERS: ADMIT Internal Medicine Critical Care Medicine; ATTEND Internal Medicine Critical Care Medicine
PROC: 0DBN0ZZ Excision of Sigmoid Colon, Open Approach (ICD-10-PCS; 2021-10-08)
PROC: 0DBL0ZZ Excision of Transverse Colon, Open Approach (ICD-10-PCS; 2021-10-08)
PROC: 0D1L0Z4 Bypass Transverse Colon to Cutaneous, Open Approach (ICD-10-PCS; 2021-10-08)
PROC: 5A1955Z Respiratory Ventilation, Greater than 96 Consecutive Hours (ICD-10-PCS; principal; 2021-10-09)
PROC: 0BH17EZ Insertion of Endotracheal Airway into Trachea, Via Natural or Artificial Opening (ICD-10-PCS; 2021-10-09)
PROC: 30233N1 Transfusion of Nonautologous Red Blood Cells into Peripheral Vein, Percutaneous Approach (ICD-10-PCS; 2021-10-09)
PROC: 0W9B30Z Drainage of Left Pleural Cavity with Drainage Device, Percutaneous Approach (ICD-10-PCS; 2021-10-11)
PROC: 02HV33Z Insertion of Infusion Device into Superior Vena Cava, Percutaneous Approach (ICD-10-PCS; 2021-10-13)
PROC: B548ZZA Ultrasonography of Superior Vena Cava, Guidance (ICD-10-PCS; 2021-10-13)
PROC: B5181ZA Fluoroscopy of Superior Vena Cava using Low Osmolar Contrast, Guidance (ICD-10-PCS; 2021-10-13)
PROC: 5A1D70Z Performance of Urinary Filtration, Intermittent, Less than 6 Hours Per Day (ICD-10-PCS; 2021-10-14)
PROC: 5A1D70Z Performance of Urinary Filtration, Intermittent, Less than 6 Hours Per Day (ICD-10-PCS; 2021-10-16)
PROC: 5A1D70Z Performance of Urinary Filtration, Intermittent, Less than 6 Hours Per Day (ICD-10-PCS; 2021-10-18)
PROC: 02HV33Z Insertion of Infusion Device into Superior Vena Cava, Percutaneous Approach (ICD-10-PCS; 2021-10-20)
PROC: B548ZZA Ultrasonography of Superior Vena Cava, Guidance (ICD-10-PCS; 2021-10-20)
PROC: 5A1D70Z Performance of Urinary Filtration, Intermittent, Less than 6 Hours Per Day (ICD-10-PCS; 2021-10-20)
PROC: 5A1D70Z Performance of Urinary Filtration, Intermittent, Less than 6 Hours Per Day (ICD-10-PCS; 2021-10-23)
PROC: BW211ZZ Computerized Tomography (CT Scan) of Abdomen and Pelvis using Low Osmolar Contrast (ICD-10-PCS; 2021-10-25)
PROC: 5A1D70Z Performance of Urinary Filtration, Intermittent, Less than 6 Hours Per Day (ICD-10-PCS; 2021-10-26)
PROC: 5A09357 Assistance with Respiratory Ventilation, Less than 24 Consecutive Hours, Continuous Positive Airway Pressure (ICD-10-PCS; 2021-10-27)
PROC: 5A09357 Assistance with Respiratory Ventilation, Less than 24 Consecutive Hours, Continuous Positive Airway Pressure (ICD-10-PCS; 2021-10-28)
PROC: 0W9F30Z Drainage of Abdominal Wall with Drainage Device, Percutaneous Approach (ICD-10-PCS; 2021-10-28)
PROC: 5A1D70Z Performance of Urinary Filtration, Intermittent, Less than 6 Hours Per Day (ICD-10-PCS; 2021-10-28)
PROC: 5A09357 Assistance with Respiratory Ventilation, Less than 24 Consecutive Hours, Continuous Positive Airway Pressure (ICD-10-PCS; 2021-10-29)
PROC: 5A1955Z Respiratory Ventilation, Greater than 96 Consecutive Hours (ICD-10-PCS; 2021-10-31)
PROC: 0BH17EZ Insertion of Endotracheal Airway into Trachea, Via Natural or Artificial Opening (ICD-10-PCS; 2021-10-31)
PROC: 5A1D70Z Performance of Urinary Filtration, Intermittent, Less than 6 Hours Per Day (ICD-10-PCS; 2021-10-31)
PROC: 5A12012 Performance of Cardiac Output, Single, Manual (ICD-10-PCS; 2021-11-01)
PROC: 5A1D70Z Performance of Urinary Filtration, Intermittent, Less than 6 Hours Per Day (ICD-10-PCS; 2021-11-02)
PROC: 5A1D70Z Performance of Urinary Filtration, Intermittent, Less than 6 Hours Per Day (ICD-10-PCS; 2021-11-05)
PROC: 5A1D70Z Performance of Urinary Filtration, Intermittent, Less than 6 Hours Per Day (ICD-10-PCS; 2021-11-08)
PROC: 5A1D70Z Performance of Urinary Filtration, Intermittent, Less than 6 Hours Per Day (ICD-10-PCS; 2021-11-10)
PROC: 0JH63XZ Insertion of Tunneled Vascular Access Device into Chest Subcutaneous Tissue and Fascia, Percutaneous Approach (ICD-10-PCS; 2021-11-13)
PROC: 02H633Z Insertion of Infusion Device into Right Atrium, Percutaneous Approach (ICD-10-PCS; 2021-11-13)
PROC: B548ZZA Ultrasonography of Superior Vena Cava, Guidance (ICD-10-PCS; 2021-11-13)
PROC: B5181ZA Fluoroscopy of Superior Vena Cava using Low Osmolar Contrast, Guidance (ICD-10-PCS; 2021-11-13)
PROC: 5A1D70Z Performance of Urinary Filtration, Intermittent, Less than 6 Hours Per Day (ICD-10-PCS; 2021-11-13)
PROC: 5A1D70Z Performance of Urinary Filtration, Intermittent, Less than 6 Hours Per Day (ICD-10-PCS; 2021-11-15)
DX: K63.1 Perforation of intestine (nontraumatic) (principal); J96.21 Acute and chronic respiratory failure with hypoxia; K65.1 Peritoneal abscess; A41.9 Sepsis, unspecified organism; G93.40 Encephalopathy, unspecified; N17.9 Acute kidney failure, unspecified; J91.8 Pleural effusion in other conditions classified elsewhere; E46 Unspecified protein-calorie malnutrition; N18.6 End stage renal disease; R18.8 Other ascites; I46.9 Cardiac arrest, cause unspecified; E87.3 Alkalosis; D73.5 Infarction of spleen; I50.9 Heart failure, unspecified; D64.9 Anemia, unspecified; J96.22 Acute and chronic respiratory failure with hypercapnia; J98.11 Atelectasis; K59.00 Constipation, unspecified; K80.20 Calculus of gallbladder without cholecystitis without obstruction; B96.1 Klebsiella pneumoniae [K. pneumoniae] as the cause of diseases classified elsewhere; I35.0 Nonrheumatic aortic (valve) stenosis; M35.00 Sjogren syndrome, unspecified; R62.7 Adult failure to thrive; B95.2 Enterococcus as the cause of diseases classified elsewhere; Z20.822 Contact with and (suspected) exposure to COVID-19; Z51.5 Encounter for palliative care; Z74.01 Bed confinement status; Z87.11 Personal history of peptic ulcer disease; Z88.2 Allergy status to sulfonamides; Z91.15 Patient's noncompliance with renal dialysis; Z91.19 Patient's noncompliance with other medical treatment and regimen; Z99.11 Dependence on respirator [ventilator] status; Z99.2 Dependence on renal dialysis; Z88.8 Allergy status to other drugs, medicaments and biological substances; S31.109A Unspecified open wound of abdominal wall, unspecified quadrant without penetration into peritoneal cavity, initial encounter; Z79.899 Other long term (current) drug therapy; Z79.4 Long term (current) use of insulin; Z68.20 Body mass index [BMI] 20.0-20.9, adult; R01.1 Cardiac murmur, unspecified; Z78.1 Physical restraint status; T17.990A Other foreign object in respiratory tract, part unspecified in causing asphyxiation, initial encounter; X58.XXXA Exposure to other specified factors, initial encounter; Y93.89 Activity, other specified; Y92.230 Patient room in hospital as the place of occurrence of the external cause; Y99.8 Other external cause status; T81.43XA Infection following a procedure, organ and space surgical site, initial encounter; Y83.8 Other surgical procedures as the cause of abnormal reaction of the patient, or of later complication, without mention of misadventure at the time of the procedure
CPT/HCPCS: 31645; 32557; 36415; 36430; 36556; 36558; 36573; 36600; 49406; 70450; 71045; 71250; 74160; 74176; 74177; 76604; 76705; 76937; 77001; 80048; 80053; 80076; 80202; 81001; 82103; 82140; 82272; 82378; 82728; 82803; 82810; 82948; 83036; 83540; 83550; 83605; 83690; 83735; 83970; 84100; 84132; 84134; 84145; 84155; 84156; 84165; 84166; 84439; 84443; 85007; 85008; 85018; 85025; 85027; 85379; 85384; 85610; 85651; 85730; 86038; 86301; 86304; 86430; 86592; 86870; 86880; 86885; 86900; 86901; 86902; 86905; 86922; 86945; 87040; 87070; 87077; 87081; 87088; 87186; 87340; 87635; 90935; 92508; 92616; 92950; 93005; 93306; 94002; 94003; 94640; 94660; 94760; 94799; 96365; 97110; 97162; 97164; 97530; 99285; A4421; A4618; A6253; A6258; A6449; A7000; A9270; C1750; C1751; C1769; C1894; C9803; G0257; G0378; J0131; J0171; J1120; J1170; J1450; J1644; J1756; J1815; J2185; J2250; J2270; J2310; J2370; J2405; J2543; J2597; J2704; J2765; J2997; J3010; J3370; J3430; J3490; J7030; J7040; J7050; J7120; J7121; J7512; P9016; P9045; P9047; Q4081; Q9963; Q9967

== ENCOUNTER 2021-11-23 21:03 | Inpatient (IN) | payer MEDICAID ==
[~2021-11-23] VITALS: Ht 162.6 cm; Wt 59.0 kg
[~2021-11-23 21:03] MED LIST changes: -AMLO5TAB16 PO; -ATOR40TA PO; +DOCU-342 PO; +FURO40TA4 PO; -GENT30OI2 TOP; +INSU100C10 SQ; -LANS30CA56 PO; -METO5TAB98 PO; +ONDA-103 PO; +SENN-263 PO; -SYRI1DIS
[2021-11-23 21:37] LABS: BASOPHILS # (AUTO) 0.2 X10'3 (0-0.2); BASOPHILS % (AUTO) 0.5 % (0-1); EOSINOPHILS # (AUTO) 0.2 X10'3 (0-0.9); EOSINOPHILS % (AUTO) 0.4 % (0-6); LYMPHOCYTES # (AUTO) 1.9 X10'3 (1.1-4.8); LYMPHOCYTES % (AUTO) 4.5 % (21-51); MEAN CORPUSCULAR HEMOGLOBIN 27.4 PG (27.0-31.0); MEAN CORPUSCULAR HGB CONC 31.9 g/dL (33.0-36.5); MEAN CORPUSCULAR VOLUME 85.9 FL (78-98); MEAN PLATELET VOLUME 6.9 FL (7.4-10.4); MONOCYTES # (AUTO) 1.6 X10'3 (0-0.9); MONOCYTES % (AUTO) 3.9 % (2-12); NEUTROPHILS # (AUTO) 38.5 X10'3 (1.8-7.7); NEUTROPHILS % (AUTO) 90.7 % (42-75); PLATELET COUNT 568 X10'3 (140-440); RED BLOOD COUNT 2.38 X10'6 (4.20-5.60); RED CELL DISTRIBUTION WIDTH 17.6 % (11.5-14.5)
[2021-11-23 21:43] LABS: HEMATOCRIT 20.5 % (35.0-45.0); HEMOGLOBIN 6.5 g/dl (12.0-16.0); WHITE BLOOD COUNT 42.4 X10'3 (4.5-11.0)
[2021-11-23 21:44] LABS: ALANINE AMINOTRANSFERASE 28 U/L (12-78); ALBUMIN 1.4 G/DL (3.4-5.0); ALBUMIN/GLOBULIN RATIO 0.4 (1.1-1.5); ALKALINE PHOSPHATASE 129 IU/L (46-116); ANION GAP 17 (8-16); ASPARTATE AMINO TRANSFERASE 46 U/L (10-37); BILIRUBIN,TOTAL 0.3 MG/DL (0.1-1.0); BLOOD UREA NITROGEN 92 MG/DL (7-18); BUN/CREATININE RATIO 29.3 (6.6-38.0); CALCIUM 8.4 MG/DL (8.5-10.1); CHLORIDE 98 MMOL/L (99-107); CREATININE 3.14 MG/DL (0.40-0.90); GLUCOSE 234 MG/DL (70-104); LIPASE 62 U/L (73-393); POTASSIUM 4.3 MMOL/L (3.5-5.1); SODIUM 135 MMOL/L (135-145); TOTAL CARBON DIOXIDE 19.8 MMOL/L (24-32); TOTAL PROTEIN 4.6 G/DL (6.4-8.2); eGFR 15 ML/MIN
[2021-11-23] MEDS ORDERED: octreotide 100mcg/1 ml ampule IV ONE (21:45)
[2021-11-23] MEDS: octreotide inj. 1,250 MCG in normal saline 250ml IV soln 243.75 ML IV SCH (21:45)
[2021-11-23 22:06] LABS: MAGNESIUM 1.9 MG/DL (1.5-2.4)
[2021-11-23 22:10] LABS: ABG BASE EXCESS -7.8 mmol/L (-2.0-2.0); ABG HCO3 16.7 mmol/L (22.0-26.0); ABG OXYGEN SATURATION 94.2 % (94-97); ABG PCO2 (T) 29.1 mmHg (32.0-45.0); ALLEN'S TEST POSITIVE; FCOHb 0.1 % (0.0-3.9); FMetHb 0.3 % (0.0-1.5); FO2Hb 93.8 % (94-97); PATIENT TEMPERATURE 36.5; TOTAL HEMOGLOBIN 7.4 G/dl (12.0-16.0)
[2021-11-23 22:51] LABS: APTT 49 SECONDS (22-32)
[2021-11-23] MEDS: pantoprazole 40MG/NS 100ML BAG 100 ML IV SCH (22:53)
[2021-11-23] MEDS: normal saline 1000ml 1,000 ML IV SCH (23:00)
[2021-11-23] MEDS ORDERED: ringers solution, lactated 500ml IV solution IV ONE (23:00)
[2021-11-23] MEDS ORDERED: ondansetron/PF 4mg/2ml inj IV ONE (23:00)
[2021-11-23] MEDS ORDERED: magnesium hydroxide 30ml (MOM) UD suspension PO PRN (23:00)
[2021-11-23] MEDS ORDERED: acetaminophen 325mg tablet PO PRN ×2 (23:00)
[2021-11-23] MEDS ORDERED: ondansetron/PF 4mg/2ml inj IV PRN (23:00)
[2021-11-23] MEDS ORDERED: fentaNYL/PF 50MCG/1 ML 2ML syringe IV ONE (23:15)
[2021-11-23] MEDS ORDERED: OMEP40CA21 PO (23:16)
[2021-11-23] MEDS ORDERED: VANCOMYCIN 1GM/200ML IVPB 200 ML IV ONE (23:25)
[2021-11-23] MEDS ORDERED: desmopressin inj. 20 MCG in normal saline 100ml IV soln 100 ML IV ONE (23:25)
[2021-11-23] MEDS: NORepinephrine 8mg/ 250ml NS 250 ML IV SCH (23:33)
[2021-11-23] MEDS ORDERED: vancomycin/NS 1 GM ADD-VANTAGE 250 ML X 1 DOSE IV ONE (23:38)
[2021-11-23] MEDS ORDERED: vancomycin/NS 1 GM ADD-VANTAGE 250 ML X 1 DOSE IV PRN (23:40)
[2021-11-24] VITALS (24 sets, daily range): BP systolic 73–157; BP diastolic 17–89
[2021-11-24] MEDS ORDERED: CefTRIAXone 2gm/D5W 50ml BAG 50 ML IV SCH (00:30)
[2021-11-24 00:32] LABS: PLATELET ESTIMATE INCREASED; TOTAL CELLS COUNTED 100
[2021-11-24 00:36] LABS: ANISOCYTOSIS 1+
[2021-11-24] MEDS: pantoprazole 40MG/NS 100ML BAG 100 ML IV SCH ×5 (01:00→21:04)
--- NOTE | 2021-11-24 02:17 | NUR ---
assisting primary RN at the bedside. this rn placed magda hugger under blankets for hypothermia. this RN scanned 1st unit of blood into PIV placed into R medial leg 18g PIV.
--- NOTE | 2021-11-24 04:12 | NUR ---
THE COUNSELOR DORMITORY, DR. RAZA HAS TOLD THE ER PHYSICIAN THAT HE IS OK WITH US USING THE DIALYSIS PORT FOR SNAPPER ON AT THIS TIME.
[2021-11-24 05:32] LABS: CLARITY,URINE CLOUDY (Clear); COLOR,URINE YELLOW (Yellow); GLUCOSE, URINE NEGATIVE (Neg); KETONES,URINE NEGATIVE (Neg); LEUKOCYTE ESTERASE ,URINE LARGE (Neg); NITRITES, URINE NEGATIVE (Neg); OCCULT BLOOD,URINE LARGE (Neg); PH,URINE 6.5 (4.8-8.0); PROTEIN,URINE 100 mg/dl (Neg); UROBILINOGEN,URINE 0.2 E.U/dL (0.2-1.0)
[2021-11-24 05:33] LABS: UA COLLECTION TYPE FOLEY CATH
[2021-11-24 05:44] LABS: WBC,URINE TNTC /HPF (0-4)
[2021-11-24 05:45] LABS: BACTERIA,URINE 3+ /HPF (Neg); MUCUS STRANDS NONE SEEN /LPF (Neg); RBC,URINE 20-50 /HPF (0-2); RENAL CELLS, URINE FEW /HPF; SQUAMOUS EPITHELIAL CELL,UR FEW /LPF (FEW)
[2021-11-24 05:46] LABS: COARSE GRANULAR CAST 0-3 /LPF (NEGATIVE); HYALINE CASTS 0-3 /LPF (NEGATIVE); WBC CLUMPS,URINE MODERATE /HPF (NEGATIVE)
--- NOTE | 2021-11-24 06:30 | NUR ---
first contact with pt. found supine in bed, mumbling and repeating that she wants water. when pt was asked if she knew where she was, she stated 'i don't give a shit'. pt appears to be confused. at bedside. levophed infusing per emar. pt able to turn with moderate assistance. linens changed. awaiting additional blood products coming from [facility] at 8 am, per blood bank. no distress.
--- NOTE | 2021-11-24 07:25 | NUR ---
telephone report to christine mcbride.
[2021-11-24 09:25] LABS: ALBUMIN 1.4 G/DL (3.4-5.0); ANION GAP 29 (8-16); BLOOD UREA NITROGEN 90 MG/DL (7-18); CALCIUM 8.3 MG/DL (8.5-10.1); CHLORIDE 100 MMOL/L (99-107); CREATININE 3.21 MG/DL (0.40-0.90); GLUCOSE 175 MG/DL (70-104); MAGNESIUM 1.8 MG/DL (1.5-2.4); PHOSPHORUS 7.8 MG/DL (2.3-4.5); SODIUM 136 MMOL/L (135-145); eGFR 15 ML/MIN
[2021-11-24 09:30] LABS: POTASSIUM 5.4 MMOL/L (3.5-5.1)
[2021-11-24 09:35] LABS: TOTAL CARBON DIOXIDE 7.3 MMOL/L (24-32)
[2021-11-24] MEDS ORDERED: non-formulary drug (Insulin Lispro (Humalog) 1 UNITS) SQ PRN (10:10)
[2021-11-24] MEDS ORDERED: dextrose 50%-water 50ml dispensing syringe IV PRN ×2 (10:15)
[2021-11-24] MEDS ORDERED: dextrose ORAL solution 15 GM/59 ML bottle PO PRN ×2 (10:15)
[2021-11-24] MEDS ORDERED: MESSAGE TO PHARMACY PO ONE (10:15)
[2021-11-24] MEDS ORDERED: glucagon, human recombinant 1mg kit SUBCUT PRN (10:15)
[2021-11-24] MEDS: normal saline 1000ml 1,000 ML IV SCH (10:33)
[2021-11-24] MEDS: hydrocortisone sod succ/PF 100mg/2ml inj. IV SCH ×3 (10:45→16:00)
[2021-11-24] MEDS: morphine 2 MG/ML inj. syringe IV PRN ×2 (11:06→21:57)
[2021-11-24 11:50] LABS: BASOPHILS # (AUTO) 0.2 X10'3 (0-0.2); BASOPHILS % (AUTO) 0.3 % (0-1); EOSINOPHILS % (AUTO) 0.1 % (0-6); LYMPHOCYTES % (AUTO) 2.8 % (21-51); MEAN CORPUSCULAR HEMOGLOBIN 27.8 PG (27.0-31.0); MEAN CORPUSCULAR HGB CONC 31.7 g/dL (33.0-36.5); MEAN CORPUSCULAR VOLUME 87.9 FL (78-98); MEAN PLATELET VOLUME 6.8 FL (7.4-10.4); MONOCYTES # (AUTO) 2.6 X10'3 (0-0.9); MONOCYTES % (AUTO) 3.6 % (2-12); NEUTROPHILS # (AUTO) 65.7 X10'3 (1.8-7.7); NEUTROPHILS % (AUTO) 93.2 % (42-75); PLATELET COUNT 510 X10'3 (140-440); RED BLOOD COUNT 2.26 X10'6 (4.20-5.60); RED CELL DISTRIBUTION WIDTH 16.2 % (11.5-14.5)
[2021-11-24 11:53] LABS: HEMATOCRIT 19.9 % (35.0-45.0); HEMOGLOBIN 6.3 g/dl (12.0-16.0); WHITE BLOOD COUNT 70.6 X10'3 (4.5-11.0)
[2021-11-24] MEDS ORDERED: MIDO2.5T14 PO (12:15)
[2021-11-24] MEDS ORDERED: SEVE0.8P3 PO (12:19)
[2021-11-24] MEDS ORDERED: [UNRECOGNIZED DRUG - CODE] IV (12:22)
[2021-11-24] MEDS ORDERED: normal saline 1000ml 100 ML IV PRN (12:40)
[2021-11-24] MEDS ORDERED: heparin 1,000 units/ml 10ml inj HE ONE ×2 (12:40)
[2021-11-24] MEDS ORDERED: normal saline 1000ml 250 ML IV PRN (12:40)
[2021-11-24] MEDS ORDERED: EPOETIN ALFA-EPBX 20,000 UNIT/ML 1 ML MDV IV ONE (12:40)
[2021-11-24] MEDS ORDERED: normal saline 1000ml 1,000 ML IV ONE ×3 (14:35→16:40)
--- NOTE | 2021-11-24 14:42 | NUR ---
Initial: Pt admit from [facility] DX septic shock, hypovolemic shock, UGIB, anemia, AMS, and hx ESRD on HD per EMR. Pt hx DM A1C 4.9% on prior admit 10/29/21 though Hgb 9.5 at that time per EMR. Hx colostomy following recent GI surgery output pending. Pt recent discharge 11/15 on pureed/nectar thick diet mostly refused vs 0% all meals for 7 days prior to discharge. RD contacted [facility] RD who reports pt poor PO at most ~40% pureed/carb controlled/renal/nectar thick meals prior to transfer here. Per [facility] RD; pt had signed waiver to allow thin liquids w/ meals even though against HIGH WORKER recs. Pt refusing HD at [facility] as well per MD notes. Pt remains NPO at this time likely meets severe malnutrition criteria given prior poor PO hx however pending physical assessment and further criteria this admit. IF pt poor PO to persist w/ AMS following diet advancement; may benefit from PEG for long-term nutrition IF within plan of care. Will continue to monitor. Rec: 1. advance diet per HIGH WORKER/MD recs to vegetarian/pureed/nectar thick liquids; only consider carb controlled or renal restrictions if pt consumes meals 2. monitor for ONS needs if PO acceptance this admit 3. IF pt continues to refuse vs 0% intake majority of meals consider NG feeds to optimize nutrition status on HD 4. bowel care per rx 5. wts w/ HD 6. IF pt refusal of nutrition intake persists consider PEG for long-term nutrition needs given inadequate intake hx since 11/09 recent admit w/ AMS and IF within plan of care Addendum: 11/24/21 at [address] Amended: Links added.
[2021-11-24] MEDS: cefTAZidime inj. 1 GM in normal saline 100ml IV soln 100 ML IV SCH (14:45)
[2021-11-24] MEDS ORDERED: amiodarone 150mg/dext, iso-os 100 ML IV ONE ×2 (15:04→15:05)
[2021-11-24] MEDS ORDERED: amiodarone/D5 360MG/200ML BAG 200 ML IV ONE (15:04)
[2021-11-24 15:15] LABS: LYMPHOCYTES % (MANUAL) 3.5 % (21-51); NEUTROPHILS % (MANUAL) 79.5 % (42-75); TOTAL CELLS COUNTED 200
[2021-11-24] MEDS ORDERED: sodium bicarbonate (8.4%) 1 mEq/ml syringe IV ONE (15:15)
[2021-11-24 15:16] LABS: ANISOCYTOSIS 1+; PLATELET ESTIMATE INCREASED
[2021-11-24 15:17] LABS: BURR CELLS 1+; ELLIPTOCYTES FEW; TOXIC GRANULATION 2+
[2021-11-24] MEDS ORDERED: sodium bicarbonate (8.4%) 1 mEq/ml syringe ONE (15:54)
[2021-11-24 16:35] LABS: HEMATOCRIT 23.3 % (35.0-45.0); HEMOGLOBIN 7.9 g/dl (12.0-16.0); MEAN CORPUSCULAR HEMOGLOBIN 29.2 PG (27.0-31.0); MEAN CORPUSCULAR HGB CONC 34.1 g/dL (33.0-36.5); MEAN CORPUSCULAR VOLUME 85.7 FL (78-98); MEAN PLATELET VOLUME 6.7 FL (7.4-10.4); PLATELET COUNT 231 X10'3 (140-440); RED BLOOD COUNT 2.71 X10'6 (4.20-5.60); RED CELL DISTRIBUTION WIDTH 15.2 % (11.5-14.5)
[2021-11-24 16:39] LABS: WHITE BLOOD COUNT 31.6 X10'3 (4.5-11.0)
[2021-11-24 16:51] LABS: ALANINE AMINOTRANSFERASE 51 U/L (12-78); ALBUMIN/GLOBULIN RATIO 0.5 (1.1-1.5); ALKALINE PHOSPHATASE 83 IU/L (46-116); ANION GAP 10 (8-16); ASPARTATE AMINO TRANSFERASE 130 U/L (10-37); BILIRUBIN,TOTAL 0.3 MG/DL (0.1-1.0); BLOOD UREA NITROGEN 24 MG/DL (7-18); BUN/CREATININE RATIO 26.4 (6.6-38.0); CALCIUM 6.6 MG/DL (8.5-10.1); CHLORIDE 108 MMOL/L (99-107); CREATININE 0.91 MG/DL (0.40-0.90); GLUCOSE 128 MG/DL (70-104); SODIUM 144 MMOL/L (135-145); TOTAL CARBON DIOXIDE 26.1 MMOL/L (24-32); TOTAL PROTEIN 3.2 G/DL (6.4-8.2); eGFR 63 ML/MIN
[2021-11-24 17:10] LABS: HYPERSEGMENTED NEUTROPHILS FEW; PLATELET ESTIMATE NORMAL; TOTAL CELLS COUNTED 100; TOXIC GRANULATION 3+
[2021-11-24 17:11] LABS: ANISOCYTOSIS FEW; BURR CELLS 1+; TOXIC VACUOLATION 1+
[2021-11-24] MEDS: sevelamer carbonate 0.8gm powder pkt PO SCH (18:00)
[2021-11-24] MEDS: amitriptyline 50mg tablet PO SCH (20:45)
[2021-11-24] MEDS: midodrine tablet 2.5 MG TABLET PO SCH (20:46)
[2021-11-24] MEDS: insulin glargine (Lantus) pen - multi-dose SQ SCH (21:00)
[2021-11-24] MEDS: amiodarone/D5 360MG/200ML BAG 200 ML IV SCH (21:04)
[2021-11-24] MEDS: octreotide inj. 1,250 MCG in normal saline 250ml IV soln 243.75 ML IV SCH (21:04)
[2021-11-24] MEDS: NORepinephrine 8mg/ 250ml NS 250 ML IV SCH (21:36)
[2021-11-24] MEDS ORDERED: vancomycin/NS 1 GM ADD-VANTAGE 250 ML X 1 DOSE IV PRN (23:59)
[2021-11-25] VITALS (25 sets, daily range): BP systolic 107–156; BP diastolic 38–110
[2021-11-25] MEDS: hydrocortisone sod succ/PF 100mg/2ml inj. IV SCH ×4 (00:01→23:53)
[2021-11-25] MEDS: VANCOMYCIN LEVEL IV SCH (03:00)
[2021-11-25] MEDS: pantoprazole 40MG/NS 100ML BAG 100 ML IV SCH ×5 (03:35→21:32)
[2021-11-25 03:46] LABS: BASOPHILS % (AUTO) 0.1 % (0-1); EOSINOPHILS # (AUTO) 0.2 X10'3 (0-0.9); EOSINOPHILS % (AUTO) 0.5 % (0-6); HEMATOCRIT 25.5 % (35.0-45.0); HEMOGLOBIN 8.4 g/dl (12.0-16.0); LYMPHOCYTES # (AUTO) 1.4 X10'3 (1.1-4.8); LYMPHOCYTES % (AUTO) 3.4 % (21-51); MEAN CORPUSCULAR HEMOGLOBIN 28.7 PG (27.0-31.0); MEAN CORPUSCULAR VOLUME 86.9 FL (78-98); MEAN PLATELET VOLUME 6.6 FL (7.4-10.4); MONOCYTES # (AUTO) 0.8 X10'3 (0-0.9); MONOCYTES % (AUTO) 1.9 % (2-12); NEUTROPHILS # (AUTO) 38.4 X10'3 (1.8-7.7); NEUTROPHILS % (AUTO) 94.1 % (42-75); PLATELET COUNT 333 X10'3 (140-440); RED BLOOD COUNT 2.94 X10'6 (4.20-5.60); RED CELL DISTRIBUTION WIDTH 15.7 % (11.5-14.5)
[2021-11-25 03:57] LABS: WHITE BLOOD COUNT 40.8 X10'3 (4.5-11.0)
[2021-11-25 03:59] LABS: ALBUMIN 1.2 G/DL (3.4-5.0); ANION GAP 26 (8-16); BLOOD UREA NITROGEN 36 MG/DL (7-18); BUN/CREATININE RATIO 25.5 (6.6-38.0); CALCIUM 7.8 MG/DL (8.5-10.1); CHLORIDE 100 MMOL/L (99-107); CREATININE 1.41 MG/DL (0.40-0.90); GLUCOSE 198 MG/DL (70-104); MAGNESIUM 1.6 MG/DL (1.5-2.4); PHOSPHORUS 3.2 MG/DL (2.3-4.5); SODIUM 140 MMOL/L (135-145); VANCOMYCIN,RANDOM 11.1 UG/ML; eGFR 38 ML/MIN
[2021-11-25 04:03] LABS: POTASSIUM 2.6 MMOL/L (3.5-5.1)
[2021-11-25 04:04] LABS: TOTAL CARBON DIOXIDE 13.7 MMOL/L (24-32)
[2021-11-25] MEDS ORDERED: magnesium 2GM in 50ml NS 50 ML IV ONE (04:45)
[2021-11-25] MEDS ORDERED: LORazepam 2 mg/ml vial IV ONE ×2 (04:45→21:20)
[2021-11-25 05:16] LABS: ABG HCO3 11.5 mmol/L (22.0-26.0); ABG OXYGEN SATURATION 93.8 % (94-97); ABG PCO2 (T) 22.7 mmHg (32.0-45.0); ABG PO2 (T) 76.2 mmHg (75.0-100.0); ALLEN'S TEST POSITIVE; FCOHb 0.3 % (0.0-3.9); FMetHb 0.5 % (0.0-1.5); TOTAL HEMOGLOBIN 9.1 G/dl (12.0-16.0)
[2021-11-25 05:28] LABS: ANISOCYTOSIS FEW; PLATELET ESTIMATE NORMAL; TOTAL CELLS COUNTED 100
[2021-11-25 05:29] LABS: BURR CELLS 1+; TOXIC GRANULATION 3+
[2021-11-25] MEDS: potassium Cl 10 mEq/100mL bag IV SCH (06:30)
[2021-11-25] MEDS ORDERED: vancomycin/NS 1 GM ADD-VANTAGE 250 ML X 1 DOSE IV ONE (07:30)
[2021-11-25] MEDS: sevelamer carbonate 0.8gm powder pkt PO SCH ×3 (08:00→18:00)
[2021-11-25] MEDS ORDERED: insulin glargine (Lantus) pen - multi-dose SQ SCH (08:00)
[2021-11-25] MEDS: docusate sod 100mg capsule PO SCH (08:53)
[2021-11-25] MEDS: cefTAZidime inj. 1 GM in normal saline 100ml IV soln 100 ML IV SCH (08:53)
[2021-11-25] MEDS: midodrine tablet 2.5 MG TABLET PO SCH ×3 (08:54→21:00)
[2021-11-25] MEDS: lactobacillus rhamnosus 10,000 MMU CELLS/CAPSULE PO SCH ×2 (08:54→19:35)
[2021-11-25] MEDS: insulin Lispro (HumaLOG) vial - multi-dose SQ SCH ×2 (09:19→15:58)
--- NOTE | 2021-11-25 09:19 | NUR ---
F/u 11/25: Physical assessment complete, pt documented with severe decrease in muscle strength. Pt currently meets criteria for malnutrition given poor PO intake hx and severe muscle weakness. Pt remains NPO at this time, recommend BSS with ST prior to PO diet advancement in view of previously on a texture modified diet (pureed, nectar thick liquids), though given prolonged poor PO intake pt would benefit from nutrition support to meet estimated nutrient needs. New A1c this admit 5.7%. Will continue to follow closely. Initial: Pt admit from [facility] DX septic shock, hypovolemic shock, UGIB, anemia, AMS, and hx ESRD on HD per EMR. Pt hx DM A1C 4.9% on prior admit 10/29/21 though Hgb 9.5 at that time per EMR. Hx colostomy following recent GI surgery output pending. Pt recent discharge 11/15 on pureed/nectar thick diet mostly refused vs 0% all meals for 7 days prior to discharge. RD contacted [facility] RD who reports pt poor PO at most ~40% pureed/carb controlled/renal/nectar thick meals prior to transfer here. Per [facility] RD; pt had signed waiver to allow thin liquids w/ meals even though against JAVA SECURITY ENGINEER recs. Pt refusing HD at [facility] as well per MD notes. Pt remains NPO at this time likely meets severe malnutrition criteria given prior poor PO hx however pending physical assessment and further criteria this admit. IF pt poor PO to persist w/ AMS following diet advancement; may benefit from PEG for long-term nutrition IF within plan of care. Will continue to monitor. Recommendations: 1. Advance diet per JAVA SECURITY ENGINEER/MD recs to vegetarian/pureed/nectar thick liquids; only consider carb controlled or renal restrictions if pt consumes meals; A1c 5.7% with h/o poor PO intake 2. Monitor for ONS needs if PO acceptance this admit 3. IF pt continues to refuse vs 0% intake majority of meals consider NG feeds to optimize nutrition status on HD 4. Bowel care per rx 5. Scaled weights with HD 6. IF pt refusal of nutrition intake persists consider PEG for long-term nutrition needs given inadequate intake hx since 11/09 recent admit w/ AMS and IF within plan of care Addendum: 11/25/21 at [address] Amended: Links added.
[2021-11-25] MEDS ORDERED: potassium Cl 20 mEq/100mL bag IV ONE ×2 (09:40→10:40)
[2021-11-25] MEDS ORDERED: potassium Cl 20mEq/100mL bag 100 ML IV ONE (09:45)
[2021-11-25] MEDS: amiodarone/D5 360MG/200ML BAG 200 ML IV SCH ×5 (09:55→21:25)
[2021-11-25 13:43] LABS: HBSAG SCREEN Negative (Negative)
[2021-11-25] MEDS ORDERED: MIDAZolam 1 MG/ML 5ML VIAL ONE (14:13)
[2021-11-25] MEDS ORDERED: fentaNYL/PF 50MCG/1 ML 2ML syringe ONE (14:13)
[2021-11-25] MEDS ORDERED: LIDOcaine Viscous 15ml cup ONE (14:13)
[2021-11-25] MEDS ORDERED: diphenhydrAMINE 50 mg/ml inj ONE (14:13)
--- NOTE | 2021-11-25 14:42 | NUR ---
Late entry, Pt pulled off her colostomy bag, full linen change and midline abd dressing and packing change done. at bedside during event and cleanup, he was quite helpful in the attempt. 1600 EGD done at bedside per endo team, pt Tolerated well, results pending. Of note, pt is always very insistant on lying on back. turns as scheduled, however she immediately moves back to her back. I'm concerned that we may never get a handle on her preexistant sacral Decub.
[2021-11-25] MEDS: normal saline 1000ml 1,000 ML IV SCH (15:00)
[2021-11-25] MEDS: octreotide inj. 1,250 MCG in normal saline 250ml IV soln 243.75 ML IV SCH (19:38)
[2021-11-25] MEDS: NORepinephrine 8mg/ 250ml NS 250 ML IV SCH (20:12)
[2021-11-25] MEDS: amitriptyline 50mg tablet PO SCH (21:00)
[2021-11-25] MEDS: insulin glargine (Lantus) pen - multi-dose SQ SCH (21:00)
[2021-11-26] VITALS (24 sets, daily range): BP systolic 104–152; BP diastolic 39–60
[2021-11-26] MEDS: pantoprazole 40MG/NS 100ML BAG 100 ML IV SCH ×4 (01:00→20:11)
[2021-11-26] MEDS: amiodarone/D5 360MG/200ML BAG 200 ML IV SCH ×4 (03:29→21:41)
[2021-11-26] MEDS: VANCOMYCIN LEVEL IV SCH (07:00)
[2021-11-26] MEDS: cefTAZidime inj. 1 GM in normal saline 100ml IV soln 100 ML IV SCH (07:36)
[2021-11-26] MEDS: hydrocortisone sod succ/PF 100mg/2ml inj. IV SCH ×3 (07:38→23:25)
[2021-11-26] MEDS: midodrine tablet 2.5 MG TABLET PO SCH ×3 (07:38→20:51)
[2021-11-26] MEDS: docusate sod 100mg capsule PO SCH (07:38)
[2021-11-26] MEDS: lactobacillus rhamnosus 10,000 MMU CELLS/CAPSULE PO SCH ×2 (07:38→20:12)
[2021-11-26] MEDS: sevelamer carbonate 0.8gm powder pkt PO SCH ×3 (07:47→18:00)
[2021-11-26 08:06] LABS: BASOPHILS % (AUTO) 0.1 % (0-1); EOSINOPHILS # (AUTO) 0.1 X10'3 (0-0.9); EOSINOPHILS % (AUTO) 0.1 % (0-6); HEMOGLOBIN 8.1 g/dl (12.0-16.0); LYMPHOCYTES # (AUTO) 1.4 X10'3 (1.1-4.8); LYMPHOCYTES % (AUTO) 3.7 % (21-51); MEAN CORPUSCULAR HEMOGLOBIN 28.9 PG (27.0-31.0); MEAN CORPUSCULAR HGB CONC 32.4 g/dL (33.0-36.5); MEAN CORPUSCULAR VOLUME 89.1 FL (78-98); MEAN PLATELET VOLUME 6.7 FL (7.4-10.4); MONOCYTES # (AUTO) 1.1 X10'3 (0-0.9); MONOCYTES % (AUTO) 2.9 % (2-12); NEUTROPHILS # (AUTO) 35.2 X10'3 (1.8-7.7); NEUTROPHILS % (AUTO) 93.2 % (42-75); PLATELET COUNT 330 X10'3 (140-440); RED BLOOD COUNT 2.81 X10'6 (4.20-5.60); RED CELL DISTRIBUTION WIDTH 17.3 % (11.5-14.5)
[2021-11-26 08:10] LABS: WHITE BLOOD COUNT 37.7 X10'3 (4.5-11.0)
[2021-11-26 08:12] LABS: ALBUMIN 1.2 G/DL (3.4-5.0); ANION GAP 20 (8-16); BLOOD UREA NITROGEN 45 MG/DL (7-18); BUN/CREATININE RATIO 21.8 (6.6-38.0); CALCIUM 8.3 MG/DL (8.5-10.1); CHLORIDE 107 MMOL/L (99-107); CREATININE 2.06 MG/DL (0.40-0.90); GLUCOSE 162 MG/DL (70-104); MAGNESIUM 2.3 MG/DL (1.5-2.4); PHOSPHORUS 4.2 MG/DL (2.3-4.5); POTASSIUM 3.3 MMOL/L (3.5-5.1); SODIUM 143 MMOL/L (135-145); TOTAL CARBON DIOXIDE 16.4 MMOL/L (24-32); VANCOMYCIN,RANDOM 18.4 UG/ML; eGFR 25 ML/MIN
[2021-11-26 08:30] LABS: ANISOCYTOSIS 1+; PLATELET ESTIMATE NORMAL; TOTAL CELLS COUNTED 100
[2021-11-26 08:31] LABS: BURR CELLS 3+; LARGE PLATELETS FEW; POLYCHROMASIA 1+; SMUDGE CELLS 1+; TOXIC GRANULATION 2+
[2021-11-26 11:30] LABS: ALBUMIN 1.3 G/DL (3.4-5.0); ANION GAP 16 (8-16); BLOOD UREA NITROGEN 45 MG/DL (7-18); BUN/CREATININE RATIO 20.7 (6.6-38.0); CALCIUM 8.4 MG/DL (8.5-10.1); CHLORIDE 106 MMOL/L (99-107); CREATININE 2.17 MG/DL (0.40-0.90); GLUCOSE 150 MG/DL (70-104); POTASSIUM 3.3 MMOL/L (3.5-5.1); SODIUM 142 MMOL/L (135-145); TOTAL CARBON DIOXIDE 19.8 MMOL/L (24-32); eGFR 23 ML/MIN
[2021-11-26] MEDS: meropenem inj 1 GM in normal saline 100ml IV soln 100 ML IV SCH ×2 (13:38→23:25)
[2021-11-26] MEDS ORDERED: metoclopramide 5 mg/ml inj IV ONE (16:00)
--- NOTE | 2021-11-26 16:07 | NUR ---
[facility] sump NG placed after 1 attempt, placement confirmed by KUB per dr Osman. 2 IV attempts, unsuccessful, will continue to use dialisys access for imeds per incompatability in lines until picc placed tomorrow.
[2021-11-26] MEDS: morphine 2 MG/ML inj. syringe IV PRN (16:32)
[2021-11-26] MEDS ORDERED: ondansetron 4mg rapidly disintigrating tab PO PRN (16:40)
[2021-11-26] MEDS: normal saline 1000ml 1,000 ML IV SCH (17:40)
[2021-11-26] MEDS: NORepinephrine 8mg/ 250ml NS 250 ML IV SCH (18:48)
[2021-11-26] MEDS: amitriptyline 50mg tablet PO SCH (20:51)
[2021-11-26] MEDS: insulin glargine (Lantus) pen - multi-dose SQ SCH (20:57)
[2021-11-26] MEDS: diatr meglu/diatrizoate 30ml oral sol.-(3 dose) bottle PO SCH (21:00)
[2021-11-27] VITALS (22 sets, daily range): BP systolic 100–147; BP diastolic 39–87
[2021-11-27] MEDS: morphine 2 MG/ML inj. syringe IV PRN ×4 (02:30→21:51)
[2021-11-27] MEDS: insulin Lispro (HumaLOG) vial - multi-dose SQ SCH ×2 (02:42→09:04)
[2021-11-27 06:35] LABS: BASOPHILS % (AUTO) 0 % (0-1); EOSINOPHILS % (AUTO) 0 % (0-6); HEMATOCRIT 23.2 % (35.0-45.0); HEMOGLOBIN 7.7 g/dl (12.0-16.0); LYMPHOCYTES # (AUTO) 1.1 X10'3 (1.1-4.8); LYMPHOCYTES % (AUTO) 3.8 % (21-51); MEAN CORPUSCULAR HEMOGLOBIN 28.7 PG (27.0-31.0); MEAN CORPUSCULAR HGB CONC 33.2 g/dL (33.0-36.5); MEAN CORPUSCULAR VOLUME 86.4 FL (78-98); MEAN PLATELET VOLUME 6.6 FL (7.4-10.4); MONOCYTES # (AUTO) 0.7 X10'3 (0-0.9); MONOCYTES % (AUTO) 2.3 % (2-12); NEUTROPHILS # (AUTO) 27.7 X10'3 (1.8-7.7); NEUTROPHILS % (AUTO) 93.9 % (42-75); PLATELET COUNT 279 X10'3 (140-440); RED BLOOD COUNT 2.69 X10'6 (4.20-5.60); RED CELL DISTRIBUTION WIDTH 17.1 % (11.5-14.5)
[2021-11-27 06:47] LABS: WHITE BLOOD COUNT 29.5 X10'3 (4.5-11.0)
[2021-11-27] MEDS: normal saline 1000ml 1,000 ML IV SCH (07:00)
[2021-11-27] MEDS: VANCOMYCIN LEVEL IV SCH (07:00)
[2021-11-27 07:15] LABS: ALBUMIN 1.2 G/DL (3.4-5.0); ANION GAP 18 (8-16); BLOOD UREA NITROGEN 50 MG/DL (7-18); BUN/CREATININE RATIO 20.2 (6.6-38.0); CALCIUM 8.1 MG/DL (8.5-10.1); CHLORIDE 107 MMOL/L (99-107); CREATININE 2.48 MG/DL (0.40-0.90); GLUCOSE 243 MG/DL (70-104); MAGNESIUM 2.1 MG/DL (1.5-2.4); PHOSPHORUS 4.6 MG/DL (2.3-4.5); POTASSIUM 3.4 MMOL/L (3.5-5.1); SODIUM 143 MMOL/L (135-145); TOTAL CARBON DIOXIDE 18.3 MMOL/L (24-32); VANCOMYCIN,RANDOM 16.2 UG/ML; eGFR 20 ML/MIN
[2021-11-27] MEDS: pantoprazole 40MG/NS 100ML BAG 100 ML IV SCH ×2 (07:18→19:21)
[2021-11-27] MEDS: midodrine tablet 2.5 MG TABLET PO SCH ×3 (07:19→20:26)
[2021-11-27] MEDS: sevelamer carbonate 0.8gm powder pkt PO SCH ×3 (07:19→18:00)
[2021-11-27] MEDS: lactobacillus rhamnosus 10,000 MMU CELLS/CAPSULE PO SCH ×2 (07:19→19:22)
[2021-11-27] MEDS: hydrocortisone sod succ/PF 100mg/2ml inj. IV SCH ×3 (07:21→23:57)
[2021-11-27] MEDS: diatr meglu/diatrizoate 30ml oral sol.-(3 dose) bottle PO SCH ×2 (07:21→20:27)
[2021-11-27 07:27] LABS: TOTAL CELLS COUNTED 100
[2021-11-27] MEDS: docusate sodium 100mg/10ml UD cup PO SCH (07:27)
[2021-11-27 07:28] LABS: ANISOCYTOSIS 1+; PLATELET ESTIMATE NORMAL
[2021-11-27 07:29] LABS: BURR CELLS 2+
[2021-11-27 07:30] LABS: POLYCHROMASIA 1+; TEAR DROP CELLS FEW
[2021-11-27] MEDS: meropenem inj 1 GM in normal saline 100ml IV soln 100 ML IV SCH ×2 (08:18→16:23)
[2021-11-27] MEDS: amiodarone/D5 360MG/200ML BAG 200 ML IV SCH ×2 (09:13→10:39)
[2021-11-27] MEDS ORDERED: iohexol 300mg/ml 100ml inj. ONE (11:06)
[2021-11-27] MEDS: heparin, porcine 5000 units/ml vial SQ SCH ×2 (11:07→19:23)
[2021-11-27] MEDS ORDERED: amiodarone 200mg tablet PO SCH (11:08)
[2021-11-27] MEDS: amiodarone 200mg tablet NG SCH ×2 (11:08→19:24)
--- NOTE | 2021-11-27 11:55 | NUR ---
F/u 11/27: Pt remains NPO though NGT placed 11/26. Pt w/ possible gastroparesis, going for a CT chest/abdomen today per MD. MD states will decide on feeding plan pending CT results. Pt continues on HD. 100ml ostomy output 11/26 per documentation. Pt noted w/ large sacral pressure wound, pending WOC assessment at this time. Will continue to monitor and make recommendations as appropriate Recommendations: 1. Advance diet per MANAGER EMERGENCY DEPARTMENT/MD recs to vegetarian/pureed/nectar thick liquids; only consider carb controlled or renal restrictions if pt consumes meals; A1c 5.7% with h/o poor PO intake 2. Monitor for ONS needs if PO acceptance this admit 3. IF pt continues to refuse vs 0% intake majority of meals consider NG feeds to optimize nutrition status on HD 4. Bowel care per rx 5. Scaled weights with HD 6. IF pt refusal of nutrition intake persists consider PEG for long-term nutrition needs given inadequate intake hx since 11/09 recent admit w/ AMS and IF within plan of care Addendum: 11/27/21 at [address] Amended: Links added.
--- NOTE | 2021-11-27 13:22 | NUR ---
WOUND INFECTION EDUCATION PROVIDED BY WOUND CARE 1. Patient instructed to call their primary doctor, or go the ED immediately if any of the following symptoms occur: * Increased pain in wound * Increase in drainage from the wound * Redness in the skin surrounding the wound * Warmth in the skin surrounding the wound * Bleeding from the wound * Temperature of 101 or greater 2. If any of these occur while in the hospital tell a nurse immediately. PRESSURE ULCER EDUCATION: DEFINITION: A pressure ulcer is an area of skin that breaks down when you stay in one position too long. The constant pressure against the skin reduces the blood flow to that area and the affected tissue dies. CAUSES: "Being bedridden or in a wheelchair "Fragile skin "Having a chronic condition, such as diabetes or vascular disease "Inability to move certain parts of your body without assistance "Older age "Incontinence of urine or stool SYMPTOMS: "A reddened area that DOES NOT turn white when pressed on - this can be the beginning of a pressure ulcer "A blister, deep sore or a crater - these can be advanced pressure ulcers FIRST AID: "Relieve the pressure on this area "Keep the area clean and dry "Call your primary doctor if you see any of the above symptoms "DO NOT massage the area "DO NOT use a donut shaped or ring shaped pillow- these actually interfere with the blood flow and cause complications PREVENTION: "Check for pressure ulcers everyday "Change position at least every two hours to relieve pressure "Use items that help relieve pressure- pillows, sheepskin, foam padding, and powders. "Keep skin clean and dry "Eat healthy well balanced meals "Exercise daily IF YOU SEE ANY OF THESE SYMPTOMS WHILE IN THE HOSPITAL - TELL YOUR NURSE IMMEDIATELY. IF YOU SEE ANY OF THESE SYMPTOMS WHILE AT HOME OR HAVE ANY QUESTIONS OR CONCERNS ABOUT PRESSURE ULCERS - CALL YOUR PRIMARY DOCTOR IMMEDIATELY. Addendum: 11/27/21 at 1323 by Genie Turner RN Amended: Links added.
--- NOTE | 2021-11-27 18:15 | NUR ---
Patient in room ICU 2037. I have received report from MINNA Sharif and had the opportunity to ask questions and assume patient. Pt's hysband in room with pt. care. Addendum: 11/27/21 at 2147 by Jerrica Lake RN Pt to be to transferred, to [facility] [address]
--- NOTE | 2021-11-27 19:15 | NUR ---
Problems reprioritized. Patient report given,to MINNA Valentin,by, MINNA Richard, questions answered & plan of care reviewed with MINNA Valentin. Addendum: 11/27/21 at 2214 by Jerrica Lake RN Report given by aram Denise as documented in error.
[2021-11-27] MEDS: amitriptyline 50mg tablet PO SCH (20:27)
--- NOTE | 2021-11-27 20:35 | NUR ---
Pt trnaferred in bed, to 3012[address], with portable monitor, in a stable condition. NGT remain clamped, small amount of residual obtained.
--- NOTE | 2021-11-27 21:00 | NUR ---
Received pt via bed , by her side. pt transferred to bed with total assistance .Patient and family oriented to room and staff. Cardiac monitoring box placed on pt, Pt positions on her left side per her request. mid abdominal and sacral dressing assessed and found to be cleaned and intact. Colostomy bag with dark liquid stool. Dialysis catheter to right upper chest noted. Left leg med lock patent and IV fluid restated.
[2021-11-27] MEDS: insulin glargine (Lantus) pen - multi-dose SQ SCH (21:18)
--- NOTE | 2021-11-28 | NUR ---
NG tube residual 5 ml
[2021-11-28] MEDS: normal saline 1000ml 1,000 ML IV SCH ×3 (01:00→15:16)
[2021-11-28] MEDS: morphine 2 MG/ML inj. syringe IV PRN ×2 (01:34→22:32)
[2021-11-28 02:00] VITALS: BP 119/53
--- NOTE | 2021-11-28 02:45 | NUR ---
Lab draw done including vancomycin level
[2021-11-28 03:03] LABS: BASOPHILS % (AUTO) 0.1 % (0-1); EOSINOPHILS % (AUTO) 0 % (0-6); HEMATOCRIT 23.5 % (35.0-45.0); HEMOGLOBIN 7.7 g/dl (12.0-16.0); LYMPHOCYTES # (AUTO) 0.7 X10'3 (1.1-4.8); MEAN CORPUSCULAR HEMOGLOBIN 28.2 PG (27.0-31.0); MEAN CORPUSCULAR HGB CONC 32.9 g/dL (33.0-36.5); MEAN CORPUSCULAR VOLUME 85.7 FL (78-98); MEAN PLATELET VOLUME 6.6 FL (7.4-10.4); MONOCYTES # (AUTO) 0.5 X10'3 (0-0.9); MONOCYTES % (AUTO) 2.2 % (2-12); NEUTROPHILS % (AUTO) 94.7 % (42-75); PLATELET COUNT 279 X10'3 (140-440); RED BLOOD COUNT 2.74 X10'6 (4.20-5.60); RED CELL DISTRIBUTION WIDTH 17.1 % (11.5-14.5); WHITE BLOOD COUNT 23.2 X10'3 (4.5-11.0)
[2021-11-28] MEDS: VANCOMYCIN LEVEL IV SCH (03:13)
[2021-11-28 03:19] LABS: ALBUMIN 1.2 G/DL (3.4-5.0); ANION GAP 12 (8-16); BLOOD UREA NITROGEN 53 MG/DL (7-18); BUN/CREATININE RATIO 20.7 (6.6-38.0); CHLORIDE 107 MMOL/L (99-107); CREATININE 2.56 MG/DL (0.40-0.90); GLUCOSE 168 MG/DL (70-104); MAGNESIUM 2.1 MG/DL (1.5-2.4); PHOSPHORUS 4.4 MG/DL (2.3-4.5); POTASSIUM 3.2 MMOL/L (3.5-5.1); SODIUM 142 MMOL/L (135-145); TOTAL CARBON DIOXIDE 22.7 MMOL/L (24-32); VANCOMYCIN,RANDOM 14.7 UG/ML; eGFR 19 ML/MIN
[2021-11-28] MEDS ORDERED: HYDROcodone/acetaminophen 5mg/325mg tablet PO PRN (03:50)
[2021-11-28] MEDS ORDERED: magnesium 2GM in 50ml NS 50 ML IV PRN (03:55)
[2021-11-28] MEDS ORDERED: magnesium Cl slow-release 64mg tablet PO PRN (03:55)
[2021-11-28] MEDS ORDERED: potassium CL 10mEq/100ml bag 100 ML IV PRN (03:55)
[2021-11-28] MEDS ORDERED: potassium Cl 20 mEq SR tablet PO PRN ×2 (03:55)
[2021-11-28] MEDS ORDERED: magnesium 4gm in 100ml NS 100 ML IV PRN (03:55)
--- NOTE | 2021-11-28 04:00 | NUR ---
Lacy care done, pt turned to her right side, bilateral extremities elevated on pillow. Iv infusing well.
[2021-11-28] MEDS ORDERED: potassium chloride 10mEq ER tablet PO PRN (04:04)
[2021-11-28] MEDS: midodrine tablet 2.5 MG TABLET PO SCH ×2 (08:00→13:00)
[2021-11-28] MEDS: meropenem inj 1 GM in normal saline 100ml IV soln 100 ML IV SCH ×4 (08:00→15:15)
[2021-11-28] MEDS: docusate sodium 100mg/10ml UD cup PO SCH (08:00)
[2021-11-28] MEDS: K and/or MAG REPLACEMENT MC SCH ×2 (08:00→20:00)
[2021-11-28] MEDS: pantoprazole 40MG/NS 100ML BAG 100 ML IV SCH ×3 (08:00→21:43)
[2021-11-28] MEDS: amiodarone 200mg tablet NG SCH ×2 (08:00→21:43)
[2021-11-28] MEDS: hydrocortisone sod succ/PF 100mg/2ml inj. IV SCH ×2 (08:00→15:15)
[2021-11-28] MEDS: lactobacillus rhamnosus 10,000 MMU CELLS/CAPSULE PO SCH ×2 (08:00→21:42)
[2021-11-28] MEDS: sevelamer carbonate 0.8gm powder pkt PO SCH ×3 (08:00→18:00)
[2021-11-28] MEDS: heparin, porcine 5000 units/ml vial SQ SCH (08:00)
[2021-11-28] MEDS ORDERED: EPOETIN ALFA-EPBX 20,000 UNIT/ML 1 ML MDV IV ONE (08:20)
[2021-11-28] MEDS ORDERED: albumin (human) 25% 100ml IV 100 ML IV PRN (08:20)
[2021-11-28] MEDS ORDERED: heparin 1,000 units/ml 10ml inj HE ONE ×2 (08:25)
[2021-11-28 11:41] LABS: HEMATOCRIT 24.7 % (35.0-45.0); HEMOGLOBIN 8.1 g/dl (12.0-16.0); MEAN CORPUSCULAR HGB CONC 32.8 g/dL (33.0-36.5); MEAN CORPUSCULAR VOLUME 85.3 FL (78-98); MEAN PLATELET VOLUME 6.6 FL (7.4-10.4); PLATELET COUNT 253 X10'3 (140-440); RED CELL DISTRIBUTION WIDTH 17.4 % (11.5-14.5); WHITE BLOOD COUNT 18.5 X10'3 (4.5-11.0)
[2021-11-28 12:43] LABS: PREALBUMIN 14.5 MG/DL (19-36); TRIGLYCERIDES 124 MG/DL (20-135)
--- NOTE | 2021-11-28 12:47 | NUR ---
TPN consult: Pt remains NPO with an NGT in place, documented with 50 mL output from NGT 11/27 per I&O. TC to RN regarding EN rather than TPN, per granite countertop installer is full of blood so MD would like TPN. Pt pending PICC placement at this time per RN. TPN recommendations below have been d/w clinical pharmacist. Pt documented with 350 mL stool output 11/27 with 50 mL stool output so far today. Pt seen by wound care, per report pt with unstageable PI to sacrum, DTI to right ischium with skin intact, and full thickness surgical wound to abdomen. Pt will receive increased protein once TPN is at goal rate. Will continue to follow closely. Recommendations: 1. Continuous TPN per MD using 2:1 Clinimix non-E 03/30 with 75 mL/hr goal rate with additional 100 mL 20% intralipids to run at 8.33 mL/hr for 12 hrs/day. In total to provide 1900 mL total volume/day, 90 g AA, 360 g dext (4.24 mg/kg/min dext load), and 1784 kcal. 2. Prealbumin and TG q Saturday/ 3. Daily scaled weights 4. Transition to NGTF as medically indicated 5. BSS with ST prior to PO diet advancement, previously receiving pureed food with nectar thick liquids; recommend vegetarian diet per pt preferences; only consider carb controlled or renal restrictions if pt consumes meals; A1c 5.7% with h/o poor PO intake 6. Monitor for ONS needs if PO acceptance this admit with diet advancement 7. Bowel care per rx 8. IF pt refusal of nutrition intake persists with diet advancement consider PEG for long-term nutrition if within POC given inadequate intake hx since 11/09 recent admit Addendum: 11/28/21 at [address] Amended: Links added.
[2021-11-28 12:48] LABS: OCCULT BLOOD STOOL POSITIVE (Neg)
--- NOTE | 2021-11-28 14:42 | NUR ---
received report from Reena Beltran U
[2021-11-28 15:00] VITALS: BP 123/51
[2021-11-28] MEDS ORDERED: vancomycin/NS 1 GM ADD-VANTAGE 250 ML X 1 DOSE IV ONE (15:00)
[2021-11-28 16:53] LABS: HEMATOCRIT 25.6 % (35.0-45.0); HEMOGLOBIN 8.4 g/dl (12.0-16.0); MEAN CORPUSCULAR HEMOGLOBIN 28.2 PG (27.0-31.0); MEAN CORPUSCULAR VOLUME 85.5 FL (78-98); MEAN PLATELET VOLUME 6.7 FL (7.4-10.4); PLATELET COUNT 264 X10'3 (140-440); RED BLOOD COUNT 2.99 X10'6 (4.20-5.60); RED CELL DISTRIBUTION WIDTH 17.3 % (11.5-14.5); WHITE BLOOD COUNT 22.8 X10'3 (4.5-11.0)
[2021-11-28 18:00] VITALS: BP 122/47
--- NOTE | 2021-11-28 18:37 | NUR ---
Problems reprioritized. Patient report given to Samina RN, questions answered & plan of care reviewed with Samina RN.
[2021-11-28] MEDS: insulin glargine (Lantus) pen - multi-dose SQ SCH (21:00)
[2021-11-28] MEDS: amitriptyline 50mg tablet PO SCH (21:42)
[2021-11-28 22:00] VITALS: BP 130/53
[2021-11-29] VITALS (15 sets, daily range): BP systolic 107–151; BP diastolic 27–122
[2021-11-29 00:34] LABS: HEMATOCRIT 25.8 % (35.0-45.0); HEMOGLOBIN 8.7 g/dl (12.0-16.0); MEAN CORPUSCULAR HEMOGLOBIN 28.5 PG (27.0-31.0); MEAN CORPUSCULAR HGB CONC 33.6 g/dL (33.0-36.5); MEAN CORPUSCULAR VOLUME 84.9 FL (78-98); MEAN PLATELET VOLUME 6.8 FL (7.4-10.4); PLATELET COUNT 245 X10'3 (140-440); RED BLOOD COUNT 3.03 X10'6 (4.20-5.60); RED CELL DISTRIBUTION WIDTH 16.9 % (11.5-14.5); WHITE BLOOD COUNT 18.8 X10'3 (4.5-11.0)
[2021-11-29] MEDS: meropenem inj 1 GM in normal saline 100ml IV soln 100 ML IV SCH ×3 (00:46→15:49)
[2021-11-29] MEDS: hydrocortisone sod succ/PF 100mg/2ml inj. IV SCH ×3 (00:54→16:02)
[2021-11-29] MEDS: pantoprazole 40MG/NS 100ML BAG 100 ML IV SCH ×6 (01:00→22:37)
[2021-11-29] MEDS: VANCOMYCIN LEVEL IV SCH (03:00)
[2021-11-29] MEDS ORDERED: amitriptyline 50mg tablet NG SCH (07:53)
[2021-11-29] MEDS ORDERED: dextrose ORAL solution 15 GM/59 ML bottle NG PRN ×2 (07:53)
[2021-11-29] MEDS ORDERED: lactobacillus rhamnosus 10,000 MMU CELLS/CAPSULE NG SCH (07:54)
[2021-11-29] MEDS ORDERED: docusate sodium 100mg/10ml UD cup NG SCH (07:54)
[2021-11-29] MEDS ORDERED: acetaminophen 325mg/10.15ml oral unit dose solution NG PRN ×2 (07:55)
[2021-11-29] MEDS ORDERED: magnesium hydroxide 30ml (MOM) UD suspension NG PRN (07:55)
[2021-11-29] MEDS ORDERED: ondansetron 4mg rapidly disintigrating tab NG PRN (07:56)
[2021-11-29] MEDS ORDERED: potassium Cl 20 mEq SR tablet NG PRN ×2 (07:57→08:00)
[2021-11-29] MEDS ORDERED: midodrine tablet 2.5 MG TABLET PO SCH (08:00)
[2021-11-29] MEDS: K and/or MAG REPLACEMENT MC SCH ×2 (08:00→20:00)
[2021-11-29] MEDS: amiodarone 200mg tablet NG SCH (08:16)
[2021-11-29] MEDS: midodrine tablet 2.5 MG TABLET NG SCH ×3 (08:16→16:00)
[2021-11-29 08:31] LABS: BASOPHILS % (AUTO) 0.2 % (0-1); EOSINOPHILS % (AUTO) 0.1 % (0-6); HEMOGLOBIN 8.5 g/dl (12.0-16.0); LYMPHOCYTES # (AUTO) 0.8 X10'3 (1.1-4.8); LYMPHOCYTES % (AUTO) 4.4 % (21-51); MEAN CORPUSCULAR HEMOGLOBIN 28.1 PG (27.0-31.0); MEAN CORPUSCULAR HGB CONC 32.5 g/dL (33.0-36.5); MEAN CORPUSCULAR VOLUME 86.5 FL (78-98); MEAN PLATELET VOLUME 7.1 FL (7.4-10.4); MONOCYTES # (AUTO) 0.5 X10'3 (0-0.9); MONOCYTES % (AUTO) 2.9 % (2-12); NEUTROPHILS # (AUTO) 17.2 X10'3 (1.8-7.7); NEUTROPHILS % (AUTO) 92.4 % (42-75); PLATELET COUNT 244 X10'3 (140-440); RED BLOOD COUNT 3.01 X10'6 (4.20-5.60); RED CELL DISTRIBUTION WIDTH 17.6 % (11.5-14.5); WHITE BLOOD COUNT 18.6 X10'3 (4.5-11.0)
[2021-11-29 08:39] LABS: ALANINE AMINOTRANSFERASE 35 U/L (12-78); ALBUMIN 1.2 G/DL (3.4-5.0); ALBUMIN/GLOBULIN RATIO 0.5 (1.1-1.5); ALKALINE PHOSPHATASE 144 IU/L (46-116); ANION GAP 8 (8-16); ASPARTATE AMINO TRANSFERASE 27 U/L (10-37); BILIRUBIN,TOTAL 0.2 MG/DL (0.1-1.0); BLOOD UREA NITROGEN 29 MG/DL (7-18); BUN/CREATININE RATIO 17.7 (6.6-38.0); CALCIUM 7.6 MG/DL (8.5-10.1); CHLORIDE 106 MMOL/L (99-107); CREATININE 1.64 MG/DL (0.40-0.90); GLUCOSE 154 MG/DL (70-104); MAGNESIUM 1.8 MG/DL (1.5-2.4); PHOSPHORUS 2.4 MG/DL (2.3-4.5); POTASSIUM 3.7 MMOL/L (3.5-5.1); SODIUM 139 MMOL/L (135-145); TOTAL PROTEIN 3.6 G/DL (6.4-8.2); VANCOMYCIN,RANDOM 21.4 UG/ML; eGFR 32 ML/MIN
--- NOTE | 2021-11-29 08:46 | NUR ---
Message: otilio king [phone] re: aisha bennett [id number]. Picc nurse here, requesting tov picc line consent. please ca
[2021-11-29 08:52] LABS: BILIRUBIN,DIRECT 0.1 MG/DL (0-0.3)
[2021-11-29] MEDS: normal saline 1000ml 1,000 ML IV SCH (10:45)
[2021-11-29 10:52] LABS: PLATELET ESTIMATE NORMAL; TOTAL CELLS COUNTED 100
[2021-11-29 10:53] LABS: ANISOCYTOSIS 1+
[2021-11-29 10:54] LABS: BURR CELLS FEW; SCHISTOCYTES FEW
[2021-11-29] MEDS ORDERED: Dextrose 10%-water IV solution 1,000 ML IV PRN (11:35)
[2021-11-29] MEDS ORDERED: ZINC/COPPER/MANGANESE/SELENIUM 0.5 ML, chromic chloride inj. 5 MCG in AMINO ACIDS 5 %/D... IV SCH (13:00)
[2021-11-29 13:01] LABS: HEMATOCRIT 24.9 % (35.0-45.0); HEMOGLOBIN 8.1 g/dl (12.0-16.0); MEAN CORPUSCULAR HEMOGLOBIN 27.9 PG (27.0-31.0); MEAN CORPUSCULAR HGB CONC 32.5 g/dL (33.0-36.5); MEAN CORPUSCULAR VOLUME 85.9 FL (78-98); MEAN PLATELET VOLUME 7.1 FL (7.4-10.4); PLATELET COUNT 265 X10'3 (140-440); RED CELL DISTRIBUTION WIDTH 17.3 % (11.5-14.5); WHITE BLOOD COUNT 17.9 X10'3 (4.5-11.0)
[2021-11-29] MEDS ORDERED: diphenhydrAMINE 50 mg/ml inj ONE (13:10)
[2021-11-29] MEDS ORDERED: fentaNYL/PF 50MCG/1 ML 2ML syringe ONE (13:10)
[2021-11-29] MEDS ORDERED: MIDAZolam 1 MG/ML 5ML VIAL ONE (13:10)
--- NOTE | 2021-11-29 17:10 | NUR ---
PAGER ID: [phone] MESSAGE: otilio king [phone] re: aisha bennett [phone]. pts c/o mod-severe pain. please advise. thank yo
[2021-11-29 17:15] LABS: HEMATOCRIT 25.2 % (35.0-45.0); HEMOGLOBIN 8.4 g/dl (12.0-16.0); MEAN CORPUSCULAR HEMOGLOBIN 28.5 PG (27.0-31.0); MEAN CORPUSCULAR HGB CONC 33.3 g/dL (33.0-36.5); MEAN CORPUSCULAR VOLUME 85.5 FL (78-98); MEAN PLATELET VOLUME 7.3 FL (7.4-10.4); PLATELET COUNT 275 X10'3 (140-440); RED BLOOD COUNT 2.95 X10'6 (4.20-5.60); RED CELL DISTRIBUTION WIDTH 17.2 % (11.5-14.5); WHITE BLOOD COUNT 20.3 X10'3 (4.5-11.0)
[2021-11-29] MEDS ORDERED: morphine 2 MG/ML inj. syringe IV PRN (17:25)
[2021-11-29] MEDS: morphine 2 MG/ML inj. syringe IV PRN ×2 (17:59→23:56)
--- NOTE | 2021-11-29 19:00 | NUR ---
pt repositioned q2h by nursing staff/techs. at this time md states pt is to remain npo despite EGD results. Pt started on TPN per md orders. Will continue to monitor patients needs
--- NOTE | 2021-11-29 19:01 | NUR ---
Patient in room PCU 3012. I have received report from Karley BUITRAGO and had the opportunity to ask questions and assume patient care.
[2021-11-29] MEDS ORDERED: ondansetron/PF 4mg/2ml inj IV PRN (19:55)
[2021-11-29] MEDS: fat emulsion 20% IV 100 ML IV SCH (20:03)
[2021-11-29] MEDS: insulin regular, human U-100 3ml vial - multi-dose SQ SCH (22:29)
[2021-11-29 23:06] LABS: HEMATOCRIT 25.4 % (35.0-45.0); HEMOGLOBIN 8.3 g/dl (12.0-16.0); MEAN CORPUSCULAR HEMOGLOBIN 28.2 PG (27.0-31.0); MEAN CORPUSCULAR HGB CONC 32.6 g/dL (33.0-36.5); MEAN CORPUSCULAR VOLUME 86.4 FL (78-98); MEAN PLATELET VOLUME 7.3 FL (7.4-10.4); PLATELET COUNT 256 X10'3 (140-440); RED BLOOD COUNT 2.93 X10'6 (4.20-5.60); RED CELL DISTRIBUTION WIDTH 17.5 % (11.5-14.5); WHITE BLOOD COUNT 19.5 X10'3 (4.5-11.0)
[2021-11-30] MEDS: hydrocortisone sod succ/PF 100mg/2ml inj. IV SCH ×3 (01:11→15:25)
[2021-11-30] MEDS: insulin glargine (Lantus) pen - multi-dose SQ SCH ×2 (01:11→20:10)
[2021-11-30] MEDS: meropenem inj 1 GM in normal saline 100ml IV soln 100 ML IV SCH ×4 (01:12→15:15)
[2021-11-30 02:00] VITALS: BP 129/47
[2021-11-30] MEDS: insulin regular, human U-100 3ml vial - multi-dose SQ SCH ×4 (02:31→20:06)
[2021-11-30] MEDS: VANCOMYCIN LEVEL IV SCH (03:00)
[2021-11-30] MEDS: pantoprazole 40MG/NS 100ML BAG 100 ML IV SCH ×5 (03:25→20:50)
[2021-11-30 04:44] LABS: BASOPHILS % (AUTO) 0.1 % (0-1); EOSINOPHILS % (AUTO) 0 % (0-6); HEMATOCRIT 25.2 % (35.0-45.0); HEMOGLOBIN 8.3 g/dl (12.0-16.0); LYMPHOCYTES # (AUTO) 0.7 X10'3 (1.1-4.8); LYMPHOCYTES % (AUTO) 3.4 % (21-51); MEAN CORPUSCULAR HEMOGLOBIN 28.1 PG (27.0-31.0); MEAN CORPUSCULAR HGB CONC 32.9 g/dL (33.0-36.5); MEAN CORPUSCULAR VOLUME 85.4 FL (78-98); MEAN PLATELET VOLUME 7.1 FL (7.4-10.4); MONOCYTES # (AUTO) 0.4 X10'3 (0-0.9); MONOCYTES % (AUTO) 2.2 % (2-12); NEUTROPHILS # (AUTO) 18.2 X10'3 (1.8-7.7); NEUTROPHILS % (AUTO) 94.3 % (42-75); PLATELET COUNT 272 X10'3 (140-440); RED BLOOD COUNT 2.95 X10'6 (4.20-5.60); RED CELL DISTRIBUTION WIDTH 17.5 % (11.5-14.5); WHITE BLOOD COUNT 19.3 X10'3 (4.5-11.0)
[2021-11-30 05:01] LABS: ALANINE AMINOTRANSFERASE 26 U/L (12-78); ALBUMIN 1.2 G/DL (3.4-5.0); ALBUMIN/GLOBULIN RATIO 0.5 (1.1-1.5); ALKALINE PHOSPHATASE 128 IU/L (46-116); ANION GAP 10 (8-16); ASPARTATE AMINO TRANSFERASE 17 U/L (10-37); BILIRUBIN,TOTAL 0.2 MG/DL (0.1-1.0); BLOOD UREA NITROGEN 39 MG/DL (7-18); BUN/CREATININE RATIO 17.2 (6.6-38.0); CALCIUM 7.4 MG/DL (8.5-10.1); CHLORIDE 108 MMOL/L (99-107); CREATININE 2.27 MG/DL (0.40-0.90); GLUCOSE 226 MG/DL (70-104); MAGNESIUM 1.8 MG/DL (1.5-2.4); PHOSPHORUS 3.3 MG/DL (2.3-4.5); POTASSIUM 3.4 MMOL/L (3.5-5.1); PREALBUMIN 16.4 MG/DL (19-36); SODIUM 141 MMOL/L (135-145); TOTAL CARBON DIOXIDE 23.1 MMOL/L (24-32); TOTAL PROTEIN 3.6 G/DL (6.4-8.2); TRIGLYCERIDES 109 MG/DL (20-135); VANCOMYCIN,RANDOM 21.8 UG/ML; eGFR 22 ML/MIN
[2021-11-30 05:05] LABS: TOTAL CELLS COUNTED 100
[2021-11-30 05:06] LABS: ANISOCYTOSIS 1+; ELLIPTOCYTES FEW; PLATELET ESTIMATE NORMAL; POLYCHROMASIA FEW
[2021-11-30 06:00] VITALS: BP 135/53
--- NOTE | 2021-11-30 06:18 | NUR ---
Problems reprioritized. Patient report given, questions answered & plan of care reviewed with Jessie BUITRAGO.
[2021-11-30] MEDS ORDERED: EPOETIN ALFA-EPBX 20,000 UNIT/ML 1 ML MDV IV ONE (07:45)
[2021-11-30] MEDS ORDERED: albumin (human) 25% 100ml IV 100 ML IV PRN (07:45)
[2021-11-30] MEDS ORDERED: heparin 1,000 units/ml 10ml inj HE ONE ×2 (07:50)
[2021-11-30] MEDS: WATER IV SCH (07:53)
[2021-11-30] MEDS: DEXTROSE 5% IV SCH (07:53)
[2021-11-30] MEDS: AMIODARONE IV SCH (07:53)
[2021-11-30] MEDS: K and/or MAG REPLACEMENT MC SCH ×2 (08:00→20:00)
--- NOTE | 2021-11-30 09:30 | NUR ---
Unable to given 0800 dose Meropenem due to patient receiving dialysis treatment
[2021-11-30 11:00] VITALS: BP 144/49
--- NOTE | 2021-11-30 12:50 | NUR ---
PRESSURE ULCER EDUCATION: DEFINITION: A pressure ulcer is an area of skin that breaks down when you stay in one position too long. The constant pressure against the skin reduces the blood flow to that area and the affected tissue dies. CAUSES: "Being bedridden or in a wheelchair "Fragile skin "Having a chronic condition, such as diabetes or vascular disease "Inability to move certain parts of your body without assistance "Older age "Incontinence of urine or stool SYMPTOMS: "A reddened area that DOES NOT turn white when pressed on - this can be the beginning of a pressure ulcer "A blister, deep sore or a crater - these can be advanced pressure ulcers FIRST AID: "Relieve the pressure on this area "Keep the area clean and dry "Call your primary doctor if you see any of the above symptoms "DO NOT massage the area "DO NOT use a donut shaped or ring shaped pillow- these actually interfere with the blood flow and cause complications PREVENTION: "Check for pressure ulcers everyday "Change position at least every two hours to relieve pressure "Use items that help relieve pressure- pillows, sheepskin, foam padding, and powders. "Keep skin clean and dry "Eat healthy well balanced meals "Exercise daily IF YOU SEE ANY OF THESE SYMPTOMS WHILE IN THE HOSPITAL - TELL YOUR NURSE IMMEDIATELY. IF YOU SEE ANY OF THESE SYMPTOMS WHILE AT HOME OR HAVE ANY QUESTIONS OR CONCERNS ABOUT PRESSURE ULCERS - CALL YOUR PRIMARY DOCTOR IMMEDIATELY. Addendum: 11/30/21 at 1251 by Genie Turner RN Amended: Links added.
--- NOTE | 2021-11-30 14:10 | NUR ---
Pharmacy made aware of TPN missing
--- NOTE | 2021-11-30 14:43 | NUR ---
Attempted to take pictures of buttocks and right hip wound, but patient states "No I am refusing". Patient states she is too tired at this time.
--- NOTE | 2021-11-30 14:55 | NUR ---
Pharmacy made aware of TPN not available twice. Pharmacist called back stating to give D10 at goal rate until TPN is available. D10 not available on unit. Pharmacy states they will bring it up
[2021-11-30 15:00] VITALS: BP 134/46
[2021-11-30] MEDS ORDERED: CHROMIC CHLORIDE IV SCH (16:00)
[2021-11-30] MEDS ORDERED: ZINC IV SCH (16:00)
[2021-11-30] MEDS ORDERED: [UNRECOGNIZED DRUG - OTHER] IV SCH (16:00)
[2021-11-30] MEDS ORDERED: COPPER IV SCH (16:00)
[2021-11-30] MEDS ORDERED: MANGANESE IV SCH (16:00)
[2021-11-30] MEDS ORDERED: SELENIUM IV SCH (16:00)
[2021-11-30] MEDS: morphine 2 MG/ML inj. syringe IV PRN ×2 (17:59→21:49)
--- NOTE | 2021-11-30 18:32 | NUR ---
Problems reprioritized. Patient report given, questions answered & plan of care reviewed with Kamran BUITRAGO.
--- NOTE | 2021-11-30 18:41 | NUR ---
Patient in room PCU 3012. I have received report from MINNA Vasquez and had the opportunity to ask questions and assume patient care.
[2021-11-30 18:58] VITALS: BP 133/44
[2021-11-30] MEDS: fat emulsion 20% IV 100 ML IV SCH (19:44)
--- NOTE | 2021-11-30 21:53 | NUR ---
Patient is refusing to turn so far throughout the shift. Education was given on the importance of turning. Patient is still refusing. I will continue to keep offering
[2021-11-30 22:00] VITALS: BP 134/55
[2021-12-01] MEDS: hydrocortisone sod succ/PF 100mg/2ml inj. IV SCH ×2 (00:20→07:40)
[2021-12-01] MEDS: meropenem inj 1 GM in normal saline 100ml IV soln 100 ML IV SCH ×2 (00:21→07:35)
[2021-12-01] MEDS: pantoprazole 40MG/NS 100ML BAG 100 ML IV SCH ×4 (01:00→16:00)
[2021-12-01] MEDS: VANCOMYCIN LEVEL IV SCH (03:00)
[2021-12-01] MEDS: insulin regular, human U-100 3ml vial - multi-dose SQ SCH ×2 (03:04→09:13)
[2021-12-01] MEDS: morphine 2 MG/ML inj. syringe IV PRN ×2 (03:05→10:53)
[2021-12-01 05:52] LABS: BASOPHILS # (AUTO) 0.1 X10'3 (0-0.2); BASOPHILS % (AUTO) 0.3 % (0-1); EOSINOPHILS % (AUTO) 0.1 % (0-6); HEMATOCRIT 27.8 % (35.0-45.0); HEMOGLOBIN 9.1 g/dl (12.0-16.0); LYMPHOCYTES # (AUTO) 0.8 X10'3 (1.1-4.8); LYMPHOCYTES % (AUTO) 3.5 % (21-51); MEAN CORPUSCULAR HEMOGLOBIN 28.1 PG (27.0-31.0); MEAN CORPUSCULAR HGB CONC 32.8 g/dL (33.0-36.5); MEAN CORPUSCULAR VOLUME 85.8 FL (78-98); MEAN PLATELET VOLUME 7.4 FL (7.4-10.4); MONOCYTES # (AUTO) 0.7 X10'3 (0-0.9); MONOCYTES % (AUTO) 2.9 % (2-12); NEUTROPHILS % (AUTO) 93.2 % (42-75); PLATELET COUNT 256 X10'3 (140-440); RED BLOOD COUNT 3.24 X10'6 (4.20-5.60); RED CELL DISTRIBUTION WIDTH 17.1 % (11.5-14.5); WHITE BLOOD COUNT 22.5 X10'3 (4.5-11.0)
[2021-12-01 06:00] VITALS: BP 134/53
--- NOTE | 2021-12-01 06:21 | NUR ---
Problems reprioritized. Patient report given, questions answered & plan of care reviewed with MINNA Corona.
--- NOTE | 2021-12-01 06:22 | NUR ---
Problems reprioritized. Patient report given, questions answered & plan of care reviewed with MINNA Corona.
[2021-12-01 06:42] LABS: ALANINE AMINOTRANSFERASE 17 U/L (12-78); ALBUMIN 1.2 G/DL (3.4-5.0); ALBUMIN/GLOBULIN RATIO 0.5 (1.1-1.5); ALKALINE PHOSPHATASE 122 IU/L (46-116); ANION GAP 5 (8-16); ASPARTATE AMINO TRANSFERASE 14 U/L (10-37); BILIRUBIN,TOTAL 0.3 MG/DL (0.1-1.0); BLOOD UREA NITROGEN 30 MG/DL (7-18); BUN/CREATININE RATIO 18.6 (6.6-38.0); CALCIUM 7.2 MG/DL (8.5-10.1); CHLORIDE 106 MMOL/L (99-107); CREATININE 1.61 MG/DL (0.40-0.90); GLUCOSE 240 MG/DL (70-104); MAGNESIUM 1.5 MG/DL (1.5-2.4); PHOSPHORUS 1.5 MG/DL (2.3-4.5); POTASSIUM 3.1 MMOL/L (3.5-5.1); SODIUM 137 MMOL/L (135-145); TOTAL CARBON DIOXIDE 26.5 MMOL/L (24-32); TOTAL PROTEIN 3.8 G/DL (6.4-8.2); eGFR 33 ML/MIN
[2021-12-01 07:07] LABS: ANISOCYTOSIS 1+; PLATELET ESTIMATE NORMAL; POLYCHROMASIA 1+; TOTAL CELLS COUNTED 100
[2021-12-01] MEDS ORDERED: Dakins solution (1/4 strength) 473ml solution TP SCH (08:00)
[2021-12-01] MEDS: K and/or MAG REPLACEMENT MC SCH (08:00)
[2021-12-01] MEDS ORDERED: MVI, adult No.4 with vit. K 10 ML in dextrose 5% water 500ml 500 ML IV SCH ×2 (08:00)
[2021-12-01] MEDS: WATER IV SCH (10:16)
[2021-12-01] MEDS: AMIODARONE IV SCH (10:16)
[2021-12-01] MEDS: DEXTROSE 5% IV SCH (10:16)
[2021-12-01] MEDS: normal saline 1000ml 1,000 ML IV SCH (10:46)
[2021-12-01 11:00] VITALS: BP 132/49
[2021-12-01] MEDS ORDERED: ondansetron 4mg rapidly disintigrating tab PO PRN (12:35)
[2021-12-01 15:00] VITALS: BP 128/72
--- NOTE | 2021-12-01 15:01 | NUR ---
PAGER ID: [phone] MESSAGE: [id number] Ute Wright- You want me to hold the patients 34units of Humulin? Jessie [phone]
--- NOTE | 2021-12-01 15:30 | NUR ---
Dr. Umanzor states Humulin should be held due to patient being transferred to [facility]
--- NOTE | 2021-12-01 15:54 | NUR ---
Charge nurse states she talked with Dr. Castillo and he said it was okay to not give humulin
--- NOTE | 2021-12-01 17:00 | NUR ---
Report was given to Roshan Mcgovern at [facility] at 1430. Report given to EMS for transfer. All belongings given to . PIV on right tibial removed. AMANDA PICC saline locked. Envelope given to EMS.
[2021-12-02] MEDS ORDERED: hydrocortisone sod succ/PF 100mg/2ml inj. IV SCH
== END 2021-12-01 17:32 | DRG 720 ==
LOC: ER 21:03 → ED HOLD 23:12 → ICU 2S 11-24 07:44 → PCU 3S 11-27 20:45
PROVIDERS: ADMIT Internal Medicine; ATTEND Internal Medicine
PROC: 04JYXZZ Inspection of Lower Artery, External Approach (ICD-10-PCS; principal; 2021-11-23)
PROC: 05JYXZZ Inspection of Upper Vein, External Approach (ICD-10-PCS; 2021-11-23)
PROC: 30233N1 Transfusion of Nonautologous Red Blood Cells into Peripheral Vein, Percutaneous Approach (ICD-10-PCS; 2021-11-24)
PROC: 5A1D70Z Performance of Urinary Filtration, Intermittent, Less than 6 Hours Per Day (ICD-10-PCS; 2021-11-24)
PROC: 0DJ08ZZ Inspection of Upper Intestinal Tract, Via Natural or Artificial Opening Endoscopic (ICD-10-PCS; 2021-11-25)
PROC: BW251ZZ Computerized Tomography (CT Scan) of Chest, Abdomen and Pelvis using Low Osmolar Contrast (ICD-10-PCS; 2021-11-27)
PROC: 5A1D70Z Performance of Urinary Filtration, Intermittent, Less than 6 Hours Per Day (ICD-10-PCS; 2021-11-28)
PROC: 05HY33Z Insertion of Infusion Device into Upper Vein, Percutaneous Approach (ICD-10-PCS; 2021-11-29)
PROC: 0DB68ZX Excision of Stomach, Via Natural or Artificial Opening Endoscopic, Diagnostic (ICD-10-PCS; 2021-11-29)
PROC: 0DB78ZX Excision of Stomach, Pylorus, Via Natural or Artificial Opening Endoscopic, Diagnostic (ICD-10-PCS; 2021-11-29)
PROC: 5A1D70Z Performance of Urinary Filtration, Intermittent, Less than 6 Hours Per Day (ICD-10-PCS; 2021-11-30)
DX: A41.9 Sepsis, unspecified organism (principal); R65.21 Severe sepsis with septic shock; K65.1 Peritoneal abscess; E43 Unspecified severe protein-calorie malnutrition; E87.2 Acidosis; N17.9 Acute kidney failure, unspecified; K29.71 Gastritis, unspecified, with bleeding; K65.9 Peritonitis, unspecified; E11.22 Type 2 diabetes mellitus with diabetic chronic kidney disease; N18.6 End stage renal disease; I48.92 Unspecified atrial flutter; D62 Acute posthemorrhagic anemia; E11.40 Type 2 diabetes mellitus with diabetic neuropathy, unspecified; I48.91 Unspecified atrial fibrillation; L98.429 Non-pressure chronic ulcer of back with unspecified severity; Z66 Do not resuscitate; I50.9 Heart failure, unspecified; R41.0 Disorientation, unspecified; E87.6 Hypokalemia; M35.00 Sjogren syndrome, unspecified; E83.42 Hypomagnesemia; M25.551 Pain in right hip; T81.49XA Infection following a procedure, other surgical site, initial encounter; Y83.8 Other surgical procedures as the cause of abnormal reaction of the patient, or of later complication, without mention of misadventure at the time of the procedure; Y92.89 Other specified places as the place of occurrence of the external cause; Z74.01 Bed confinement status; Z78.1 Physical restraint status; Z88.2 Allergy status to sulfonamides; Z99.2 Dependence on renal dialysis; Z93.3 Colostomy status; Z88.1 Allergy status to other antibiotic agents; Z68.22 Body mass index [BMI] 22.0-22.9, adult; Z86.711 Personal history of pulmonary embolism
CPT/HCPCS: 36415; 36430; 36569; 36573; 36600; 43235; 43239; 71045; 71260; 74018; 74177; 76942; 80048; 80053; 80069; 80076; 80202; 81001; 82272; 82803; 82948; 83036; 83605; 83690; 83735; 84134; 84145; 84478; 85007; 85018; 85025; 85027; 85610; 85730; 86870; 86880; 86885; 86900; 86901; 86902; 86905; 86920; 86922; 87040; 87088; 87340; 93005; 99152; 99285; A4620; C1751; C9113; G0257; G0378; J0282; J0696; J0713; J1200; J1644; J1720; J1815; J2060; J2185; J2250; J2270; J2354; J2405; J2597; J2765; J3010; J3370; J3475; J3480; J3490; J7030; J7040; J7050; J7060; J7120; P9016; Q4081; Q9963; Q9967